=== PATIENT | female | born 1935 | race Caucasian/White ===

== ENCOUNTER 2023-11-24 13:20 | Outpatient (OUT) | payer MEDICARE, OTHER, SELFPAY ==
[2023-11-24 14:18] LABS: Anion Gap 14.3; BUN Creatinine Ratio 22.1; Carbon Dioxide 29.5 mmol/L (21.0-32.0); Chloride 106 mmol/L (98-107); Estimated GFR (African America >60 (>=60); Estimated GFR (Non-African Ame >60 (>=60); Glucose 129 mg/dL (74-106); Potassium 3.8 mmol/L (3.5-5.1); Sodium 146 mmol/L (136-145)
== END 2023-11-24 13:21 | disposition home or self-care (01) ==
LOC: LAB 13:21
PROVIDERS: PCP Family Medicine
DX: I10 Essential (primary) hypertension (principal)
CPT/HCPCS: 36415; 80048

== ENCOUNTER 2023-12-27 13:26 | Outpatient (OUT) | payer MEDICARE, OTHER, SELFPAY ==
--- NOTE | 2023-12-27 13:30 | MM_ITS ---
Patient Name: HEMAL NASCIMENTO MR#: [id number] : 1935 Exam Date: 12/27/2023 Ordering Doctor: Non-Staff Physician RADIOLOGY REPORT PROCEDURE: MM TOMOSYNTHESIS DIAGNOSTIC BI COMPARISON: MG MAMM DIAGNOSTIC 3D ZEKE CAD, 12/23/2021. MG MAMM SCREEN 3D ZEKE CAD, 12/20/2022. 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 Lifetime Breast Cancer Risk Not Applicable. Personal Breast Cancer Yes, in 2018 Personal Ovarian Cancer No Treatments bowel resection, chemotherapy Family Cancers Grandmother-maternal with lung cancer at age ~65. LOCATION: [facility] BREAST COMPOSITION: There are scattered areas of fibroglandular density. FINDINGS: DIAGNOSTIC CATEGORY 2--BENIGN FINDING. NO CHANGE FROM COMPARISON. Scattered benign-appearing calcifications are present. Scattered benign-appearing lymph nodes are present. RIGHT BREAST: No significant suspicious finding. LEFT BREAST: No significant suspicious finding. Stable area of focal asymmetry with contour deformity of the breast upper-outer quadrant deep to a linear scar marker, this is unchanged on the 2021 and 2022 exams. RECOMMENDATIONS: ROUTINE MAMMOGRAM AND CLINICAL EVALUATION IN 12 MONTHS. PLEASE NOTE: A NORMAL MAMMOGRAM DOES NOT EXCLUDE THE POSSIBILITY OF BREAST CANCER. A CLINICALLY SUSPICIOUS PALPABLE LUMP SHOULD BE BIOPSIED. Dictated by: Rao Chavez MD on 12/27/2023 at 13:57 Approved by: Rao Chavez MD on 12/27/2023 at 14:00
== END 2023-12-27 13:27 | disposition home or self-care (01) ==
LOC: MAMMO 13:26
PROVIDERS: PCP Family Medicine
DX: C50.412 Malignant neoplasm of upper-outer quadrant of left female breast (principal); Z17.0 Estrogen receptor positive status [ER+]; Z80.1 Family history of malignant neoplasm of trachea, bronchus and lung
CPT/HCPCS: 77066; G0279

== ENCOUNTER 2024-07-28 20:29 | Emergency (ER) | payer OTHER, MEDICARE, SELFPAY ==
[2024-07-28] VITALS (9 sets, daily range): BP systolic 123–129; BP diastolic 66–67; PULSE 53–96; TEMP 37; O2SAT 92–95; BMI 23.4
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
[2024-07-28 20:39] LABS: Glucometer 108 mg/dL (74-106)
--- NOTE | 2024-07-28 20:41 | ECG_ITS ---
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
--- OUTSIDE RECORDS SUMMARY | 2024-07-28 20:50 | XMS_ITS | CCD ---
Author Organization [facility] Care Team Providers Care Supervisor Steffen House Name Role Phone Yris Suarez MD Primary Care Provider [phone] YRIS SUAREZ Primary Care Physician Yris Suarez MD Primary Care Provider [phone] Yris Suarez Unavailable INGRID RIAVS Admitting Unavailable INGRID RIVAS Attending Unavailable MAGDIEL Ty, Consulting Unavailable ERICK, DR YRIS Khan Primary Care Unavailable TIMMIEileen, DR VINCENT Admitting Unavailable TIMMIS, DR VINCENT Attending Unavailable TIMMIS, DR VINCENT Consulting Unavailable ERICK, DR YRIS Khan Primary Care Unavailable CINDY, DR XU Mcleod Consulting Unavailable KURT DE SANTIAGO Admitting Unavailable KURT DE SANTIAGO Attending Unavailable ERICK, DR YRIS Khan Primary Care Unavailable CINDY, DR XU Mcleod Consulting Unavailable ERICK, DR YRIS Khan Consulting Unavailable INGRID RIVAS Admitting Unavailable ZIEBER, DR FEDERICO Sow Consulting Unavailable INGRID RIVAS Attending Unavailable ERICK, DR YRIS Khan Primary Care Unavailable CONSTANTINE HERNANDEZ Consulting Unavailable INGRID RIVAS Consulting Unavailable Yris Suarez MD Primary Care Provider KIAN MONET Referring Unavailable YRIS SUAREZ Primary Care Unavailable KIAN MONET Attending Unavailable YRIS SUAREZ Primary Care Unavailable KIAN MONET Referring Unavailable YRIS SUAREZ Primary Care Unavailable KIAN MOENT Attending Unavailable YRIS SUAREZ Primary Care Unavailable KIAN MONET Referring Unavailable YRIS SUAREZ Primary Care Unavailable KIAN MONET Attending Unavailable YRIS SUAREZ Primary Care Unavailable KURT DE SANTIAGO Attending Unavailable KURT DE SANTIAGO Referring Unavailable YRIS SUAREZ Primary Care Unavailable Medications Current Medications Medication Drug Class(es) Dates Sig (Normalized) Sig (Original) aspirin 81 mg delayed release oral tablet (15 sources) Platelet Aggregation Inhibitor, Nonsteroidal Anti-inflammatory Drug take 1 tablet by mouth once daily aspirin, enteric coated (ASPIRIN, ENTERIC COATED) 81 mg EC tablet Take 81 mg by mouth once daily. Active take 1 capsule by mouth once nnamdi ly Aspirin 81 MG 1 capsule Orally Once a day Active Comment on above: Take 81 mg by mouth once daily. atorvastatin 40 mg oral tablet (18 sources) HMG-CoA Reductase Inhibitor Start: End: take 1 tablet by mouth once daily atorvastatin (LIPITOR) 40 mg tablet Indications: Mixed hyperlipidemia Take 1 tablet by mouth once daily. 90 tablet 3 06/15/2024 Active Comment on above: Take 1 tablet by gerald th once daily. betamethasone 0.0005 mg/mg topical ointment (2 sources) Corticosteroid Start: Betamethasone Dipropionate 0.05 % 1 application Externally Twice a day for 14 days Aug, Active hydrocortisone 10 mg/ml / neomycin 3.5 mg/ml / polymyxin b [id number] unt/ml otic suspension (2 sources) Aminoglycoside Antibacterial, Polymyxin-class Antibacterial, Corticosteroid Start: Afdtghti-Wlcqcljwu-XR 3.5-73270-0 4 drops into affected ear Otic Three times a day for 7 days Aug, Active losartan potassium 50 mg oral tablet (7 sources) Angiotensin 2 Receptor Nathaly Start: End: take 1 tablet by mouth once daily losartan (COZAAR) 50 mg tablet Indications: Primary hypertension Take 1 tablet by mouth once daily. 90 tablet 3 06/15/2024 Active Start: 11-18-2023 End: 02-21-2024 take 1 tablet by mouth once daily losartan (COZAAR) 25 mg tablet Indications: Primary hypertension Take 1 tablet by mouth once daily. 90 tablet 3 11/18/2023 02/21/2024 Discontinued Comment on above: Take 1 tablet by gerald once daily. magnesium oxide 400 mg oral tablet (18 sources) Start: End: take 1 tablet by mouth once daily magnesium oxide (MAG-OX) 400 mg (241.3 mg magnesium) tablet Indications: Hypomagnesemia , Low magnesium level Take 1 tablet by mouth once daily. 90 tablet 3 06/15/2024 Active Comment on above: Take 1 tablet by gerald once daily. 24 hr metoprolol succinate 25 mg extended release oral tablet (1 source) beta-Adrenergic Nathaly Start: 4 take 0.5 tablet by mouth once daily metoprolol succinate ER (TOPROL XL) 25 mg 24 hr tablet Indications: Primary hypertension Take 0.5 tablets by mouth once daily. 45 tablet 3 06/15/2024 Active ubidecarenone 100 mg oral capsule (18 sources) Start: 1 End: 4 take 1 capsule by mouth once daily coenzyme Q10 (COQ-10) 100 mg cap capsule Indications: Mixed hyperlipidemia Take 1 capsule by mouth once daily. 90 capsule 3 06/15/2024 Active Coenzyme Q-10 10 0 MG as directed Orally Not-Taking Comment on above: Take 1 capsule by mo [facility] once daily. Problems Active Problems Problem Classification Problem Date Documented Da te Episodic/Chronic Allergic reactions (3 sources) Atopic dermatitis; Translations: [Intrinsic (allergic) eczema] Chronic Cancer of breast (17 sources) Malignant neoplasm of upper-outer quadrant of female breast; Translations: [Malignant neoplasm of upper-outer quadrant of left female breast] Onset: 07-31-2018 Chronic Cancer of colon (13 sources) Malignant tumor of colon; Translations: [Malignant neoplasm of colon, unspecified] Onset: 09-06-2012 09-06-2012 Chronic Disorders of lipid metabolism (20 sources) Mixed hyperlipidemia; Translations: [Mixed hyperlipidemia] Onset: 05-29-2021 05-29-2021 Chronic Esophageal disorders (1 source) Gastro-esophageal reflux disease without esophagitis; Translations: [GERD WITHOUT ESOPHAGITIS] Onset: 04-20-2022 Chronic Essential hypertension (3 sources) Essential hypertension; Translations: [Essential (primary) hypertension] 11-18-2023 Chronic Occlusion or stenosis of precerebral arteries (7 sources) Bilateral stenosis of carotid arteries; Translations: [Occlusion and stenosis of bilateral carotid arteries] Onset: 12-09-2023 Chronic Other aftercare (3 sources) Drug therapy finding; Translations: [Encounter for therapeutic drug level monitoring] Episodic Other aftercare (1 source) Long-term current use of drug therapy; Translations: [Encounter for therapeutic drug level monitoring] 06-15-2024 Episodic Other circulatory disease (5 sources) Elevated blood-pressure reading without diagnosis of hypertension; Translations: [Elevated blood-pressure reading, without diagnosis of hypertension] Episodic Other ear and sense organ disorders (2 sources) Acute actinic otitis externa, left ear Episodic Other nutritional; endocrine; and metabolic disorders (7 sources) Hypomagnesemia; Translations: [Hypomagnesemia] Chronic Other nutritional; endocrine; and metabolic disorders (1 source) Hypomagnesemia; Translations: [Hypomagnesemia] Onset: 11-18-2023 Chronic Other screening for suspected conditions (not mental disorders or infectious disease) (5 sources) Encounter for screening mammogram for malignant neoplasm of breast; Translations: [Hypomagnesemia] Onset: 12-20-2022 Episodic Other upper respiratory infections (6 sources) Chronic pansinusitis; Translations: [Chronic sinusitis, unspecified] Onset: 04-19-2022 Chronic Residual codes; unclassified (1 source) Family history of malignant neoplasm of trachea, bronchus and lung; Translations: [FAM HX MALIG NEOPLSM TRACH BRON LNG] Onset: 12-25-2022 Episodic Past or Other Problems Problem Classification Problem Date Documented Da te Episodic/Chronic Conditions associated with dizziness or vertigo (4 sources) Dizziness and giddiness; Translations: [DIZZINESS AND GIDDINESS] Onset: 04-16-2022 Episodic Other aftercare (2 sources) Other exterminator termite (current) drug therapy; Translations: [OTH USP CURRENT DRUG THERAPY] Onset: 04-20-2022 Episodic Other aftercare (1 source) intermission coordinator (current) use of aspirin; Translations: [USP CURRENT USE OF ASPIRIN] Onset: 04-20-2022 Episodic Other aftercare (1 source) Encounter for therapeutic drug level monitoring; Translations: [Encounter for monitoring statin therapy] Onset: 11-18-2023 Episodic Other circulatory disease (1 source) Elevated blood-pressure reading, without diagnosis of hypertension; Translations: [Elevated blood pressure reading without diagnosis of hypertension] Onset: 11-18-2023 Episodic Other eye disorders (3 sources) Ocular pain, right eye; Translations: [OCULAR PAIN RIGHT EYE] Onset: 04-18-2022 Episodic Other upper respiratory disease (1 source) Cyst and mucocele of nose and nasal sinus; Translations: [CYST AND MUCOCELE NOSE AND NASAL SINUS] Onset: 04-20-2022 Episodic Screening and history of mental health and substance abuse codes (7 sources) Ex-smoker; Translations: [Personal history of nicotine dependence] Onset: 04-20-2022 Episodic Urinary tract infections (1 source) Urinary tract infection, site not specified; Translations: [UTI SITE NOT SPECIFIED] Onset: 04-20-2022 Episodic Results Test Name Value Interpretation Reference Range Facility [facility] 06-15-2024 CNOV Office Visit ([facility] ) NASCIMENTOMORELIA ([id number]) 1935 F Date Time Provider Department 06/15/24 1:30 PM KIAN MONET During your visit today, we recorded the following information about you: Pulse Blood pressure Weight 92/minute 153/74 65 kg Kian Monet DO 06/15/2024 2:02 PM [facility] [place] SECTION OF REGIONAL CARDIOLOGY OUTPATIENT VISIT DATE 06/15/24 OUTPATIENT VISIT TYPE Established PRIMARY CARE PHYSICIAN: Yris Suarez MD ([facility]) [address] [place] [phone] HISTORY OF PRESENT ILLNESS: Ms. Nascimento is a 88 year old female with a PMH of carotid stenosis, hx of colon CA, and breast CA sp surgery.she was last seen by me on 02/21/2024, per that note: ...she tells me that she feels great. She checks her BP once in a while and her measurements have indicated that her blood pressure is controlled however when checking her blood pressure monitor today it was significantly off, 23 mmHg. She denies having any symptoms such as: chest pain, palpitations, shortness of breath, orthopnea, LE edema, presyncope/syncope, N/V, bleeding, or other significant symptoms. Today, she tells me that she enjoys being outside. She went golfing and was taking care of the garden. She denies having any: chest pain, palpitations, shortness of breath, orthopnea, LE edema, presyncope/syncope, N/V, bleeding, or other significant symptoms. She is still eating vegetables daily. She drinks 1 cup of coffee in the AM. She will have 3-4 alcoholic beverages a month. She quit smoking in 1998. She is not using any marijuana nor other drugs. She is walking for 30+ minutes her dog 3-4 times a day. Family, mother had 3 TIAs and at 89 years of age. Father had dementia. Upon further questioning, she lost her in 2006. She continues to have fecal incontinence and is working with her PCP regarding this. She tells me that her home sBP is in the 120s. IMPRESSION: Encounter Diagnosis ICD-10-CM 1. Primary hypertension I10 losartan (COZAAR) 50 mg tablet metoprolol succinate ER (TOPROL XL) 25 mg 24 hr tablet COMPLETE BLOOD COUNT BASIC METABOLIC PANEL 2. Mixed hyperlipidemia E78.2 coenzyme Q10 (COQ-10) 100 mg cap capsule atorvastatin (LIPITOR) 40 mg tablet LIPID PANEL BASIC 3. Hypomagnesemia E83.42 magnesium oxide (MAG-OX) 400 mg (241.3 mg magnesium) tablet MAGNESIUM 4. Low magnesium level R79.0 magnesium oxide (MAG-OX) 400 mg (241.3 mg magnesium) tablet 5. Bilateral carotid artery stenosis I65.23 6. Encounter for monitoring statin therapy Z51.81 Z79.899 7. Ex-smoker Z87.891 PLAN AND RECOMMENDATION: Goal blood pressure less than 130/80 mmHg. Home BP appears to be slightly above goal range. Recommend continuing losartan 50 mg daily and adding metoprolol XL 12.5 mg daily. Bring blood pressure log to next visit. Continue lifestyle modifications. Consider titration again at next visit if needed. Check labs prior to next visit. Goal LDL is less than 70mg/dL. Continue atorvastatin 40 mg nightly, LDL is now at goal. Monitor for myalgias at next visit. Check lipid panel prior to next visit Continue to replace magnesium. Carotid stenosis is mild 20-39 percent at this time. Recheck carotid ultrasound in 3 years, 2026. Continue complete smoking cessation. REVIEW OF SYSTEMS: Chest pain No Shortness of breath No Bleeding No Dizziness No Syncope No Palpations No 10 systems reviewed and are negative with the exception of pertinent positives described in HPI PHYSICAL EXAMINATION: BP 153/74 Pulse 92 Wt 65 kg (143 lb 4.8 oz) SpO2 97% BMI 27.09 kg/m? Gen; NAD HEENT: normocephalic, EOMI , no JVD, no significant carotid bruit Heart: regular rhythm , no significant murmur Lungs: clear to auscultation Abdomen: bowel sounds present Extremities: no edema Musculoskeletal: chest wall nontender Neurological: alert and oriented Psychiatric: appropriate and cooperative Skin: no rash, cellulitis or lesions appreciated CARDIOVASCULAR MEDICINE TESTING: I have personally reviewed ECG, echocardiogram report, stress test report, MCOT report, laboratory results and vascular imaging report ECG -11/18/2023 NSR 84 bpm, LAD, anterior infarct age undetermined, abnormal ECG Carotid ultrasound-12/09/2023 Right internal carotid artery 20-39 percent stenosis. Left internal carotid artery 20-39 percent stenosis. ETT - 01/09/19 101% MPHR, 6.2 METS good functional capacity, Normal except for low HRR SPECT - 01/09/19 CONCLUSIONS: 1. SPECT Perfusion Study: Normal. 2. There is no scintigraphic evidence for inducible ischemia. 3. No evidence of scarred myocardium. 4. Good functional capacity for age and gender. 5. Left ventricle is small. The left ventricle systolic function is normal. 6. Right (more content not included)... Normal [facility] Basic metabolic 2000 panelon 03-05-2024 Anion gap [Moles/Vol] 9 mmol/L Normal 8-15 [facility] Comment on above: Order Comment: Speci men Type: BLOOD SPECIMEN Ordering Facility: [facility] Address: [address] [place] [address] Performed By: #### 1 9123-9, 41437-8 #### [facility] CLIA [id number] [address] [place] [address] Calcium [Mass/Vol] 9.7 mg/dL Normal 8.5-10.2 [facility] Comment on above: Order Comment: Speci men Type: BLOOD SPECIMEN Ordering Facility: [facility] Address: [address] [place] [address] Performed By: #### 1 9123-9, 84810-5 #### [facility] CLIA [id number] [address] [place] [address] Chloride [Moles/Vol] 105 mmol/L Normal 98-107 [facility] Comment on above: Order Comment: Speci men Type: BLOOD SPECIMEN Ordering Facility: [facility] Address: [address] [place] [address] Performed By: #### 1 9123-9, 42568-1 #### [facility] CLIA [id number] [address] [place] [address] CO2 [Moles/Vol] 25 mmol/L Normal 22-30 [facility] Comment on above: Order Comment: Speci men Type: BLOOD SPECIMEN Ordering Facility: [facility] Address: [address] [place] [address] Performed By: #### 1 9123-9, 64999-8 #### [facility] CLIA [id number] [address] [place] [address] Creatinine [Mass/Vol] 0.81 mg/dL Normal 0.58-0.96 [facility] Comment on above: Order Comment: Speci men Type: BLOOD SPECIMEN Ordering Facility: [facility] Address: [address] [place] [address] Performed By: #### 1 9123-9, 55191-6 #### [facility] CLIA [id number] [address] [place] [address] Creatinine and Glomerular filtration rate.predicted panel (S/P/Bld) 70 mL/min/1.73m??? Normal >=60 [facility] Comment on above: Order Comment: Speci men Type: BLOOD SPECIMEN Ordering Facility: [facility] Address: [address] [place] [address] Result Comment: Gisell mated Glomerular Filtration Rate (eGFR) is calculated using the 2020 CKD-EPI creatinine equation. This equation utilizes serum creatinine, sex, and age as parameters. The creatinine assay has traceable calibration to isotope dilution-mass spectrometry. Refer to KDIGO guidelines for clinical interpretation. In patients with unstable renal function, e.g. those with acute kidney injury, the eGFR may not accurately reflect actual GFR. Performed By: #### 1 9123-9, 54517-1 #### [facility] CLIA [id number] [address] [place] [address] Glucose [Mass/Vol] 108 mg/dL High 74-99 [facility] Comment on above: Order Comment: Speci men Type: BLOOD SPECIMEN Ordering Facility: [facility] Address: [address] [place] [address] Result Comment: The [place] Diabetes Association (ADA) provides guidance for cutoff values for fasting glucose and random glucose. The ADA defines fasting as no caloric intake for at least 8 hours. Fasting plasma glucose results between 100 to 125 mg/dL indicate increased risk for diabetes (prediabetes). Fasting plasma glucose results greater than or equal to 126 mg/dL meet the criteria for diagnosis of diabetes. In the absence of unequivocal hyperglycemia, results should be confirmed by repeat testing. In a patient with classic symptoms of hyperglycemia or hyperglycemic crisis, random plasma glucose results greater than or equal to 200 mg/dL meet the criteria for diagnosis of diabetes. Reference: Standards of Medical Care in Diabetes 2016, [place] Diabetes Association. Diabetes Care. 2016.39(Suppl 1). Performed By: #### 1 9123-9, 95811-6 #### [facility] CLIA [id number] [address] [place] [address] Potassium [Moles/Vol] 4.0 mmol/L Normal 3.7-5.1 [facility] Comment on above: Order Comment: Speci men Type: BLOOD SPECIMEN Ordering Facility: [facility] Address: [address] [place] [address] Performed By: #### 1 91239, 71536-5 #### [facility] CLIA [id number] [address] [place] [address] Sodium [Moles/Vol] 139 mmol/L Normal 136-144 [facility] Comment on above: Order Comment: Speci men Type: BLOOD SPECIMEN Ordering Facility: [facility] Address: [address] [place] [address] Performed By: #### 1 91239, 58786-6 #### [facility] CLIA [id number] [address] [place] [address] Urea nitrogen [Mass/Vol] 16 mg/dL Normal 7-21 [facility] Comment on above: Order Comment: Speci men Type: BLOOD SPECIMEN Ordering Facility: [facility] Address: [address] [place], [place] [address] Performed By: #### 1 9123-9, 69280-0 #### [facility] CLIA [id number] [address] [place] [address] Magnesium SerPl-mCncon 03-05 Magnesium [Mass/Vol] 2.2 mg/dL Normal 1.7-2.3 [facility] Comment on above: Order Comment: Speci men Type: BLOOD SPECIMEN Ordering Facility: [facility] Address: [address] [place] [address] Performed By: #### 1 9123-9, 51378-6 #### [facility] CLIA [id number] [address] [place] [address] CNOVon 02-21-2024 CNOV Office Visit ([facility]) MORELIA NASCIMENTO ([id number]) 1935 F Date Time Provider Department 02/21/24 1:30 PM KIAN MONET [facility] During your visit today, we recorded the following information about you: Pulse Blood pressure Weight 86/minute 152/62 64 kg Kian Monet DO 02/21/2024 2:21 PM Signed [facility] [place] SECTION OF REGIONAL CARDIOLOGY OUTPATIENT VISIT DATE 02/21/24 OUTPATIENT VISIT TYPE Established PRIMARY CARE PHYSICIAN: Yris Suarez MD ([facility]) [address] [place] [address] HISTORY OF PRESENT ILLNESS: Ms. Nascimento is a 88 year old female with a PMH of carotid stenosis, hx of colon CA, and breast CA sp surgery.she was last seen by me on 11/18/2023, per that note: ... she states that she is feeling well. She denies having any: chest pain, palpitations, shortness of breath, orthopnea, LE edema, presyncope/syncope, N/V, bleeding, or other significant symptoms. Today, she tells me that she feels great. She checks her BP once in a while and her measurements have indicated that her blood pressure is controlled however when checking her blood pressure monitor today it was significantly off, 23 mmHg. She denies having any symptoms such as: chest pain, palpitations, shortness of breath, orthopnea, LE edema, presyncope/syncope, N/V, bleeding, or other significant symptoms. She is still eating vegetables daily. She drinks 1 cup of coffee in the AM. She will have 3-4 alcoholic beverages a month. She quit smoking in 1998. She is not using any marijuana nor other drugs. She is walking for 30+ minutes her dog 3-4 times a day. Family, mother had 3 TIAs and at 89 years of age. Father had dementia. Upon further questioning, she lost her in 2006. She continues to have fecal incontinence and is working with her PCP regarding this. She tells me that her home sBP is in the 120s. IMPRESSION: Encounter Diagnosis ICD-10-CM 1. Primary hypertension I10 losartan (COZAAR) 50 mg tablet BASIC METABOLIC PANEL 2. Mixed hyperlipidemia E78.2 3. Hypomagnesemia E83.42 MAGNESIUM 4. Bilateral carotid artery stenosis I65.23 5. Ex-smoker Z87.891 PLAN AND RECOMMENDATION: Goal blood pressure less than 130/80 mmHg. Blood pressure log shows that BP is above goal at home. Recommend increasing losartan to 50 mg daily. She should have BMP checked 2 weeks after increasing medicine. She will bring blood pressure log to next visit. At next visit consider if antihypertensive medication needs to be titrated further. Goal LDL is less than 70mg/dL. Continue atorvastatin 40 mg nightly, LDL is now at goal. Monitor for myalgias at next visit. Check lipid panel prior to next visit Continue to replace magnesium. Carotid stenosis is mild 20-39 percent at this time. Recheck carotid ultrasound in 3 years, 2026. Continue complete smoking cessation. REVIEW OF SYSTEMS: Chest pain No Shortness of breath No Bleeding No Dizziness No Syncope No Palpations No 10 systems reviewed and are negative with the exception of pertinent positives described in HPI PHYSICAL EXAMINATION: BP 152/62 Pulse 86 Wt 64 kg (141 lb 1.5 oz) SpO2 97% BMI 26.67 kg/m? Gen; NAD HEENT: normocephalic, EOMI , no JVD, no significant carotid bruit Heart: regular rhythm , no significant murmur Lungs: clear to auscultation Abdomen: bowel sounds present Extremities: no edema Musculoskeletal: chest wall nontender Neurological: alert and oriented Psychiatric: appropriate and cooperative Skin: no rash, cellulitis or lesions appreciated CARDIOVASCULAR MEDICINE TESTING: I have personally reviewed ECG, echocardiogram report, stress test report, MCOT report, laboratory results and vascular imaging report ECG -11/18/2023 NSR 84 bpm, LAD, anterior infarct age undetermined, abnormal ECG Carotid ultrasound-12/09/2023 Right internal carotid artery 20-39 percent stenosis. Left internal carotid artery 20-39 percent stenosis. ETT - 01/09/19 101% MPHR, 6.2 METS good functional capacity, Normal except for low HRR SPECT - 01/09/19 CONCLUSIONS: 1. SPECT Perfusion Study: Normal. 2. There is no scintigraphic evidence for inducible ischemia. 3. No evidence of scarred myocardium. 4. Good functional capacity for age and gender. 5. Left ventricle is small. The left ventricle systolic function is normal. 6. Right ventricle is small. The right ventricle systolic function is normal. 7. This is a low risk scan. Gated Stress FBP Gated Rest FBP LVEF % 83 Echo -12/28/18 CONCLUSIONS: - Exam indication: Abnormal ECG - The left ventricle is normal in size. There is no left ventricular hypertrophy. Left ventricular systolic function is normal. EF = 61 ? 5% (2D 4-ch.) - The right ventricle is normal in size. Right ventricular systolic function is (more content not included)... Normal [facility] CNOVon 12-29-2023 CNOV Office Visit ([facility] ) MORELIA NASCIMENTO ([id number]) 1935 F Date Time Provider Department 12/29/23 10:00 AM KURT DE SANTIAGO During your visit today, we recorded the following information about you: Kurt De Santiago MD 01/10/2024 7:04 AM Addendum Radiation Oncology - Follow Up Note PATIENT NAME: Morelia Nascimento PATIENT DIAGNOSIS/PATIENT IDENTIFICATION: Ms. Nascimento is an 88-year-old woman who was diagnosed with Stage I, [id number] invasive lobular carcinoma of the left breast; ER/AK positive HER-2 negative after undergoing left breast wide local excision and attempted sentinel lymph node biopsy on 07/05/[address] Pan. Pathology revealed 2 cm of intermediate grade invasive lobular carcinoma with close (0.2 mm) but negative margins and no sentinel lymph nodes were identified/taken. Presented with her adjuvant treatment choices she opted to move forward with a course of post-operative hypo-fractionated radiation therapy to the left breast for reduction of local recurrence which she completed on 09/27/2018 (5005 cGy in 20 fractions). She is not pursuing endocrine therapy. INTERVAL HISTORY/ROS: Ms. Nascimento returns to clinic today for routine follow-up approximately five years after the completion of her radiation treatments and one year since her last visit on 12/27/2022. In the interim, she had her annual surveillance mammogram earlier this week on 12/27/2023 showing stable posttreatment changes in the left breast with no concern for disease (BI-RADS 2). Today she reports no pain/discomfort in the breast or any skin irritation/breakdown or swelling or itching. She is not currently using a moisturizer in the area and reports no new lumps or bumps in the breast. She reports intact range of motion of the left upper extremity. She endorses good energy appetite and hydration with stable weight and continues to remain very active including golfing. She notes recent worsening of her hearing as well as constipation and increased urinary frequency but otherwise denies any recent fevers, chills, headaches, difficulty with speech/swallowing, shortness of breath, chest pain/palpitations, abdominal pain, nausea, vomiting, difficulty with gait/balance, recent falls, etc. The remainder of the review of systems was performed and was otherwise noncontributory. ALLERGIES ALLERGIES No Known Allergies MEDICATIONS: Current Outpatient Medications: losartan (COZAAR) 25 mg tablet atorvastatin (LIPITOR) 40 mg tablet coenzyme Q10 (COQ-10) 100 mg cap capsule magnesium oxide (MAG-OX) 400 mg (241.3 mg magnesium) tablet aspirin, enteric coated (ASPIRIN, ENTERIC COATED) 81 mg EC tablet PHYSICAL EXAM: GENERAL: elderly woman sitting in chair in no acute distress. KPS: 90 HEENT: NC/AT, anicteric sclera HEART: S1S2 LUNGS: non-labored breathing ABDOMEN: soft MUSCULOSKELETAL: no peripheral edema, moves all extremities. NEURO: no focal deficit; AANDO X3. BREASTS:.The patient was examined in the upright, seated position. Her incisions in the left breast are well healed with no signs of separation or underlying infection. Trace post-radiation pigment changes are noted with no areas of desquamation. No other abnormalities were identified in either breast or axilla. RADIOLOGIC DATA: Bilateral Mammogram (12/27/2023) ASSESSMENT AND PLAN: Ms. 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 Pan. Pathology revealed 2 cm of intermediate grade invasive lobular carcinoma with close (0.2 mm) but negative margins and no sentinel lymph nodes were identified/taken. Presented with her adjuvant treatment choices she opted to move forward with a course of post-operative hypo-fractionated radiation therapy to the left breast for reduction of local recurrence which she completed on 09/27/2018 (5005 cGy in 20 fractions). She is not pursuing endocrine therapy. Ms. Nascimento is doing well clinically approximately five years out from the completion of her postoperative radiation treatments to the left breast with no significant residual sequela at this time. She is without clinical or radiographic evidence of disease based on breast examination today as well as her bilateral mammogram from earlier this week on 12/27/2023 showing stable posttreatment changes in the left breast with no other concerns (BI-RADS 2). Given her age as well as the fact that she is over 5 years out now from her breast cancer diagnosis and treatments, we agreed that it be reasonable to move to imaging and follow-up every 2 years and she will contact us in the interim should there be any concerns including any changes in the breast. Signed by: (more content not included)... Normal [facility] US CAROTID ARTERIES ZEKE VAS LABon 12-09-2023 US CAROTID ARTERIES ZEKE VAS LAB Non-Invasive Vascular Laboratory [facility] Carotid Duplex Bilateral/Complete Date of service/time: 12/09/2023 3:04:00 PM Name: MRS. MORELIA NASCIMENTO Date of : 1935 Age: 88 years Gender: F Clinical Indication Follow-up study on a patient with known carotid disease. TECHNIQUE -------- A carotid duplex ultrasound examination was performed, including grayscale imaging and color Doppler and spectral Doppler examination of the below mentioned arteries. FINDINGS -------- RIGHT SIDE Common carotid artery: Origin: PSV: 69 cm/s. EDV: 9 cm/s. Proximal: PSV: 109 cm/s. EDV: 15 cm/s. Mid: PSV: 79 cm/s. EDV: 8 cm/s. Distal: PSV: 77 cm/s. EDV: 10 cm/s. Internal carotid artery: Origin: PSV: 49 cm/s. EDV: 6 cm/s. Proximal: PSV: 52 cm/s. EDV: 12 cm/s. Mid: PSV: 79 cm/s. EDV: 21 cm/s. Distal: PSV: 67 cm/s. EDV: 16 cm/s. Mild heterogeneous plaque from origin to proximal. ICA/CCA Ratio: 1.0 External carotid artery: Proximal: PSV: 119 cm/s. EDV: 0 cm/s. Mild heterogeneous plaque at origin. Subclavian artery: Proximal: PSV: 99 cm/s. EDV: 0 cm/s. Vertebral artery: PSV: 26 cm/s. EDV: 8 cm/s. LEFT SIDE Common carotid artery: Proximal: PSV: 80 cm/s. EDV: 12 cm/s. Mid: PSV: 80 cm/s. EDV: 9 cm/s. Distal: PSV: 83 cm/s. EDV: 13 cm/s. Mild heterogeneous plaque at distal. Internal carotid artery: Origin: PSV: 48 cm/s. EDV: 13 cm/s. Proximal: PSV: 72 cm/s. EDV: 14 cm/s. Mid: PSV: 71 cm/s. EDV: 17 cm/s. Distal: PSV: 87 cm/s. EDV: 23 cm/s. Mild heterogeneous plaque at proximal. ICA/CCA Ratio: 1.1 External carotid artery: Proximal: PSV: 104 cm/s. EDV: 0 cm/s. Subclavian artery: Proximal: PSV: 125 cm/s. EDV: 0 cm/s. Vertebral artery: PSV: 31 cm/s. EDV: 6 cm/s. IMPRESSION Compared to prior study of 03/26/2020, no significant change. RIGHT SIDE Internal carotid artery: 20-39% stenosis. Vertebral artery: Patent and antegrade flow noted. Innominate artery: Unable to adequately visualize. LEFT SIDE Common carotid artery: Plaque visualized without evidence of hemodynamically significant stenosis. Internal carotid artery: 20-39% stenosis. Vertebral artery: Patent and antegrade flow noted. High resistive signal suggests non-dominant vessel or more distal disease; clinical correlation is suggested. Technologist: Belkys Stone RVT Ordering physician: KIAN MONET Interpreting physician: Fran Munoz MD Final CC [facility] Image : [id number] See Link below for Image Normal [facility] Jessie 11-25-2023 CNPN Telephone (CARDLO) MORELIA NASCIMENTO ([id number]) 1935 F Date Time Provider Department 11/25/23 KIAN MONET During your visit today, we recorded the following information about you: Sakina Akbar MA 11/25/2023 8:52 AM Signed Outside labs received from [facility], date of collection: 11/24/2023. Labs entered into patients chart. Kian Monet DO 11/25/2023 9:13 AM Signed Labs reviewed. Sodium level slightly above normal range likely indicating an element of dehydration. Recommend that patient hydrate a little more today. Signed: Kian Monet DO, [facility] November 25, 2023 This note was partially generated using [employer] voice recognition system, and there may be some incorrect words, spellings, and punctuation that were not noted in checking the note before saving. Zak Wilkins MA 11/25/2023 9:29 AM Signed Attempted to call patient.No answer.Left voicemail for patient to call office back for below message. Susanna Fofana, FRANCISCA 11/25/2023 9:47 AM Signed Pt identified by name and Pt given message below Stated understanding Allergies As of Date: 11/25/2023 (No Known Allergies) Date Reviewed: 11/18/2023 Reviewed by: Zak Wilkins MA - Fully Assessed Order(s):[facility] [[id number]] Order #: [id number] Prescriptions as of 11/25/2023 - losartan (COZAAR) 25 mg tablet Take 1 tablet by mouth once daily. - atorvastatin (LIPITOR) 40 mg tablet Take 1 tablet by mouth once daily. - coenzyme Q10 (COQ-10) 100 mg cap capsule Take 1 capsule by mouth once daily. - magnesium oxide (MAG-OX) 400 mg (241.3 mg magnesium) tablet Take 1 tablet by mouth once daily. - aspirin, enteric coated (ASPIRIN, ENTERIC COATED) 81 mg EC tablet Take 81 mg by mouth once daily. Meds Comments as of 09/06/2012: Forgot med list will call back Problem List As Of Date 11/25/2023 Noted Resolved Colon cancer [C18.9] 09/06/2012 Malignant neoplasm of upper-outer quadrant of l*07/31/2018 Mixed hyperlipidemia [E78.2] 05/29/2021 Encounter Status:[facility]INTMLN[facility] MORELIA NASCIMENTO ([id number]) 1935 F Date Time Provider Department 11/21/23 KIAN MONET INTMLN During your visit today, we recorded the following information about you: Jen Burns 11/21/2023 9:10 AM Signed Morelia's daughter is calling in, she took her to her appointment on Tuesday. She states that her mother still wants to be independent, she went into the visit by herself and came out very confused. She was looking to go over appointment. Also, asking for the lab order to be faxed to [facility]. F:[phone] Patient has been identified by name and birthdate. Duration of symptoms: N/A Person calling: daughter: Call patient at: [phone] Was an appointment scheduled: No Closing statement: Results or non-symptom based questions: Thank you for calling [facility], your call will be returned within the next business day. Darling Cunningham, RN 11/21/2023 10:52 AM Signed Faxed lab orders as requested. I spoke with patient's daughter Susanna and she just questioned the Carotid US ordered at the last visit and why it is needed. I explained that Dr. Monet just wants a 3 year follow up US to revaluate the mild stenosis seen the last time. She verbalized understanding and will let the patient know. No further questions. Allergies As of Date: 11/21/2023 (No Known Allergies) Date Reviewed: 11/18/2023 Reviewed by: Zak Wilkins MA - Fully Assessed Prescriptions as of 11/21/2023 - losartan (COZAAR) 25 mg tablet Take 1 tablet by mouth once daily. - atorvastatin (LIPITOR) 40 mg tablet Take 1 tablet by mouth once daily. - coenzyme Q10 (COQ-10) 100 mg cap capsule Take 1 capsule by mouth once daily. - magnesium oxide (MAG-OX) 400 mg (241.3 mg magnesium) tablet Take 1 tablet by mouth once daily. - aspirin, enteric coated (ASPIRIN, ENTERIC COATED) 81 mg EC tablet Take 81 mg by mouth once daily. Meds Comments as of 09/06/2012: Forgot med list will call back Problem List As Of Date 11/21/2023 Noted Resolved Colon cancer [C18.9] 09/06/2012 Malignant neoplasm of upper-outer quadrant of l*07/31/2018 Mixed hyperlipidemia [E78.2] 05/29/2021 Encounter Status:Closed by DARLNIG RODRIGUEZ on 11/21/[address] [facility] CNOVon 11-18-2023 CNOV Office Visit (VENESSA ) MORELIA NASCIMENTO ([id number]) 1935 F Date Time Provider Department 11/18/23 1:30 PM KIAN MONET During your visit today, we recorded the following information about you: Pulse Blood pressure Weight 83/minute 155/69 62 kg Kian Monet DO 11/18/2023 1:43 PM Signed [facility] SE[facility] OF REGIONAL CARDIOLOGY OUTPATIENT VISIT DATE 11/18/23 OUTPATIENT VISIT TYPE Established PRIMARY CARE PHYSICIAN: Yris Suarez MD ([facility]) [address] [place] [phone] HISTORY OF PRESENT ILLNESS: Ms. Nascimento is a 88 year old female with a PMH of carotid stenosis, hx of colon CA, and breast CA sp surgery.she was last seen by me on 05/20/23, per that note: ... she states that she is again very good. She denies having any: chest pain, palpitations, shortness of breath, orthopnea, LE edema, presyncope/syncope, N/V, bleeding, or other significant symptoms. Today, she states that she is feeling well. She denies having any: chest pain, palpitations, shortness of breath, orthopnea, LE edema, presyncope/syncope, N/V, bleeding, or other significant symptoms. She is still eating vegetables daily. She drinks 1 cup of coffee in the AM. She will have 3-4 alcoholic beverages a month. She quit smoking in 1998. She is not using any marijuana nor other drugs. She is walking for 30+ minutes her dog 3-4 times a week. Family, mother had 3 TIAs and at 89 years of age. Father had dementia. Upon further questioning, she lost her in 2006. She continues to have fecal incontinence and is working with her PCP regarding this. She tells me that her home sBP is in the 120s. IMPRESSION: Encounter Diagnosis ICD-10-CM 1. Bilateral carotid artery stenosis I65.23 ECG COMPLETE 2. Primary hypertension I10 ECG COMPLETE losartan (COZAAR) 25 mg tablet BASIC METABOLIC PNL 3. Mixed hyperlipidemia E78.2 4. Hypomagnesemia E83.42 ECG COMPLETE 5. Encounter for monitoring statin therapy Z51.81 Z79.899 6. Ex-smoker Z87.891 PLAN AND RECOMMENDATION: Carotid stenosis is mild 20-39 percent at this time. Ordered carotid US to be done prior to next visit which will be 3 years since her last ultrasound, prior to next visit. Goal blood pressure less than 130/80 mmHg. Blood pressure log shows that BP is above goal at home. Recommend starting losartan 25 mg daily. She should have BMP checked 2 weeks after starting medicine. She will bring blood pressure log to next visit. Consider treating antihypertensive regimen if blood pressure continues to be elevated at home. Goal LDL is less than 70mg/dL. Continue atorvastatin 40 mg nightly, LDL is now at goal. Monitor for myalgias at next visit. Check lipid panel prior to next visit Continue to replace magnesium. Continue complete smoking cessation. REVIEW OF SYSTEMS: Chest pain No Shortness of breath No Bleeding No Dizziness No Syncope No Palpations No 10 systems reviewed and are negative with the exception of pertinent positives described in HPI PHYSICAL EXAMINATION: BP 155/69 Pulse 83 Wt 62 kg (136 lb 11 oz) SpO2 99% BMI 25.84 kg/m? Gen; NAD HEENT: normocephalic, EOMI , no JVD, no significant carotid bruit Heart: regular rhythm , no significant murmur Lungs: clear to auscultation Abdomen: bowel sounds present Extremities: no edema Musculoskeletal: chest wall nontender Neurological: alert and oriented Psychiatric: appropriate and cooperative Skin: no rash, cellulitis or lesions appreciated CARDIOVASCULAR MEDICINE TESTING: I have personally reviewed ECG, laboratory results and vascular imaging report ECG -11/18/2023 NSR 84 bpm, LAD, anterior infarct age undetermined, abnormal ECG Carotid US - 11/16/18 Outside record MIRIAN 0-49% stenosis LICA 66% stenosis Non-occlusive thrombus in the internal jugular vein Carotid ultrasound-03/26/20 Right internal carotid artery 20-39 percent stenosis. Left internal carotid artery 20-39 percent stenosis. ETT - 01/09/19 101% MPHR, 6.2 METS good functional capacity, Normal except for low HRR SPECT - 01/09/19 CONCLUSIONS: 1. SPECT Perfusion Study: Normal. 2. There is no scintigraphic evidence for inducible ischemia. 3. No evidence of scarred myocardium. 4. Good functional capacity for age and gender. 5. Left ventricle is small. The left ventricle systolic function is normal. 6. Right ventricle is small. The right ventricle systolic function is normal. 7. This is a low risk scan. Gated Stress FBP Gated Rest FBP LVEF % 83 Echo -12/28/18 CONCLUSIONS: - Exam indication: Abnormal ECG - The left ventricle is normal in size. There is no left ventricular hypertrophy. Left ventricular systolic function is normal. EF = 61 ? 5% (2D 4-ch.) - The right ventricle is normal in size. Right ventricul (more content not included)... Normal [facility] ECG COMPLETEon 11-18-2023 Atrial Rate 84 BPM [facility] Calculated P [place] 78 degrees [facility] Calculated R [place] -55 degrees [facility] Calculated T [place] 70 degrees [facility] P-R Interval 150 ms [facility] QRS Duration 90 ms [facility] QT Interval 378 ms [facility] QTC Calculation (Bazett) 446 ms [facility] Ventricular Rate 84 BPM [facility] ECG COMPLETE Ventricular Rate : 8 4 BPM Atrial Rate : 84 BPM P-R Interval : 150 ms QRS Duration : 90 ms Q-T Interval : 378 ms QTC Calculation(Bazett) : 446 ms Calculated P [place] : 78 degrees Calculated R [place] : -55 degrees Calculated T [place] : 70 degrees NORMAL SINUS RHYTHM LEFT AXIS DEVIATION ANTERIOR MYOCARDIAL INFARCTION , AGE UNDETERMINED ABNORMAL ECG Confirmed by ARABELLA WINSLOW MD ([id number]) on 11/18/2023 4:56:02 PM NAME : MORELIA NASCIMENTO PID : [id number] : 1935 Gender : Female Race : ORD : [id number] Procedure Date : Nov 18 2023 13:21:59 Edit Date : Nov 18 2023 16:56:03 Diagnosis: NORMAL SINUS RHYTHM LEFT AXIS DEVIATION ANTERIOR MYOCARDIAL INFARCTION , AGE UNDETERMINED ABNORMAL ECG Confirmed by ARABELLA WINSLOW MD ([id number]) on 11/18/2023 4:56:02 PM Test Reason : I65.23 Bilateral carotid artery stenosis Location : 145 : [facility] Overread By : ARABELLA WINSLOW MD Edited By : ARABELLA WINSLOW MD Referred By : , Acquired by : , Normal [facility] Basic metabolic 2000 panelon 11-14-2023 Anion gap [Moles/Vol] 10 mmol/L Normal 05-16 [facility] Comment on above: Order Comment: Speci men Type: BLOOD SPECIMEN Ordering Facility: [facility] Address: [address] [place] [address] Performed By: #### 2 4321-2 #### [facility] CLIA [id number] [address] [place] [address] Calcium [Mass/Vol] 10.1 mg/dL Normal 8.5-10.2 [facility] Comment on above: Order Comment: Speci men Type: BLOOD SPECIMEN Ordering Facility: [facility] Address: [address] [place] [address] Performed By: #### 2 4321-2 #### [facility] CLIA [id number] [address] [place] [address] Chloride [Moles/Vol] 104 mmol/L Normal 97-105 [facility] Comment on above: Order Comment: Speci men Type: BLOOD SPECIMEN Ordering Facility: [facility] Address: [address] [place] [address] Performed By: #### 2 4321-2 #### [facility] CLIA [id number] [address] [place] [address] CO2 [Moles/Vol] 27 mmol/L Normal 22-30 [facility] Comment on above: Order Comment: Speci men Type: BLOOD SPECIMEN Ordering Facility: [facility] Address: [address] [place] [address] Performed By: #### 2 4321-2 #### [facility] CLIA [id number] [address] [place] [address] Creatinine [Mass/Vol] 0.87 mg/dL Normal 0.58-0.96 [facility] Comment on above: Order Comment: Speci men Type: BLOOD SPECIMEN Ordering Facility: [facility] Address: [address] [place] [address] Performed By: #### 2 4321-2 #### [facility] CLIA [id number] [address] [place] [address] Creatinine and Glomerular filtration rate.predicted panel (S/P/Bld) 65 mL/min/1.73m??? Normal >=60 [facility] Comment on above: Order Comment: Speci men Type: BLOOD SPECIMEN Ordering Facility: [facility] Address: [address] [place] [address] Result Comment: Gisell mated Glomerular Filtration Rate (eGFR) is calculated using the 2020 CKD-EPI creatinine equation. This equation utilizes serum creatinine, sex, and age as parameters. The creatinine assay has traceable calibration to isotope dilution-mass spectrometry. Refer to KDIGO guidelines for clinical interpretation. In patients with unstable renal function, e.g. those with acute kidney injury, the eGFR may not accurately reflect actual GFR. Performed By: #### 2 4321-2 #### [facility] CLIA [id number] [address] [place] [address] Glucose [Mass/Vol] 137 mg/dL High 74-99 [facility] Comment on above: Order Comment: Speci men Type: BLOOD SPECIMEN Ordering Facility: [facility] Address: [address] [place], [place] [id number] Result Comment: The [place] Diabetes Association (ADA) provides guidance for cutoff values for fasting glucose and random glucose. The ADA defines fasting as no caloric intake for at least 8 hours. Fasting plasma glucose results between 100 to 125 mg/dL indicate increased risk for diabetes (prediabetes). Fasting plasma glucose results greater than or equal to 126 mg/dL meet the criteria for diagnosis of diabetes. In the absence of unequivocal hyperglycemia, results should be confirmed by repeat testing. In a patient with classic symptoms of hyperglycemia or hyperglycemic crisis, random plasma glucose results greater than or equal to 200 mg/dL meet the criteria for diagnosis of diabetes. Reference: Standards of Medical Care in Diabetes 2016, [place] Diabetes Association. Diabetes Care. 2016.39(Suppl 1). Performed By: #### 2 4321-2 #### [facility] CLIA [id number] [address] [place] [address] Potassium [Moles/Vol] 3.9 mmol/L Normal 3.7-5.1 [facility] Comment on above: Order Comment: Helenei men Type: BLOOD SPECIMEN Ordering Facility: [facility] Address: [address] [place] [address] Performed By: #### 2 4321-2 #### [facility] CLIA [id number] [address] [place] [address] Sodium [Moles/Vol] 141 mmol/L Normal 136-144 [facility] Comment on above: Order Comment: Speci men Type: BLOOD SPECIMEN Ordering Facility: [facility] Address: [address] [place], [place] [id number] Performed By: #### 2 4321-2 #### [facility] CLIA [id number] [address] [place] [address] Urea nitrogen [Mass/Vol] 17 mg/dL Normal 7-21 [facility] Comment on above: Order Comment: Speci men Type: BLOOD SPECIMEN Ordering Facility: [facility] Address: [facility] [place] [address] Performed By: #### 2 4321-2 #### [facility] CLIA [id number] [address] [place] [address] ECG COMPLETEon 05-20-2023 Atrial Rate 93 BPM [facility] Calculated P [place] 77 degrees [facility] Calculated R [place] -49 degrees [facility] Calculated T [place] 66 degrees [facility] P-R Interval 160 ms [facility] QRS Duration 86 ms [facility] QT Interval 366 ms [facility] QTC Calculation (Bazett) 455 ms [facility] Ventricular Rate 93 BPM [facility] MG MAMM SCREEN 3D ZEKE CADon 12-20-2022 MG MAMM SCREEN 3D ZEKE CAD Patient: MORELIA NASCIMENTO Exam Date: 12/20/2022 : 1935 Gender:F Ordering : DR YRIS SUAREZ M.D. Admission #: [id number] Family : DR. KURT DE SANTIAGO M.D. Order #: [id number] CLICK HERE TO VIEW EXAM RADIOLOGY REPORT PROCEDURE: MAMMOGRAM SCREENING 3D BILATERAL CAD COMPARISON: MG MAMM DIAGNOSTIC 3D ZEKE CAD, 04/07/2021. MG MAMM DIAGNOSTIC 3D ZEKE CAD, 12/23/2021. INDICATIONS: Screening mammography Calculator Name NCI Breast Cancer Risk Assessment Tool 5 Year Breast Cancer Risk Not Applicable. Lifetime Breast Cancer Risk Not Applicable. Personal Breast Cancer No Personal Ovarian Cancer No Treatments bowel resection, chemotherapy Family Cancers Grandmother-maternal with lung cancer at age 65. LOCATION: [facility] BREAST COMPOSITION: Scattered areas fibroglandular density. FINDINGS: DIAGNOSTIC CATEGORY 2--BENIGN FINDING. NO CHANGE FROM COMPARISON. Scattered benign-appearing calcifications are present. Scattered benign-appearing lymph nodes are present. RIGHT BREAST: No significant suspicious finding. LEFT BREAST: No significant suspicious finding. Asymmetrically small, stable. Area architectural distortion and density upper-outer quadrant deep to a linear scar marker, stable. RECOMMENDATIONS: ROUTINE MAMMOGRAM AND CLINICAL EVALUATION IN 12 MONTHS. PLEASE NOTE: A NORMAL MAMMOGRAM DOES NOT EXCLUDE THE POSSIBILITY OF BREAST CANCER. A CLINICALLY SUSPICIOUS PALPABLE LUMP SHOULD BE BIOPSIED. Dictated by: Xu White MD on 12/20/2022 at 15:27 Approved by: Xu White MD on 12/20/2022 at 15:29 Normal [facility] XR SINUSES 3 VIEWS OR GREATE [place] 04-26-2022 XR SINUSES 3 VIEWS OR GREATER EXAMINATION: XR SINUSES 3 VIEWS OR GREATER HISTORY: Chronic pansinusitis COMPARISON: No relevant comparison available. FINDINGS: MAXILLARY: Soft tissue opacification identified along the periphery and dependent portions of the right maxillary sinus ETHMOID: No mucosal thickening or fluid level. FRONTAL: No mucosal thickening or fluid level. SPHENOID: No mucosal thickening or fluid level. OTHER: Negative. IMPRESSION: Right maxillary sinus disease Electronically authenticated by: XU WHITE Date: 2022-04-26 11:58 Normal [facility] CULTURE URINEon 04-18-2022 CULTURE URINE Isolate 1 Klebsiella pneumoniae >100,000 cfu/mL of ORGANISM 1 Klebsiella pneumoniae ANTIBIOTIC M.I.C RX STATUS Ampicillin 16 R F Ampicillin/Sulbactam <=2 S F Piperacillin/Tazobacta m <=4 S F Cefazolin <=4 S F Ceftazidime <=1 S F Ceftriaxone <=1 S F Ertapenem <=0.5 S F Imipenem <=0.25 S F Amikacin <=2 S F Gentamicin <=1 S F Tobramycin <=1 S F Ciprofloxacin <=0.25 S F Levofloxacin <=0.12 S F Nitrofurantoin 64 I F Trimethoprim/Sulfameth oxazole <=20 S F Normal [facility] Comment on above: Performed By: #### U RCX #### [facility] [address] [place] [address] Dr. Schuyler Fields BNPon 04-16-2022 Natriuretic peptide B (Bld) [Mass/Vol] 259.0 pg/mL Normal <=1,800.0 [facility] Comment on above: Performed By: #### B SIDE BOSS, HSTROPN, CMP #### [facility] [address] [place] [address] Dr. Schuyler Fields CBC W MANUAL DIFFon 04-16-20 22 ATYPICAL LYMPH # Normal [facility] Comment on above: Performed By: #### B SIDE BOSS, HSTROPN, CMP #### [facility] [address] [address] [address] Schuyler Fields ATYPICAL LYMPH % Normal [facility] Comment on above: Performed By: #### B SIDE BOSS, HSTROPN, CMP #### [facility] [address] [address] [address] Schuyler Fields BAND # Normal 0.0-0.3 [facility] Comment on above: Performed By: #### B SIDE BOSS, HSTROPN, CMP #### [facility] [address] [address] [address] Schuyler Fields BAND % Normal 0-5 [facility] Comment on above: Performed By: #### B SIDE BOSS, HSTROPN, CMP #### [facility] [address] [place] [address] Dr. Schuyler Fields BASOM # 0.00 103/ul Normal 0.00-0.10 [facility] Comment on above: Performed By: #### B SIDE BOSS, HSTROPN, CMP #### [facility] [address] [place] [address] Dr. Schuyler Fields BASOM % 0.0 % Critically low 0.2-2.0 [facility] Comment on above: Performed By: #### B SIDE BOSS, HSTROPN, CMP #### [facility] [address] [place] [address] Dr. Schuyler Fields BLAST # Normal [facility] Comment on above: Performed By: #### B SIDE BOSS, HSTROPN, CMP #### [facility] [address] [place] [address] Dr. Schuyler Fields BLAST % Normal [facility] Comment on above: Performed By: #### B SIDE BOSS, HSTROPN, CMP #### [facility] [address] [place] [address] Dr. Schuyler Fields CORRECTED WBC Normal 4.0-11.0 [facility] Comment on above: Performed By: #### B SIDE BOSS, HSTROPN, CMP #### [facility] [address] [place] [address] Dr. Schuyler Fields EOS # 0.07 103/ul Normal 0.00-0.70 [facility] Comment on above: Performed By: #### B SIDE BOSS, HSTROPN, CMP #### [facility] [address] [address] [address] Schuyler Fields EOS% 1.0 % Normal 0.9-7.0 [facility] Comment on above: Performed By: #### B SIDE BOSS, HSTROPN, CMP #### [facility] [address] [place] [address] Dr. Schuyler Fields HCT 39.9 % Normal 36.0-48.0 [facility] Comment on above: Performed By: #### B SIDE BOSS, HSTROPN, CMP #### [facility] [address] [place] [address] Dr. Schuyler Fields HGB 13.3 g/dl Normal 12.0-16.0 [facility] Comment on above: Performed By: #### B SIDE BOSS, HSTROPN, CMP #### [facility] [address] [place] [address] Dr. Schuyler Fields LYMPHM # 0.58 103/ul Critically low 1.20-3.80 [facility] Comment on above: Performed By: #### B SIDE BOSS, HSTROPN, CMP #### [facility] [address] [place] [address] Dr. Schuyler Fields LYMPHM% 9.0 % Critically low 20.5-60.0 [facility] Comment on above: Performed By: #### B SIDE BOSS, HSTROPN, CMP #### [facility] [address] [place] [address] Dr. Schuyler Fields MCH 32.8 pg Normal 26.7-34.0 [facility] Comment on above: Performed By: #### B SIDE BOSS, HSTROPN, CMP #### [facility] [address] [address] [address] Schuyler Fields MCHC 33.3 g/dl Normal 29.9-35.2 [facility] Comment on above: Performed By: #### B SIDE BOSS, HSTROPN, CMP #### [facility] [address] [address] [address] Schuyler Fields MCV 98.3 fL Normal 81.0-99.0 [facility] Comment on above: Performed By: #### B SIDE BOSS, HSTROPN, CMP #### [facility] [address] [address] [address] Schuyler Fields METAMYELOCYTE # Normal [facility] Comment on above: Performed By: #### B SIDE BOSS, HSTROPN, CMP #### [facility] [address] [address] [address] Schuyler Fields METAMYELOCYTE % Normal [facility] Comment on above: Performed By: #### B SIDE BOSS, HSTROPN, CMP #### [facility] [address] [address] [address] Schuyler Fields MONOM# 0.33 103/ul Normal 0.30-0.80 [facility] Comment on above: Performed By: #### B SIDE BOSS, HSTROPN, CMP #### [facility] [address] [address] [address] Schuyler Fields MONOM% 5.0 % Normal 1.7-12.0 [facility] Comment on above: Performed By: #### B SIDE BOSS, HSTROPN, CMP #### [facility] [address] [address] [address] Schuyler Fields MPV 9.4 fL Critically low 9.5-13.5 [facility] Comment on above: Performed By: #### B SIDE BOSS, HSTROPN, CMP #### [facility] [address] [address] [address] Schuyler Fields MYELOCYTE # Normal [facility] Comment on above: Performed By: #### B SIDE BOSS, HSTROPN, CMP #### [facility] [address] [address] [address] Schuyler Fields MYELOCYTE % Normal [facility] Comment on above: Performed By: #### B SIDE BOSS, HSTROPN, CMP #### [facility] [address] [place] [address] Dr. Schuyler Fields NRBC Normal [facility] Comment on above: Performed By: #### B SIDE BOSS, HSTROPN, CMP #### [facility] [address] [place] [address] Dr. Schuyler Fields PLT 150 103/ul Normal 150-450 [facility] Comment on above: Performed By: #### B SIDE BOSS, HSTROPN, CMP #### [facility] [address] [place] [address] Dr. Schuyler Fields RBC 4.06 106/ul Critically low 4.20-5.40 [facility] Comment on above: Performed By: #### B SIDE BOSS, HSTROPN, CMP #### [facility] [address] [place] [address] Dr. Schuyler Fields RDW 12.9 % Normal 11.0-15.0 [facility] Comment on above: Performed By: #### B SIDE BOSS, HSTROPN, CMP #### [facility] [address] [place] [address] Dr. Schuyler Fields SEG # 5.53 103/ul Normal 1.40-6.50 [facility] Comment on above: Performed By: #### B SIDE BOSS, HSTROPN, CMP #### [facility] [address] [place] [address] Dr. Schuyler Fields SEG % 85.0 % Critically high 43.0-75.0 [facility] Comment on above: Performed By: #### B SIDE BOSS, HSTROPN, CMP #### [facility] [address] [place] [address] Dr. Schuyler Fields WBC 6.5 103/ul Normal 4.0-11.0 [facility] Comment on above: Performed By: #### B SIDE BOSS, HSTROPN, CMP #### [facility] [address] [place] [address] HEAD WO CONon 04-16-2022 CT HEAD WO CON EXAMINATION: CT HEAD WO CON HISTORY: HEADACHE COMPARISON: None. TECHNIQUE: CT examination of the head without IV contrast. Dose reduction techniques were achieved by using automated exposure control and/or adjustment of mA and/or kV according to patient size and/or use of iterative reconstruction technique. FINDINGS: The ventricles, sulci, and remaining CSF containing spaces maintain age-appropriate volume and symmetry. No herniation or hydrocephalus. The medley matter/white matter differentiation is maintained throughout. No CT evidence of contemporary infarction. No acute intracranial hemorrhage or parenchymal mass. The calvarium and skull base are intact. There is complete opacification of the right maxillary sinus. Opacification of multiple anterior ethmoid air cells. Mucous retention cyst with partial opacification of the right frontal sinus. Postsurgical changes of the lenses. IMPRESSION: 1. No acute intracranial abnormality. 2. 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 Consider direct inspection. Electronically authenticated by: KAILA DANIELS Date: 2022-04-16 13:50 Normal [facility] ER URINE PROFILEon 2 Bilirubin Ql (U) Negative Normal NEGATIVE [facility] Comment on above: Performed By: #### B SIDE BOSS, HSTROPN, CMP #### [facility] [address] [place] [address] Dr. Schuyler Fields Clarity (U) SL CLOUDY Abnormal CLEAR [facility] Comment on above: Performed By: #### B SIDE BOSS HSTROPN, CMP #### [facility] [address] [place] [address] Dr. Schuyler Fields Color (U) LT. YELLOW Normal YELLOW [facility] Comment on above: Performed By: #### B SIDE BOSS, HSTROPN, CMP #### [facility] [address] [place] [address] Dr. Schuyler Fields ERUAHD A micrscopic examination will be performed if indicated. Normal [facility] Comment on above: Performed By: #### B SIDE BOSS, HSTROPN, CMP #### [facility] [address] [place] [address] Dr. Schuyler Fields Glucose Ql (U) Negative Normal NEGATIVE [facility] Comment on above: Performed By: #### B SIDE BOSS, HSTROPN, CMP #### [facility] [address] [place] [address] Dr. Schuyler Fields Hemoglobin Ql (U) Negative Normal NEGATIVE [facility] Comment on above: Performed By: #### B SIDE BOSS, HSTROPN, CMP #### [facility] [address] [address] [address] Schuyler Fields Ketones Ql (U) 40 mg/dl Abnormal NEGATIVE [facility] Comment on above: Performed By: #### B SIDE BOSS, HSTROPN, CMP #### [facility] [address] [address] [address] Schuyler Fields LEUKOCYTES SMALL Abnormal NEGATIVE [facility] Comment on above: Performed By: #### B SIDE BOSS, HSTROPN, CMP #### [facility] [address] [address] [address] Schuyler Fields Nitrite Ql (U) Positive Abnormal NEGATIVE [facility] Comment on above: Performed By: #### B SIDE BOSS, HSTROPN, CMP #### [facility] [address] [place] [address] Dr. Schuyler Fields pH (U) 6.5 [pH] Normal 5-9 [facility] Comment on above: Performed By: #### B SIDE BOSS, HSTROPN, CMP #### [facility] [address] [address] [address] Schuyler Fields SPEC GRAVITY 1.020 Normal 1.005-<=1.025 [facility] Comment on above: Performed By: #### B SIDE BOSS, HSTROPN, CMP #### [facility] [address] [address] [address] Schuyler Fields UA PROTEIN Negative Normal NEGATIVE/ TRACE [facility] Comment on above: Performed By: #### B SIDE BOSS, HSTROPN, CMP #### [facility] [address] [address] [address] Schuyler Fields UR MICRO IND INDICATED Normal [facility] Comment on above: Performed By: #### B SIDE BOSS, HSTROPN, CMP #### [facility] [address] [place] [address] Dr. Schuyler Fields Urobilinogen Qn (U) 0.2 {Katlin'U}/dL Normal 0.2 - 1. 0 [facility] Comment on above: Performed By: #### B SIDE BOSS, HSTROPN, CMP #### [facility] [address] [address] [address] Schuyler Fields PROF 14(COMP METB)on 022 Albumin [Mass/Vol] 3.5 g/dL Normal 3.4-5.0 [facility] Comment on above: Performed By: #### B SIDE BOSS, HSTROPN, CMP #### [facility] [address] [place] [address] Dr. Schuyler Fields Albumin/Globulin [Mass ratio] 0.9 {ratio} Normal [facility] Comment on above: Performed By: #### B SIDE BOSS, HSTROPN, CMP #### [facility] [address] [place] [address] Dr. Schuyler Fields ALP [Catalytic activity/Vol] 97 U/L Normal 46-116 [facility] Comment on above: Performed By: #### B SIDE BOSS, HSTROPN, CMP #### [facility] [address] [place] [address] Dr. Schuyler Fields ALT [Catalytic activity/Vol] 17 U/L Normal 14-59 [facility] Comment on above: Performed By: #### B SIDE BOSS, HSTROPN, CMP #### [facility] [address] [place] [address] Dr. Schuyler Fields Anion gap [Moles/Vol] 13.0 mmol/L Normal [facility] Comment on above: Performed By: #### B SIDE BOSS, HSTROPN, CMP #### [facility] [address] [place] [address] Dr. Schuyler Fields AST [Catalytic activity/Vol] 17 U/L Normal 15-37 [facility] Comment on above: Performed By: #### B SIDE BOSS, HSTROPN, CMP #### [facility] [address] [place] [address] Dr. Schuyler Fields Bilirubin [Mass/Vol] 0.7 mg/dL Normal 0.2-1.0 [facility] Comment on above: Performed By: #### B SIDE BOSS, HSTROPN, CMP #### [facility] [address] [address] [address] Schuyler Fields Calcium [Mass/Vol] 8.6 mg/dL Normal 8.5-10.1 [facility] Comment on above: Performed By: #### B SIDE BOSS, HSTROPN, CMP #### [facility] [address] [place] [address] Dr. Schuyler Fields Chloride [Moles/Vol] 107 mmol/L Normal 98-107 [facility] Comment on above: Performed By: #### B SIDE BOSS, HSTROPN, CMP #### [facility] [address] [place] [address] Dr. Schuyler Fields CO2 [Moles/Vol] 25.4 mmol/L Normal 21.0-32.0 [facility] Comment on above: Performed By: #### B SIDE BOSS, HSTROPN, CMP #### [facility] [address] [place] [address] Dr. Schuyler Fields Creatinine [Mass/Vol] 0.76 mg/dL Normal 0.55-1.02 [facility] Comment on above: Performed By: #### B SIDE BOSS, HSTROPN, CMP #### [facility] [address] [place] [address] Dr. Schuyler Fields EGFR-AF MONTENEGRIN >60 Normal >=60 [facility] Comment on above: Performed By: #### B SIDE BOSS, HSTROPN, CMP #### [facility] [address] [place] [address] Dr. Schuyler Fields EGFR-NON AF MONTENEGRIN >60 Normal >=60 [facility] Comment on above: Performed By: #### B SIDE BOSS, HSTROPN, CMP #### [facility] [address] [place] [address] Dr. Schuyler Fields Globulin (S) [Mass/Vol] 3.7 g/dL Normal [facility] Comment on above: Performed By: #### B SIDE BOSS, HSTROPN, CMP #### [facility] [address] [place] [address] Dr. Schuyler Fields Glucose [Mass/Vol] 116 mg/dL Critically high 74-106 [facility] Comment on above: Performed By: #### B SIDE BOSS, HSTROPN, CMP #### [facility] [address] [place] [address] Dr. Schuyler Fields Potassium [Moles/Vol] 3.4 mmol/L Critically low 3.5-5.1 [facility] Comment on above: Performed By: #### B SIDE BOSS, HSTROPN, CMP #### [facility] [address] [place] [address] Dr. Schuyler Fields Protein [Mass/Vol] 7.2 g/dL Normal 6.4-8.2 [facility] Comment on above: Performed By: #### B SIDE BOSS, HSTROPN, CMP #### [facility] [address] [place] [address] Dr. Schuyler Fields Sodium [Moles/Vol] 142 mmol/L Normal 136-145 [facility] Comment on above: Performed By: #### B SIDE BOSS, HSTROPN, CMP #### [facility] [address] [place] [address] Dr. Schuyler Fields Urea nitrogen [Mass/Vol] 16.0 mg/dL Normal 7.0-18.0 [facility] Comment on above: Performed By: #### B SIDE BOSS, HSTROPN, CMP #### [facility] [address] [place] [address] Dr. Schuyler Fields Urea nitrogen/Creatinine [Mass ratio] 21.1 mg/mg Normal [facility] Comment on above: Performed By: #### B SIDE BOSS, HSTROPN, CMP #### [facility] [address] [place] [address] Dr. Schuyler Fields PROTIMEon 04-16-2022 INR Coag (PPP) [Relative time] 1.01 {INR} Normal [facility] Comment on above: Performed By: #### B SIDE BOSS, HSTROPN, CMP #### [facility] [address] [place] [address] Dr. Schuyler Fields INR GUIDELINES SEE BELOW Normal [facility] Comment on above: Result Comment: MESFIN RED INR: 2.0 - 3.0 CONDITIONS NOT LISTED BELOW 2.5 - 3.5 FOR PROSTHETIC HEART VALVE REPLACEMENT 2.5 - 3.5 RECURRENT THROMBOSIS Performed By: #### B SIDE BOSS, HSTROPN, CMP #### [facility] [address] [place] [address] Dr. Schuyler Fields PT Coag (PPP) [Time] 10.9 s Normal 9.0-11.6 [facility] Comment on above: Performed By: #### B SIDE BOSS, HSTROPN, CMP #### [facility] [address] [place] [address] Dr. Schuyler Fields PTTon 04-16-2022 aPTT Coag (Bld) [Time] 22.5 s Normal 22.3-36.2 [facility] Comment on above: Performed By: #### P T, PTT #### [facility] [address] [place] [address] Dr. Schuyler Fields TROPONIN, HIGH SENSITIVITYon 04-16-2022 HSTROP 9.1 pg/mL Normal 4.0-51.3 [facility] Comment on above: Result Comment: CUT- OFF POINTS HAVE BEEN ESTABLISHED BASED ON THE FOURTH UNIVERSAL DEFINITIONS OF MYOCARDIAL INFARCTION. THE UPPER REFERENCE LIMIT (URL) OF TROPONIN, DEFINED THE 99TH PERCENTILE OF cTnI DISTRIBUTION IN A REFERENCE POPULATION, HAS BEEN CONFIRMED THE DECISION THRESHOLD FOR DE DIAGNOSIS. Performed By: #### H STROPN #### [facility] [address] [place] [address] Dr. Schuyler Fields HSTROP 7.1 pg/mL Normal 4.0-51.3 [facility] Comment on above: Result Comment: CUT- OFF POINTS HAVE BEEN ESTABLISHED BASED ON THE FOURTH UNIVERSAL DEFINITIONS OF MYOCARDIAL INFARCTION. THE UPPER REFERENCE LIMIT (URL) OF TROPONIN, DEFINED THE 99TH PERCENTILE OF cTnI DISTRIBUTION IN A REFERENCE POPULATION, HAS BEEN CONFIRMED THE DECISION THRESHOLD FOR DE DIAGNOSIS. Performed By: #### B SIDE BOSS, HSTROPN, CMP #### [facility] [address] [place] [address] Dr. Schuyler Fields URINE MICROSCOPIC ONLYon BACTERIA LARGE Abnormal NONE SEEN [facility] Comment on above: Performed By: #### B SIDE BOSS, HSTROPN, CMP #### [facility] [address] [place] [address] Dr. Schuyler Fields Bacteria identified Cx Nom (U) INDICATED Normal [facility] Comment on above: Performed By: #### B SIDE BOSS, HSTROPN, CMP #### [facility] [address] [place] [address] Dr. Schuyler Fields CAST NONE SEEN Normal NONE SEEN [facility] Comment on above: Performed By: #### B SIDE BOSS, HSTROPN, CMP #### [facility] [address] [address] [address] Schuyler Fields Crystals LM Nom (Urine sed) NONE SEEN Normal NONE SEEN [facility] Comment on above: Performed By: #### B SIDE BOSS, HSTROPN, CMP #### [facility] [address] [place] [address] Dr. Schuyler Fields Epithelial cells LM Ql (Urine sed) NONE SEEN Normal NONE SEEN /RARE [facility] Comment on above: Performed By: #### B SIDE BOSS, HSTROPN, CMP #### [facility] [address] [place] [address] Dr. Schuyler Fields MUCOUS NONE SEEN Normal NONE SEEN [facility] Comment on above: Performed By: #### B SIDE BOSS, HSTROPN, CMP #### [facility] [address] [place] [address] Dr. Schuyler Fields RBC 0-2 Normal 0-2 [facility] Comment on above: Performed By: #### B SIDE BOSS, HSTROPN, CMP #### [facility] [address] [place] [address] Dr. Schuyler Fields WBC 10-20 Abnormal NONE SEEN [facility] Comment on above: Performed By: #### B SIDE BOSS, HSTROPN, CMP #### [facility] [address] [place] [address] Dr. Schuyler Fields XR CHEST 1 Von 04-16-2022 XR CHEST 1 V EXAMINATION: XR CHES T 1 V HISTORY: CHEST PAIN, UNSPECIFIED , headache, nausea COMPARISON: No relevant comparison available. FINDINGS: LUNGS: No significant pulmonary parenchymal abnormalities. VASCULATURE: No increased pulmonary vasculature. PLEURA: No pneumothorax, effusion, or pleural thickening. CARDIAC: No cardiomegaly or cardiac silhouette abnormality. MEDIASTINUM: No visible mass or adenopathy. BONES: No fracture or visible bone lesion. OTHER: Negative. IMPRESSION: 1. No acute cardiopulmonary process. Electronically authenticated by: FEDERICO BECKWITH Date: 2022-04-16 14:07 Normal [facility] Vital Signs Date Time Vital Sign Value Performing Clinician Facility 06-15-2024 13:17-0400 Body mass index (BMI) [Ratio] 27.09 kg/m2 Kian Monet DO Work Phone: [facility] 06-15-2024 13:17-0400 Body weight 65 kg Kian Monet DO Work Phone: [facility] 06-15-2024 13:17-0400 Diastolic blood pressure 74 mm[Hg] Kian Monet DO Work Phone: [facility] 06-15-2024 13:17-0400 Heart rate 92 /min Kian Monet DO Work Phone: [facility] 06-15-2024 13:17-0400 SaO2% (BldA) [Mass fraction] 97 % Kian Monet DO Work Phone: [facility] 06-15-2024 13:17-0400 Systolic blood pressure 153 mm[Hg] Kian Monet DO Work Phone: [facility] 02-21-2024 13:39-0400 Body mass index (BMI) [Ratio] 26.67 kg/m2 Kian Monet DO Work Phone: [facility] 02-21-2024 13:39-0400 Body weight 64 kg Kian Monet DO Work Phone: [facility] 02-21-2024 13:39-0400 Diastolic blood pressure 62 mm[Hg] Kian Monet DO Work Phone: [facility] 02-21-2024 13:39-0400 Heart rate 86 /min Kian Monet DO Work Phone: [facility] 02-21-2024 13:39-0400 SaO2% (BldA) [Mass fraction] 97 % Kian Monet DO Work Phone: [facility] 02-21-2024 13:39-0400 Systolic blood pressure 152 mm[Hg] Kian Monet DO Work Phone: [facility] 11-18-2023 13:20-0400 Body weight 62 kg Kian Monet DO Work Phone: [facility] 11-18-2023 13:20-0400 Diastolic blood pressure 69 mm[Hg] Kian Monet DO Work Phone: [facility] 11-18-2023 13:20-0400 Heart rate 83 /min Kian Monet DO Work Phone: [facility] 11-18-2023 13:20-0400 SaO2% (BldA) [Mass fraction] 99 % Kian Monet DO Work Phone: [facility] 11-18-2023 13:20-0400 Systolic blood pressure 155 mm[Hg] Kian Monet DO Work Phone: [facility] 05-20-2023 13:07-0400 Body weight 62.14 kg Kian Monet DO Work Phone: [facility] 05-20-2023 13:07-0400 Diastolic blood pressure 72 mm[Hg] Kian Monet DO Work Phone: [facility] 05-20-2023 13:07-0400 Heart rate 92 /min Kian Monet DO Work Phone: [facility] 05-20-2023 13:07-0400 SaO2% (BldA) [Mass fraction] 97 % Kian Monet DO Work Phone: [facility] 05-20-2023 13:07-0400 Systolic blood pressure 146 mm[Hg] Kian Monet DO Work Phone: [facility] 12-27-2022 10:15-0400 Body temperature 97.9 [degF] Kurt De Santiago MD Work Phone: [facility] 12-27-2022 10:15-0400 Body weight 63.87 kg Kurt De Santiago MD Work Phone: [facility] 12-27-2022 10:15-0400 Diastolic blood pressure 81 mm[Hg] Kurt De Santiago MD Work Phone: [facility] 12-27-2022 10:15-0400 Heart rate 57 /min Kurt De Santiago MD Work Phone: [facility] 12-27-2022 10:15-0400 Respiratory rate 16 /min Kurt De Santiago MD Work Phone: [facility] 12-27-2022 10:15-0400 SaO2% (BldA) [Mass fraction] 96 % Kurt De Santiago MD Work Phone: [facility] 12-27-2022 10:15-0400 Systolic blood pressure 121 mm[Hg] Kurt De Santiago MD Work Phone: [facility] 11-18-2022 13:48-0400 Body weight 62.6 kg Kian Monet DO Work Phone: [facility] 11-18-2022 13:48-0400 Diastolic blood pressure 69 mm[Hg] Kian Monet DO Work Phone: [facility] 11-18-2022 13:48-0400 Heart rate 83 /min Kian Monet DO Work Phone: [facility] 11-18-2022 13:48-0400 SaO2% (BldA) [Mass fraction] 96 % Kian Monet DO Work Phone: [facility] 11-18-2022 13:48-0400 Systolic blood pressure 139 mm[Hg] Kian Monet DO Work Phone: [facility] 09-01-2022 12:00-0500 Body height 152.4 cm Yris Suarez Other [employer] Other 09-01-2022 12:00-0500 Body mass index (BMI) [Ratio] 27.14 kg/m2 Yris Suarez Other [employer] Other 09-01-2022 12:00-0500 Body weight 63.05 kg Yris Suarez Other [employer] Other 09-01-2022 12:00-0500 Diastolic blood pressure 60 mm[Hg] Yris Suarez Other [employer] Other 09-01-2022 12:00-0500 SaO2% (BldA) [Mass fraction] 97 % Yris Suarez Other [employer] Other 09-01-2022 12:00-0500 Systolic blood pressure 142 mm[Hg] Yris Suarez Other [employer] Other 12-28-2021 14:11-0400 Body temperature 97.7 [degF] Kurt De Santiago MD Work Phone: [facility] 12-28-2021 14:11-0400 Body weight 64.41 kg Kurt De Santiago MD Work Phone: [facility] 12-28-2021 14:11-0400 Diastolic blood pressure 84 mm[Hg] Kurt De Santiago MD Work Phone: [facility] 12-28-2021 14:11-0400 Heart rate 101 /min Kurt De Santiago MD Work Phone: [facility] 12-28-2021 14:11-0400 Respiratory rate 18 /min Kurt De Santiago MD Work Phone: [facility] 12-28-2021 14:11-0400 SaO2% (BldA) [Mass fraction] 97 % Kurt De Santiago MD Work Phone: [facility] 12-28-2021 14:11-0400 Systolic blood pressure 163 mm[Hg] Kurt De Santiago MD Work Phone: [facility] 12-01-2021 13:24-0400 Body weight 65.77 kg Patricia Guzmantle INTERNATIONAL RELATIONS PROFESSOR.GEOPOLITICS TEACHER Work Phone: [facility] 12-01-2021 13:24-0400 Diastolic blood pressure 73 mm[Hg] Patricia Young INTERNATIONAL RELATIONS PROFESSOR.GEOPOLITICS TEACHER Work Phone: [facility] 12-01-2021 13:24-0400 Heart rate 89 /min Patricia Young INTERNATIONAL RELATIONS PROFESSOR.GEOPOLITICS TEACHER Work Phone: [facility] 12-01-2021 13:24-0400 SaO2% (BldA) [Mass fraction] 94 % Patricia Young INTERNATIONAL RELATIONS PROFESSOR.GEOPOLITICS TEACHER Work Phone: [facility] 12-01-2021 13:24-0400 Systolic blood pressure 145 mm[Hg] Romeoalva Young INTERNATIONAL RELATIONS PROFESSOR.GEOPOLITICS TEACHER Work Phone: [facility] Encounters Encounter Date Encounter Type Care Provider Facility Start: 06-15-2024 End: 06-15-2024 ambulatory KIAN MONET Facility:[facility] Start: 06-15-2024 End: 06-15-2024 Patient encounter procedure Kian Monet DO Work Phone: Cardiology Comment on above: Primary hypertension (Primary Dx); Mixed hyperlipidemia; Hypomagnesemia; Low magnesium level; Bilateral carotid artery stenosis; Encounter for monitoring statin therapy; Ex-smoker Start: 03-05-2024 End: 03-05-2024 ambulatory KIAN MONET Facility:[facility] Start: 02-21-2024 End: 02-21-2024 ambulatory KIAN MONET Facility:[facility] Start: 02-21-2024 End: 02-21-2024 Patient encounter procedure Kian Monet DO Work Phone: Cardiology Comment on above: Primary hypertension (Primary Dx); Mixed hyperlipidemia; Hypomagnesemia; Bilateral carotid artery stenosis; Ex-smoker Start: 12-29-2023 End: 12-29-2023 ambulatory KURT DE SANTIAGO Facility:[facility] Start: 12-29-2023 End: 12-29-2023 Patient encounter procedure Kurt De Santiago MD Work Phone: Radiation Oncology Comment on above: Malignant neoplasm o f upper-outer quadrant of left breast in female, estrogen receptor positive (HCC) (Primary Dx) Start: 12-09-2023 End: 12-09-2023 ambulatory KIAN MONET Facility:[facility] Start: 11-21-2023 Telephone encounter Kian chou DO Work Phone: [facility] [place] Start: 11-18-2023 End: 11-18-2023 ambulatory KIAN MONET Facility:[facility] Start: 11-18-2023 End: 11-18-2023 Patient encounter procedure Kian Monet DO Work Phone: Cardiology Comment on above: Bilateral carotid ar yogi stenosis (Primary Dx); Primary hypertension; Mixed hyperlipidemia; Hypomagnesemia; Encounter for monitoring statin therapy; Ex-smoker Start: 11-14-2023 End: 11-14-2023 ambulatory KIAN MONET Facility:[facility] Start: 10-07-2023 Refill Kian Monet DO Work Phone: Cardiology Comment on above: Refill Request Start: 05-20-2023 End: 05-20-2023 Patient encounter procedure Kian Monet DO Work Phone: Cardiology Comment on above: Bilateral carotid ar yogi stenosis (Primary Dx); Elevated blood pressure reading without diagnosis of hypertension; Mixed hyperlipidemia; Hypomagnesemia; Encounter for monitoring statin therapy; Ex-smoker Start: 12-27-2022 End: 12-27-2022 Patient encounter procedure Kurt De Santiago MD Work Phone: Radiation Oncology Comment on above: Malignant neoplasm o f upper-outer quadrant of left breast in female, estrogen receptor positive (HCC) (Primary Dx) Start: 12-20-2022 End: 12-21-2022 ambulatory KURT DE SANTIAGO Facility: Start: 11-18-2022 End: 11-18-2022 Patient encounter procedure Kian Monet DO Work Phone: Cardiology Comment on above: Bilateral carotid ar yogi stenosis (Primary Dx); Elevated blood pressure reading without diagnosis of hypertension; Mixed hyperlipidemia; Hypomagnesemia; Encounter for monitoring statin therapy; Ex-smoker Start: 09-01-2022 End: 09-01-2022 ambulatory Yris Suarez Other [employer] Other Start: 09-01-2022 Office outpatient vi sit 15 minutes Yris Suarez [facility] Start: 09-01-2022 Telephone encounter Yris Suarez [facility] Start: 08-02-2022 Refill Kian Monet DO Work Phone: [address] [place] [address] Comment on above: Refill Request Start: 05-06-2022 End: 05-27-2022 Pre-admission assessment Shruti Momin [facility] Start: 04-26-2022 End: 04-27-[address] SHRUTI MOMIN Facility:[facility] Start: 04-18-2022 End: 04-18-2022 ambulatory INGRID VELOZ . Facility:[facility] Start: 04-16-2022 End: 04-16-2022 ambulatory INGRID VELOZ . Facility:[facility] Start: 12-28-2021 End: 12-28-2021 Patient encounter procedure Kurt De Santiago MD Work Phone: Radiation Oncology Comment on above: Malignant neoplasm o f upper-outer quadrant of left breast in female, estrogen receptor positive (HCC) (Primary Dx) Start: 12-16-2021 Telephone encounter Kurt De Santiago MD Work Phone: Radiation Oncology Comment on above: Future Appointment Start: 12-01-2021 End: 12-01-2021 Patient encounter procedure Patricia Young APRN.GEOPOLITICS TEACHER Work Phone: Cardiology Comment on above: Bilateral carotid ar yogi stenosis (Primary Dx); Mixed hyperlipidemia; Elevated blood pressure reading without diagnosis of hypertension Procedures Date Procedure Procedure Detail Performing Clinician Start: 11-18-2023 Ecg routine ecg w/le ast 12 lds i&r only Kian Monet DO Work Phone: Start: 05-20-2023 Ecg routine ecg w/le ast 12 lds i&r only Kian Monet DO Work Phone: Plan of Treatment Date Care Activity Detail Author Start: 03-05-2027 Diabetes Screening Diabetes Screenwv sally [facility] Start: 11-13-2026 Diabetes Screening Diabetes Screenpatricia zavala [facility] Start: 12-28-2025 MG Breast - bilatera l Diagnostic [facility] Radiology Routine Malignant neoplasm of upper-outer quadrant of left breast in female, estrogen receptor positive (HCC) Expected: 12/28/2025 (Approximate) [facility] Work Phone: Comment on above: Expected: 12/28/2025 (Approximate) Start: 10-20-2025 DIABETES SCREEN DIABETES SCREEN [facility] Start: 10-20-2025 Diabetes Screening Diabetes Screenin sally [facility] Start: 12-27-2024 End: 12-27-2024 Patient encounter procedure 12/27/2024 10:30 AM EDT Office Visit Radiation Oncology [address] [place] [address] [place] [address] Kurt De Santiago MD [address] [place] [address] 1 Yr Follow Up Radiation Oncology Comment on above: 1 Yr Follow Up Start: 12-21-2024 End: 12-21-2024 Patient encounter procedure 12/21/2024 2:30 PM EDT Office Visit Cardiology [address] [place] [address] Kian Monet DO [address] [place], [place] [id number] Return in about 27 weeks (around 12/21/2024). Cardiology Comment on above: Return in about 27 w eeks (around 12/21/2024). Start: 12-14-2024 End: 03-15-2025 Basic metabolic 2000 panel - Serum or Plasma BASIC METABOLIC PANEL Lab Routine Primary hypertension Expected: 12/14/2024 (Approximate), Expires: 03/15/2025 [facility] Comment on above: Expected: 12/14/2024 (Approximate), Expires: 03/15/2025 Start: 12-14-2024 End: 03-15-2025 CBC panel - Blood by Automated count COMPLETE BLOOD COUNT Lab Routine Primary hypertension Expected: 12/14/2024 (Approximate), Expires: 03/15/2025 [facility] Comment on above: Expected: 12/14/2024 (Approximate), Expires: 03/15/2025 Start: 12-14-2024 End: 03-15-2025 Lipid 1996 panel - Serum or Plasma LIPID PANEL BASIC Lab Routine Mixed hyperlipidemia Expected: 12/14/2024 (Approximate), Expires: 03/15/2025 [facility] Work Phone: Comment on above: Expected: 12/14/2024 (Approximate), Expires: 03/15/2025 Start: 12-14-2024 End: 03-15-2025 Magnesium [Mass/volume] in Serum or Plasma MAGNESIUM Lab Routine Hypomagnesemia Expected: 12/14/2024 (Approximate), Expires: 03/15/2025 [facility] Comment on above: Expected: 12/14/2024 (Approximate), Expires: 03/15/2025 Start: 06-15-2024 End: 06-15-2024 Patient encounter procedure 06/15/2024 1:30 PM EDT Office Visit Cardiology [address] [place] [address] Kian Monet DO [address] [place] [address] : Return in about 3 months (around 05/23/2024). Cardiology Comment on above: : Return in about 3 months (around 05/23/2024). Start: 04-29-2024 Covid-19 Vaccine ( season) Covid-19 Vaccine ( season) [facility] Start: 04-29-2024 Influenza vaccination Influenza Vacc ine (#1) [facility] Start: 03-06-2024 End: 06-05-2024 Basic metabolic 2000 panel - Serum or Plasma BASIC METABOLIC PANEL Lab Routine Primary hypertension Expected: 03/06/2024 (Approximate), Expires: 06/05/2024 [facility] Work Phone: Comment on above: Expected: 03/06/2024 (Approximate), Expires: 06/05/2024 Start: 03-06-2024 End: 06-05-2024 Magnesium [Mass/volume] in Serum or Plasma MAGNESIUM Lab Routine Hypomagnesemia Expected: 03/06/2024 (Approximate), Expires: 06/05/2024 [facility] Comment on above: Expected: 03/06/2024 (Approximate), Expires: 06/05/2024 Start: 03-06-2024 End: 03-06-2024 Nursing evaluation of patient and report 03/06/2024 1:00 PM EDT Nurse Visit [facility] [address] [facility] [place] [id number] [place], Nurse Card [facility] [address] [facility] [place] [id number] Nurse visit Cardiology Comment on above: Nurse visit Start: 02-21-2024 End: 02-21-2024 Patient encounter procedure 02/21/2024 1:30 PM EDT Office Visit Cardiology [address] [place], [place] [id number] Kian Monet, [address] [place] [address] Return in about 3 months (around 02/18/2024). Cardiology Comment on above: Return in about 3 mo nths (around 02/18/2024). Start: 12-28-2023 End: 01-26-2024 [facility] Radiology Routine Malignant neoplasm of upper-outer quadrant of left breast in female, estrogen receptor positive (HCC) Expected: 12/28/2023 (Approximate), Expires: 01/26/2024 [facility] Work Phone: Comment on above: Expected: 12/28/2023 (Approximate), Expires: 01/26/2024 Start: 12-02-2023 End: 03-02-2024 Basic metabolic 2000 panel - Serum or Plasma BASIC METABOLIC PNL Lab Routine Primary hypertension Expected: 12/02/2023 (Approximate), Expires: 03/02/2024 [facility] Work Phone: Comment on above: Expected: 12/02/2023 (Approximate), Expires: 03/02/2024 Start: 11-28-2023 DIABETES SCREEN DIABETES SCREEN [facility] Start: 11-18-2023 End: 01-18-2024 Basic metabolic 2000 panel - Serum or Plasma BASIC METABOLIC PNL Lab Routine Mixed hyperlipidemia Expected: 11/18/2023 (Approximate), Expires: 01/18/2024 [facility] Work Phone: Comment on above: Expected: 11/18/2023 (Approximate), Expires: 01/18/2024 Start: 10-15-2023 Covid-19 Vaccine () Covid-19 Vaccine () [facility] Start: 08-29-2023 Advance Directive Discussion Advance Directive Discussion [facility] Start: 08-29-2023 Behavioral Health Screening Behavioral Health Screening [facility] Start: 08-29-2023 Depression Assessment Depression Ass essment [facility] Start: 05-21-2023 End: 07-21-2023 Lipid 1996 panel - Serum or Plasma LIPID PANEL BASIC Lab Routine Mixed hyperlipidemia Expected: 05/21/2023 (Approximate), Expires: 07/21/2023 [facility] Work Phone: Comment on above: Expected: 05/21/2023 (Approximate), Expires: 07/21/2023 Start: 05-21-2023 End: 11-18-2023 US CAROTID ARTERIES [facility] US CAROTID ARTERIES [facility] Vascular Lab Routine Bilateral carotid artery stenosis Expected: 05/21/2023 (Approximate), Expires: 11/18/2023 [facility] Work Phone: Comment on above: Expected: 05/21/2023 (Approximate), Expires: 11/18/2023 Start: 04-29-2023 Covid-19 Vaccine () Covid-19 Vaccine () [facility] Start: 04-29-2023 Influenza vaccination Influenza Vacc ine (#1) [facility] Start: 12-28-2022 End: 01-27-2023 Diagnostic mammography computer-aided detcj bi [facility] Radiology Routine Malignant neoplasm of upper-outer quadrant of left breast in female, estrogen receptor positive (HCC) Expected: 12/28/2022 (Approximate), Expires: 01/27/2023 [facility] Work Phone: Comment on above: Expected: 12/28/2022 (Approximate), Expires: 01/27/2023 Start: 10-26-2022 Covid-19 Vaccine (6 - Pfizer series) Covid-19 Vaccine (6 - Pfizer series) [facility] Start: 08-29-2022 ADVANCE DIRECTIVE DISCUSSION ADVANCE DIRECTIVE DISCUSSION [facility] Start: 08-29-2022 DEPRESSION ASSESSMENT DEPRESSION ASS ESSMENT [facility] Start: 04-29-2022 Influenza vaccination INFLUENZA (#1) [facility] Start: 02-25-2022 COVID-19 VACCINE (5 - Booster for Pfizer series) COVID-19 VACCINE (5 - Booster for Pfizer series) [facility] Start: 10-03-2021 COVID-19 VACCINE (4 - Booster for Pfizer series) COVID-19 VACCINE (4 - Booster for Pfizer series) [facility] Start: 08-29-2021 ADVANCE DIRECTIVE DISCUSSION ADVANCE DIRECTIVE DISCUSSION [facility] Start: 08-29-2021 DEPRESSION ASSESSMENT DEPRESSION ASS ESSMENT [facility] Start: 2011 RSV Vaccine (1 - 1-d ose 75+ series) RSV Vaccine (1 - 1-dose 75+ series) [facility] Start: 2001 BONE DENSITY BONE DENSITY [facility] Start: 2001 Bone Density Screening Bone Density Screening [facility] Start: 2001 Pneumococcal Vaccine : 65+ (1 - PCV) Pneumococcal Vaccine: 65+ (1 - PCV) [facility] Start: 2001 Pneumococcal Vaccine : 65+ (1 of 1 - PCV) Pneumococcal Vaccine: 65+ (1 of 1 - PCV) [facility] Start: 2001 PNEUMOCOCCAL: 65+ (1 - PCV) PNEUMOCOCCAL: 65+ (1 - PCV) [facility] Start: 2001 PNEUMOVAX AGE 65 AND OVER WITH 5YR LOOKBACK (#1) PNEUMOVAX AGE 65 AND OVER WITH 5YR LOOKBACK (#1) [facility] Start: 2001 Screening for osteoporosis Bone Density Screening [facility] Start: 1996 RSV Vaccine (1 - 1-d ose 60+ series) RSV Vaccine (1 - 1-dose 60+ series) [facility] Start: 1986 SHINGRIX VACCINE (1 of 2) SHINGRIX VACCINE (1 of 2) [facility] Start: 1955 Urine microalbumin profile [facility] Start: 1954 Anxiety Screening Anxiety Screening [facility] Start: 1954 Depression Screening Depression Scre ening [facility] End: 01-15-2023 Diagnostic mammography computer-aided detcj bi [facility] Radiology Routine Malignant neoplasm of upper-outer quadrant of left breast in female, estrogen receptor positive (HCC) 1 Occurrences starting 12/16/2021 until 01/15/2023 [facility] Work Phone: Comment on above: 1 Occurrences starti ng 12/16/2021 until 01/15/2023 End: 11-19-2023 ECG COMPLETE ECG COMPLETE ECG Routine Bilateral carotid artery stenosis Elevated blood pressure reading without diagnosis of hypertension 1 Occurrences starting 11/18/2022 until 11/19/2023 [facility] Work Phone: Comment on above: 1 Occurrences starti ng 11/18/2022 until 11/19/2023 ECG COMPLETE ECG COMPLETE ECG 11/18/2023 1:21 PM EDT [facility] End: 11-17-2024 US Carotid arteries - bilateral US CAROTID ARTERIES [facility] Vascular Lab Routine Bilateral carotid artery stenosis 1 Occurrences starting 11/18/2023 until 11/17/2024 [facility] Work Phone: Comment on above: 1 Occurrences starti ng 11/18/2023 until 11/17/2024 [facility] Immunizations Immunization Date Immunization Notes Care Provider Jodi champagne 05-17-2023 influenza virus vacc ine, unspecified formulation Kian Monet DO Work Phone: [facility] 06-26-2022 influenza virus vacc ine, unspecified formulation Kian Monet DO Work Phone: [facility] 06-22-2018 influenza, high dose seasonal, preservative-free Kurt De Santiago MD Work Phone: [facility] Payers Date Payer Category Payer Unknown [employer] [id number] 2018-Present [phone] [address] [address] [place] [address] Indemnity [id number] 2011 Unknown [id number] 2001 Medicare MEDICARE MEDICAR E A AND B [id number] 2001-Present [phone] [address] [address] [place] [address] Medicare [id number] 2001 Medicare MEDICARE MEDICAR E A AND B [id number] 2001-Present [phone] [place] [address] Medicare [id number] 1959 Medicare [id number] 1959 Unknown [id number] 1936 Unknown [id number] 1936 Unknown [id number] 1936 Unknown [id number] 1936 Unknown [id number] Social History Date Type Detail Facility Start: 07-31-2018 End: 06-15-2024 Tobacco smoking status NHIS Ex-smoker [facility] Start: 08-29-1963 End: 08-29-1988 History of tobacco use Current smoker [facility] Start: 07-31-2018 End: 06-15-2024 Tobacco use and exposure Smokeless tobacco non-user [facility] Start: 12-01-2021 End: 06-15-2024 Alcohol intake Current drinker of alcohol (finding) [facility] Start: 07-31-2018 History SDOH Alcohol Comment occ [facility] Start: 07-31-2018 End: 11-18-2022 Tobacco Comment 2 packs per week [facility] Start: 1936 Sex Assigned At Not on file [facility] Start: 11-21-2021 End: 12-28-2021 Exposure to SARS-CoV-2 (event) Not sure [facility] Tobacco smoking status No Smokin g Status Entered [facility] Start: 05-20-2023 End: 12-29-2023 Sex Assigned At Female [facility] Start: 08-29-1963 End: 08-29-1988 History of tobacco use Cigarette Smoker [facility] Start: 05-20-2023 End: 12-29-2023 History of Social function [facility] Adult Depression Screening Assessment 0 [facility] Clinical Notes 12-01-2021 to 06-15-2024 Kian Monet DO - 06/15/2024 1:44 PM Zak Strickland MA - 02/21/2024 1:43 PM Zak Strickland MA - 02/21/2024 1:43 PM Kian Keys DO - 02/21/2024 1:30 PM EDT Note Date & Type Note Facility 06-15-2024 Note HNO ID: [id number] Author: KIAN MONET DO Service: ? Author Type: Physician Type: Progress Notes Filed: 06/15/2024 14:02 Note Text: [facility] OUTPATIENT VISIT DATE 06/15/24 OUTPATIENT VISIT TYPE Established PRIMARY CARE PHYSICIAN: Yris Suarez MD ([facility]) [address] [place] [id number] HISTORY OF PRESENT ILLNESS: Ms. Nascimento is a 88 year old female with a PMH of carotid stenosis, hx of colon CA, and breast CA sp surgery.she was last seen by me on 02/21/2024, per that note: ...she tells me that she feels great. She checks her BP once in a while and her measurements have indicated that her blood pressure is controlled however when checking her blood pressure monitor today it was significantly off, 23 mmHg. She denies having any symptoms such as: chest pain, palpitations, shortness of breath, orthopnea, LE edema, presyncope/syncope, N/V, bleeding, or other significant symptoms. Today, she tells me that she enjoys being outside. She went golfing and was taking care of the garden. She denies having any: chest pain, palpitations, shortness of breath, orthopnea, LE edema, presyncope/syncope, N/V, bleeding, or other significant symptoms. She is still eating vegetables daily. She drinks 1 cup of coffee in the AM. She will have 3-4 alcoholic beverages a month. She quit smoking in 1998. She is not using any marijuana nor other drugs. She is walking for 30+ minutes her dog 3-4 times a day. Family, mother had 3 TIAs and at 89 years of age. Father had dementia. Upon further questioning, she lost her in 2006. She continues to have fecal incontinence and is working with her PCP regarding this. She tells me that her home sBP is in the 120s. IMPRESSION: Encounter Diagnosis ICD-10-CM 1. Primary hypertension I10 losartan (COZAAR) 50 mg tablet metoprolol succinate ER (TOPROL XL) 25 mg 24 hr tablet COMPLETE BLOOD COUNT BASIC METABOLIC PANEL 2. Mixed hyperlipidemia E78.2 coenzyme Q10 (COQ-10) 100 mg cap capsule atorvastatin (LIPITOR) 40 mg tablet LIPID PANEL BASIC 3. Hypomagnesemia E83.42 magnesium oxide (MAG-OX) 400 mg (241.3 mg magnesium) tablet MAGNESIUM 4. Low magnesium level R79.0 magnesium oxide (MAG-OX) 400 mg (241.3 mg magnesium) tablet 5. Bilateral carotid artery stenosis I65.23 6. Encounter for monitoring statin therapy Z51.81 Z79.899 7. Ex-smoker Z87.891 PLAN AND RECOMMENDATION: Goal blood pressure less than 130/80 mmHg. Home BP appears to be slightly above goal range. Recommend continuing losartan 50 mg daily and adding metoprolol XL 12.5 mg daily. Bring blood pressure log to next visit. Continue lifestyle modifications. Consider titration again at next visit if needed. Check labs prior to next visit. Goal LDL is less than 70mg/dL. Continue atorvastatin 40 mg nightly, LDL is now at goal. Monitor for myalgias at next visit. Check lipid panel prior to next visit Continue to replace magnesium. Carotid stenosis is mild 20-39 percent at this time. Recheck carotid ultrasound in 3 years, 2026. Continue complete smoking cessation. REVIEW OF SYSTEMS: Chest pain No Shortness of breath No Bleeding No Dizziness No Syncope No Palpations No 10 systems reviewed and are negative with the exception of pertinent positives described in HPI PHYSICAL EXAMINATION: BP 153/74 Pulse 92 Wt 65 kg (143 lb 4.8 oz) SpO2 97% BMI 27.09 kg/m? Gen; NAD HEENT: normocephalic, EOMI , no JVD, no significant carotid bruit Heart: regular rhythm , no significant murmur Lungs: clear to auscultation Abdomen: bowel sounds present Extremities: no edema Musculoskeletal: chest wall nontender Neurological: alert and oriented Psychiatric: appropriate and cooperative Skin: no rash, cellulitis or lesions appreciated CARDIOVASCULAR MEDICINE TESTING: I have personally reviewed ECG, echocardiogram report, stress test report, MCOT report, laboratory results and vascular imaging report ECG -11/18/2023 NSR 84 bpm, LAD, anterior infarct age undetermined, abnormal ECG Carotid ultrasound-12/09/2023 Right internal carotid artery 20-39 percent stenosis. Left internal carotid artery 20-39 percent stenosis. ETT - 01/09/19 101% MPHR, 6.2 METS good functional capacity, Normal except for low HRR SPECT - 01/09/19 CONCLUSIONS: 1. SPECT Perfusion Study: Normal. 2. There is no scintigraphic evidence for inducible ischemia. 3. No evidence of scarred myocardium. 4. Good functional capacity for age and gender. 5. Left ventricle is small. The left ventricle systolic function is normal. 6. Right ventricle is small. The right ventricle systolic function is normal. 7. This is a low risk scan. Gated Stress FBP Gated Rest FBP LVEF % 83 Echo -12/28/18 CONCLUSIONS: - Exam indication: Abnormal ECG - The left ventricle is normal in size. (more content not included)... [facility] 06-15-2024 History of Presen t illness Narrative Images from the original note were not included. [facility] OUTPATIENT VISIT DATE 06/15/24 OUTPATIENT VISIT TYPE Established PRIMARY CARE PHYSICIAN: Yris Suarez MD ([facility]) [address] [place] [address] HISTORY OF PRESENT ILLNESS: Ms. Nascimento is a 88 year old female with a PMH of carotid stenosis, hx of colon CA, and breast CA sp surgery.she was last seen by me on 02/21/2024, per that note: ...she tells me that she feels great. She checks her BP once in a while and her measurements have indicated that her blood pressure is controlled however when checking her blood pressure monitor today it was significantly off, 23 mmHg. She denies having any symptoms such as: chest pain, palpitations, shortness of breath, orthopnea, LE edema, presyncope/syncope, N/V, bleeding, or other significant symptoms. Today, she tells me that she enjoys being outside. She went golfing and was taking care of the garden. She denies having any: chest pain, palpitations, shortness of breath, orthopnea, LE edema, presyncope/syncope, N/V, bleeding, or other significant symptoms. She is still eating vegetables daily. She drinks 1 cup of coffee in the AM. She will have 3-4 alcoholic beverages a month. She quit smoking in 1998. She is not using any marijuana nor other drugs. She is walking for 30+ minutes her dog 3-4 times a day. Family, mother had 3 TIAs and at 89 years of age. Father had dementia. Upon further questioning, she lost her in 2006. She continues to have fecal incontinence and is working with her PCP regarding this. She tells me that her home sBP is in the 120s. IMPRESSION: Encounter Diagnosis ICD-10-CM 1. Primary hypertension I10 losartan (COZAAR) 50 mg tablet metoprolol succinate ER (TOPROL XL) 25 mg 24 hr tablet COMPLETE BLOOD COUNT BASIC METABOLIC PANEL 2. Mixed hyperlipidemia E78.2 coenzyme Q10 (COQ-10) 100 mg cap capsule atorvastatin (LIPITOR) 40 mg tablet LIPID PANEL BASIC 3. Hypomagnesemia E83.42 magnesium oxide (MAG-OX) 400 mg (241.3 mg magnesium) tablet MAGNESIUM 4. Low magnesium level R79.0 magnesium oxide (MAG-OX) 400 mg (241.3 mg magnesium) tablet 5. Bilateral carotid artery stenosis I65.23 6. Encounter for monitoring statin therapy Z51.81 Z79.899 7. Ex-smoker Z87.891 PLAN AND RECOMMENDATION: Goal blood pressure less than 130/80 mmHg. Home BP appears to be slightly above goal range. Recommend continuing losartan 50 mg daily and adding metoprolol XL 12.5 mg daily. Bring blood pressure log to next visit. Continue lifestyle modifications. Consider titration again at next visit if needed. Check labs prior to next visit. Goal LDL is less than 70mg/dL. Continue atorvastatin 40 mg nightly, LDL is now at goal. Monitor for myalgias at next visit. Check lipid panel prior to next visit Continue to replace magnesium. Carotid stenosis is mild 20-39 percent at this time. Recheck carotid ultrasound in 3 years, 2026. Continue complete smoking cessation. REVIEW OF SYSTEMS: Chest pain No Shortness of breath No Bleeding No Dizziness No Syncope No Palpations No 10 systems reviewed and are negative with the exception of pertinent positives described in HPI PHYSICAL EXAMINATION: BP 153/74 Pulse 92 Wt 65 kg (143 lb 4.8 oz) SpO2 97% BMI 27.09 kg/m Gen; NAD HEENT: normocephalic, EOMI , no JVD, no significant carotid bruit Heart: regular rhythm , no significant murmur Lungs: clear to auscultation Abdomen: bowel sounds present Extremities: no edema Musculoskeletal: chest wall nontender Neurological: alert and oriented Psychiatric: appropriate and cooperative Skin: no rash, cellulitis or lesions appreciated CARDIOVASCULAR MEDICINE TESTING: I have personally reviewed ECG, echocardiogram report, stress test report, MCOT report, laboratory results and vascular imaging report ECG -11/18/2023 NSR 84 bpm, LAD, anterior infarct age undetermined, abnormal ECG Carotid ultrasound-12/09/2023 Right internal carotid artery 20-39 percent stenosis. Left internal carotid artery 20-39 percent stenosis. ETT - 01/09/19 101% MPHR, 6.2 METS good functional capacity, Normal except for low HRR SPECT - 01/09/19 CONCLUSIONS: 1. SPECT Perfusion Study: Normal. 2. There is no scintigraphic evidence for inducible ischemia. 3. No evidence of scarred myocardium. 4. Good functional capacity for age and gender. 5. Left ventricle is small. The left ventricle systolic function is normal. 6. Right ventricle is small. The right ventricle systolic function is normal. 7. This is a low risk scan. Gated Stress FBP Gated Rest FBP LVEF % 83 Echo -12/28/18 CONCLUSIONS: - Exam indication: Abnormal ECG - The left ventricle is normal in size. There is no left ventricular hypertrophy. Left ventricular systolic function is normal. EF = 61 5% (2D 4-ch.) - The right ventricle is normal in size. Right ventricular systolic function is normal. - No significant valvular abnormalities. - The patient has not had a prior [facility] echocardiographic exam for comparison. Latest Reference Range & Units 03/05/24 12:47 Sodium 136 - 144 mmol/L 139 Potassium 3.7 - 5.1 mmol/L 4.0 Chloride 98 - 107 mmol/L 105 CO2 22 - 30 mmol/L 25 BUN 7 - 21 mg/dL 16 Creatinine 0.58 - 0.96 mg/dL 0.81 Glucose 74 - 99 mg/dL 108 (H) Calcium 8.5 - 10.2 mg/dL 9.7 Magnesium 1.7 - 2.3 mg/dL 2.2 Anion Gap 8 - 15 mmol/L 9 (H): Data is abnormally high Hemoglobin (g/dL) Date Value 11/27/2020 14.6 Hematocrit (%) Date Value 11/27/2020 44.2 WBC (k/uL) Date Value 11/27/2020 4.52 PAST MEDICAL HISTORY Diagnosis Date Breast cancer (HCC) Left; ER/AK+ GERD (gastroesophageal reflux disease) PAST SURGICAL HISTORY Procedure Laterality Date APPENDECTOMY HX CHOLECYSTECTOMY HX COLONOSCOPY PARTIAL MASTECTOMY Left PAST SURGICAL HISTORY OF 1998 colon resection-colon cancer Social History Tobacco Use Smoking status: Former Current packs/day: 0.00 Types: Cigarettes Start date: 1963 Quit date: 1988 Years since quittin.8 Smokeless tobacco: Never Tobacco comments: 2 packs per week Substance Use Topics Alcohol use: Yes Comment: occ Drug use: No FAMILY HISTORY Problem Relation Age of Onset Heart disease Mother Dementia Father ALLERGIES No Known Allergies CURRENT MEDICATIONS: aspirin, enteric coated (ASPIRIN, ENTERIC COATED) 81 mg EC tablet Take 81 mg by mouth once daily. magnesium oxide (MAG-OX) 400 mg (241.3 mg magnesium) tablet Take 1 tablet by mouth once daily. losartan (COZAAR) 50 mg tablet Take 1 tablet by mouth once daily. coenzyme Q10 (COQ-10) 100 mg cap capsule Take 1 capsule by mouth once daily. atorvastatin (LIPITOR) 40 mg tablet Take 1 tablet by mouth once daily. metoprolol succinate ER (TOPROL XL) 25 mg 24 hr tablet Take 0.5 tablets by mouth once daily. documented in this encounter [facility] 02-21-2024 Nurse Note Patient brought home blood pressure monitor to compare with office monitor. Office monitor: BP 152/62 HR 86 Home monitor: BP 129/82 HR 84 [facility] 02-21-2024 Nurse Note Patient brought home blood pressure monitor to compare with office monitor. Office monitor: BP 152/62 HR 86 Home monitor: BP 129/82 HR 84 documented in this encounter [facility] 02-21-2024 History of Presen t illness Narrative Images from the original note were not included. [facility] OUTPATIENT VISIT DATE 02/21/24 OUTPATIENT VISIT TYPE Established PRIMARY CARE PHYSICIAN: Yris Suarez MD ([facility]) [address] [place] [phone] HISTORY OF PRESENT ILLNESS: Ms. Nascimento is a 88 year old female with a PMH of carotid stenosis, hx of colon CA, and breast CA sp surgery.she was last seen by me on 11/18/2023, per that note: ... she states that she is feeling well. She denies having any: chest pain, palpitations, shortness of breath, orthopnea, LE edema, presyncope/syncope, N/V, bleeding, or other significant symptoms. Today, she tells me that she feels great. She checks her BP once in a while and her measurements have indicated that her blood pressure is controlled however when checking her blood pressure monitor today it was significantly off, 23 mmHg. She denies having any symptoms such as: chest pain, palpitations, shortness of breath, orthopnea, LE edema, presyncope/syncope, N/V, bleeding, or other significant symptoms. She is still eating vegetables daily. She drinks 1 cup of coffee in the AM. She will have 3-4 alcoholic beverages a month. She quit smoking in 1998. She is not using any marijuana nor other drugs. She is walking for 30+ minutes her dog 3-4 times a day. Family, mother had 3 TIAs and at 89 years of age. Father had dementia. Upon further questioning, she lost her in 2006. She continues to have fecal incontinence and is working with her PCP regarding this. She tells me that her home sBP is in the 120s. IMPRESSION: Encounter Diagnosis ICD-10-CM 1. Primary hypertension I10 losartan (COZAAR) 50 mg tablet BASIC METABOLIC PANEL 2. Mixed hyperlipidemia E78.2 3. Hypomagnesemia E83.42 MAGNESIUM 4. Bilateral carotid artery stenosis I65.23 5. Ex-smoker Z87.891 PLAN AND RECOMMENDATION: Goal blood pressure less than 130/80 mmHg. Blood pressure log shows that BP is above goal at home. Recommend increasing losartan to 50 mg daily. She should have BMP checked 2 weeks after increasing medicine. She will bring blood pressure log to next visit. At next visit consider if antihypertensive medication needs to be titrated further. Goal LDL is less than 70mg/dL. Continue atorvastatin 40 mg nightly, LDL is now at goal. Monitor for myalgias at next visit. Check lipid panel prior to next visit Continue to replace magnesium. Carotid stenosis is mild 20-39 percent at this time. Recheck carotid ultrasound in 3 years, 2026. Continue complete smoking cessation. REVIEW OF SYSTEMS: Chest pain No Shortness of breath No Bleeding No Dizziness No Syncope No Palpations No 10 systems reviewed and are negative with the exception of pertinent positives described in HPI PHYSICAL EXAMINATION: BP 152/62 Pulse 86 Wt 64 kg (141 lb 1.5 oz) SpO2 97% BMI 26.67 kg/m Gen; NAD HEENT: normocephalic, EOMI , no JVD, no significant carotid bruit Heart: regular rhythm , no significant murmur Lungs: clear to auscultation Abdomen: bowel sounds present Extremities: no edema Musculoskeletal: chest wall nontender Neurological: alert and oriented Psychiatric: appropriate and cooperative Skin: no rash, cellulitis or lesions appreciated CARDIOVASCULAR MEDICINE TESTING: I have personally reviewed ECG, echocardiogram report, stress test report, MCOT report, laboratory results and vascular imaging report ECG -11/18/2023 NSR 84 bpm, LAD, anterior infarct age undetermined, abnormal ECG Carotid ultrasound-12/09/2023 Right internal carotid artery 20-39 percent stenosis. Left internal carotid artery 20-39 percent stenosis. ETT - 01/09/19 101% MPHR, 6.2 METS good functional capacity, Normal except for low HRR SPECT - 01/09/19 CONCLUSIONS: 1. SPECT Perfusion Study: Normal. 2. There is no scintigraphic evidence for inducible ischemia. 3. No evidence of scarred myocardium. 4. Good functional capacity for age and gender. 5. Left ventricle is small. The left ventricle systolic function is normal. 6. Right ventricle is small. The right ventricle systolic function is normal. 7. This is a low risk scan. Gated Stress FBP Gated Rest FBP LVEF % 83 Echo -12/28/18 CONCLUSIONS: - Exam indication: Abnormal ECG - The left ventricle is normal in size. There is no left ventricular hypertrophy. Left ventricular systolic function is normal. EF = 61 5% (2D 4-ch.) - The right ventricle is normal in size. Right ventricular systolic function is normal. - No significant valvular abnormalities. - The patient has not had a prior [facility] echocardiographic exam for comparison. Latest Reference Range & Units 11/24/23 00:00 Sodium 136 - 145 MEQ/L 146 ! (E) Potassium 3.5 - 5.1 MEQ/L 3.8 (E) Chloride 98 - 107 MEQ/L 106 (E) CO2 29.5 (E) BUN 7 - 18 MG/DL 19.0 ! (E) BUN/CREATININE RATIO 9 - 20 22.1 ! (E) Creatinine 0.6 - 1.3 MG/DL 0.86 (E) Glucose 74 - 106 MG/DL 129 ! (E) Calcium 8.8 - 10.5 MG/DL 9.0 (E) Anion Gap 14.3 (E) !: Data is abnormal (E): External lab result Hemoglobin (g/dL) Date Value 11/27/2020 14.6 Hematocrit (%) Date Value 11/27/2020 44.2 WBC (k/uL) Date Value 11/27/2020 4.52 PAST MEDICAL HISTORY Diagnosis Date Breast cancer (HCC) Left; ER/AK+ GERD (gastroesophageal reflux disease) PAST SURGICAL HISTORY Procedure Laterality Date APPENDECTOMY HX CHOLECYSTECTOMY HX COLONOSCOPY PARTIAL MASTECTOMY Left PAST SURGICAL HISTORY OF 1998 colon resection-colon cancer Social History Tobacco Use Smoking status: Former Years: 25 Types: Cigarettes Quit date: 1988 Years since quittin.5 Smokeless tobacco: Never Tobacco comments: 2 packs per week Substance Use Topics Alcohol use: Yes Comment: occ Drug use: No FAMILY HISTORY Problem Relation Age of Onset Heart disease Mother Dementia Father ALLERGIES No Known Allergies CURRENT MEDICATIONS: atorvastatin (LIPITOR) 40 mg tablet Take 1 tablet by mouth once daily. coenzyme Q10 (COQ-10) 100 mg cap capsule Take 1 capsule by mouth once daily. magnesium oxide (MAG-OX) 400 mg (241.3 mg magnesium) tablet Take 1 tablet by mouth once daily. aspirin, enteric coated (ASPIRIN, ENTERIC COATED) 81 mg EC tablet Take 81 mg by mouth once daily. losartan (COZAAR) 50 mg tablet Take 1 tablet by mouth once daily. Signed: Kian Monet DO 02/21/24 documented in this encounter [facility] 02-21-2024 Note HNO ID: [id number] Author: KIAN MONET DO Service: ? Author Type: Physician Type: Progress Notes Filed: 02/21/2024 14:21 Note Text: [facility] CARDIOLOGY OUTPATIENT VISIT DATE 02/21/24 OUTPATIENT VISIT TYPE Established PRIMARY CARE PHYSICIAN: Yris Suarez MD ([facility]) [facility] [place] [address] HISTORY OF PRESENT ILLNESS: Ms. Nascimento is a 88 year old female with a PMH of carotid stenosis, hx of colon CA, and breast CA sp surgery.she was last seen by me on 11/18/2023, per that note: ... she states that she is feeling well. She denies having any: chest pain, palpitations, shortness of breath, orthopnea, LE edema, presyncope/syncope, N/V, bleeding, or other significant symptoms. Today, she tells me that she feels great. She checks her BP once in a while and her measurements have indicated that her blood pressure is controlled however when checking her blood pressure monitor today it was significantly off, 23 mmHg. She denies having any symptoms such as: chest pain, palpitations, shortness of breath, orthopnea, LE edema, presyncope/syncope, N/V, bleeding, or other significant symptoms. She is still eating vegetables daily. She drinks 1 cup of coffee in the AM. She will have 3-4 alcoholic beverages a month. She quit smoking in 1998. She is not using any marijuana nor other drugs. She is walking for 30+ minutes her dog 3-4 times a day. Family, mother had 3 TIAs and at 89 years of age. Father had dementia. Upon further questioning, she lost her in 2006. She continues to have fecal incontinence and is working with her PCP regarding this. She tells me that her home sBP is in the 120s. IMPRESSION: Encounter Diagnosis ICD-10-CM 1. Primary hypertension I10 losartan (COZAAR) 50 mg tablet BASIC METABOLIC PANEL 2. Mixed hyperlipidemia E78.2 3. Hypomagnesemia E83.42 MAGNESIUM 4. Bilateral carotid artery stenosis I65.23 5. Ex-smoker Z87.891 PLAN AND RECOMMENDATION: Goal blood pressure less than 130/80 mmHg. Blood pressure log shows that BP is above goal at home. Recommend increasing losartan to 50 mg daily. She should have BMP checked 2 weeks after increasing medicine. She will bring blood pressure log to next visit. At next visit consider if antihypertensive medication needs to be titrated further. Goal LDL is less than 70mg/dL. Continue atorvastatin 40 mg nightly, LDL is now at goal. Monitor for myalgias at next visit. Check lipid panel prior to next visit Continue to replace magnesium. Carotid stenosis is mild 20-39 percent at this time. Recheck carotid ultrasound in 3 years, 2026. Continue complete smoking cessation. REVIEW OF SYSTEMS: Chest pain No Shortness of breath No Bleeding No Dizziness No Syncope No Palpations No 10 systems reviewed and are negative with the exception of pertinent positives described in HPI PHYSICAL EXAMINATION: BP 152/62 Pulse 86 Wt 64 kg (141 lb 1.5 oz) SpO2 97% BMI 26.67 kg/m? Gen; NAD HEENT: normocephalic, EOMI , no JVD, no significant carotid bruit Heart: regular rhythm , no significant murmur Lungs: clear to auscultation Abdomen: bowel sounds present Extremities: no edema Musculoskeletal: chest wall nontender Neurological: alert and oriented Psychiatric: appropriate and cooperative Skin: no rash, cellulitis or lesions appreciated CARDIOVASCULAR MEDICINE TESTING: I have personally reviewed ECG, echocardiogram report, stress test report, MCOT report, laboratory results and vascular imaging report ECG -11/18/2023 NSR 84 bpm, LAD, anterior infarct age undetermined, abnormal ECG Carotid ultrasound-12/09/2023 Right internal carotid artery 20-39 percent stenosis. Left internal carotid artery 20-39 percent stenosis. ETT - 01/09/19 101% MPHR, 6.2 METS good functional capacity, Normal except for low HRR SPECT - 01/09/19 CONCLUSIONS: 1. SPECT Perfusion Study: Normal. 2. There is no scintigraphic evidence for inducible ischemia. 3. No evidence of scarred myocardium. 4. Good functional capacity for age and gender. 5. Left ventricle is small. The left ventricle systolic function is normal. 6. Right ventricle is small. The right ventricle systolic function is normal. 7. This is a low risk scan. Gated Stress FBP Gated Rest FBP LVEF % 83 Echo -12/28/18 CONCLUSIONS: - Exam indication: Abnormal ECG - The left ventricle is normal in size. There is no left ventricular hypertrophy. Left ventricular systolic function is normal. EF = 61 ? 5% (2D 4-ch.) - The right ventricle is normal in size. Right ventricular systolic function is normal. - No significant valvular abnormalities. - The patient has not had a prior [facility] echocardiographic exam for comparison. Latest Reference Range AND Units 11/24/23 00:00 Sodium 136 - 145 MEQ/L 146 ! (E) Potassium 3.5 - 5.1 MEQ/L 3.8 ( (more content not included)... [facility] 12-29-2023 Note HNO ID: [id number] Author: KURT DE SANTIAGO MD Service: ? Author Type: Physician Type: Progress Notes Filed: 01/10/2024 07:04 Note Text: Radiation Oncology - Follow Up Note PATIENT NAME: Morelia Nascimento PATIENT DIAGNOSIS/PATIENT IDENTIFICATION: Ms. Nascimento is an 88-year-old woman who was diagnosed with Stage I, [id number] invasive lobular carcinoma of the left breast; ER/AK positive HER-2 negative after undergoing left breast wide local excision and attempted sentinel lymph node biopsy on 07/05/[address] Pan. Pathology revealed 2 cm of intermediate grade invasive lobular carcinoma with close (0.2 mm) but negative margins and no sentinel lymph nodes were identified/taken. Presented with her adjuvant treatment choices she opted to move forward with a course of post-operative hypo-fractionated radiation therapy to the left breast for reduction of local recurrence which she completed on 09/27/2018 (5005 cGy in 20 fractions). She is not pursuing endocrine therapy. INTERVAL HISTORY/ROS: Ms. Nascimento returns to clinic today for routine follow-up approximately five years after the completion of her radiation treatments and one year since her last visit on 12/27/2022. In the interim, she had her annual surveillance mammogram earlier this week on 12/27/2023 showing stable posttreatment changes in the left breast with no concern for disease (BI-RADS 2). Today she reports no pain/discomfort in the breast or any skin irritation/breakdown or swelling or itching. She is not currently using a moisturizer in the area and reports no new lumps or bumps in the breast. She reports intact range of motion of the left upper extremity. She endorses good energy appetite and hydration with stable weight and continues to remain very active including golfing. She notes recent worsening of her hearing as well as constipation and increased urinary frequency but otherwise denies any recent fevers, chills, headaches, difficulty with speech/swallowing, shortness of breath, chest pain/palpitations, abdominal pain, nausea, vomiting, difficulty with gait/balance, recent falls, etc. The remainder of the review of systems was performed and was otherwise noncontributory. ALLERGIES ALLERGIES No Known Allergies MEDICATIONS: Current Outpatient Medications: losartan (COZAAR) 25 mg tablet atorvastatin (LIPITOR) 40 mg tablet coenzyme Q10 (COQ-10) 100 mg cap capsule magnesium oxide (MAG-OX) 400 mg (241.3 mg magnesium) tablet aspirin, enteric coated (ASPIRIN, ENTERIC COATED) 81 mg EC tablet PHYSICAL EXAM: GENERAL: elderly woman sitting in chair in no acute distress. KPS: 90 HEENT: NC/AT, anicteric sclera HEART: S1S2 LUNGS: non-labored breathing ABDOMEN: soft MUSCULOSKELETAL: no peripheral edema, moves all extremities. NEURO: no focal deficit; AANDO X3. BREASTS:.The patient was examined in the upright, seated position. Her incisions in the left breast are well healed with no signs of separation or underlying infection. Trace post-radiation pigment changes are noted with no areas of desquamation. No other abnormalities were identified in either breast or axilla. RADIOLOGIC DATA: Bilateral Mammogram (12/27/2023) ASSESSMENT AND PLAN: Ms. Nascimento is an 88-year-old woman who was diagnosed with Stage I, [id number] invasive lobular carcinoma of the left breast; ER/AK positive HER-2 negative after undergoing left breast wide local excision and attempted sentinel lymph node biopsy on 07/05/[address] Pan. Pathology revealed 2 cm of intermediate grade invasive lobular carcinoma with close (0.2 mm) but negative margins and no sentinel lymph nodes were identified/taken. Presented with her adjuvant treatment choices she opted to move forward with a course of post-operative hypo-fractionated radiation therapy to the left breast for reduction of local recurrence which she completed on 09/27/2018 (5005 cGy in 20 fractions). She is not pursuing endocrine therapy. Ms. Nascimento is doing well clinically approximately five years out from the completion of her postoperative radiation treatments to the left breast with no significant residual sequela at this time. She is without clinical or radiographic evidence of disease based on breast examination today as well as her bilateral mammogram from earlier this week on 12/27/2023 showing stable posttreatment changes in the left breast with no other concerns (BI-RADS 2). Given her age as well as the fact that she is over 5 years out now from her breast cancer diagnosis and treatments, we agreed that it be reasonable to move to imaging and follow-up every 2 years and she will contact us in the interim should there be any concerns including any changes in the breast. Signed by: Kurt De Santiago MD I spent a total of 20 minutes on the date of the service which included preparing to see the patient, [id number] patient care, and counseling and educating the patien (more content not included)... [facility] 12-29-2023 History of Presen t illness Narrative Radiation Oncology - Follow Up Note PATIENT NAME: Morelia Nascimento PATIENT Signed by: Kurt De Santiago MD I spent a total of 20 minutes on the date of the service which included preparing to see the patient, [id number] patient care, and counseling and educating the patient/family/caregiver. This document has been created with the use of voice recognition technology. It may contain inaccuracies, misspellings, inaccurate syntax or inappropriate word context that are a result of the inadequacies/shortcomings of said technology/software. documented in this encounter [facility] 11-21-2023 Miscellaneous Notes Faxed lab orders as requested. I spoke with patient's daughter Susanna and she just questioned the Carotid US ordered at the last visit and why it is needed. I explained that Dr. Monet just wants a 3 year follow up US to revaluate the mild stenosis seen the last time. She verbalized understanding and will let the patient know. No further questions. Morelia's daughter is calling in, she took her to her appointment on Tuesday. She states that her mother still wants to be independent, she went into the visit by herself and came out very confused. She was looking to go over appointment. Also, asking for the lab order to be faxed to [facility]. F:[phone] Patient has been identified by name and birthdate. Duration of symptoms: N/A Person calling: daughter: Call patient at: [phone] Was an appointment scheduled: No Closing statement: Results or non-symptom based questions: Thank you for calling [facility], your call will be returned within the next business day. Jen Burns documented in this encounter [facility] 11-18-2023 Miscellaneous Notes Addended by: KIAN MONET on: 11/18/2023 01:46 PM Modules accepted: Orders Addended by: ZAK WILKINS on: 11/18/2023 01:46 PM Modules accepted: Orders documented in this encounter [facility] 11-18-2023 Note HNO ID: [id number] Author: KIAN MONET DO Service: ? Author Type: Physician Type: Progress Notes Filed: 11/18/2023 13:43 Note Text: [facility] OUTPATIENT VISIT DATE 11/18/23 OUTPATIENT VISIT TYPE Established PRIMARY CARE PHYSICIAN: Yris Suarez MD ([facility]) [address] [place] [id number] HISTORY OF PRESENT ILLNESS: Ms. Nascimento is a 88 year old female with a PMH of carotid stenosis, hx of colon CA, and breast CA sp surgery.she was last seen by me on 05/20/23, per that note: ... she states that she is again very good. She denies having any: chest pain, palpitations, shortness of breath, orthopnea, LE edema, presyncope/syncope, N/V, bleeding, or other significant symptoms. Today, she states that she is feeling well. She denies having any: chest pain, palpitations, shortness of breath, orthopnea, LE edema, presyncope/syncope, N/V, bleeding, or other significant symptoms. She is still eating vegetables daily. She drinks 1 cup of coffee in the AM. She will have 3-4 alcoholic beverages a month. She quit smoking in 1998. She is not using any marijuana nor other drugs. She is walking for 30+ minutes her dog 3-4 times a week. Family, mother had 3 TIAs and at 89 years of age. Father had dementia. Upon further questioning, she lost her in 2006. She continues to have fecal incontinence and is working with her PCP regarding this. She tells me that her home sBP is in the 120s. IMPRESSION: Encounter Diagnosis ICD-10-CM 1. Bilateral carotid artery stenosis I65.23 ECG COMPLETE 2. Primary hypertension I10 ECG COMPLETE losartan (COZAAR) 25 mg tablet BASIC METABOLIC PNL 3. Mixed hyperlipidemia E78.2 4. Hypomagnesemia E83.42 ECG COMPLETE 5. Encounter for monitoring statin therapy Z51.81 Z79.899 6. Ex-smoker Z87.891 PLAN AND RECOMMENDATION: Carotid stenosis is mild 20-39 percent at this time. Ordered carotid US to be done prior to next visit which will be 3 years since her last ultrasound, prior to next visit. Goal blood pressure less than 130/80 mmHg. Blood pressure log shows that BP is above goal at home. Recommend starting losartan 25 mg daily. She should have BMP checked 2 weeks after starting medicine. She will bring blood pressure log to next visit. Consider treating antihypertensive regimen if blood pressure continues to be elevated at home. Goal LDL is less than 70mg/dL. Continue atorvastatin 40 mg nightly, LDL is now at goal. Monitor for myalgias at next visit. Check lipid panel prior to next visit Continue to replace magnesium. Continue complete smoking cessation. REVIEW OF SYSTEMS: Chest pain No Shortness of breath No Bleeding No Dizziness No Syncope No Palpations No 10 systems reviewed and are negative with the exception of pertinent positives described in HPI PHYSICAL EXAMINATION: BP 155/69 Pulse 83 Wt 62 kg (136 lb 11 oz) SpO2 99% BMI 25.84 kg/m? Gen; NAD HEENT: normocephalic, EOMI , no JVD, no significant carotid bruit Heart: regular rhythm , no significant murmur Lungs: clear to auscultation Abdomen: bowel sounds present Extremities: no edema Musculoskeletal: chest wall nontender Neurological: alert and oriented Psychiatric: appropriate and cooperative Skin: no rash, cellulitis or lesions appreciated CARDIOVASCULAR MEDICINE TESTING: I have personally reviewed ECG, laboratory results and vascular imaging report ECG -11/18/2023 NSR 84 bpm, LAD, anterior infarct age undetermined, abnormal ECG Carotid US - 11/16/18 Outside record MIRIAN 0-49% stenosis LICA 66% stenosis Non-occlusive thrombus in the internal jugular vein Carotid ultrasound-03/26/20 Right internal carotid artery 20-39 percent stenosis. Left internal carotid artery 20-39 percent stenosis. ETT - 01/09/19 101% MPHR, 6.2 METS good functional capacity, Normal except for low HRR SPECT - 01/09/19 CONCLUSIONS: 1. SPECT Perfusion Study: Normal. 2. There is no scintigraphic evidence for inducible ischemia. 3. No evidence of scarred myocardium. 4. Good functional capacity for age and gender. 5. Left ventricle is small. The left ventricle systolic function is normal. 6. Right ventricle is small. The right ventricle systolic function is normal. 7. This is a low risk scan. Gated Stress FBP Gated Rest FBP LVEF % 83 Echo -12/28/18 CONCLUSIONS: - Exam indication: Abnormal ECG - The left ventricle is normal in size. There is no left ventricular hypertrophy. Left ventricular systolic function is normal. EF = 61 ? 5% (2D 4-ch.) - The right ventricle is normal in size. Right ventricular systolic function is normal. - No significant valvular abnormalities. - The patient has not had a prior [facility] echocardiographic exam for comparison. Latest Reference Range AND Units 11/14/23 13:48 Sodium 136 - 144 mmol/L 141 Potassium (more content not included)... [facility] 11-18-2023 History of Presen t illness Narrative Images from the original note were not included. [facility] OUTPATIENT VISIT DATE 11/18/23 OUTPATIENT VISIT TYPE Established PRIMARY CARE PHYSICIAN: Yris Suarez MD ([facility]) [address] [place] [phone] HISTORY OF PRESENT ILLNESS: Ms. Nascimento is a 88 year old female with a PMH of carotid stenosis, hx of colon CA, and breast CA sp surgery.she was last seen by me on 05/20/23, per that note: ... she states that she is again very good. She denies having any: chest pain, palpitations, shortness of breath, orthopnea, LE edema, presyncope/syncope, N/V, bleeding, or other significant symptoms. Today, she states that she is feeling well. She denies having any: chest pain, palpitations, shortness of breath, orthopnea, LE edema, presyncope/syncope, N/V, bleeding, or other significant symptoms. She is still eating vegetables daily. She drinks 1 cup of coffee in the AM. She will have 3-4 alcoholic beverages a month. She quit smoking in 1998. She is not using any marijuana nor other drugs. She is walking for 30+ minutes her dog 3-4 times a week. Family, mother had 3 TIAs and at 89 years of age. Father had dementia. Upon further questioning, she lost her in 2006. She continues to have fecal incontinence and is working with her PCP regarding this. She tells me that her home sBP is in the 120s. IMPRESSION: Encounter Diagnosis ICD-10-CM 1. Bilateral carotid artery stenosis I65.23 ECG COMPLETE 2. Primary hypertension I10 ECG COMPLETE losartan (COZAAR) 25 mg tablet BASIC METABOLIC PNL 3. Mixed hyperlipidemia E78.2 4. Hypomagnesemia E83.42 ECG COMPLETE 5. Encounter for monitoring statin therapy Z51.81 Z79.899 6. Ex-smoker Z87.891 PLAN AND RECOMMENDATION: Carotid stenosis is mild 20-39 percent at this time. Ordered carotid US to be done prior to next visit which will be 3 years since her last ultrasound, prior to next visit. Goal blood pressure less than 130/80 mmHg. Blood pressure log shows that BP is above goal at home. Recommend starting losartan 25 mg daily. She should have BMP checked 2 weeks after starting medicine. She will bring blood pressure log to next visit. Consider treating antihypertensive regimen if blood pressure continues to be elevated at home. Goal LDL is less than 70mg/dL. Continue atorvastatin 40 mg nightly, LDL is now at goal. Monitor for myalgias at next visit. Check lipid panel prior to next visit Continue to replace magnesium. Continue complete smoking cessation. REVIEW OF SYSTEMS: Chest pain No Shortness of breath No Bleeding No Dizziness No Syncope No Palpations No 10 systems reviewed and are negative with the exception of pertinent positives described in HPI PHYSICAL EXAMINATION: BP 155/69 Pulse 83 Wt 62 kg (136 lb 11 oz) SpO2 99% BMI 25.84 kg/m Gen; NAD HEENT: normocephalic, EOMI , no JVD, no significant carotid bruit Heart: regular rhythm , no significant murmur Lungs: clear to auscultation Abdomen: bowel sounds present Extremities: no edema Musculoskeletal: chest wall nontender Neurological: alert and oriented Psychiatric: appropriate and cooperative Skin: no rash, cellulitis or lesions appreciated CARDIOVASCULAR MEDICINE TESTING: I have personally reviewed ECG, laboratory results and vascular imaging report ECG -11/18/2023 NSR 84 bpm, LAD, anterior infarct age undetermined, abnormal ECG Carotid US - 11/16/18 Outside record MIRIAN 0-49% stenosis LICA 66% stenosis Non-occlusive thrombus in the internal jugular vein Carotid ultrasound-03/26/20 Right internal carotid artery 20-39 percent stenosis. Left internal carotid artery 20-39 percent stenosis. ETT - 01/09/19 101% MPHR, 6.2 METS good functional capacity, Normal except for low HRR SPECT - 01/09/19 CONCLUSIONS: 1. SPECT Perfusion Study: Normal. 2. There is no scintigraphic evidence for inducible ischemia. 3. No evidence of scarred myocardium. 4. Good functional capacity for age and gender. 5. Left ventricle is small. The left ventricle systolic function is normal. 6. Right ventricle is small. The right ventricle systolic function is normal. 7. This is a low risk scan. Gated Stress FBP Gated Rest FBP LVEF % 83 Echo -12/28/18 CONCLUSIONS: - Exam indication: Abnormal ECG - The left ventricle is normal in size. There is no left ventricular hypertrophy. Left ventricular systolic function is normal. EF = 61 5% (2D 4-ch.) - The right ventricle is normal in size. Right ventricular systolic function is normal. - No significant valvular abnormalities. - The patient has not had a prior [facility] echocardiographic exam for comparison. Latest Reference Range & Units 11/14/23 13:48 Sodium 136 - 144 mmol/L 141 Potassium 3.7 - 5.1 mmol/L 3.9 Chloride 97 - 105 mmol/L 104 CO2 22 - 30 mmol/L 27 BUN 7 - 21 mg/dL 17 Creatinine 0.58 - 0.96 mg/dL 0.87 Glucose 74 - 99 mg/dL 137 (H) Calcium 8.5 - 10.2 mg/dL 10.1 Anion Gap 9 - 18 mmol/L 10 eGFR >=60 mL/min/1.73m 65 (H): Data is abnormally high Hemoglobin (g/dL) Date Value 11/27/2020 14.6 Hematocrit (%) Date Value 11/27/2020 44.2 WBC (k/uL) Date Value 11/27/2020 4.52 PAST MEDICAL HISTORY Diagnosis Date Breast cancer (HCC) Left; ER/AK+ GERD (gastroesophageal reflux disease) PAST SURGICAL HISTORY Procedure Laterality Date APPENDECTOMY HX CHOLECYSTECTOMY HX COLONOSCOPY PARTIAL MASTECTOMY Left PAST SURGICAL HISTORY OF 1998 colon resection-colon cancer Social History Tobacco Use Smoking status: Former Years: 25 Types: Cigarettes Quit date: 1988 Years since quittin.2 Smokeless tobacco: Never Tobacco comments: 2 packs per week Substance Use Topics Alcohol use: Yes Comment: occ Drug use: No FAMILY HISTORY Problem Relation Age of Onset Heart disease Mother Dementia Father ALLERGIES No Known Allergies CURRENT MEDICATIONS: atorvastatin (LIPITOR) 40 mg tablet Take 1 tablet by mouth once daily. coenzyme Q10 (COQ-10) 100 mg cap capsule Take 1 capsule by mouth once daily. magnesium oxide (MAG-OX) 400 mg (241.3 mg magnesium) tablet Take 1 tablet by mouth once daily. aspirin, enteric coated (ASPIRIN, ENTERIC COATED) 81 mg EC tablet Take 81 mg by mouth once daily. losartan (COZAAR) 25 mg tablet Take 1 tablet by mouth once daily. Signed: Kian Monet DO 11/18/23 documented in this encounter [facility] 10-07-2023 Miscellaneous Notes Patient has been identified by name and date of : Yes Requested Prescriptions Pending Prescriptions Disp Refills atorvastatin (LIPITOR) 40 mg tablet 90 tablet 3 Sig: Take 1 tablet by mouth once daily. coenzyme Q10 (COQ-10) 100 mg cap capsule 90 capsule 3 Sig: Take 1 capsule by mouth once daily. magnesium oxide (MAG-OX) 400 mg (241.3 mg magnesium) tablet 90 tablet 3 Sig: Take 1 tablet by mouth once daily. RX INSTRUCTIONS: Patient aware RX will be sent to pharmacy. No need to notify patient. Selene Regalado documented in this encounter [facility] 05-20-2023 History of Presen t illness Narrative Images from the original note were not included. [facility] OUTPATIENT VISIT DATE 05/20/23 OUTPATIENT VISIT TYPE Established PRIMARY CARE PHYSICIAN: Yris Suarez MD ([facility]) [address] [place] [address] HISTORY OF PRESENT ILLNESS: Ms. Nascimento is a 87 year old female with a PMH of carotid stenosis, hx of colon CA, and breast CA sp surgery.she was last seen by me on 11/18/21, per that note: ... she tells me that she is very good. She tells me that she has no pains and continues to be active working in her yard. She denies having any: chest pain, palpitations, shortness of breath, orthopnea, LE edema, presyncope/syncope, N/V, bleeding, or other significant symptoms. Today, she states that she is again very good. She denies having any: chest pain, palpitations, shortness of breath, orthopnea, LE edema, presyncope/syncope, N/V, bleeding, or other significant symptoms. She is still eating vegetables daily or almost every day. She drinks 1 cup of coffee in the AM. She will have 3-4 alcoholic beverages a month. She quit smoking in 1998. She is not using any marijuana nor other drugs. She is walking for 30+ minutes daily. She has been doing a lot of yardwork. Family, mother had 3 TIAs and at 89 years of age. Father had dementia. Upon further questioning, she lost her in 2006. She continues to have fecal incontinence and is working with her PCP regarding this. She tells me that her home sBP is in the 120s. IMPRESSION: Encounter Diagnosis ICD-10-CM 1. Bilateral carotid artery stenosis I65.23 ECG COMPLETE 2. Elevated blood pressure reading without diagnosis of hypertension R03.0 magnesium oxide (MAG-OX) 400 mg (241.3 mg magnesium) tablet 3. Mixed hyperlipidemia E78.2 ECG COMPLETE atorvastatin (LIPITOR) 40 mg tablet coenzyme Q10 (COQ-10) 100 mg cap capsule BASIC METABOLIC PNL 4. Hypomagnesemia E83.42 magnesium oxide (MAG-OX) 400 mg (241.3 mg magnesium) tablet 5. Encounter for monitoring statin therapy Z51.81 Z79.899 6. Ex-smoker Z87.891 PLAN AND RECOMMENDATION: Carotid stenosis is mild 20-39 percent at this time. Ordered carotid US to be done prior to next visit which will be 3 years since her last ultrasound, prior to next visit. Elevated blood pressure in the office. Goal blood pressure less than 130/80 mmHg. She states that home blood pressure measurements are stable. She will bring blood pressure log to next visit. Consider starting antihypertensive regimen if blood pressure continues to be elevated at home. Blood pressure measurement from home was normal today. Goal LDL is less than 70mg/dL. Continue atorvastatin 40 mg nightly, LDL is now at goal. Monitor for myalgias at next visit. Check lipid panel prior to next visit Continue to replace magnesium. Continue complete smoking cessation. REVIEW OF SYSTEMS: Chest pain No Shortness of breath No Bleeding No Dizziness No Syncope No Palpations No 10 systems reviewed and are negative with the exception of pertinent positives described in HPI PHYSICAL EXAMINATION: BP 146/72 Pulse 92 Wt 62.1 kg (137 lb) SpO2 97% BMI 25.90 kg/m Gen; NAD HEENT: normocephalic, EOMI , no JVD, no significant carotid bruit Heart: regular rhythm , no significant murmur Lungs: clear to auscultation Abdomen: bowel sounds present Extremities: no edema Musculoskeletal: chest wall nontender Neurological: alert and oriented Psychiatric: appropriate and cooperative Skin: no rash, cellulitis or lesions appreciated CARDIOVASCULAR MEDICINE TESTING: I have personally reviewed ECG, laboratory results and vascular imaging report ECG -05/20/2023 NSR 93 bpm, LAD, low voltage QRS, cannot rule out anterior infarct age undetermined, abnormal ECG Carotid US - 11/16/18 Outside record MIRIAN 0-49% stenosis LICA 66% stenosis Non-occlusive thrombus in the internal jugular vein Carotid ultrasound-03/26/20 Right internal carotid artery 20-39 percent stenosis. Left internal carotid artery 20-39 percent stenosis. ETT - 01/09/19 101% MPHR, 6.2 METS good functional capacity, Normal except for low HRR SPECT - 01/09/19 CONCLUSIONS: 1. SPECT Perfusion Study: Normal. 2. There is no scintigraphic evidence for inducible ischemia. 3. No evidence of scarred myocardium. 4. Good functional capacity for age and gender. 5. Left ventricle is small. The left ventricle systolic function is normal. 6. Right ventricle is small. The right ventricle systolic function is normal. 7. This is a low risk scan. Gated Stress FBP Gated Rest FBP LVEF % 83 Echo -12/28/18 CONCLUSIONS: - Exam indication: Abnormal ECG - The left ventricle is normal in size. There is no left ventricular hypertrophy. Left ventricular systolic function is normal. EF = 61 5% (2D 4-ch.) - The right ventricle is normal in size. Right ventricular systolic function is normal. - No significant valvular abnormalities. - The patient has not had a prior [facility] echocardiographic exam for comparison. Latest Reference Range & Units Most Recent Sodium 136 - 144 mmol/L 142 10/20/22 13:18 Potassium 3.7 - 5.1 mmol/L 3.8 10/20/22 13:18 Chloride 97 - 105 mmol/L 104 10/20/22 13:18 CO2 22 - 30 mmol/L 27 10/20/22 13:18 BUN 7 - 21 mg/dL 19 10/20/22 13:18 Creatinine 0.58 - 0.96 mg/dL 0.77 10/20/22 13:18 Glucose 74 - 99 mg/dL 105 (H) 10/20/22 13:18 Calcium 8.5 - 10.2 mg/dL 9.6 10/20/22 13:18 Magnesium 1.7 - 2.3 mg/dL 2.1 10/20/22 13:18 Anion Gap 9 - 18 mmol/L 11 10/20/22 13:18 eGFR >=60 mL/min/1.73m 75 10/20/22 13:18 Cholesterol, Total <200 mg/dL 133 05/17/23 09:00 Triglyceride <150 mg/dL 68 05/17/23 09:00 Fasting Time hrs 12 05/17/23 09:00 HDL Cholesterol >39 mg/dL 62 05/17/23 09:00 LDL Cholesterol <100 mg/dL 57 05/17/23 09:00 VLDL Cholesterol <30 mg/dL 14 05/17/23 09:00 TC:HDL Ratio <5.10 2.15 05/17/23 09:00 (H): Data is abnormally high Hemoglobin (g/dL) Date Value 11/27/2020 14.6 Hematocrit (%) Date Value 11/27/2020 44.2 WBC (k/uL) Date Value 11/27/2020 4.52 PAST MEDICAL HISTORY Diagnosis Date Breast cancer (HCC) Left; ER/AK+ GERD (gastroesophageal reflux disease) PAST SURGICAL HISTORY Procedure Laterality Date APPENDECTOMY HX CHOLECYSTECTOMY HX COLONOSCOPY PARTIAL MASTECTOMY Left PAST SURGICAL HISTORY OF 1998 colon resection-colon cancer Social History Tobacco Use Smoking status: Former Years: 25 Types: Cigarettes Quit date: 1988 Years since quittin.7 Smokeless tobacco: Never Tobacco comments: 2 packs per week Substance Use Topics Alcohol use: Yes Comment: occ Drug use: No FAMILY HISTORY Problem Relation Age of Onset Heart disease Mother Dementia Father ALLERGIES No Known Allergies CURRENT MEDICATIONS: aspirin, enteric coated (ASPIRIN, ENTERIC COATED) 81 mg EC tablet Take 81 mg by mouth once daily. atorvastatin (LIPITOR) 40 mg tablet Take 1 tablet by mouth once daily. coenzyme Q10 (COQ-10) 100 mg cap capsule Take 1 capsule by mouth once daily. magnesium oxide (MAG-OX) 400 mg (241.3 mg magnesium) tablet Take 1 tablet by mouth once daily. Signed: Kian Monet DO 05/20/23 documented in this encounter [facility] 12-27-2022 History of Presen t illness Narrative Images from the original note were not included. Radiation Oncology - Follow Up Note PATIENT NAME: Morelia Nascimento PATIENT DIAGNOSIS/PATIENT IDENTIFICATION: Ms. 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 Pan. Pathology revealed 2 cm of intermediate grade invasive lobular carcinoma with close (0.2 mm) but negative margins and no sentinel lymph nodes were identified/taken. Presented with her adjuvant treatment choices she opted to move forward with a course of post-operative hypo-fractionated radiation therapy to the left breast for reduction of local recurrence which she completed on 09/27/2018 (5005 cGy in 20 fractions). She is not pursuing endocrine therapy. INTERVAL HISTORY/ROS: Ms. Nascimento returns to clinic today for routine follow-up approximately four years after the completion of her radiation treatments and one year since her last visit on 12/28/2021. In the interim, she had her annual mammogram on 12/20/2022 which showed expected posttreatment change in the left breast with no radiographic concern for disease (BI-RADS 2). Today she denies any pain/discomfort, skin irritation/breakdown, any new lumps or bumps in the left breast and continues to use a moisturizer with intact range of motion of the left upper extremity. She continues to have a small amount of intermittent seepage/crusting in the area of the nipple which she feels is the same to slightly less. She endorses good energy she continues to be very active including golfing and has recently been eating healthier and losing some weight. She sees her primary care physician at least once a year and follows with cardiology. She notes slight constipation and urinary incontinence but otherwise denies any recent fevers, chills, headaches, difficulty with speech/swallowing, shortness of breath, chest pain/palpitations, abdominal pain, nausea, vomiting, difficulty with gait/balance, recent falls, etc. The remainder of the review of systems was performed and was otherwise noncontributory. ALLERGIES ALLERGIES No Known Allergies MEDICATIONS: Current Outpatient Medications: coenzyme Q10 (COQ-10) 100 mg cap capsule atorvastatin (LIPITOR) 40 mg tablet magnesium oxide (MAG-OX) 400 mg (241.3 mg magnesium) tablet aspirin, enteric coated (ASPIRIN LOW DOSE) 81 mg EC tablet PHYSICAL EXAM: GENERAL: elderly woman sitting in chair in no acute distress. VITALS: BP 121/81 Pulse 57 Temp 97.9 Resp 16 Wt 140 lb 12.8 oz (63.9kg) SpO2 96% KPS: 90 HEENT: NC/AT, anicteric sclera HEART: S1S2 LUNGS: non-labored breathing ABDOMEN: soft MUSCULOSKELETAL: no peripheral edema, moves all extremities. NEURO: no focal deficit; A&O X3. BREASTS: The patient was examined in the upright, seated position. Her incisions in the left breast are well healed with no signs of separation or underlying infection. Trace post-radiation pigment changes are noted with no areas of desquamation. Small area of crusting noted in the area of the left nipple with no other abnormalities identified in either breast or axilla. RADIOLOGIC DATA: Bilateral Mammogram (12/20/2022) ASSESSMENT AND PLAN: Ms. Nascimento is an 87-year-old female who was diagnosed with Stage I, [id number] invasive lobular carcinoma of the left breast; ER/AK positive HER-2 negative after undergoing left breast wide local excision and attempted sentinel lymph node biopsy on 07/05/[address] Pan. Pathology revealed 2 cm of intermediate grade invasive lobular carcinoma with close (0.2 mm) but negative margins and no sentinel lymph nodes were identified/taken. Presented with her adjuvant treatment choices she opted to move forward with a course of post-operative hypo-fractionated radiation therapy to the left breast for reduction of local recurrence which she completed on 09/27/2018 (5005 cGy in 20 fractions). She is not pursuing endocrine therapy. Ms. Nascimento is doing well clinically approximately 4 years out from the completion of her radiation treatments to the left breast with no significant residual sequela at this time. She is without both clinical and radiographic evidence of disease based on today's breast exam as well as her annual mammogram from 12/20/2022 showing stable posttreatment changes in the left breast with no concerns for disease (BI-RADS 2). I will plan to see her back in 1 year with repeat mammogram. The patient is aware to contact the clinic in the interim should any questions or concerns arise. Thank you for allowing us to participate in the care of this patient. Signed by: Kurt De Santiago MD I spent a total of 20 minutes on the date of the service which included preparing to see the patient, [id number] patient care, completing clinical documentation, and counseling and educating the patient/family/caregiver. This document has been created with the use of voice recognition technology. It may contain inaccuracies, misspellings, inaccurate syntax or inappropriate word context that are a result of the inadequacies/shortcomings of said technology/software. documented in this encounter [facility] 11-18-2022 History of Presen t illness Narrative Images from the original note were not included. [facility] OF [facility]AL CARDIOLOGY OUTPATIENT VISIT DATE 11/18/22 OUTPATIENT VISIT TYPE Established PRIMARY CARE PHYSICIAN: Yris Suarez MD ([facility]) [address] [place] [id number] HISTORY OF PRESENT ILLNESS: Ms. Nascimento is a 87 year old female with a PMH of carotid stenosis, hx of colon CA, and breast CA sp surgery.she was last seen by me on 03/24/22, per that note: ... she tells me that she feels good today. She explains that she has a system to remember her medications. She denies having any: chest pain, palpitations, shortness of breath, orthopnea, LE edema, presyncope/syncope, N/V, bleeding, or other significant symptoms. Today, she tells me that she is very good. She tells me that she has no pains and continues to be active working in her yard. She denies having any: chest pain, palpitations, shortness of breath, orthopnea, LE edema, presyncope/syncope, N/V, bleeding, or other significant symptoms. She is still eating vegetables daily or almost every day. She drinks 1 cup of coffee in the AM. She will have 3-4 alcoholic beverages a month. She quit smoking in 1998. She is not using any marijuana nor other drugs. She is walking for 30+ minutes daily. She has been doing a lot of yardwork. Family, mother had 3 TIAs and at 89 years of age. Father had dementia. Upon further questioning, she lost her in 2006. She continues to have fecal incontinence and is working with her PCP regarding this. She tells me that her home sBP is in the 120s. IMPRESSION: Encounter Diagnosis ICD-10-CM 1. Bilateral carotid artery stenosis I65.23 ECG COMPLETE 2. Elevated blood pressure reading without diagnosis of hypertension R03.0 ECG COMPLETE 3. Mixed hyperlipidemia E78.2 LIPID PANEL BASIC 4. Hypomagnesemia E83.42 5. Encounter for monitoring statin therapy Z51.81 Z79.899 6. Ex-smoker Z87.891 PLAN AND RECOMMENDATION: Carotid stenosis is mild 20-39 percent at this time. Ordered carotid US to be done prior to next visit which will be 3 years since her last ultrasound. Elevated blood pressure in the office. Goal blood pressure less than 130/80 mmHg. She states that home blood pressure measurements are stable. She will bring blood pressure log to next visit. Consider starting antihypertensive regimen if blood pressure continues to be elevated at home. Blood pressure measurement from home was normal today. Goal LDL is less than 70mg/dL. Continue atorvastatin 40 mg nightly, LDL is now at goal. Monitor for myalgias at next visit. Check lipid panel prior to next visit Continue to replace magnesium. Continue complete smoking cessation. REVIEW OF SYSTEMS: Chest pain No Shortness of breath No Bleeding No Dizziness No Syncope No Palpations No 10 systems reviewed and are negative with the exception of pertinent positives described in HPI PHYSICAL EXAMINATION: BP 139/69 Pulse 83 Wt 62.6 kg (138 lb) SpO2 96% BMI 26.09 kg/m Gen; NAD HEENT: normocephalic, EOMI , no JVD, no significant carotid bruit Heart: regular rhythm , no significant murmur Lungs: clear to auscultation Abdomen: bowel sounds present Extremities: no edema Musculoskeletal: chest wall nontender Neurological: alert and oriented Psychiatric: appropriate and cooperative Skin: no rash, cellulitis or lesions appreciated CARDIOVASCULAR MEDICINE TESTING: I have personally reviewed ECG, laboratory results and vascular imaging report ECG -11/18/2022 NSR 85 bpm, left axis deviation, anterior infarct age undetermined, abnormal ECG Carotid US - 11/16/18 Outside record MIRIAN 0-49% stenosis LICA 66% stenosis Non-occlusive thrombus in the internal jugular vein Carotid ultrasound-03/26/20 Right internal carotid artery 20-39 percent stenosis. Left internal carotid artery 20-39 percent stenosis. ETT - 01/09/19 101% MPHR, 6.2 METS good functional capacity, Normal except for low HRR SPECT - 01/09/19 CONCLUSIONS: 1. SPECT Perfusion Study: Normal. 2. There is no scintigraphic evidence for inducible ischemia. 3. No evidence of scarred myocardium. 4. Good functional capacity for age and gender. 5. Left ventricle is small. The left ventricle systolic function is normal. 6. Right ventricle is small. The right ventricle systolic function is normal. 7. This is a low risk scan. Gated Stress FBP Gated Rest FBP LVEF % 83 Echo -12/28/18 CONCLUSIONS: - Exam indication: Abnormal ECG - The left ventricle is normal in size. There is no left ventricular hypertrophy. Left ventricular systolic function is normal. EF = 61 5% (2D 4-ch.) - The right ventricle is normal in size. Right ventricular systolic function is normal. - No significant valvular abnormalities. - The patient has not had a prior CC echocardiographic exam for comparison. Latest Reference Range & Units Most Recent Sodium 136 - 144 mmol/L 142 10/20/22 13:18 Potassium 3.7 - 5.1 mmol/L 3.8 10/20/22 13:18 Chloride 97 - 105 mmol/L 104 10/20/22 13:18 CO2 22 - 30 mmol/L 27 10/20/22 13:18 BUN 7 - 21 mg/dL 19 10/20/22 13:18 Creatinine 0.58 - 0.96 mg/dL 0.77 10/20/22 13:18 Glucose 74 - 99 mg/dL 105 (H) 10/20/22 13:18 Calcium 8.5 - 10.2 mg/dL 9.6 10/20/22 13:18 Magnesium 1.7 - 2.3 mg/dL 2.1 10/20/22 13:18 Anion Gap 9 - 18 mmol/L 11 10/20/22 13:18 eGFR >=60 mL/min/1.73m 75 10/20/22 13:18 Cholesterol, Total <200 mg/dL 136 11/27/21 09:54 Triglyceride <150 mg/dL 67 11/27/21 09:54 Fasting Time hrs 12 11/27/21 09:54 HDL Cholesterol >39 mg/dL 62 11/27/21 09:54 LDL Cholesterol <100 mg/dL 61 11/27/21 09:54 VLDL Cholesterol <30 mg/dL 13 11/27/21 09:54 TC:HDL Ratio <5.10 2.19 11/27/21 09:54 LDL:HDL Ratio <2.54 0.98 11/27/21 09:54 (H): Data is abnormally high Hemoglobin (g/dL) Date Value 11/27/2020 14.6 Hematocrit (%) Date Value 11/27/2020 44.2 WBC (k/uL) Date Value 11/27/2020 4.52 PAST MEDICAL HISTORY Diagnosis Date Breast cancer (HCC) Left; ER/AK+ GERD (gastroesophageal reflux disease) PAST SURGICAL HISTORY Procedure Laterality Date APPENDECTOMY HX CHOLECYSTECTOMY HX COLONOSCOPY PARTIAL MASTECTOMY Left PAST SURGICAL HISTORY OF 1998 colon resection-colon cancer Social History Tobacco Use Smoking status: Former Years: 25.00 Types: Cigarettes Quit date: 1988 Years since quittin.2 Smokeless tobacco: Never Tobacco comments: 2 packs per week Substance Use Topics Alcohol use: Yes Comment: occ Drug use: No FAMILY HISTORY Problem Relation Age of Onset Heart disease Mother Dementia Father ALLERGIES No Known Allergies CURRENT MEDICATIONS: coenzyme Q10 (COQ-10) 100 mg cap capsule Take 1 capsule by mouth once daily. atorvastatin (LIPITOR) 40 mg tablet Take 1 tablet by mouth once daily. magnesium oxide (MAG-OX) 400 mg (241.3 mg magnesium) tablet Take 1 tablet by mouth once daily. aspirin, enteric coated (ASPIRIN LOW DOSE) 81 mg EC tablet Take 81 mg by mouth once daily. 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 Requested Prescriptions Signed Prescriptions Disp Refills coenzyme Q10 (COQ-10) 100 mg cap capsule 90 capsule 3 Sig: Take 1 capsule by mouth once daily. Authorizing Provider: SELENE OTERO atorvastatin (LIPITOR) 40 mg tablet 90 tablet 3 Sig: Take 1 tablet by mouth once daily. Authorizing Provider: SELENE OTERO magnesium oxide (MAG-OX) 400 mg (241.3 mg magnesium) tablet 90 tablet 3 Sig: Take 1 tablet by mouth once daily. Authorizing Provider: SELENE OTERO APRN.CNP * Telephone Encounter - Radha Llanos MA - 08/02/2022 10:40 AM EST Last office visit 03/24/22 Future appt scheduled 09/24/22 Last Lipid 11/27/21 Last Magnesium, CBC, CMP 11/27/20 There is a BMP and Magnesium level ordered for patient to get done prior to appt on 09/24/22 * Telephone Encounter - Mari Jones Ma - 08/02/2022 10:21 AM EST Patient has been identified by name and date of : Yes Requested Prescriptions Pending Prescriptions Disp Refills coenzyme Q10 (COQ-10) 100 mg cap capsule 90 capsule 3 Sig: Take 1 capsule by mouth once daily. atorvastatin (LIPITOR) 40 mg tablet 90 tablet 3 Sig: Take 1 tablet by mouth once daily. magnesium oxide (MAG-OX) 400 mg (241.3 mg magnesium) tablet 90 tablet 3 Sig: Take 1 tablet by mouth once daily. RX INSTRUCTIONS: Patient aware RX will be sent to pharmacy. No need to notify patient. Mari Jones Ma [facility] History of Present illness Narrative* Kurt De Santiago MD - 12/28/2021 11:54 PM EDT Radiation Oncology - Follow Up Note PATIENT NAME: Morelia Nascimento PATIENT Signed by: Kurt De Santiago MD I spent a total of 20 minutes on the date of the service which included preparing to see the patient, [id number] patient care and counseling and educating the patient/family/caregiver. This document has been created with the use of voice recognition technology. It may contain inaccuracies, misspellings, inaccurate syntax or inappropriate word context that are a result of the inadequacies/shortcomings of said technology/software. [facility] Miscellaneous Notes* Telephone Encounter - Jeaneth Hawk RN - 12/16/2021 10:30 AM EDT GURDEEP Stewart does not have an order. Please sign pended order. Jeaneth Hawk RN * Telephone Encounter - Jeaneth Hawk RN - 12/16/2021 8:57 AM EDT Spoke to pt and she has not had 6 month katja yet. SHe will call [facility] today and then call us back to let us know when she is set up. PSS- please cancel RV for 12/17 and reschedulef or after mammogram. Jeaneth Hawk RN [facility] History of Present illness Narrative* Patricia Young APRN.GEOPOLITICS TEACHER - 12/01/2021 1:46 PM EDT Images from the original note were not included. [facility] Department of Cardiovascular Medicine SECTION OF REGIONAL CARDIOLOGY December 01, 2021 OUTPATIENT VISIT TYPE ESTABLISHED PRIMARY CARE PHYSICIAN: Yris Suarez MD SUBJECTIVE: CHIEF COMPLAINT: Patient presents with: Cardiology Follow Up HISTORY OF PRESENT ILLNESS: Morelia Nascimento is a 86 year old female with a history of carotid stenosis, hx of colon CA, and breast CA sp surgery, who presents for CVM follow up. There has not been any recent ED visits/hospitalizations for cardiac related issues. Last seen in department of cardiology 05/29/[address] Kian Monet. Per that note... Today, she tells me that she's doing well. She golfs regularly and will walk the course for over 30 minutes daily unless she did other exercise that day. She denies having any: chest pain, palpitations, shortness of breath, orthopnea, LE edema, presyncope/syncope, N/V, bleeding, or other significant symptoms Primary complaint today: She denies chest pain, shortness of breath, orthopnea, cough, significant edema/weight gain, palpitations, PND, lightheadedness, syncope or other significant cardiac symptoms. No falls. Memory pretty good. Some short term memory loss. BP elevated in the office. She reports averaging 130/80; she did not bring in the home log of readings. She continues eating vegetables daily or almost every day. She drinks 1 cup of coffee in the AM. She has a little gobble of wine or a mixed drink with girl friends . REVIEW OF SYSTEMS: Detailed 14 systems reviewed. Pertinent information, positive and/or negative or non-contributory with the exception of pertinent positives described in HPI. Past Medical, Family and Social history reviewed; unchanged from prior. Family, mother had 3 TIAs and at 89 years of age. Father had dementia. Her in 2006. ASSESSMENT/PLAN: Morelia Nascimento was seen today for cardiology follow up. Diagnoses and all orders for this visit: Encounter Diagnosis ICD-10-CM 1. Bilateral carotid artery stenosis I65.23 2. Mixed hyperlipidemia E78.2 3. Elevated blood pressure reading without diagnosis of hypertension R03.0 -Carotid artery stenosis. MIRIAN and LICA 20-39% stenosis. Repeat Carotid US 02/2023. HLD noted. LDL goal < 70 mg/dL. Continue aspirin 81 mg daily and atorvastatin 40 mg daily at bedtime. - BP > 130/80 mmHg. and declines to start taking medications at this time. -Continue lifestyle modifications: Reduce sodium intake, regular aerobic exercise, eating heart healthy/Plant-based/whole foods diet and maintaining ideal body weight with BMI < 25. Follow up: -She will follow-up in 2-3 months or sooner if problems. -She should continue to follow with her primary physician for routine health care maintenance and age appropriate risk factor assessment, modification and screenings. PHYSICAL EXAMINATION: BP 145/73 (BP Site: Left Arm, BP Position: Sitting, BP Cuff Size: Regular Adult) Pulse 89 Wt 65.8 kg (145 lb) SpO2 94% BMI 27.41 kg/m Repeat BP 159/77-62 General appearance: well appearing, in no acute distress, alert. Eyes: Anicteric sclera. EOMI Neck: No carotid bruits or JVD Lungs: Normal respiratory effort. No wheezing, crackles, or rhonchi. Heart: . Rate/rhythm regular. Abdomen: Abdomen soft, non-tender. No hepatomegaly or bruits. Extremities: Warm. No edema, cyanosis, pallor, rubor, mottling, clubbing, or ulcerations. Vascular: Brachial, DP, and PT pulses +2. No renal, ABD aortic, or femoral bruit. Neuro: No gross focal deficits. Last 4 Encounter Wt Readings: Date: Wt: 12/01/2021 65.8 kg (145 lb) 05/29/2021 64 kg (141 lb) 05/18/2021 63.9 kg (140 lb 12.8 oz) 11/27/2020 65.7 kg (144 lb 12.8 oz) Last 4 Encounter BP Readings: Date: BP: 12/01/2021 145/73 05/29/2021 145/80 05/18/2021 150/68 11/27/2020 130/62 Last 4 Encounter Pulse Readings: Date: Pulse: 12/01/2021 89 05/29/2021 90 05/18/2021 89 11/27/2020 77 CARDIOVASCULAR MEDICINE TESTING: No new cardiovascular testing reviewed today. ECG 05/29/2021 NSR 88 bpm, anterior infarct age undetermined, abnormal ECG Carotid US - 11/16/18 Outside record MIRIAN 0-49% stenosis LICA 66% stenosis Non-occlusive thrombus in the internal jugular vein Carotid ultrasound 03/26/20 Right internal carotid artery 20 39 percent stenosis. Left internal carotid artery 20 39 percent stenosis. ETT - 01/09/19 101% MPHR, 6.2 METS good functional capacity, Normal except for low HRR SPECT - 01/09/19 CONCLUSIONS: 1. SPECT Perfusion Study: Normal. 2. There is no scintigraphic evidence for inducible ischemia. 3. No evidence of scarred myocardium. 4. Good functional capacity for age and gender. 5. Left ventricle is small. The left ventricle systolic function is normal. 6. Right ventricle is small. The right ventricle systolic function is normal. 7. This is a low risk scan. Gated Stress FBP Gated Rest FBP LVEF % 83 Echo -12/28/18 CONCLUSIONS: - Exam indication: Abnormal ECG - The left ventricle is normal in size. There is no left ventricular hypertrophy. Left ventricular systolic function is normal. EF = 61 5% (2D 4-ch.) - The right ventricle is normal in size. Right ventricular systolic function is normal. - No significant valvular abnormalities. - The patient has not had a prior [facility] echocardiographic exam for comparison. PERTINENT LABORATORY STUDIES Component Latest Ref Rng & Units 11/27/2021 Cholesterol, Total <200 mg/dL 136 Triglyceride <150 mg/dL 67 HDL Cholesterol >39 mg/dL 62 Non HDL Cholesterol <130 mg/dL 74 Fasting Time hrs 12 VLDL Cholesterol <30 mg/dL 13 TC:HDL Ratio <5.10 2.19 LDL Cholesterol <100 mg/dL 61 LDL:HDL Ratio <2.54 0.98 MEDICATIONS Current Outpatient Medications on File Prior to Visit Medication Sig coenzyme Q10 (COQ-10) 100 mg cap capsule Take 1 capsule by mouth once daily. atorvastatin (LIPITOR) 40 mg tablet Take 1 tablet by mouth once daily. magnesium oxide (MAG-OX) 400 mg (241.3 mg magnesium) tablet Take 1 tablet by mouth once daily. aspirin, enteric coated (ASPIRIN LOW DOSE) 81 mg EC tablet Take 81 mg by mouth once daily. No current facility-administered medications on file prior to visit. ALLERGIES No Known Allergies ACTIVE PROBLEM LIST Mixed Hyperlipidemia - 05/29/2021 Malignant Neoplasm of Upper-Outer Quadrant of Left Breast in Female, Estrogen Receptor Positive (Hcc) - 07/31/2018 Colon Cancer (Hcc) - 09/06/2012 PAST MEDICAL HISTORY Diagnosis Date Breast cancer (HCC) Left; ER/AK+ GERD (gastroesophageal reflux disease) PAST SURGICAL HISTORY Procedure Laterality Date APPENDECTOMY HX CHOLECYSTECTOMY HX COLONOSCOPY PARTIAL MASTECTOMY Left PAST SURGICAL HISTORY OF 1998 colon resection-colon cancer FAMILY HISTORY Problem Relation Age of Onset Heart disease Mother Dementia Father Social History Tobacco Use Smoking status: Former Smoker Years: 25.00 Quit date: 1988 Years since quittin.2 Smokeless tobacco: Never Used Tobacco comment: 2 packs per week Substance Use Topics Alcohol use: Yes Comment: occ Drug use: No Elements of this note, including HPI, ROS, Physical Exam, Assessment and Plan were copied and pasted from previous office visit notes completed within our department. Updates have been made where appropriate/noted and reflect current exam and medical decision making from date of this visit. This note was partially generated with [employer] voice recognition software and may contain errors, including spelling, grammar, syntax and misrecognition of what was dictated, that may not be fully corrected. I appreciate the opportunity to participate in this patient's care. Please do not hesitate to call my office if you have any questions. CONTACT INFORMATION: Patricia Young APRN.CNP Adult Nurse Practitioner [facility] Department of Cardiovascular Medicine [facility] Surgery [facility] No data available for this section [facility] note* Diagnosis Malignant neoplasm of upper-outer quadrant of left breast in female, estrogen receptor positive (HCC)- Primary documented in this encounter [facility]* Diagnosis Bilateral carotid artery stenosis- Primary Occlusion and stenosis of carotid artery without mention of cerebral infarction Mixed hyperlipidemia Elevated blood pressure reading without diagnosis of hypertension documented in this encounter [facility] note* Diagnosis Mixed hyperlipidemia Hypomagnesemia Disorders of magnesium metabolism Elevated blood pressure reading without diagnosis of hypertension documented in this encounter [facility]* Diagnosis Bilateral carotid artery stenosis- Primary Occlusion and stenosis of carotid artery without mention of cerebral infarction Elevated blood pressure reading without diagnosis of hypertension Mixed hyperlipidemia Hypomagnesemia Disorders of magnesium metabolism Encounter for monitoring statin therapy Encounter for therapeutic drug monitoring Ex-smoker Personal history of tobacco use, presenting hazards to health documented in this encounter [facility]* Diagnosis Bilateral carotid artery stenosis- Primary Occlusion and stenosis of carotid artery without mention of cerebral infarction Elevated blood pressure reading without diagnosis of hypertension Mixed hyperlipidemia Hypomagnesemia Disorders of magnesium metabolism Encounter for monitoring statin therapy Encounter for therapeutic drug monitoring Ex-smoker Personal history of tobacco use, presenting hazards to health [facility] Diagnosis Mixed hyperlipidemia Elevated blood pressure reading without diagnosis of hypertension Hypomagnesemia Disorders of magnesium metabolism documented in this encounter [facility] note* Diagnosis Bilateral carotid artery stenosis- Primary Occlusion and stenosis of carotid artery without mention of cerebral infarction Primary hypertension Unspecified essential hypertension Mixed hyperlipidemia Hypomagnesemia Disorders of magnesium metabolism Encounter for monitoring statin therapy Encounter for therapeutic drug monitoring Ex-smoker Personal history of tobacco use, presenting hazards to health documented in this encounter [facility]* Diagnosis Malignant neoplasm of upper-outer quadrant of left breast in female, estrogen receptor positive (HCC)- Primary [facility] Diagnosis Primary hypertension- Primary Unspecified essential hypertension Mixed hyperlipidemia Hypomagnesemia Disorders of magnesium metabolism Bilateral carotid artery stenosis Occlusion and stenosis of carotid artery without mention of cerebral infarction Ex-smoker Personal history of tobacco use, presenting hazards to health [facility] Diagnosis Primary hypertension- Primary Unspecified essential hypertension Mixed hyperlipidemia Hypomagnesemia Disorders of magnesium metabolism Low magnesium level Bilateral carotid artery stenosis Occlusion and stenosis of carotid artery without mention of cerebral infarction Encounter for monitoring statin therapy Encounter for therapeutic drug monitoring Ex-smoker Personal history of tobacco use, presenting hazards to health documented in this encounter [facility] general Narrative - Reported* Type Description Date Medical History UTI due to ESBL klebsiella Medical History TIA Medical History malignant neoplasm left breast Medical History depression Medical History osteopenia Medical History GERD Medical History colon adenocarcinoma Medical History lipidemia Surgical History ascending cholangiitis colon re section 1998 Surgical History cholecystectomy [employer] Other Hospital Discharge instructions No data available for this section [facility] No data available for this section [facility] Diagnostic Procedure Only (Routine) - Pending Review Specialty Diagnoses / Procedures Referred By Contac t Referred To Contact [facility] Diagnoses Malignant neoplasm of upper-outer quadrant of left breast in female, estrogen receptor positive (HCC) Procedures [facility] BILAT DIAGNOSTIC MAMMOGRAPHY COMPUTER-AIDED DETCJ Kurt Stallings MD [address] [place] [address] [place] [address] [facility] [address] [place] [phone] Referral ID Status Reason Start Date Expiration Date Visits Requested Visits Authorized [id number] Pending Review Auto-Generat ed Referral 12/16/2021 01/15/2023 1 1 [facility] for referral (narrative)* Diagnostic Procedure Only (Routine) - Pending Review Specialty Diagnoses / Procedures Referred By Contgloria t Referred To Contact [facility] Diagnoses Malignant neoplasm of upper-outer quadrant of left breast in female, estrogen receptor positive (HCC) Procedures [facility] DIAGNOST[facility] BILAT DIAGNOSTIC MAMMOGRAPHY COMPUTER-AIDED DETCJ Kurt Stallings MD [address] [place] [address] [place] [address] [facility] [address] [place] [phone] Referral ID Status Reason Start Date Expiration Date Visits Requested Visits Authorized [id number] Pending Review Auto-Generat ed Referral 12/28/2022 01/27/2023 1 1 [facility] for referral (narrative)* Outpatient Procedure (Routine) - Pending Review Specialty Diagnoses / Procedures Referred By Contac t Referred To Contact [facility] Diagnoses Bilateral carotid artery stenosis Procedures US CAROTID ARTERIES ZEKE VAS LAB DUPLEX SCAN EXTRACRANIAL ART COMPL BI STUDY Kian Monet DO [address] [place] [address] [address] Referral ID Status Reason Start Date Expiration Date Visits Requested Visits Authorized [id number] Pending Review Auto-Generat ed Referral 05/21/2023 11/18/2023 1 1 * Outpatient Procedure (Routine) - Authorized Specialty Diagnoses / Procedures Referred By Contac t Referred To Contact [facility] Diagnoses Bilateral carotid artery stenosis Elevated blood pressure reading without diagnosis of hypertension Procedures ECG COMPLETE ECG ROUTINE ECG W/LEAST 12 LDS W/I&R Kian Monet DO [address] [place] [address] [address] Referral ID Status Reason Start Date Expiration Date Visits Requested Visits Authorized [id number] Authorized Auto-Generat ed Referral 11/18/2022 11/18/2023 1 1 [facility] for referral (narrative)* Diagnostic Procedure Only (Routine) - Pending Review Specialty Diagnoses / Procedures Referred By Contac t Referred To Contact [facility] Diagnoses Malignant neoplasm of upper-outer quadrant of left breast in female, estrogen receptor positive (HCC) Procedures [facility] DIAGNOSTIC BILATERAL DIAGNOSTIC MAMMOGRAPHY COMPUTER-AIDED DETCJ BI Kurt De Santiago MD [address] [place] [address] [place] [address] [facility] [address] [place] [address] Referral ID Status Reason Start Date Expiration Date Visits Requested Visits Authorized [id number] Pending Review Auto-Generat ed Referral 12/28/2023 01/26/2024 1 1 [facility] for referral (narrative)* Outpatient Procedure (Routine) - Authorized Specialty Diagnoses / Procedures Referred By Contac t Referred To Contact [facility] Diagnoses Bilateral carotid artery stenosis Mixed hyperlipidemia Procedures ECG COMPLETE ECG ROUTINE ECG W/LEAST 12 LDS W/I&R Kian Monet DO [address] [place] [address] [address] Referral ID Status Reason Start Date Expiration Date Visits Requested Visits Authorized [id number] Authorized Auto-Generat ed Referral 05/20/2023 05/19/2024 1 1 [facility] for referral (narrative)* Outpatient Procedure (Routine) - Authorized Specialty Diagnoses / Procedures [facility] Diagnoses Bilateral carotid artery stenosis Procedures US CAROTID ARTERIES ZEKE VAS LAB DUPLEX SCAN EXTRACRANIAL ART COMPL BI STUDY Kian Monet DO [address] [place] [address] [address] Referral ID Status Reason Start Date Expiration Date Visits Requested Visits Authorized [id number] Authorized Auto-Generat ed Referral 11/18/2023 11/17/2024 1 1 * Outpatient Procedure (Routine) - Pending Review Specialty Diagnoses / Procedures Referred By Contac t Referred To Contact [facility] Diagnoses Bilateral carotid artery stenosis Primary hypertension Hypomagnesemia Procedures ECG COMPLETE ECG ROUTINE ECG W/LEAST 12 LDS W/I&R Kian Monet DO [address] [place] [address] [facility] [address] [place] [address] Referral ID Status Reason Start Date Expiration Date Visits Requested Visits Authorized [id number] Pending Review Auto-Generat ed Referral 11/18/2023 11/17/2024 1 1 [facility] Diagnostic Procedure Only (Routine) - Pending Review Specialty Diagnoses / Procedures Referred By Contac t Referred To Contact [facility] Diagnoses Malignant neoplasm of upper-outer quadrant of left breast in female, estrogen receptor positive (HCC) Procedures [facility]AT[facility] DIAGNOSTIC BILATERAL DIAGNOSTIC MAMMOGRAPHY COMPUTER-AIDED DETCJ Kurt Stallings MD [address] [place] [address] [place] [address] [facility] [address] [place] [address] Referral ID Status Reason Start Date Expiration Date Visits Requested Visits Authorized [id number] Pending Review Auto-Generat ed Referral 12/29/2023 01/27/2025 1 1 [facility] Summary Purpose Family History No Family History Records FoundNo Family History Records Found Advance Directives No Advanced Directives Records FoundNo Advanced Directives Records Found Additional Source Comments Source Comments (unrecognize d section and content) In the event this informatio n is protected by the Federal Confidentiality of Alcohol and Drug Abuse Patient Records regulations: The Federal rules restrict any use of the information to criminally investigate or prosecute any alcohol or drug abuse patient.[facility] the event this information is protected by the Federal Confidentiality of Alcohol and Drug Abuse Patient Records regulations: The Federal rules restrict any use of the information to criminally investigate or prosecute any alcohol or drug abuse patient.[facility] the event this information is protected by the Federal Confidentiality of Alcohol and Drug Abuse Patient Records regulations: The Federal rules restrict any use of the information to criminally investigate or prosecute any alcohol or drug abuse patient.[facility] the event this information is protected by the Federal Confidentiality of Alcohol and Drug Abuse Patient Records regulations: The Federal rules restrict any use of the information to criminally investigate or prosecute any alcohol or drug abuse patient.[facility] the event this information is protected by the Federal Confidentiality of Alcohol and Drug Abuse Patient Records regulations: The Federal rules restrict any use of the information to criminally investigate or prosecute any alcohol or drug abuse patient.[facility] the event this information is protected by the Federal Confidentiality of Alcohol and Drug Abuse Patient Records regulations: The Federal rules restrict any use of the information to criminally investigate or prosecute any alcohol or drug abuse patient.[facility] the event this information is protected by the Federal Confidentiality of Alcohol and Drug Abuse Patient Records regulations: The Federal rules restrict any use of the information to criminally investigate or prosecute any alcohol or drug abuse patient.[facility] the event this information is protected by the Federal Confidentiality of Alcohol and Drug Abuse Patient Records regulations: The Federal rules restrict any use of the information to criminally investigate or prosecute any alcohol or drug abuse patient.[facility] the event this information is protected by the Federal Confidentiality of Alcohol and Drug Abuse Patient Records regulations: The Federal rules restrict any use of the information to criminally investigate or prosecute any alcohol or drug abuse patient.[facility] the event this information is protected by the Federal Confidentiality of Alcohol and Drug Abuse Patient Records regulations: The Federal rules restrict any use of the information to criminally investigate or prosecute any alcohol or drug abuse patient.[facility] the event this information is protected by the Federal Confidentiality of Alcohol and Drug Abuse Patient Records regulations: The Federal rules restrict any use of the information to criminally investigate or prosecute any alcohol or drug abuse patient.[facility] the event this information is protected by the Federal Confidentiality of Alcohol and Drug Abuse Patient Records regulations: The Federal rules restrict any use of the information to criminally investigate or prosecute any alcohol or drug abuse patient.[facility] the event this information is protected by the Federal Confidentiality of Alcohol and Drug Abuse Patient Records regulations: The Federal rules restrict any use of the information to criminally investigate or prosecute any alcohol or drug abuse patient.[facility] Reason for Visit (unrecogniz ed section and content) Reason Comments Future Appointment Reason Comments Cardiology Follow Up Reason Comments Breast Cancer Reason Onset Date Comments Refill Request 08/02/2022 Reason Comments CARD Follow Up 6 Month Reason Comments CARD Follow Up 6 Month Reason Onset Date Comments Refill Request 10/07/2023 Reason Comments CARD Follow Up 3 Month Care Teams (unrecognized sec tion and content) Supervisor [facility] Relationship Specialty Start Date End Date Yris Suarez MD [address] [place] [address] PCP - General Family Practice 07/28/11 Supervisor [facility] Relationship Specialty Start Date End Date Yris Suarez MD [address] [place] [address] PCP - General Family Practice 07/28/11 Supervisor [facility] Relationship Specialty Start Date End Date Yris Suarez MD [address] [place] [address] PCP - General Family Practice 07/28/11 Supervisor [facility] Relationship Specialty Start Date End Date Yris Suarez MD [address] [place] [address] PCP - General Family Medicine 07/28/11 Supervisor [facility] Relationship Specialty Start Date End Date Yris Suarez MD [address] [place] [address] PCP - General Family Medicine 07/28/11 Supervisor [facility] Relationship Specialty Start Date End Date Yris Suarez MD [address] [place] [address] PCP - General Family Medicine 07/28/11 Supervisor [facility] Relationship Specialty Start Date End Date Yris Suarez MD [address] [facility] [place] [address] PCP - General Family Medicine 07/28/11 Supervisor [facility] Relationship Specialty Start Date End Date Yris Suarez MD [address] [facility] [place] [address] PCP - General Family Medicine 07/28/11 Supervisor [facility] Relationship Specialty Start Date End Date Yris Suarez MD [address] [place] [facility] [place] [address] PCP - General Family Medicine 07/28/11 Supervisor [facility] Relationship Specialty Start Date End Date Yris Suarez MD [address] [place] [facility] [place] [address] PCP - General Family Medicine 07/28/11 Supervisor [facility] Relationship Specialty Start Date End Date Yris Suarez MD [address] [place] [facility] [place] [address] PCP - General Family Medicine 07/28/11 Supervisor [facility] Relationship Specialty Start Date End Date Yris Suarez MD [address] [place] [facility] [place] [address] PCP - General Family Medicine 07/28/11 Supervisor [facility] Relationship Specialty Start Date End Date Yris Suarez MD [address] [place] [facility] [place] [address] PCP - General Family Medicine 07/28/11 INFORMATION SOURCE (unrecogn ized section and content) DATE CREATED AUTHOR 12/25/2022 [facility] DATE CREATED AUTHOR AUTHOR'S SHANTEL LAM 06/18/2024 [facility] FOR RECORDS PERTAINING TO PATIENTS WHO ARE OR HAVE BEEN ENROLLED IN A CHEMICAL DEPENDENCY/SUBSTANCEABUSE PROGRAM, SOME INFORMATION MAY BE OMITTED. This clinical summary was aggregated from multiple sources. Caution should be exercised in using it in the provision of clinical care. This summary normalizes information from multiple sources, and as a consequence, information in this document may materially change the coding, format and clinical context of patient data. In addition, data may be omitted in some cases. CLINICAL DECISIONS SHOULD BE BASED ON THE PRIMARY CLINICAL RECORDS. [facility] [email or web address] [facility]. provides no warranty or guarantee of the accuracy or completeness of information in this document.
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
[2024-07-28 20:56] LABS: Basophils Percent Auto 0.6 % (0.2-2.0); Eosinophils Absolute Auto 0.1 10^3/uL (0.0-0.7); Eosinophils Percent Auto 2.4 % (0.9-7.0); Hematocrit 42.4 % (36.0-48.0); Hemoglobin 14.1 g/dL (12.0-16.0); Immature Granulocytes Abs Auto 0.02 10^3/uL (0.00-0.03); Immature Granulocytes Pct Auto 0.4 % (0.0-0.5); Lymphocytes Absolute Auto 1.5 10^3/uL (1.2-3.8); Lymphocytes Percent Auto 27.7 % (20.5-60.0); Mean Corpuscular HGB Conc 33.3 g/dL (29.9-35.2); Mean Corpuscular Volume 99.3 fL (81.0-99.0); Mean Platelet Volume 8.9 fL (9.5-13.5); Monocytes Absolute Auto 0.4 10^3/uL (0.3-0.8); Neutrophils Absolute Auto 3.3 10^3/uL (1.4-6.5); Neutrophils Percent Auto 60.9 % (43.0-75.0); Platelet Count 170 10^3/uL (150-450); Red Blood Count 4.27 10^6/uL (4.20-5.40); Red Cell Distribution Width 12.4 % (11.0-15.0); White Blood Count 5.4 10^3/uL (4.0-11.0)
[2024-07-28 21:09] LABS: Alanine Aminotransferase 8 U/L (14-59); Albumin Globulin Ratio 0.8; Albumin Level 3.3 g/dL (3.4-5.0); Alkaline Phosphatase 94 U/L (46-116); Ammonia 11 umol/L (11-32); Aspartate Amino Transferase 15 U/L (15-37); BUN Creatinine Ratio 15.7; Bilirubin Total 0.4 mg/dL (0.2-1.0); Calcium 8.8 mg/dL (8.5-10.1); Carbon Dioxide 23.2 mmol/L (21.0-32.0); Chloride 109 mmol/L (98-107); Estimated GFR (African America 58 (>=60 mL/min/1.73m^2); Estimated GFR (Non-African Ame 48 (>=60 mL/min/1.73m^2); Globulin 4.2 g/dL; Glucose 110 mg/dL (74-106); Potassium 3.2 mmol/L (3.5-5.1); Sodium 146 mmol/L (136-145); Total Protein 7.5 g/dL (6.4-8.2)
== END 2024-07-28 21:37 | disposition home or self-care (01) ==
PROVIDERS: Emergency Provider Emergency Medicine; PCP Family Medicine
DX: Z04.1 Encounter for examination and observation following transport accident (principal)
CPT/HCPCS: 36415; 80053; 82140; 82948; 85025; 93005; 99285

== ENCOUNTER 2025-01-09 17:16 | Emergency (ER) | payer OTHER, MEDICARE, SELFPAY ==
[2025-01-09 17:40] VITALS: PULSE 87; TEMP 36.9; O2SAT 95; BMI 20.8
[2025-01-09 17:45] VITALS: BP 134/61
--- NOTE | 2025-01-09 17:50 | ED.GENADUL1 ---
HPI HPI - General Adult General Chief complaint: Abdominal Pain Stated complaint: STOMACH CRAMPING FOR THE LAST MONTH Time Seen by Provider: 01/09/25 17:44 Source: patient and family Mode of arrival: walk-in Limitations: no limitations History of Present Illness HPI narrative: 89-year-old female presents for a month to month and a half of abdominal cramping. No vomiting or diarrhea and it has been getting worse and she decided to come in today to get checked. No diarrhea or vomiting. She has been able to eat. No dysuria or hematuria. It is intermittent. Related Data Home Medications ?Medication ?Instructions ?Recorded ?Confirmed aspirin 81 mg chewable tablet 81 mg PO DAILY 01/09/25 01/09/25 (Children's Aspirin) atorvastatin 40 mg tablet 40 mg PO DAILY 01/09/25 01/09/25 coenzyme Q10 100 mg capsule 100 mg PO DAILY 01/09/25 01/09/25 Held on 01/09/25. Instructions: na losartan 50 mg tablet 50 mg PO DAILY 01/09/25 01/09/25 magnesium oxide 400 mg (241.3 mg 241.3 mg PO DAILY 01/09/25 01/09/25 magnesium) tablet metoprolol succinate 25 mg 12.5 mg PO DAILY 01/09/25 01/09/25 tablet,extended release 24 hr Allergies Allergy/AdvReac Type Severity Reaction Status Date / Time No Known Drug Allergies Allergy Verified 01/09/25 17:45 Review of Systems ROS Narrative A ten point review of systems is negative except as noted above. PFSH PFSH Social History Little interest or pleasure in doing things: not at all Feeling down, depressed, or hopeless: not at all Exam Narrative Exam Narrative: Nurses note and vital signs reviewed and patient is not hypoxic. General: The patient appears well and in no apparent distress. Patient is resting comfortably on cart. Skin: Warm, dry, no pallor noted. There is no rash noted. Head: Normocephalic, atraumatic Eye: Normal conjunctiva, no drainage Ears, Nose, Mouth, and Throat: oral mucosa is moist. Nares patent. Cardiovascular: Regular Rate and Rhythm Respiratory: Patient is in no distress, no accessory muscle use, lungs are clear to auscultation, no wheezing, rales or rhonchi Back: non-tender GI: Soft nontender. She does not seem to have any tenderness on palpation. No masses or distention. Musculoskeletal: The patient has no evidence of calf tenderness, no pitting edema, symmetrical pulses noted bilaterally Neurological: A&O, normal speech Psychiatric: Cooperative Constitutional Vital Signs, click to edit/add: Last Vital Signs Temp 98.5 F 01/09/25 17:40 Pulse 87 01/09/25 17:40 Resp 18 01/09/25 17:40 BP 134/61 01/09/25 17:45 Pulse Ox 95 01/09/25 17:40 O2 Del Method Room Air 01/09/25 17:40 Course Vital Signs Vital signs: Vital Signs Temperature 98.5 F 01/09/25 17:40 Pulse Rate 87 01/09/25 17:40 Respiratory Rate 18 01/09/25 17:40 Pulse Oximetry 95 01/09/25 17:40 Oxygen Delivery Method Room Air 01/09/25 17:40 Temperature 98.5 F 01/09/25 17:40 Pulse Rate 87 01/09/25 17:40 Respiratory Rate 18 01/09/25 17:40 Blood Pressure 134/61 01/09/25 17:45 Pulse Oximetry 95 01/09/25 17:40 Oxygen Delivery Method Room Air 01/09/25 17:40 Medical Decision Making MDM Narrative Medical decision making narrative: Blood work and urinalysis and CAT scan are ordered and are pending and the patient is signed out to Dr. eD La Cruz at change of shift. Differential Diagnosis Differential Diagnosis: UTI, diverticulitis, constipation, nonspecific abdominal pain Lab Data Lab results reviewed: Yes I reviewed the patient's lab results Labs: Lab Results 01/09/25 01/09/25 Range/Units 18:01 18:07 WBC 9.4 (4.0-11.0) 10^3/uL RBC 4.28 (4.20-5.40) 10^6/uL Hgb 12.5 (12.0-16.0) g/dL Hct 39.4 (36.0-48.0) % MCV 92.1 (81.0-99.0) fL MCH 29.2 (26.7-34.0) pg MCHC 31.7 (29.9-35.2) g/dL RDW 13.3 (11.0-15.0) % Plt Count 301 (150-450) 10^3/uL MPV 9.0 L (9.5-13.5) fL Neut % (Auto) 86.1 H (43.0-75.0) % Lymph % (Auto) 8.4 L (20.5-60.0) % [place] % (Auto) 4.0 (1.7-12.0) % Eos % (Auto) 1.0 (0.9-7.0) % Baso % (Auto) 0.2 (0.2-2.0) % Neut # (Auto) 8.1 H (1.4-6.5) 10^3/uL Lymph # (Auto) 0.8 L (1.2-3.8) 10^3/uL [place] # (Auto) 0.4 (0.3-0.8) 10^3/uL Eos # (Auto) 0.1 (0.0-0.7) 10^3/uL Baso # (Auto) 0.0 (0.0-0.1) 10^3/uL Abs Immat Gran (auto) 0.03 (0.00-0.03) 10^3/uL Imm/Tot Granulo (auto) 0.3 (0.0-0.5) % Urine Color Dk. orange (YELLOW) Urine Clarity Clear (CLEAR) Urine pH 5.5 (5.0-9.0) Ur Specific [place] >=1.030 A (1.005-1.025) Urine Protein 30 A (NEG/TRACE) mg/dL Urine Glucose (UA) Negative (NEGATIVE) mg/dL Urine Ketones 15 A (NEGATIVE) mg/dL Urine Occult Blood Negative (NEGATIVE) Urine Nitrite Negative (NEGATIVE) Urine Bilirubin Small A (NEGATIVE) Urine Urobilinogen 2.0 A (0.2-1.0) EU/dL Ur Leukocyte Esterase Trace A (NEGATIVE) Discharge Plan Discharge Patient Disposition: Still a Patient
[2025-01-09 18:28] LABS: Basophils Percent Auto 0.2 % (0.2-2.0); Eosinophils Absolute Auto 0.1 10^3/uL (0.0-0.7); Hematocrit 39.4 % (36.0-48.0); Hemoglobin 12.5 g/dL (12.0-16.0); Immature Granulocytes Abs Auto 0.03 10^3/uL (0.00-0.03); Immature Granulocytes Pct Auto 0.3 % (0.0-0.5); Lymphocytes Absolute Auto 0.8 10^3/uL (1.2-3.8); Lymphocytes Percent Auto 8.4 % (20.5-60.0); Mean Corpuscular HGB Conc 31.7 g/dL (29.9-35.2); Mean Corpuscular Hemoglobin 29.2 pg (26.7-34.0); Mean Corpuscular Volume 92.1 fL (81.0-99.0); Monocytes Absolute Auto 0.4 10^3/uL (0.3-0.8); Neutrophils Absolute Auto 8.1 10^3/uL (1.4-6.5); Neutrophils Percent Auto 86.1 % (43.0-75.0); Platelet Count 301 10^3/uL (150-450); Red Blood Count 4.28 10^6/uL (4.20-5.40); Red Cell Distribution Width 13.3 % (11.0-15.0); White Blood Count 9.4 10^3/uL (4.0-11.0)
[2025-01-09 18:32] LABS: Bilirubin Urine SMALL (NEGATIVE); Blood Urine NEGATIVE (NEGATIVE); Clarity Urine CLEAR (CLEAR); Color Urine DK. ORANGE (YELLOW); Glucose Urine UA NEGATIVE (NEGATIVE); Ketones Urine 15 mg/dL (NEGATIVE); Leukocyte Esterase Urine TRACE (NEGATIVE); Nitrite Urine NEGATIVE (NEGATIVE); Protein Urine 30 mg/dL (NEG/TRACE); Specific Gravity Urine >=1.030 (1.005-1.025); pH Urine 5.5 (5.0-9.0)
[2025-01-09 18:45] LABS: RBC Urine NONE SEEN #/HPF (0-2); WBC Urine 0-2 #/HPF (NONE SEEN)
[2025-01-09 18:45] LABS: Alanine Aminotransferase 11 U/L (14-59); Albumin Globulin Ratio 0.6; Albumin Level 2.9 g/dL (3.4-5.0); Alkaline Phosphatase 114 U/L (46-116); Amylase 36 U/L (25-115); Anion Gap 11.8; Aspartate Amino Transferase 12 U/L (15-37); BUN Creatinine Ratio 14.3; Bilirubin Direct 0.1 mg/dL (0.0-0.2); Bilirubin Total 0.5 mg/dL (0.2-1.0); Calcium 9.3 mg/dL (8.5-10.1); Carbon Dioxide 29.1 mmol/L (21.0-32.0); Chloride 103 mmol/L (98-107); Estimated GFR (African America 60 (>=60 mL/min/1.73m^2); Estimated GFR (Non-African Ame 49 (>=60 mL/min/1.73m^2); Globulin 4.9 g/dL; Glucose 137 mg/dL (74-106); Sodium 141 mmol/L (136-145); Total Protein 7.8 g/dL (6.4-8.2)
[2025-01-09 18:47] LABS: Bacteria Urine SMALL #/HPF (NONE SEEN); Calcium Oxalate Crystals Urine MODERATE; Cast Seen? NONE SEEN #/LPF (NONE SEEN); Crystals Seen? Seen #/HPF (None Seen); Mucus Urine NONE SEEN (NONE SEEN); Squamous Epithelial Cell Urine MODERATE #/LPF (NONE/RARE)
[2025-01-09 18:48] LABS: Urine Culture Indicated YES-FRMC
[2025-01-09 18:54] LABS: Potassium 2.9 mmol/L (3.5-5.1)
--- NOTE | 2025-01-09 19:18 | PC.NURSE ---
pt back from CT via stretcher at this time. pt denies current needs and is awaiting pending CT results.
[2025-01-09] MEDS: 0.9 % SODIUM CHLORIDE 1,000 ML 125 ML IV (19:25)
[2025-01-09] MEDS: POTASSIUM CHLORIDE 10 MEQ ER TABLET 40 MEQ PO (19:27)
[2025-01-09 21:06] VITALS: PULSE 71; O2SAT 95
== END 2025-01-09 20:57 | disposition home or self-care (01) ==
PROVIDERS: Emergency Medicine; Emergency Provider Internal Medicine; PCP Family Medicine
DX: K57.32 Diverticulitis of large intestine without perforation or abscess without bleeding (principal); Z90.49 Acquired absence of other specified parts of digestive tract
CPT/HCPCS: 36415; 74177; 80048; 80076; 81001; 82150; 83690; 85025; 87086; 99285; Q9967

== ENCOUNTER 2025-01-15 14:04 | Outpatient (OUT) | payer MEDICARE, OTHER, SELFPAY ==
--- OUTSIDE RECORDS SUMMARY | 2025-01-15 14:37 | XMS_ITS | CCD ---
Author Organization [facility] Care Team Providers Care 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 Name Role Phone Yris Suarez MD Primary Care Provider [phone] YRIS SUAREZ Primary Care Physician Yris Suarez MD Primary Care Provider Yris Suarez Unavailable INGRID RIVAS Admitting Unavailable INGRID RIVAS Attending Unavailable INGRID RIVAS Consulting Unavailable ERICK, DR YRIS Khan Primary Care Unavailable TIMMIS, DR VINCENT Admitting Unavailable TIMMIS, DR VINCENT Attending Unavailable TIMMIS, DR VINCENT Consulting Unavailable ERICK, DR YRIS Khan Primary Care Unavailable WEST, DR XU Mcleod Consulting Unavailable KURT DE [...] Unavailable Yris Suarez MD Primary Care Provider [phone] KIAN MONET Referring Unavailable YRIS SUAREZ Primary [...] Referring Unavailable YRIS SUAREZ Primary Care Unavailable Ashwin Alexander Admitting Unavailable Ashwin Alexander Attending Unavailable Yris Suarez Primary Care Unavailable Medications Current Medications Medication [...] / neomycin 3.5 mg/ml / polymyxin b 82341 unt/ml otic suspension (2 sources) Aminoglycoside Antibacterial, Polymyxin-class Antibacterial, Corticosteroid Start: 023 Hdoeicjb-Oduzavjkc-ZY 3.5-22752-4 4 drops into affected ear Otic Three [...] 1 tablet by gerald th once daily. magnesium oxide 400 mg oral tablet (18 sources) Start: End: take 1 tablet by mouth once daily magnesium oxide (MAG-OX) 400 mg (241.3 mg magnesium) tablet Indications: Hypomagnesemia , Low magnesium level Take 1 tablet by mouth once daily. 90 tablet 3 06/15/2024 Active Comment on above: Take 1 tablet by gerald th once daily. 24 hr metoprolol succinate 25 [...] on above: Take 1 capsule by mo uth once daily. Problems Active Problems Problem Classification [...] Episodic Other aftercare (2 sources) Other exterminator (current) drug therapy; Translations: [OTH CARE HOME CURRENT DRUG THERAPY] Onset: 04-20-2022 Episodic Other aftercare (1 source) exterminator (current) use of aspirin; Translations: [CARE HOME CURRENT USE OF ASPIRIN] Onset: 04-20-2022 Episodic [...] Test Name Value Interpretation Reference Range Facility Urine Cultureon 01-09-2025 Bacteria identified Cx Nom (U) 75,000 colonies/ml mixed bacterial skin contaminants including mixed gram negative bacilli - 2 Days PERFORMED BY: [place] [address] PATHOLOGIST MEDICAL TRANSCRIPTION SUPERVISOR JIN Rueda [facility] Comment on above: Performed By: #### C UU #### [address] CNOVon 06-15-2024 CNOV Office Visit (VENESSA ) MORELIA NASCIMENTO ([id number]) 1935 F Date Time Provider Department 06/15/24 1:30 PM KIAN MONET During your visit today, we recorded the following information about you: Pulse Blood pressure Weight 92/minute 153/74 65 kg Kian Monet DO 06/15/2024 2:02 PM Signed [facility] [place] SECTION OF REGIONAL CARDIOLOGY OUTPATIENT VISIT DATE 06/15/24 OUTPATIENT VISIT TYPE Established PRIMARY CARE PHYSICIAN: Yris Suarez MD ([facility]) [facility] [place] [address] HISTORY OF PRESENT ILLNESS: Ms. Nascimento is [...] 6. Right (more content not included)... Normal [facility] Basic metabolic 2000 panelon 03-05-2024 Anion gap [Moles/Vol] 9 mmol/L Normal 8-[address] [facility] Comment on above: Order Comment: Speci men Type: BLOOD SPECIMEN Ordering Facility: [facility] Address: [address] [place] [address] Performed By: #### 1 9123-9, 54185-3 #### [facility] CLIA [id number] [address] [place] [address] Calcium [Mass/Vol] 9.7 mg/dL Normal 8.5-10.2 [facility] Comment on above: Order Comment: Speci men Type: BLOOD SPECIMEN Ordering Facility: [facility] Address: [address] [place] [address] Performed By: #### 1 239, 28063-0 #### [facility] CLIA [id number] [address] [place] [address] Chloride [Moles/Vol] 105 mmol/L Normal 98-[address] [facility] Comment on above: Order Comment: Speci men Type: BLOOD SPECIMEN Ordering Facility: [facility] Address: [address] [place] [address] Performed By: #### 1 919, 91669-6 #### [facility] CLIA [id number] [address] [place] [address] 52592 CO2 [Moles/Vol] 25 mmol/L Normal 22-[address] [facility] Comment on above: Order Comment: Speci men Type: BLOOD SPECIMEN Ordering Facility: [facility] Address: [address] [place] [address] Performed By: #### 1 91239, 27021-0 #### [facility] CLIA [id number] [address] [place] [address] Creatinine [Mass/Vol] 0.81 mg/dL Normal 0.58-0.[address] [facility] Comment on above: Order Comment: Speci men Type: BLOOD SPECIMEN Ordering Facility: [facility] Address: [address] [place] [id number] Performed By: #### 1 91239, 11363-1 #### [facility] CLIA [id number] [address] [place] [address]99 Creatinine and Glomerular filtration rate.predicted panel (S/P/Bld) 70 mL/min/1.73m??? Normal >=[address] [facility] Comment on above: Order Comment: Rea arevalo Type: BLOOD SPECIMEN Ordering Facility: [facility] Address: [address] [id number] Result Comment: Gisell mated Glomerular Filtration Rate [...] actual GFR. Performed By: #### 1 9123-9, 05017-3 #### [facility] CLIA [id number] [address] [place] [address] Glucose [Mass/Vol] 108 mg/dL High 74-99 [facility] Comment on above: Order Comment: Rea arevalo Type: BLOOD SPECIMEN Ordering Facility: [facility] Address: [address] [id number] Result Comment: The [place] Diabetes Association (ADA) provides guidance for cutoff [...] Standards of Medical Care in Diabetes 2016, [place] [employer]. Diabetes Care. 2016.39(Suppl 1). Performed By: #### 1 9123-9, 63041-0 #### [facility] CLIA [id number] [address] [place] [address] Potassium [Moles/Vol] 4.0 mmol/L Normal 3.7-5.[address] [facility] Comment on above: Order Comment: Rea arevalo Type: BLOOD SPECIMEN Ordering Facility: [facility] Address: [address] [place] [id number] Performed By: #### 1 9123-9, 95337-2 #### [facility] CLIA [id number] [address] [place] [address]32 Sodium [Moles/Vol] 139 mmol/L Normal 136-144 [facility] Comment on above: Order Comment: Speci men Type: BLOOD SPECIMEN Ordering Facility: [facility] Address: [address] [place] [address] Performed By: #### 1 9123-9, 89242-5 #### [facility] CLIA [id number] [address] [place] [address] Urea nitrogen [Mass/Vol] 16 mg/dL Normal 7-[address] [facility] Comment on above: Order Comment: Speci men Type: BLOOD SPECIMEN Ordering Facility: [facility] Address: [address] [place] [address] Performed By: #### 1 9123-9, 79699-4 #### [facility] CLIA [id number] [address] [place] [address]85 Magnesium SerPl-ncon 03-05 Magnesium [Mass/Vol] 2.2 mg/dL Normal 1.7-2.[address] [facility] Comment on above: Order Comment: Speci men Type: BLOOD SPECIMEN Ordering Facility: [facility] Address: [address] [place] [address] Performed By: #### 1 9123-9, 60810-2 #### [facility] CLIA [id number] [address] [place] [address] CNOVon 02-21-2024 CNOV Office Visit ([facility]) MORELIA NASCIMENTO ([id number]) 1935 F Date Time Provider Department 02/21/24 1:30 PM KIAN MNOET [facility] During your visit today, we recorded the following information about you: Pulse Blood pressure Weight 86/minute 152/62 64 kg Kian Monet, 02/21/2024 2:21 PM Signed [facility] [place] SECTION OF REGIONAL CARDIOLOGY OUTPATIENT VISIT DATE 02/21/24 OUTPATIENT VISIT TYPE Established PRIMARY CARE PHYSICIAN: Yris Suarez MD ([facility]) [facility] [place] [address] HISTORY OF PRESENT ILLNESS: Ms. Nascimento is [...] function is (more content not included)... Normal [facility] CNOVon 12-29-2023 CNOV Office Visit (RADTSA ) MORELIA NASCIMENTO ([id number]) 1935 F Date Time Provider Department 12/29/23 10:00 AM KURT DE SANTIAGO During your visit today, we recorded the following information about you: Kurt De Santiago MD 01/10/2024 7:04 AM Addendum Radiation Oncology - Follow Up Note PATIENT NAME: Morelia Nascimento PATIENT DIAGNOSIS/PATIENT IDENTIFICATION: Ms. 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 Normal [facility] US CAROTID ARTERIES ZEKE VAS LABon 12-09-2023 US CAROTID ARTERIES [facility] Non-Invasive Vascular Laboratory [facility] Carotid Duplex Bilateral/Complete Date of service/time: 12/09/2023 [...] Interpreting physician: Fran Munoz MD Final CC [employer] [facility] Image : [id number] sSISUID See Link below for Image Normal [facility] 11-25-2023 CNPN Telephone (CARDLO) MORELIA NASCIMENTO ([id number]) 1935 F Date Time Provider Department 11/25/23 KIAN MONET During your visit today, we recorded the following information about you: Sakina Akbar MA 11/25/2023 8:52 AM Signed Outside labs received from [facility], date of collection: 11/24/2023. Labs entered into patients chart. Kian Monet DO 11/25/2023 9:13 AM Signed Labs reviewed. Sodium level slightly above normal range likely indicating an element of dehydration. Recommend that patient hydrate a little more today. Signed: Kian Monet DO, [facility] November 25, 2023 This note was partially generated using [employer] voice recognition system, and there may be some incorrect words, spellings, and punctuation that were not noted in checking the note before saving. Zak Wilkins MA 11/25/2023 9:29 AM Signed Attempted to call patient.No answer.Left voicemail for patient to call office back for below message. Susanna Fofana, RN 11/25/2023 9:47 AM Signed Pt identified by name and Pt given message below Stated understanding Allergies As of Date: 11/25/2023 (No Known Allergies) Date Reviewed: 11/18/2023 Reviewed by: Zak Wilkins MA - Fully Assessed Order(s):BMP - EXTERNAL [[id number]] Order #: [id number] Prescriptions as of 11/25/2023 - losartan (COZAAR) [...] Encounter Status:Closed by SAKINA AKBAR on 11/25/23 [facility] NASCIMENTOMARGARITA TURKMORELIA Jared ([id number]) 1935 F Date Time Provider Department 11/21/23 [...] the lab order to be faxed to [facility]. F:[phone] Patient has been identified by name and birthdate. Duration of symptoms: N/A Person calling: daughter: Call patient at: [phone] Was an appointment scheduled: No Closing statement: Results or non-symptom based questions: Thank you for calling [facility], your call will be returned within [...] Mixed hyperlipidemia [E78.2] 05/29/2021 Encounter Status:Closed by DARLING RODRIGUEZ on 11/21/[address] [facility] CNOVon 11-18-2023 CNOV Office Visit (VENESSA ) MORELIA NASCIMENTO ([id number]) 1935 F Date Time Provider Department 11/18/23 1:30 PM KIAN MONET VENESSA During your visit today, we recorded the following information about you: Pulse Blood pressure Weight 83/minute 155/69 62 kg Kian Monet DO 11/18/2023 1:43 PM Signed [facility] [place] SECTION OF REGIONAL CARDIOLOGY OUTPATIENT VISIT DATE 11/18/23 OUTPATIENT VISIT TYPE Established PRIMARY CARE PHYSICIAN: Yris Suarez MD ([facility]) [address] [place] [address] HISTORY OF PRESENT ILLNESS: Ms. Nascimento is [...] Right ventricul (more content not included)... Normal [facility] ECG COMPLETEon 11-18-2023 Atrial Rate [address] [facility] Calculated P [place] 78 degrees [facility] Calculated R [place] -55 degrees [facility] Calculated T [place] 70 degrees [facility] P-R Interval [address] [facility] QRS Duration [address] [facility] QT Interval [address] [facility] QTC Calculation (Bazett) [address] [facility] Ventricular Rate 84 BPM [facility] ECG COMPLETE Ventricular Rate : 8 4 BPM Atrial Rate : 84 BPM P-R Interval : 150 ms QRS Duration : 90 ms Q-T Interval : 378 ms QTC Calculation(Bazett) : 446 ms Calculated P [place] : 78 degrees Calculated R [place] : -55 degrees Calculated T [place] : 70 degrees NORMAL SINUS RHYTHM LEFT AXIS DEVIATION ANTERIOR MYOCARDIAL INFARCTION , AGE UNDETERMINED ABNORMAL ECG Confirmed by ARABELLA WINSLOW MD ([id number]) on 11/18/2023 4:56:02 PM NAME : MORELIA NASCIMENTO PID : [id number] : 1935 Gender : Female Race : ORD : [id number] Procedure Date : Nov 18 2023 13:21:59 [...] : , Acquired by : , Normal [facility] Basic metabolic 2000 panelon 11-14-2023 Anion gap [Moles/Vol] 10 mmol/L Normal 05-[address] [facility] Comment on above: Order Comment: Speci men Type: BLOOD SPECIMEN Ordering Facility: [facility] Address: [address] [place] [address] Performed By: #### 2 4321-2 #### [facility] CLIA [id number] [address] [place] [address] Calcium [Mass/Vol] 10.1 mg/dL Normal 8.5-10.2 [facility] Comment on above: Order Comment: Speci men Type: BLOOD SPECIMEN Ordering Facility: [facility] Address: [address] [place] [address] Performed By: #### 2 4321-2 #### [facility] CLIA [id number] [address] [place] [address] Chloride [Moles/Vol] 104 mmol/L Normal 97-[address] [facility] Comment on above: Order Comment: Speci men Type: BLOOD SPECIMEN Ordering Facility: [facility] Address: [address] [place] [address] Performed By: #### 2 4321-2 #### [facility] CLIA [id number] [address] [place] [address] CO2 [Moles/Vol] 27 mmol/L Normal 22-[address] [facility] Comment on above: Order Comment: Speci men Type: BLOOD SPECIMEN Ordering Facility: [facility] Address: [address] [place], [place] [address] Performed By: #### 2 4321-2 #### [facility] CLIA [id number] [address] [place] [address]90 Creatinine [Mass/Vol] 0.87 mg/dL Normal 0.58-0.[address] [facility] Comment on above: Order Comment: Speci men Type: BLOOD SPECIMEN Ordering Facility: [facility] Address: [address] [place] [id number] Performed By: #### 2 4321-2 #### [facility] CLIA [id number] [address] [place] [address] Creatinine and Glomerular filtration rate.predicted panel (S/P/Bld) 65 mL/min/1.73m??? Normal >=[address] [facility] Comment on above: Order Comment: Rea arevalo Type: BLOOD SPECIMEN Ordering Facility: [facility] Address: [address] [place], [place] [address] Result Comment: Gisell mated Glomerular Filtration Rate [...] GFR. Performed By: #### 2 4321-2 #### [facility] CLIA [id number] [address] [place] [address]34 Glucose [Mass/Vol] 137 mg/dL High 74-99 [facility] Comment on above: Order Comment: Rea arevalo Type: BLOOD SPECIMEN Ordering Facility: [facility] Address: [address] [place], [place] [address] [id number] Result Comment: The [place] Diabetes Association (ADA) provides guidance for cutoff [...] Standards of Medical Care in Diabetes 2016, [place] [employer]. Diabetes Care. 2016.39(Suppl 1). Performed By: #### 2 4321-2 #### [facility] CLIA [id number] [address] [place] [address] Potassium [Moles/Vol] 3.9 mmol/L Normal 3.7-5.[address] [facility] Comment on above: Order Comment: Rea arevalo Type: BLOOD SPECIMEN Ordering Facility: [facility] Address: [address] [phone] Performed By: #### 2 4321-2 #### [facility] CLIA [id number] [address] [place] [address] Sodium [Moles/Vol] 141 mmol/L Normal 136-144 [facility] Comment on above: Order Comment: Speci men Type: BLOOD SPECIMEN Ordering Facility: [facility] Address: [address] [place] [address] Performed By: #### 2 4321-2 #### [facility] CLIA [id number] [address] [place] [address] Urea nitrogen [Mass/Vol] 17 mg/dL Normal 7-[address] [facility] Comment on above: Order Comment: Speci men Type: BLOOD SPECIMEN Ordering Facility: [facility] Address: [address] [place] [address] Performed By: #### 2 4321-2 #### [facility] CLIA [id number] [address] [place] [address] ECG COMPLETEon 05-20-2023 Atrial Rate [address] [facility] Calculated P [place] 77 degrees [facility] Calculated R [place] -49 degrees [facility] Calculated T [place] 66 degrees [facility] P-R Interval [address] [facility] QRS Duration [address] [facility] QT Interval [address] [facility] QTC Calculation (Bazett) [address] [facility] Ventricular Rate 93 BPM [facility] MG MAMM SCREEN 3D ZEKE CADon 12-20-2022 MG MAMM SCREEN 3D ZEKE CAD Patient: MORELIA NASCIMENTO Exam Date: 12/20/2022 : 1935 Gender:F Ordering : DR YRIS SUAREZ M.D. Admission #: [id number] Family : DR. KURT DE SANTIAGO M.D. Order #: [id number] CLICK HERE TO VIEW EXAM RADIOLOGY REPORT [...] lung cancer at age 66. LOCATION: [facility] BREAST COMPOSITION: Scattered areas fibroglandular density. FINDINGS: [...] White MD on 12/20/2022 at 15:29 Normal [facility] XR SINUSES 3 VIEWS OR [...] by: XU WHITE Date: 2022-04-26 11:58 Normal [facility] CULTURE URINEon 04-18-2022 CULTURE URINE [...] F Trimethoprim/Sulfameth oxazole <=20 S F Normal [facility] Comment on above: Performed By: #### U RCX #### [facility] [address] [place] [address] Dr. Schuyler Fields BNPon 04-16-2022 Natriuretic peptide B (Bld) [Mass/Vol] 259.0 pg/mL Normal <=1,800.0 [facility] Comment on above: Performed By: #### B SERVICE DESK ASSOCIATE, HSTROPN, CMP #### [facility] [address] [place] [address] Dr. Schuyler Fields CBC W MANUAL DIFFon 04-16-20 ATYPICAL LYMPH # Normal [facility] Comment on above: Performed By: #### B SERVICE DESK ASSOCIATE, HSTROPN, CMP #### [facility] [address] [place] [address] Dr. Schuyler Fields ATYPICAL LYMPH % Normal [facility] Comment on above: Performed By: #### B SERVICE DESK ASSOCIATE, HSTROPN, CMP #### [facility] [address] [place] [address] Dr. Schuyler Fields BAND # Normal 0.0-0.3 [facility] Comment on above: Performed By: #### B SERVICE DESK ASSOCIATE, HSTROPN, CMP #### [facility] [address] [place] [address] Dr. Schuyler Fields BAND % Normal 0-5 [facility] Comment on above: Performed By: #### B SERVICE DESK ASSOCIATE, HSTROPN, CMP #### [facility] [address] [place] [address] Dr. Schuyler Fields BASOM # 0.00 103/ul Normal 0.00-0.10 [facility] Comment on above: Performed By: #### B SERVICE DESK ASSOCIATE, HSTROPN, CMP #### [facility] [address] [place] [address] Dr. Schuyler Fields BASOM % 0.0 % Critically low 0.2-2.0 [facility] Comment on above: Performed By: #### B SERVICE DESK ASSOCIATE, HSTROPN, CMP #### [facility] [address] [place] [address] Dr. Schuyler Fields BLAST # Normal [facility] Comment on above: Performed By: #### B SERVICE DESK ASSOCIATE, HSTROPN, CMP #### [facility] [address] [place] [address] [address] Schuyler Fields BLAST % Normal [facility] Comment on above: Performed By: #### B SERVICE DESK ASSOCIATE, HSTROPN, CMP #### [facility] [address] [address] [address] Schuyler Fields CORRECTED WBC Normal 4.0-11.0 [facility] Comment on above: Performed By: #### B SERVICE DESK ASSOCIATE, HSTROPN, CMP #### [facility] [address] [address] [address] Schuyler Fields EOS # 0.07 103/ul Normal 0.00-0.70 [facility] Comment on above: Performed By: #### B SERVICE DESK ASSOCIATE, HSTROPN, CMP #### [facility] [address] [address] [address] Schuyler Fields EOS% 1.0 % Normal 0.9-7.0 [facility] Comment on above: Performed By: #### B SERVICE DESK ASSOCIATE, HSTROPN, CMP #### [facility] [address] [address] [address] Schuyler Fields HCT 39.9 % Normal 36.0-48.0 [facility] Comment on above: Performed By: #### B SERVICE DESK ASSOCIATE, HSTROPN, CMP #### [facility] [address] [address] [address] Schuyler Fields HGB 13.3 g/dl Normal 12.0-16.0 [facility] Comment on above: Performed By: #### B SERVICE DESK ASSOCIATE, HSTROPN, CMP #### [facility] [address] [address] [address] Schuyler Fields LYMPHM # 0.58 103/ul Critically low 1.20-3.80 [facility] Comment on above: Performed By: #### B SERVICE DESK ASSOCIATE, HSTROPN, CMP #### [facility] [address] [address] [address] Schuyler Fields LYMPHM% 9.0 % Critically low 20.5-60.0 [facility] Comment on above: Performed By: #### B SERVICE DESK ASSOCIATE, HSTROPN, CMP #### [facility] [address] [address] [address] Schuyler Fields MCH 32.8 pg Normal 26.7-34.0 [facility] Comment on above: Performed By: #### B SERVICE DESK ASSOCIATE, HSTROPN, CMP #### [facility] [address] [address] [address] Schuyler Fields MCHC 33.3 g/dl Normal 29.9-35.2 [facility] Comment on above: Performed By: #### B SERVICE DESK ASSOCIATE, HSTROPN, CMP #### [facility] [address] [address] [address] Schuyler Fields MCV 98.3 fL Normal 81.0-99.0 [facility] Comment on above: Performed By: #### B SERVICE DESK ASSOCIATE, HSTROPN, CMP #### [facility] [address] [place] [address] Dr. Schuyler Fields METAMYELOCYTE # Normal [facility] Comment on above: Performed By: #### B SERVICE DESK ASSOCIATE, HSTROPN, CMP #### [facility] [address] [address] [address] Schuyler Fields METAMYELOCYTE % Normal [facility] Comment on above: Performed By: #### B SERVICE DESK ASSOCIATE, HSTROPN, CMP #### [facility] [address] [address] [address] Schuyler Fields MONOM# 0.33 103/ul Normal 0.30-0.80 [facility] Comment on above: Performed By: #### B SERVICE DESK ASSOCIATE, HSTROPN, CMP #### [facility] [address] [address] [address] Schuyler Fields MONOM% 5.0 % Normal 1.7-12.0 [facility] Comment on above: Performed By: #### B SERVICE DESK ASSOCIATE, HSTROPN, CMP #### [facility] [address] [address] [address] Schuyler Fields MPV 9.4 fL Critically low 9.5-13.5 [facility] Comment on above: Performed By: #### B SERVICE DESK ASSOCIATE, HSTROPN, CMP #### [facility] [address] [address] [address] Schuyler Fields MYELOCYTE # Normal [facility] Comment on above: Performed By: #### B SERVICE DESK ASSOCIATE, HSTROPN, CMP #### [facility] [address] [address] [address] Schuyler Fields MYELOCYTE % Normal [facility] Comment on above: Performed By: #### B SERVICE DESK ASSOCIATE, HSTROPN, CMP #### [facility] [address] [address] [address] Schuyler Fields NRBC Normal [facility] Comment on above: Performed By: #### B SERVICE DESK ASSOCIATE, HSTROPN, CMP #### [facility] [address] [address] [address] Schuyler Fields PLT 150 103/ul Normal 150-450 [facility] Comment on above: Performed By: #### B SERVICE DESK ASSOCIATE, HSTROPN, CMP #### [facility] [address] [address] [address] Schuyler Fields RBC 4.06 106/ul Critically low 4.20-5.40 [facility] Comment on above: Performed By: #### B SERVICE DESK ASSOCIATE, HSTROPN, CMP #### [facility] [address] [place] [address] Dr. Schuyler Fields RDW 12.9 % Normal 11.0-15.0 [facility] Comment on above: Performed By: #### B SERVICE DESK ASSOCIATE, HSTROPN, CMP #### [facility] [address] [address] [address] Schuyler Fields SEG # 5.53 103/ul Normal 1.40-6.50 [facility] Comment on above: Performed By: #### B SERVICE DESK ASSOCIATE, HSTROPN, CMP #### [facility] [address] [address] [address] Schuyler Fields SEG % 85.0 % Critically high 43.0-75.0 [facility] Comment on above: Performed By: #### B SERVICE DESK ASSOCIATE, HSTROPN, CMP #### [facility] [address] [address] [address] Schuyler Fields WBC 6.5 103/ul Normal 4.0-11.0 [facility] Comment on above: Performed By: #### B EDGAR SOOD, CMP #### [facility] [address] [address] HEAD WO CONon [...] KAILA DANIELS Date: 2022-04-16 13:50 Normal [facility] URINE PROFILEon 2 Bilirubin Ql (U) Negative Normal NEGATIVE [facility] Comment on above: Performed By: #### B EDGAR SOOD, CMP #### [facility] [address] [place] [address] Dr. Schuyler Fields Clarity (U) SL CLOUDY Abnormal CLEAR [facility] Comment on above: Performed By: #### B EDGAR SOOD, CMP #### [facility] [address] [place] [address] Dr. Schuyler Fields Color (U) LT. YELLOW Normal YELLOW [facility] Comment on above: Performed By: #### B EDGAR SOOD, CMP #### [facility] [address] [address] [address] Schuyler SUTHERLAND A micrscopic examination will be performed if indicated. Normal [facility] Comment on above: Performed By: #### B SERVICE DESK ASSOCIATE, HSTROPN, CMP #### [facility] [address] [address] [address] Schuyler Fields Glucose Ql (U) Negative Normal NEGATIVE [facility] Comment on above: Performed By: #### B SERVICE DESK ASSOCIATE, HSTROPN, CMP #### [facility] [address] [address] [address] Schuyler Fields Hemoglobin Ql (U) Negative Normal NEGATIVE [facility] Comment on above: Performed By: #### B SERVICE DESK ASSOCIATE, HSTROPN, CMP #### [facility] [address] [place] [address] Dr. Schuyler Fields Ketones Ql (U) 40 mg/dl Abnormal NEGATIVE [facility] Comment on above: Performed By: #### B SERVICE DESK ASSOCIATE, HSTROPN, CMP #### [facility] [address] [place] [address] Dr. Schuyler Fields LEUKOCYTES SMALL Abnormal NEGATIVE [facility] Comment on above: Performed By: #### B SERVICE DESK ASSOCIATE, HSTROPN, CMP #### [facility] [address] [address] [address] Schuyler Fields Nitrite Ql (U) Positive Abnormal NEGATIVE [facility] Comment on above: Performed By: #### B SERVICE DESK ASSOCIATE, HSTROPN, CMP #### [facility] [address] [address] [address] Schuyler Fields pH (U) 6.5 [pH] Normal 5-9 [facility] Comment on above: Performed By: #### B SERVICE DESK ASSOCIATE, HSTROPN, CMP #### [facility] [address] [address] [address] Schuyler Fields SPEC GRAVITY 1.020 Normal 1.005-<=1.025 [facility] Comment on above: Performed By: #### B SERVICE DESK ASSOCIATE, HSTROPN, CMP #### [facility] [address] [place] [address] Dr. Schuyler Fields UA PROTEIN Negative Normal NEGATIVE/ TRACE [facility] Comment on above: Performed By: #### B SERVICE DESK ASSOCIATE, HSTROPN, CMP #### [facility] [address] [place] [address] Dr. Schuyler Fields UR MICRO IND INDICATED Normal [facility] Comment on above: Performed By: #### B SERVICE DESK ASSOCIATE, HSTROPN, CMP #### [facility] [address] [place] [address] Dr. Schuyler Fields Urobilinogen Qn (U) 0.2 {Katlin'U}/dL Normal 0.2 - 1. 0 [facility] Comment on above: Performed By: #### B SERVICE DESK ASSOCIATE, HSTROPN, CMP #### [facility] [address] [place] [address] Dr. Schuyler Fields PROF 14(COMP METB)on 022 Albumin [Mass/Vol] 3.5 g/dL Normal 3.4-5.0 [facility] Comment on above: Performed By: #### B SERVICE DESK ASSOCIATE, HSTROPN, CMP #### [facility] [address] [place] [address] Dr. Schuyler Fields Albumin/Globulin [Mass ratio] 0.9 {ratio} Normal [facility] Comment on above: Performed By: #### B SERVICE DESK ASSOCIATE, HSTROPN, CMP #### [facility] [address] [place] [address] Dr. Schuyler Fields ALP [Catalytic activity/Vol] 97 U/L Normal 46-116 [facility] Comment on above: Performed By: #### B SERVICE DESK ASSOCIATE, HSTROPN, CMP #### [facility] [address] [place] [address] Dr. Schuyler Fields ALT [Catalytic activity/Vol] 17 U/L Normal 14-59 [facility] Comment on above: Performed By: #### B SERVICE DESK ASSOCIATE, HSTROPN, CMP #### [facility] [address] [place] [address] Dr. Schuyler Fields Anion gap [Moles/Vol] 13.0 mmol/L Normal [facility] Comment on above: Performed By: #### B SERVICE DESK ASSOCIATE, HSTROPN, CMP #### [facility] [address] [place] [address] Dr. Schuyler Fields AST [Catalytic activity/Vol] 17 U/L Normal 15-37 [facility] Comment on above: Performed By: #### B SERVICE DESK ASSOCIATE, HSTROPN, CMP #### [facility] [address] [place] [address] Dr. Schuyler Fields Bilirubin [Mass/Vol] 0.7 mg/dL Normal 0.2-1.0 [facility] Comment on above: Performed By: #### B SERVICE DESK ASSOCIATE, HSTROPN, CMP #### [facility] [address] [place] [address] Dr. Schuyler Fields Calcium [Mass/Vol] 8.6 mg/dL Normal 8.5-10.1 [facility] Comment on above: Performed By: #### B SERVICE DESK ASSOCIATE, HSTROPN, CMP #### [facility] [address] [place] [address] Dr. Schuyler Fields Chloride [Moles/Vol] 107 mmol/L Normal 98-107 [facility] Comment on above: Performed By: #### B SERVICE DESK ASSOCIATE, HSTROPN, CMP #### [facility] [address] [place] [address] Dr. Schuyler Fields CO2 [Moles/Vol] 25.4 mmol/L Normal 21.0-32.0 [facility] Comment on above: Performed By: #### B SERVICE DESK ASSOCIATE, HSTROPN, CMP #### [facility] [address] [place] [address] Dr. Schuyler Fields Creatinine [Mass/Vol] 0.76 mg/dL Normal 0.55-1.02 [facility] Comment on above: Performed By: #### B SERVICE DESK ASSOCIATE, HSTROPN, CMP #### [facility] [address] [place] [address] Dr. Schuyler Fields EGFR-AF SLOVAK >60 Normal >=60 [facility] Comment on above: Performed By: #### B SERVICE DESK ASSOCIATE, HSTROPN, CMP #### [facility] [address] [address] [address] Schuyler Fields EGFR-NON AF SLOVAK >60 Normal >=60 [facility] Comment on above: Performed By: #### B SERVICE DESK ASSOCIATE, HSTROPN, CMP #### [facility] [address] [address] [address] Schuyler Fields Globulin (S) [Mass/Vol] 3.7 g/dL Normal [facility] Comment on above: Performed By: #### B SERVICE DESK ASSOCIATE, HSTROPN, CMP #### [facility] [address] [address] [address] Schuyler Fields Glucose [Mass/Vol] 116 mg/dL Critically high 74-106 [facility] Comment on above: Performed By: #### B SERVICE DESK ASSOCIATE, HSTROPN, CMP #### [facility] [address] [address] [address] Schuyler Fields Potassium [Moles/Vol] 3.4 mmol/L Critically low 3.5-5.1 [facility] Comment on above: Performed By: #### B SERVICE DESK ASSOCIATE, HSTROPN, CMP #### [facility] [address] [address] [address] Schuyler Fields Protein [Mass/Vol] 7.2 g/dL Normal 6.4-8.2 [facility] Comment on above: Performed By: #### B SERVICE DESK ASSOCIATE, HSTROPN, CMP #### [facility] [address] [place] [address] Dr. Schuyler Fields Sodium [Moles/Vol] 142 mmol/L Normal 136-145 [facility] Comment on above: Performed By: #### B SERVICE DESK ASSOCIATE, HSTROPN, CMP #### [facility] [address] [address] [address] Schuyler Fields Urea nitrogen [Mass/Vol] 16.0 mg/dL Normal 7.0-18.0 [facility] Comment on above: Performed By: #### B SERVICE DESK ASSOCIATE, HSTROPN, CMP #### [facility] [address] [address] [address] Schuyler Fields Urea nitrogen/Creatinine [Mass ratio] 21.1 mg/mg Normal [facility] Comment on above: Performed By: #### B SERVICE DESK ASSOCIATE, HSTROPN, CMP #### [facility] [address] [place] [address] Dr. Schuyler Fields PROTIMEon 04-16-2022 INR Coag (PPP) [Relative time] 1.01 {INR} Normal [facility] Comment on above: Performed By: #### B SERVICE DESK ASSOCIATE, HSTROPN, CMP #### [facility] [address] [place] [address] Dr. Schuyler Fields INR GUIDELINES SEE BELOW Normal [facility] Comment on above: Result Comment: MESFIN RED INR: 2.0 - 3.0 CONDITIONS NOT LISTED BELOW 2.5 - 3.5 FOR PROSTHETIC HEART VALVE REPLACEMENT 2.5 - 3.5 RECURRENT THROMBOSIS Performed By: #### B SERVICE DESK ASSOCIATE, HSTROPN, CMP #### [facility] [address] [place] [address] Dr. Schuyler Fields PT Coag (PPP) [Time] 10.9 s Normal 9.0-11.6 [facility] Comment on above: Performed By: #### B SERVICE DESK ASSOCIATE, HSTROPN, CMP #### [facility] [address] [place] [address] Dr. Schuyler Fields PTTon 04-16-2022 aPTT Coag (Bld) [Time] 22.5 s Normal 22.3-36.2 [facility] Comment on above: Performed By: #### P T, PTT #### [facility] [address] [place] [address] Dr. Schuyler Fields TROPONIN, HIGH SENSITIVITYon 04-16-2022 HSTROP 9.1 pg/mL Normal 4.0-51.3 [facility] Comment on above: Result Comment: CUT- OFF POINTS HAVE BEEN ESTABLISHED BASED ON THE FOURTH UNIVERSAL DEFINITIONS OF MYOCARDIAL INFARCTION. THE UPPER REFERENCE LIMIT (URL) OF TROPONIN, DEFINED THE 99TH PERCENTILE OF cTnI DISTRIBUTION IN A REFERENCE POPULATION, HAS BEEN CONFIRMED THE DECISION THRESHOLD FOR NM DIAGNOSIS. Performed By: #### H STROPN #### [facility] [address] [place] [address] Dr. Schuyler Fields HSTROP 7.1 pg/mL Normal 4.0-51.3 [facility] Comment on above: Result Comment: CUT- OFF POINTS HAVE BEEN ESTABLISHED BASED ON THE FOURTH UNIVERSAL DEFINITIONS OF MYOCARDIAL INFARCTION. THE UPPER REFERENCE LIMIT (URL) OF TROPONIN, DEFINED THE 99TH PERCENTILE OF cTnI DISTRIBUTION IN A REFERENCE POPULATION, HAS BEEN CONFIRMED THE DECISION THRESHOLD FOR NM DIAGNOSIS. Performed By: #### B SERVICE DESK ASSOCIATE, HSTROPN, CMP #### [facility] [address] [place] [address] Dr. Schuyler Fields URINE MICROSCOPIC ONLYon BACTERIA LARGE Abnormal NONE SEEN [facility] Comment on above: Performed By: #### B SERVICE DESK ASSOCIATE, HSTROPN, CMP #### [facility] [address] [place] [address] Dr. Schuyler Fields Bacteria identified Cx Nom (U) INDICATED Normal [facility] Comment on above: Performed By: #### B SERVICE DESK ASSOCIATE, HSTROPN, CMP #### [facility] [address] [place] [address] Dr. Schuyler Fields CAST NONE SEEN Normal NONE SEEN [facility] Comment on above: Performed By: #### B SERVICE DESK ASSOCIATE, HSTROPN, CMP #### [facility] [address] [place] [address] Dr. Schuyler Fields Crystals LM Nom (Urine sed) NONE SEEN Normal NONE SEEN [facility] Comment on above: Performed By: #### B SERVICE DESK ASSOCIATE, HSTROPN, CMP #### [facility] [address] [place] [address] Dr. Schuyler Fields Epithelial cells LM Ql (Urine sed) NONE SEEN Normal NONE SEEN /RARE [facility] Comment on above: Performed By: #### B SERVICE DESK ASSOCIATE, HSTROPN, CMP #### [facility] [address] [place] [address] Dr. Schuyler Fields MUCOUS NONE SEEN Normal NONE SEEN [facility] Comment on above: Performed By: #### B SERVICE DESK ASSOCIATE, HSTROPN, CMP #### [facility] [address] [place] [address] Dr. Schuyler Fields RBC 0-2 Normal 0-2 [facility] Comment on above: Performed By: #### B SERVICE DESK ASSOCIATE, HSTROPN, CMP #### [facility] [address] [place], [place] [address] Dr. Schuyler Fields WBC - Abnormal NONE SEEN [facility] Comment on above: Performed By: #### B SERVICE DESK ASSOCIATE, HSTROPN, CMP #### [facility] [address] [place], [place] [address] Dr. Schuyler Fields XR CHEST 1 Von [...] by: FEDERICO BECKWITH Date: 2022-04-16 14:07 Normal [facility] Vital Signs Date Time Vital Sign Value Performing Clinician Facility 06-15-2024 13:17-0400 Body mass index (BMI) [Ratio] 27.09 kg/m2 Kian Monet DO Work Phone: [facility] 06-15-2024 13:17-0400 Body weight 65 kg Kian Monet DO Work Phone: [facility] 06-15-2024 13:17-0400 Diastolic blood pressure 74 mm[Hg] Kian Monet DO Work Phone: [facility] 06-15-2024 13:17-0400 Heart rate 92 /min Kian Monet DO Work Phone: [facility] 06-15-2024 13:17-0400 SaO2% (BldA) [Mass fraction] 97 % Kian Monet DO Work Phone: [facility] 06-15-2024 13:17-0400 Systolic blood pressure 153 mm[Hg] Kian Chiki DO Work Phone: [facility] 02-21-2024 13:39-0400 Body mass index (BMI) [Ratio] 26.67 kg/m2 Kian Monet DO Work Phone: [facility] 02-21-2024 13:39-0400 Body weight 64 kg Kian Monet DO Work Phone: [facility] 02-21-2024 13:39-0400 Diastolic blood pressure 62 mm[Hg] Kian Monet DO Work Phone: [facility] 02-21-2024 13:39-0400 Heart rate 86 /min Kian Monet DO Work Phone: [facility] 02-21-2024 13:39-0400 SaO2% (BldA) [Mass fraction] 97 % Kian Monet DO Work Phone: [facility] 02-21-2024 13:39-0400 Systolic blood pressure 152 mm[Hg] Kian Mnoet DO Work Phone: [facility] 11-18-2023 13:20-0400 Body weight 62 kg Kian Monet DO Work Phone: [facility] 11-18-2023 13:20-0400 Diastolic blood pressure 69 mm[Hg] Kian Monet DO Work Phone: [facility] 11-18-2023 13:20-0400 Heart rate 83 /min Kian Monet DO Work Phone: [facility] 11-18-2023 13:20-0400 SaO2% (BldA) [Mass fraction] 99 % Kian Monet DO Work Phone: [facility] 11-18-2023 13:20-0400 Systolic blood pressure 155 mm[Hg] Kian Monet DO Work Phone: [facility] 05-20-2023 13:07-0400 Body weight 62.14 kg Kian Monet DO Work Phone: [facility] 05-20-2023 13:07-0400 Diastolic blood pressure 72 mm[Hg] Kian Monet DO Work Phone: [facility] 05-20-2023 13:07-0400 Heart rate 92 /min Kian Monet DO Work Phone: [facility] 05-20-2023 13:07-0400 SaO2% (BldA) [Mass fraction] 97 % Kian Monet DO Work Phone: [facility] 05-20-2023 13:07-0400 Systolic blood pressure 146 mm[Hg] Kian Monet DO Work Phone: [facility] 12-27-2022 10:15-0400 Body temperature 97.9 [degF] Kurt De Santiago MD Work Phone: [facility] 12-27-2022 10:15-0400 Body weight 63.87 kg Kurt De Santiago MD Work Phone: [facility] 12-27-2022 10:15-0400 Diastolic blood pressure 81 mm[Hg] Kurt De Santiago MD Work Phone: [facility] 12-27-2022 10:15-0400 Heart rate 57 /min Kurt De Santiago MD Work Phone: [facility] 12-27-2022 10:15-0400 Respiratory rate 16 /min Kurt De Santiago MD Work Phone: [facility] 12-27-2022 10:15-0400 SaO2% (BldA) [Mass fraction] 96 % Kurt De Santiago MD Work Phone: [facility] 12-27-2022 10:15-0400 Systolic blood pressure 121 mm[Hg] Kurt De Santiago MD Work Phone: [facility] 11-18-2022 13:48-0400 Body weight 62.6 kg Kian Monet DO Work Phone: [facility] 11-18-2022 13:48-0400 Diastolic blood pressure 69 mm[Hg] Kian Monet DO Work Phone: [facility] 11-18-2022 13:48-0400 Heart rate 83 /min Kian Monet DO Work Phone: [facility] 11-18-2022 13:48-0400 SaO2% (BldA) [Mass fraction] 96 % Kian Monet DO Work Phone: [facility] 11-18-2022 13:48-0400 Systolic blood pressure 139 mm[Hg] Kian Monet DO Work Phone: [facility] 09-01-2022 12:00-0500 Body height 152.4 cm Yris Suarez Other [employer] Other 09-01-2022 12:00-0500 Body mass index (BMI) [Ratio] 27.14 kg/m2 Yris Suarez Other [employer] Other 09-01-2022 12:00-0500 Body weight 63.05 kg Yris Suarez Other [employer] Other 09-01-2022 12:00-0500 Diastolic blood pressure 60 mm[Hg] Yris Suarez Other [employer] Other 09-01-2022 12:00-0500 SaO2% (BldA) [Mass fraction] 97 % Yris Suarez Other [employer] Other 09-01-2022 12:00-0500 Systolic blood pressure 142 mm[Hg] Yris Suarez Other [employer] Other 12-28-2021 14:11-0400 Body temperature 97.7 [degF] Kurt De Santiago MD Work Phone: [facility] 12-28-2021 14:11-0400 Body weight 64.41 kg Kurt De Santiago MD Work Phone: [facility] 12-28-2021 14:11-0400 Diastolic blood pressure 84 mm[Hg] Kurt De Santiago MD Work Phone: [facility] 12-28-2021 14:11-0400 Heart rate 101 /min Kurt De Santiago MD Work Phone: [facility] 12-28-2021 14:11-0400 Respiratory rate 18 /min Kurt De Santiago MD Work Phone: [facility] 12-28-2021 14:11-0400 SaO2% (BldA) [Mass fraction] 97 % Kurt De Santiago MD Work Phone: [facility] 12-28-2021 14:11-0400 Systolic blood pressure 163 mm[Hg] Kurt De Santiago MD Work Phone: [facility] 12-01-2021 13:24-0400 Body weight 65.77 kg Lavisa Young CRAWLER TRACTOR OPERATOR.INJECTION MOLD TOOLING TECHNICIAN Work Phone: [facility] 12-01-2021 13:24-0400 Diastolic blood pressure 73 mm[Hg] Lavisa Young CRAWLER TRACTOR OPERATOR.INJECTION MOLD TOOLING TECHNICIAN Work Phone: [facility] 12-01-2021 13:24-0400 Heart rate 89 /min Lavisa Young CRAWLER TRACTOR OPERATOR.INJECTION MOLD TOOLING TECHNICIAN Work Phone: [facility] 12-01-2021 13:24-0400 SaO2% (BldA) [Mass fraction] 94 % Lavisa Young CRAWLER TRACTOR OPERATOR.INJECTION MOLD TOOLING TECHNICIAN Work Phone: [facility] 12-01-2021 13:24-0400 Systolic blood pressure 145 mm[Hg] Lavisa Young CRAWLER TRACTOR OPERATOR.INJECTION MOLD TOOLING TECHNICIAN Work Phone: [facility] Encounters Encounter Date Encounter Type Care Provider Facility Start: 01-09-2025 End: 01-09-2025 ambulatory Ashwin Alexander Facility:[facility] Start: 06-15-2024 End: 06-15-2024 ambulatory KIAN MONET Facility:[facility] Start: 06-15-2024 End: 06-15-2024 Patient encounter procedure Kian Monet DO Work Phone: Cardiology Comment on above: Primary hypertension (Primary Dx); Mixed hyperlipidemia; Hypomagnesemia; Low magnesium level; Bilateral carotid artery stenosis; Encounter for monitoring statin therapy; Ex-smoker Start: 03-05-2024 End: 03-05-2024 ambulatory KIAN MONET Facility:[facility] Start: 02-21-2024 End: 02-21-2024 ambulatory KIAN CHIKI Facility:[facility] Start: 02-21-2024 End: 02-21-2024 Patient encounter procedure Kian Monet DO Work Phone: Cardiology Comment on above: Primary hypertension (Primary Dx); Mixed hyperlipidemia; Hypomagnesemia; Bilateral carotid artery stenosis; Ex-smoker Start: 12-29-2023 End: 12-29-2023 ambulatory KURT DE SANTIAGO Facility:[facility] Start: 12-29-2023 End: 12-29-2023 Patient encounter procedure Kurt De Santiago MD Work Phone: Radiation Oncology Comment on above: Malignant neoplasm o f upper-outer quadrant of left breast in female, estrogen receptor positive (HCC) (Primary Dx) Start: 12-09-2023 End: 12-09-2023 ambulatory KIAN MONET Facility:[facility] Start: 11-21-2023 Telephone encounter Kian chou DO Work Phone: Internal Medicine [facility] Start: 11-18-2023 End: 11-18-2023 ambulatory KIAN MONET Facility:[facility] Start: 11-18-2023 End: 11-18-2023 Patient encounter procedure Kian Monet DO Work Phone: Cardiology Comment on above: Bilateral carotid ar yogi stenosis (Primary Dx); Primary hypertension; Mixed hyperlipidemia; Hypomagnesemia; Encounter for monitoring statin therapy; Ex-smoker Start: 11-14-2023 End: 11-14-2023 ambulatory KIAN MONET Facility:[facility] Start: 10-07-2023 Refill Kian Monet DO [...] 12-20-2022 End: 12-21-2022 ambulatory KURT DE SANTIAGO Facility:[facility] Start: 11-18-2022 End: 11-18-2022 Patient encounter procedure Kian Chiki DO Work Phone: Cardiology Comment on above: Bilateral carotid ar yogi stenosis (Primary Dx); Elevated blood pressure reading without diagnosis of hypertension; Mixed hyperlipidemia; Hypomagnesemia; Encounter for monitoring statin therapy; Ex-smoker Start: 09-01-2022 End: 09-01-2022 ambulatory Yris Suarez Other [employer] Other Start: 09-01-2022 Office outpatient vi sit 15 minutes Yris Suarez [facility] Start: 09-01-2022 Telephone encounter Yris Suarez [facility] Start: 08-02-2022 Refill Kian Monet DO Work Phone: [address] [place] [address] Comment on above: Refill Request Start: 05-06-2022 End: 05-27-2022 Pre-admission assessment Shruti Momin [facility] Start: 04-26-2022 End: 04-27-[address] SHRUTI [...] End: 12-01-2021 Patient encounter procedure Patricia Young APRN.CNP Work Phone: Cardiology Comment on above: Bilateral [...] Detail Author Start: 03-05-2027 [facility] Start: 11-13-2026 [facility] Start: 12-28-2025 MG Breast - bilatera l Diagnostic [facility] Radiology Routine Malignant neoplasm of upper-outer quadrant of left breast in female, estrogen receptor positive (HCC) Expected: 12/28/2025 (Approximate) [facility] Work Phone: Comment on above: Expected: 12/28/2025 (Approximate) Start: 10-20-2025 DIABETES SCREEN DIABETES SCREEN [facility] Start: 10-20-2025 [facility] Start: 12-27-2024 End: 12-27-2024 Patient encounter procedure 12/27/2024 10:30 AM EDT Office Visit Radiation Oncology [address] [place] [address] Kurt De Santiago MD [address] [place] [address] [place] [address] 1 Yr Follow Up Radiation Oncology Comment on above: 1 Yr Follow Up Start: 12-21-2024 End: 12-21-2024 Patient encounter procedure 12/21/2024 2:30 PM EDT Office Visit Cardiology [address] [facility] [place] [address] Kian Monet DO [address] [facility] [place] [address] Return in about 27 weeks (around 12/21/2024). Cardiology Comment on above: Return in about 27 w eeks (around 12/21/2024). Start: 12-14-2024 End: 03-15-2025 Basic metabolic 2000 panel - Serum or Plasma BASIC METABOLIC PANEL Lab Routine Primary hypertension Expected: 12/14/2024 (Approximate), Expires: 03/15/[address] [facility] Comment on above: Expected: 12/14/2024 (Approximate), Expires: 03/15/2025 Start: 12-14-2024 End: 03-15-2025 CBC panel - Blood by Automated count COMPLETE BLOOD COUNT Lab Routine Primary hypertension Expected: 12/14/2024 (Approximate), Expires: 03/15/[address] [facility] Comment on above: Expected: 12/14/2024 (Approximate), Expires: 03/15/2025 Start: 12-14-2024 End: 03-15-2025 Lipid 1996 panel - Serum or Plasma LIPID PANEL BASIC Lab Routine Mixed hyperlipidemia Expected: 12/14/2024 (Approximate), Expires: 03/15/[address] [facility] Work Phone: Comment on above: Expected: 12/14/2024 (Approximate), Expires: 03/15/2025 Start: 12-14-2024 End: 03-15-2025 Magnesium [Mass/volume] in Serum or Plasma MAGNESIUM Lab Routine Hypomagnesemia Expected: 12/14/2024 (Approximate), Expires: 03/15/[address] [facility] Comment on above: Expected: 12/14/2024 (Approximate), Expires: 03/15/2025 Start: 06-15-2024 End: 06-15-2024 Patient encounter procedure 06/15/2024 1:30 PM EDT Office Visit Cardiology [address] [facility] [place] [address] Kian Monet DO [address] [place] [address] : Return in about 3 months (around 05/23/2024). Cardiology Comment on above: : Return in about 3 months (around 05/23/2024). Start: 04-29-2024 Covid-19 Vaccine ( season) Covid-19 Vaccine ( season) [facility] Start: 04-29-2024 Influenza vaccination Influenza Vacc ine (#1) [facility] Start: 03-06-2024 End: 06-05-2024 Basic metabolic 2000 panel - Serum or Plasma BASIC METABOLIC PANEL Lab Routine Primary hypertension Expected: 03/06/2024 (Approximate), Expires: 06/05/2024 [facility] Work Phone: Comment on above: Expected: 03/06/2024 (Approximate), Expires: 06/05/2024 Start: 03-06-2024 End: 06-05-2024 Magnesium [Mass/volume] in Serum or Plasma MAGNESIUM Lab Routine Hypomagnesemia Expected: 03/06/2024 (Approximate), Expires: 06/05/[address] [facility] Comment on above: Expected: 03/06/2024 (Approximate), Expires: 06/05/2024 Start: 03-06-2024 End: 03-06-2024 Nursing evaluation of patient and report 03/06/2024 1:00 PM EDT Nurse Visit Cardiology [address] [facility] [place] [address] Colette, Nurse Card [facility] [address] [facility] [place] [address] Nurse visit Cardiology Comment on above: Nurse visit Start: 02-21-2024 End: 02-21-2024 Patient encounter procedure 02/21/2024 1:30 PM EDT Office Visit Cardiology [address] [place], [place] [id number] Kian Monet DO [address] [facility] [place], [place] [id number] Return in about 3 months (around 02/18/2024). Cardiology Comment on above: Return in about 3 mo nths (around 02/18/2024). Start: 12-28-2023 End: 01-26-2024 [facility] Radiology Routine Malignant neoplasm of upper-outer quadrant of left breast in female, estrogen receptor positive (HCC) Expected: 12/28/2023 (Approximate), Expires: 01/26/2024 [facility] Work Phone: Comment on above: Expected: 12/28/2023 (Approximate), Expires: 01/26/2024 Start: 12-02-2023 End: 03-02-2024 Basic metabolic 2000 panel - Serum or Plasma BASIC METABOLIC PNL Lab Routine Primary hypertension Expected: 12/02/2023 (Approximate), Expires: 03/02/2024 [facility] Work Phone: Comment on above: Expected: 12/02/2023 (Approximate), Expires: 03/02/2024 Start: 11-28-2023 DIABETES SCREEN DIABETES SCREEN [facility] Start: 11-18-2023 End: 01-18-2024 Basic metabolic 2000 panel - Serum or Plasma BASIC METABOLIC PNL Lab Routine Mixed hyperlipidemia Expected: 11/18/2023 (Approximate), Expires: 01/18/2024 [facility] Work Phone: Comment on above: Expected: 11/18/2023 (Approximate), Expires: 01/18/2024 Start: 10-15-2023 Covid-19 Vaccine () Covid-19 Vaccine () [facility] Start: 08-29-2023 Advance Directive Discussion Advance Directive Discussion [facility] Start: 08-29-2023 Behavioral Health Screening Behavioral Health Screening [facility] Start: 08-29-2023 Depression Assessment Depression Ass essment [facility] Start: 05-21-2023 End: 07-21-2023 Lipid 1996 panel - Serum or Plasma LIPID PANEL BASIC Lab Routine Mixed hyperlipidemia Expected: 05/21/2023 (Approximate), Expires: 07/21/2023 [facility] Work Phone: Comment on above: Expected: 05/21/2023 (Approximate), Expires: 07/21/2023 Start: 05-21-2023 End: 11-18-2023 US CAROTID ARTERIES [facility] US CAROTID ARTERIES [facility] Vascular Lab Routine Bilateral carotid artery stenosis Expected: 05/21/2023 (Approximate), Expires: 11/18/2023 [facility] Work Phone: Comment on above: Expected: 05/21/2023 (Approximate), Expires: 11/18/2023 Start: 04-29-2023 Covid-19 Vaccine () Covid-19 Vaccine () [facility] Start: 04-29-2023 Influenza vaccination Influenza Vacc ine (#1) [facility] Start: 12-28-2022 End: 01-27-2023 Diagnostic mammography computer-aided detcj bi [facility] Radiology Routine Malignant neoplasm of upper-outer quadrant of left breast in female, estrogen receptor positive (HCC) Expected: 12/28/2022 (Approximate), Expires: 01/27/2023 [facility] Work Phone: Comment on above: Expected: 12/28/2022 (Approximate), Expires: 01/27/2023 Start: 10-26-2022 Covid-19 Vaccine (6 - Pfizer series) Covid-19 Vaccine (6 - Pfizer series) [facility] Start: 08-29-2022 ADVANCE DIRECTIVE DISCUSSION ADVANCE DIRECTIVE DISCUSSION [facility] Start: 08-29-2022 DEPRESSION ASSESSMENT DEPRESSION ASS ESSMENT [facility] Start: 04-29-2022 Influenza vaccination INFLUENZA (#1) [facility] Start: 02-25-2022 COVID-19 VACCINE (5 - Booster for Pfizer series) COVID-19 VACCINE (5 - Booster for Pfizer series) [facility] Start: 10-03-2021 COVID-19 VACCINE (4 - Booster for Pfizer series) COVID-19 VACCINE (4 - Booster for Pfizer series) [facility] Start: 08-29-2021 ADVANCE DIRECTIVE DISCUSSION ADVANCE DIRECTIVE DISCUSSION [facility] Start: 08-29-2021 DEPRESSION ASSESSMENT DEPRESSION ASS ESSMENT [facility] Start: 2011 RSV Vaccine (1 - 1-d ose 75+ series) RSV Vaccine (1 - 1-dose 75+ series) [facility] Start: 2001 BONE DENSITY BONE DENSITY [facility] Start: 2001 Bone Density Screening Bone Density Screening [facility] Start: 2001 Pneumococcal Vaccine : 65+ (1 - PCV) Pneumococcal Vaccine: 65+ (1 - PCV) [facility] Start: 2001 Pneumococcal Vaccine : 65+ (1 of 1 - PCV) Pneumococcal Vaccine: 65+ (1 of 1 - PCV) [facility] Start: 2001 PNEUMOCOCCAL: 65+ (1 - PCV) PNEUMOCOCCAL: 65+ (1 - PCV) [facility] Start: 2001 PNEUMOVAX AGE 65 AND OVER WITH 5YR LOOKBACK (#1) PNEUMOVAX AGE 65 AND OVER WITH 5YR LOOKBACK (#1) [facility] Start: 2001 Screening for osteoporosis Bone Density Screening [facility] Start: 1996 RSV Vaccine (1 - 1-d ose 60+ series) RSV Vaccine (1 - 1-dose 60+ series) [facility] Start: 1986 SHINGRIX VACCINE (1 of 2) SHINGRIX VACCINE (1 of 2) [facility] Start: 1955 Urine microalbumin profile [facility] Start: 1954 Anxiety Screening Anxiety Screening [facility] Start: 1954 Depression Screening Depression Scre ening [facility] End: 01-15-2023 Diagnostic mammography computer-aided detcj bi [facility] Radiology Routine Malignant neoplasm of upper-outer quadrant of left breast in female, estrogen receptor positive (HCC) 1 Occurrences starting 12/16/2021 until 01/15/2023 [facility] Work Phone: Comment on above: 1 Occurrences starti ng 12/16/2021 until 01/15/2023 End: 11-19-2023 ECG COMPLETE ECG COMPLETE ECG Routine Bilateral carotid artery stenosis Elevated blood pressure reading without diagnosis of hypertension 1 Occurrences starting 11/18/2022 until 11/19/2023 [facility] Work Phone: Comment on above: 1 Occurrences starti ng 11/18/2022 until 11/19/2023 ECG COMPLETE ECG COMPLETE ECG 11/18/2023 1:21 PM EDT [facility] End: 11-17-2024 US Carotid arteries - bilateral US CAROTID ARTERIES [facility] Vascular Lab Routine Bilateral carotid artery stenosis 1 Occurrences starting 11/18/2023 until 11/17/2024 [facility] Work Phone: Comment on above: 1 Occurrences starti ng 11/18/2023 until 11/17/2024 [facility] Immunizations Immunization Date Immunization Notes Care Provider Fa cility 05-17-2023 influenza virus vacc ine, unspecified formulation Kian Monet DO Work Phone: [facility] 06-26-2022 influenza virus vacc ine, unspecified formulation Kian Monet DO Work Phone: [facility] 06-22-2018 influenza, high dose seasonal, preservative-free Kurt De Santiago MD Work Phone: [facility] Payers Date Payer Category Payer Self-pay 2018 Unknown [employer] [id number] 2018-Present [phone] [address] [address] [place] [address] Indemnity [id number] 2011 Unknown [id number] 2001 Medicare MEDICARE MEDICAR E A AND B [id number] 2001-Present [phone] [place] [address] Medicare [id number] 2001 Medicare MEDICARE MEDICAR E A AND B [id number] 2001-Present [phone] [place] [address] Medicare [id number] 1959 Medicare [id number] 1959 Unknown [id number] 1936 Unknown [id number] 1936 Unknown [id number] 1936 Unknown [id number] 1936 Unknown [id number] Unknown [id number] Social History Date Type Detail Facility Start: 07-31-2018 End: 06-15-2024 Tobacco smoking status NHIS Ex-smoker [facility] Start: 08-29-1963 End: 08-29-1988 History of tobacco use Current smoker [facility] Start: 07-31-2018 End: 06-15-2024 Tobacco use and exposure Smokeless tobacco non-user [facility] Start: 12-01-2021 End: 06-15-2024 Alcohol intake Current drinker of alcohol (finding) [facility] Start: 07-31-2018 History SDOH Alcohol Comment occ [facility] Start: 07-31-2018 End: 11-18-2022 Tobacco Comment 2 packs per week [facility] Start: 1935 Sex Assigned At Not on file [facility] Start: 11-21-2021 End: 12-28-2021 Exposure to SARS-CoV-2 (event) Not sure [facility] Tobacco smoking status No Smokin g Status Entered [facility] Start: 05-20-2023 End: 12-29-2023 Sex Assigned At Female [facility] Start: 08-29-1963 End: 08-29-1988 History of tobacco use Cigarette Smoker [facility] Start: 05-20-2023 End: 12-29-2023 History of Social function [facility] Adult Depression Screening Assessment [address] [facility] Clinical Notes 12-01-2021 to 06-15-2024 Kian Monet, - 06/15/2024 1:44 PM CYNTHIAZak arteagaJESSICA - 02/21/2024 1:43 PM Em JESSICA Sahu - 02/21/2024 1:43 PM SADIQTRolandoKian sheth DO - 02/21/2024 1:30 PM EDT Note Date & Type Note Facility 06-15-2024 Note HNO ID: [id number] Author: KIAN MONET DO Service: ? Author Type: Physician Type: Progress Notes Filed: 06/15/2024 14:02 Note Text: [facility] OUTPATIENT VISIT DATE 06/15/24 OUTPATIENT VISIT TYPE Established PRIMARY CARE PHYSICIAN: Yris Suarez MD ([facility]) [address] [place] [phone] HISTORY OF PRESENT ILLNESS: Ms. Nascimento is [...] normal in size. (more content not included)... [facility] 06-15-2024 History of Presen t illness Narrative Images from the original note were not included. [facility] CARDI[facility]Y OUTPATIENT VISIT DATE 06/15/24 OUTPATIENT VISIT TYPE Established PRIMARY CARE PHYSICIAN: Yris Suarez MD ([facility]) [address] [place] [phone] HISTORY OF PRESENT ILLNESS: Ms. Nascimento is [...] HISTORY Diagnosis Date Breast cancer (HCC) Left; ER/DE+ GERD (gastroesophageal reflux disease) PAST SURGICAL HISTORY [...] mouth once daily. documented in this encounter [facility] 02-21-2024 Nurse Note Patient brought home blood pressure monitor to compare with office monitor. Office monitor: BP 152/62 HR 86 Home monitor: BP 129/82 HR [address] [facility] 02-21-2024 Nurse Note Patient brought home blood pressure monitor to compare with office monitor. Office monitor: BP 152/62 HR 86 Home monitor: BP 129/82 HR 84 documented in this encounter [facility] 02-21-2024 History of Presen t illness Narrative Images from the original note were not included. [facility] OUTPATIENT VISIT DATE 02/21/24 OUTPATIENT VISIT TYPE Established PRIMARY CARE PHYSICIAN: Yris Suarez MD ([facility]) [address] [place] [phone] HISTORY OF PRESENT ILLNESS: Ms. Nascimento is [...] HISTORY Diagnosis Date Breast cancer (HCC) Left; ER/DE+ GERD (gastroesophageal reflux disease) PAST SURGICAL HISTORY [...] Monet DO 02/21/24 documented in this encounter [facility] 02-21-2024 Note HNO ID: [id number] Author: KIAN MONET DO Service: ? Author Type: Physician Type: Progress Notes Filed: 02/21/2024 14:21 Note Text: [facility] OUTPATIENT VISIT DATE 02/21/24 OUTPATIENT VISIT TYPE Established PRIMARY CARE PHYSICIAN: Yris Suarez MD ([facility]) [address] [place] [address] HISTORY OF PRESENT ILLNESS: Ms. Nascimento is [...] MEQ/L 3.8 ( (more content not included)... [facility] 12-29-2023 Note HNO ID: [id number] Author: KURT DE SANTIAGO MD Service: ? Author Type: Physician Type: Progress Notes Filed: 01/10/2024 07:04 Note Text: Radiation Oncology - Follow Up Note PATIENT NAME: Morelia Nascimento PATIENT DIAGNOSIS/PATIENT IDENTIFICATION: Ms. 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 [facility] 12-29-2023 History of Presen t illness Narrative Radiation Oncology - Follow Up Note PATIENT NAME: Morelia Nascimento PATIENT Signed by: Kurt De Santiago MD I spent a total of 20 minutes on the date of the service which included preparing to see the patient, [id number] patient care, and counseling and educating the patient/family/caregiver. This document has been created with the use of voice recognition technology. It may contain inaccuracies, misspellings, inaccurate syntax or inappropriate word context that are a result of the inadequacies/shortcomings of said technology/software. documented in this encounter [facility] 11-21-2023 Miscellaneous Notes Faxed lab orders [...] the lab order to be faxed to [facility]. [phone] Patient has been identified by name and birthdate. Duration of symptoms: N/A Person calling: daughter: Call patient at: [phone] Was an appointment scheduled: No Closing statement: Results or non-symptom based questions: Thank you for calling [facility], your call will be returned within the next business day. Jen Burns documented in this encounter [facility] 11-18-2023 Miscellaneous Notes Addended by: KIAN MONET on: 11/18/2023 01:46 PM Modules accepted: Orders Addended by: ZAK WILKINS on: 11/18/2023 01:46 PM Modules accepted: Orders documented in this encounter [facility] 11-18-2023 Note HNO ID: [id number] Author: KIAN MONET DO Service: ? Author Type: Physician Type: Progress Notes Filed: 11/18/2023 13:43 Note Text: [facility]Y OUTPATIENT VISIT DATE 11/18/23 OUTPATIENT VISIT TYPE Established PRIMARY CARE PHYSICIAN: Yris Suarez MD ([facility]) [address] [place] [phone] HISTORY OF PRESENT ILLNESS: Ms. Nascimento is [...] mmol/L 141 Potassium (more content not included)... [facility] 11-18-2023 History of Presen t illness Narrative Images from the original note were not included. [facility] OUTPATIENT VISIT DATE 11/18/23 OUTPATIENT VISIT TYPE Established PRIMARY CARE PHYSICIAN: Yris Suarez MD ([facility]) [address] [place] [address] HISTORY OF PRESENT ILLNESS: Ms. Nascimento is [...] HISTORY Diagnosis Date Breast cancer (HCC) Left; ER/DE+ GERD (gastroesophageal reflux disease) PAST SURGICAL HISTORY [...] Monet DO 11/18/23 documented in this encounter [facility] 02-09-2024 Miscellaneous Notes Patient has been identified by [...] patient. Selene Regalado documented in this encounter [facility] 05-20-2023 History of Presen t illness Narrative Images from the original note were not included. [facility] C[facility] OUTPATIENT VISIT DATE 05/20/23 OUTPATIENT VISIT TYPE Established PRIMARY CARE PHYSICIAN: Yris Suarez MD ([facility]) [address] [place] [phone] HISTORY OF PRESENT ILLNESS: Ms. Nascimento is [...] HISTORY Diagnosis Date Breast cancer (HCC) Left; ER/DE+ GERD (gastroesophageal reflux disease) PAST SURGICAL HISTORY [...] Monet DO 05/20/23 documented in this encounter [facility] 12-27-2022 History of Presen t illness Narrative Images from the original note were not included. Radiation Oncology - Follow Up Note PATIENT NAME: Morelia Nascimento PATIENT DIAGNOSIS/PATIENT IDENTIFICATION: Ms. 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 This document has been created with the use of voice recognition technology. It may contain inaccuracies, misspellings, inaccurate syntax or inappropriate word context that are a result of the inadequacies/shortcomings of said technology/software. documented in this encounter [facility] 11-18-2022 History of Presen t illness Narrative Images from the original note were not included. [facility] C[facility]Y OUTPATIENT VISIT DATE 11/18/22 OUTPATIENT VISIT TYPE Established PRIMARY CARE PHYSICIAN: Yris Suarez MD ([facility]) [address] [place] [phone] HISTORY OF PRESENT ILLNESS: Ms. Nascimento is [...] HISTORY Diagnosis Date Breast cancer (HCC) Left; ER/DE+ GERD (gastroesophageal reflux disease) PAST SURGICAL HISTORY [...] Monet DO 11/18/22 documented in this encounter 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 Authorizing Provider: SELENE OTERO APRN.INJECTION MOLD TOOLING TECHNICIAN * Telephone Encounter - Radha Llanos MA [...] patient. Mari Jones Ma [facility] History of Present illness Narrative* Kurt De Santiago MD - 12/28/2021 11:54 PM EDT Radiation Oncology - Follow Up Note PATIENT NAME: Morelia Nascimento PATIENT Signed by: Kurt De Santiago MD I spent a total of 20 minutes on the date of the service which included preparing to see the patient, [id number] patient care and counseling and educating the patient/family/caregiver. This document has been created with the use of voice recognition technology. It may contain inaccuracies, misspellings, inaccurate syntax or inappropriate word context that are a result of the inadequacies/shortcomings of said technology/software. [facility] Miscellaneous Notes* Telephone Encounter - Jeaneth Hawk RN - 12/16/2021 10:30 AM EDT GURDEEP Stewart does not have an order. Please sign pended order. Jeaneth Hawk RN * Telephone Encounter - Jeaneth Hawk RN - 12/16/2021 8:57 AM EDT Spoke to pt and she has not had 6 month katja yet. SHe will call [facility] today and then call us back to let us know when she is set up. PSS- please cancel RV for 12/17 and reschedulef or after mammogram. Jeaneth Hawk RN [facility] [facility] History of Present illness Narrative* Patricia Young APRN.ANA - 12/01/2021 1:46 PM EDT Images from the original note were not included. [facility] [place] Lisa Olmedo Department of Cardiovascular Medicine SECTION [...] HISTORY Diagnosis Date Breast cancer (HCC) Left; ER/DE+ GERD (gastroesophageal reflux disease) PAST SURGICAL HISTORY [...] visit. This note was partially generated with [employer] voice recognition software and may contain errors, including spelling, grammar, syntax and misrecognition of what was dictated, that may not be fully corrected. I appreciate the opportunity to participate in this patient's care. Please do not hesitate to call my office if you have any questions. CONTACT INFORMATION: Patricia Young APRN.CNP Adult Nurse Practitioner Lisa Olmedo Department of Cardiovascular Medicine [facility] Heart, Vascular, Thoracic [place] [facility] Card[facility] Consult [facility] No data available for this section [facility] Diagnosis Malignant neoplasm of upper-outer quadrant of left breast in female, estrogen receptor positive (HCC)- Primary [facility] [place] [facility]* Diagnosis Bilateral carotid artery stenosis- Primary Occlusion and stenosis of carotid artery without mention of cerebral infarction Mixed hyperlipidemia Elevated blood pressure reading without diagnosis of hypertension documented [facility] this [facility] [place] [facility]* Diagnosis Mixed hyperlipidemia Hypomagnesemia Disorders of magnesium metabolism Elevated blood pressure reading without diagnosis of hypertension documented in this [facility] [place] [facility]* Diagnosis Bilateral carotid artery stenosis- Primary Occlusion and stenosis of carotid artery without mention of cerebral infarction Elevated blood pressure reading without diagnosis of hypertension Mixed hyperlipidemia Hypomagnesemia Disorders of magnesium metabolism Encounter for monitoring statin therapy Encounter for therapeutic drug monitoring Ex-smoker Personal history of tobacco use, presenting hazards to health [facility] Diagnosis Bilateral carotid artery stenosis- Primary Occlusion and stenosis of carotid artery without mention of cerebral infarction Elevated blood pressure reading without diagnosis of hypertension Mixed hyperlipidemia Hypomagnesemia Disorders of magnesium metabolism Encounter for monitoring statin therapy Encounter for therapeutic drug monitoring Ex-smoker Personal history of tobacco use, presenting hazards to health [facility] Diagnosis Mixed hyperlipidemia Elevated blood pressure reading without diagnosis of hypertension Hypomagnesemia Disorders of magnesium metabolism documented [facility] [place] [facility]* Diagnosis Bilateral carotid artery stenosis- Primary Occlusion and stenosis of carotid artery without mention of cerebral infarction Primary hypertension Unspecified essential hypertension Mixed hyperlipidemia Hypomagnesemia Disorders of magnesium metabolism Encounter for monitoring statin therapy Encounter for therapeutic drug monitoring Ex-smoker Personal history of tobacco use, presenting hazards to health [facility] [place] [facility]* Diagnosis Malignant neoplasm of upper-outer quadrant of left breast in female, estrogen receptor positive (HCC)- Primary [facility] [place] [facility]* Diagnosis Primary hypertension- Primary Unspecified essential hypertension Mixed hyperlipidemia Hypomagnesemia Disorders of magnesium metabolism Bilateral carotid artery stenosis Occlusion and stenosis of carotid artery without mention of cerebral infarction Ex-smoker Personal history of tobacco use, presenting hazards to health documented [facility] [place] [facility]* Diagnosis Primary hypertension- Primary Unspecified essential hypertension Mixed hyperlipidemia Hypomagnesemia Disorders of magnesium metabolism Low magnesium level Bilateral carotid artery stenosis Occlusion and stenosis of carotid artery without mention of cerebral infarction Encounter for monitoring statin therapy Encounter for therapeutic drug monitoring Ex-smoker Personal history of tobacco use, presenting hazards to health documented in this encounter [facility] general Narrative - Reported* Type Description Date Medical History UTI due to ESBL klebsiella Medical History TIA Medical History malignant neoplasm left breast Medical History depression Medical History osteopenia Medical History GERD Medical History colon adenocarcinoma Medical History lipidemia Surgical History ascending cholangiitis colon re section 1998 Surgical History cholecystectomy [facility] Discharge instructions No data available for this section [facility] No data available for this section [facility] (narrative)* Diagnostic Procedure Only (Routine) - Pending Review Specialty Diagnoses / Procedures Referred By John Paul townsend Referred To Contact [facility] Diagnoses Malignant neoplasm of upper-outer quadrant of left breast in female, estrogen receptor positive (HCC) Procedures KATJA DIAGNOSTIC BILAT DIAGNOSTIC MAMMOGRAPHY COMPUTER-AIDED DETCJ Kurt Stallings MD [address] [place] [address] [facility] [address] [place] [phone] Referral ID Status Reason Start Date Expiration Date Visits Requested Visits Authorized [id number] Pending Review Auto-Generat ed Referral 12/16/2021 01/15/2023 1 1 [facility] for referral (narrative)* Diagnostic Procedure Only (Routine) - Pending Review Specialty Diagnoses / Procedures Referred By Contac t Referred To Contact [facility] Diagnoses Malignant neoplasm of upper-outer quadrant of left breast in female, estrogen receptor positive (HCC) Procedures KATJA DIAGNOSTIC BILAT DIAGNOSTIC MAMMOGRAPHY COMPUTER-AIDED DETCJ Kurt Stallings MD [address] [place] [address] [facility] [address] [place] [phone] Referral ID Status Reason Start Date Expiration Date Visits Requested Visits Authorized [id number] Pending Review Auto-Generat ed Referral 12/28/2022 01/27/2023 1 1 [facility] for referral (narrative)* Outpatient Procedure (Routine) - Pending Review Specialty Diagnoses / Procedures Referred By Contac t Referred To [facility] Diagnoses Bilateral carotid artery stenosis Procedures US CAROTID ARTERIES ZEKE VAS LAB DUPLEX SCAN EXTRACRANIAL ART COMPL BI STUDY Kian Monet DO [address] [place] [address] [facility] [place] [address] [place] [id number] Referral ID Status Reason Start Date Expiration Date Visits Requested Visits Authorized [id number] Pending Review Auto-Generat ed Referral 05/21/2023 11/18/2023 1 1 * Outpatient Procedure (Routine) - Authorized Specialty Diagnoses / Procedures Referred By Contac t Referred To Contact [facility] Diagnoses Bilateral carotid artery stenosis Elevated blood pressure reading without diagnosis of hypertension Procedures ECG COMPLETE ECG ROUTINE ECG W/LEAST 12 LDS W/I&R Kian Monet DO [address] [place] [address] [facility] [address] [place] [id number] Referral ID Status Reason Start Date Expiration Date Visits Requested Visits Authorized [id number] Authorized Auto-Generat ed Referral 11/18/2022 11/18/2023 1 1 [facility] for referral (narrative)* Diagnostic Procedure Only (Routine) - Pending Review Specialty Diagnoses / Procedures [facility] Diagnoses Malignant neoplasm of upper-outer quadrant of left breast in female, estrogen receptor positive (HCC) Procedures KATJA DIAGNOSTIC BILATERAL DIAGNOSTIC MAMMOGRAPHY COMPUTER-AIDED DETCJ BI Kurt De Santiago MD [address] [place] [address] [place] [address] [facility] [address] [place] [address] Referral ID Status Reason Start Date Expiration Date Visits Requested Visits Authorized [id number] Pending Review Auto-Generat ed Referral 12/28/2023 01/26/2024 1 1 [facility] for referral (narrative)* Outpatient Procedure (Routine) - Authorized Specialty Diagnoses / Procedures [facility] Diagnoses Bilateral carotid artery stenosis Mixed hyperlipidemia Procedures ECG COMPLETE ECG ROUTINE ECG W/LEAST 12 LDS W/I&R Kian Monet DO [address] [place] [address] [facility] [address] [place] [id number] Referral ID Status Reason Start Date Expiration Date Visits Requested Visits Authorized [id number] Authorized Auto-Generat ed Referral 05/20/2023 05/19/2024 1 1 [facility] for referral (narrative)* Outpatient Procedure (Routine) - Authorized Specialty Diagnoses / Procedures Referred By Contac t Referred To Contact [facility] Diagnoses Bilateral carotid artery stenosis Procedures US CAROTID ARTERIES ZEKE VAS LAB DUPLEX SCAN EXTRACRANIAL ART COMPL BI STUDY Kian Monet DO [address] [place] [address] [address] Referral ID Status Reason Start Date Expiration Date Visits Requested Visits Authorized [id number] Authorized Auto-Generat ed Referral 11/18/2023 11/17/2024 1 1 * Outpatient Procedure (Routine) - Pending Review Specialty Diagnoses / Procedures [facility] To Contact [facility] Diagnoses Bilateral carotid artery stenosis Primary hypertension Hypomagnesemia Procedures ECG COMPLETE ECG ROUTINE ECG W/LEAST 12 LDS W/I&R Kain Monet, [address] [place] [address] [address] Referral ID Status Reason Start Date Expiration Date Visits Requested Visits Authorized [id number] Pending Review Auto-Generat ed Referral 11/18/2023 11/17/2024 1 1 [facility] for referral (narrative)* Diagnostic Procedure Only (Routine) - Pending Review Specialty Diagnoses / Procedures [facility] Ref[facility] To [facility] Diagnoses Malignant neoplasm of upper-outer quadrant of left breast in female, estrogen receptor positive (HCC) Procedures KATJA DIAGNOSTIC BILATERAL DIAGNOSTIC MAMMOGRAPHY COMPUTER-AIDED DETCJ BI Kurt De Santiago MD [address] [place] [address] [place] [address] [facility] [address] [place] [address] Referral ID Status Reason Start Date Expiration Date Visits Requested Visits Authorized [id number] Pending Review Auto-Generat ed Referral 12/29/2023 01/27/2025 [address] [facility] Summary Purpose Family History No Family History Records FoundNo Family History Records FoundNo Family History Records Found Advance Directives No Advanced Directives Records FoundNo Advanced Directives Records FoundNo Advanced Directives Records Found Additional Source Comments Source Comments (unrecognize d section and content) In the event this informatio n is protected by the Federal Confidentiality of Alcohol and Drug Abuse Patient Records regulations: The Federal rules restrict any use of the information to criminally investigate or prosecute any alcohol or drug abuse patient.[facility] Hospital[facility] the event this information is protected by the Federal Confidentiality of Alcohol and Drug Abuse Patient Records regulations: The Federal rules restrict any use of the information to criminally investigate or prosecute any alcohol or drug abuse patient.[facility] HospitalIn the event this information is protected by the Federal Confidentiality of Alcohol and Drug Abuse Patient Records regulations: The Federal rules restrict any use of the information to criminally investigate or prosecute any alcohol or drug abuse patient.[facility] HospitalIn the event this information is protected by the Federal Confidentiality of Alcohol and Drug Abuse Patient Records regulations: The Federal rules restrict any use of the information to criminally investigate or prosecute any alcohol or drug abuse patient.[facility] HospitalIn the event this information is protected by the Federal Confidentiality of Alcohol and Drug Abuse Patient Records regulations: The Federal rules restrict any use of the information to criminally investigate or prosecute any alcohol or drug abuse patient.[facility] HospitalIn the event this information is protected by the Federal Confidentiality of Alcohol and Drug Abuse Patient Records regulations: The Federal rules restrict any use of the information to criminally investigate or prosecute any alcohol or drug abuse patient.[facility] HospitalIn the event this information is protected by the Federal Confidentiality of Alcohol and Drug Abuse Patient Records regulations: The Federal rules restrict any use of the information to criminally investigate or prosecute any alcohol or drug abuse patient.[facility] the event this information is protected by the Federal Confidentiality of Alcohol and Drug Abuse Patient Records regulations: The Federal rules restrict any use of the information to criminally investigate or prosecute any alcohol or drug abuse patient.[facility] HospitalIn the event this information is protected by the Federal Confidentiality of Alcohol and Drug Abuse Patient Records regulations: The Federal rules restrict any use of the information to criminally investigate or prosecute any alcohol or drug abuse patient.[facility] HospitalIn the event this information is protected by the Federal Confidentiality of Alcohol and Drug Abuse Patient Records regulations: The Federal rules restrict any use of the information to criminally investigate or prosecute any alcohol or drug abuse patient.[facility] HospitalIn the event this information is protected by the Federal Confidentiality of Alcohol and Drug Abuse Patient Records regulations: The Federal rules restrict any use of the information to criminally investigate or prosecute any alcohol or drug abuse patient.[facility] HospitalIn the event this information is protected by the Federal Confidentiality of Alcohol and Drug Abuse Patient Records regulations: The Federal rules restrict any use of the information to criminally investigate or prosecute any alcohol or drug abuse patient.[facility] HospitalIn the event this information is protected by the Federal Confidentiality of Alcohol and Drug Abuse Patient Records regulations: The Federal rules restrict any use of the information to criminally investigate or prosecute any alcohol or drug abuse patient.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 Relationship Specialty Start Date End Date Yris Suarez MD [address] [facility] [place] [phone] PCP - General Family Practice 07/28/11 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 Relationship Specialty Start Date End Date Yris Suarez MD [address] [facility] [place] [address] PCP - General Family Medicine 07/28/11 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 Relationship Specialty Start Date End Date Yris Suarez MD [address] [facility] [place] [address] PCP - General Family Medicine 07/28/11 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 Relationship Specialty Start Date End Date Yris Suarez MD [address] [facility] [place] [phone] PCP - General Family Medicine 07/28/11 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 Relationship Specialty Start Date End Date Yris Suarez MD [address] [facility] [place] [address] PCP - General Family Medicine 07/28/11 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 Relationship Specialty Start Date End Date Yris Suarez MD [address] [facility] [place] [address] PCP - General Family Medicine 07/28/11 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 Relationship Specialty Start Date End Date Yris Suarez MD [address] [facility] [place] [address] PCP - General Family Medicine 07/28/11 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 Relationship Specialty Start Date End Date Yris Suarez MD [address] [facility] [place] [address] PCP - General Family Medicine 07/28/11 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 Relationship Specialty Start Date End Date Yris Suarez MD [address] [facility] [place] [phone] PCP - General Family Medicine 07/28/11 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 Relationship Specialty Start Date End Date Yris Suarez MD [address] [facility] [place] [address] PCP - General [facility] 07/28/11 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 [employer] provides no warranty or guarantee of the accuracy or completeness of information in this document.
[2025-01-15 14:46] LABS: Anion Gap 12.6; BUN Creatinine Ratio 13.3; Calcium 9.1 mg/dL (8.5-10.1); Carbon Dioxide 30.1 mmol/L (21.0-32.0); Chloride 104 mmol/L (98-107); Estimated GFR (African America >60 (>=60 mL/min/1.73m^2); Estimated GFR (Non-African Ame 59 (>=60 mL/min/1.73m^2); Glucose 106 mg/dL (74-106); Potassium 3.7 mmol/L (3.5-5.1); Sodium 143 mmol/L (136-145)
== END 2025-01-15 14:05 | disposition home or self-care (01) ==
LOC: LAB 14:06
PROVIDERS: PCP Family Medicine; Visit Provider Family Medicine
DX: E87.6 Hypokalemia (principal)
CPT/HCPCS: 36415; 80048

== ENCOUNTER 2025-08-01 15:50 | Outpatient (OUT) | payer MEDICARE, OTHER, SELFPAY ==
--- OUTSIDE RECORDS SUMMARY | 2025-08-01 10:37 | XMS_ITS | Continuity of Care Document ---
Author Organization [facility] Address [address] [place] [address] Phone Care Team Providers Care Fund Raiser Name Role Phone Yris Woods MD Primary Care Provider Yris Woods MD Attending Provider Care Teams Patient Care Team Team Status: Active Member Role/Relationship Status Dates Yris Woods MD Primary Care Provider Active Patient Care Team Team Status: Inactive Member Role/Relationship Status Dates Yris Woods MD Primary Care Provider Active Start: August 01, 2025 End: August 01, 2025Yris Woods MDAttending ProviderActiveStart: August 01, 2025 End: August 01, 2025 Chief Complaint and Reason for Visit Chief Complaint Admit Date dementia assessment August 01, 2025 2 :46pm Reason for Visit Admit Date Benign essential HTN August 01, 2025 2:46pm Fatigue August 01, 2025 2 :46pm Allergies, Adverse Reactions, Alerts Allergen Type Severity Reaction Last Updated Verified Status No Known Allergies Allergy Unknown August 01, 2025 3:03pmYesActive Social History Smoking Status Status Start Date End Date Date of Observa tion Never smoked tobacco (finding) March 25, 2025 1:02pm Observation Status Observation Response Date of Response Legal Sex Female (finding) Sex Assigned At BirthFemaleDecember 1934 Family History Relationship Condition Age at Onset Recorded Date/T kennedy brother Unknown fatherDeceasedUnknownmotherMalignant neoplasmUnknownDeceasedUnknownsonMalignant neoplasmUnknown Problems Active Problems Problem Diagnosis/Recorded Date Onset Date Stat Medicare annual wellness vis it, subsequent March 25, 2025 12:23pm Unknown Active History of breast cancer in female March 25, 2025 12: 23pm Unknown Active Fatigue August 01, 2025 3:26pm Unknown Ac tive Benign essential HTN January 15, 2025 12:52pm Unknown Active Hyperlipidemia, unspecified January 15, 2025 12:32pm Unk nown Active Inactive/Resolved Problems Problem Diagnosis/Recorded Date Onset Date Stat Acute diverticulitis January 15, 2025 12:52pm Unknown Resolved Hypokalemia January 15, 2025 12:45pm Unknown Resol kenan Medications Medication Status Dose Units Route Directions Qty Days Refills S tart Date Stop Date End Date Reason(s) Instructions Adherence Atorvastatin 40 mg tablet Discontinued 40 MG PO D aily January 14, 2025 11:00pmDecemb2024 3:03pmLosartan 50 mg obgmhdGvdoms29EEUS DailyMay 2024 11:00pmComplies with drug therapyAmoxicillin-Pot Clavulanate 875-125 mg fyqqyaTqdpjtcirdic3KYVUKAcaod dailyMay 2024 11:00pmJuly 2024 12:02pmAspirin 81 mg tablet,delayed release (DR/EC)Hhxpxh62DSPOCksajNvu 2024 11:00pmComplies with drug therapyCoenzyme Q10 (Co Q-10) 100 mg gezduiqAwywnm591DFBXQqzhyGdn 2024 11:00pmComplies with drug therapy Magnesium Oxide 400 mg magnesium tldzeoWkoxak274CVZEPqwrjDwi 2024 11:00pm Complies with drug therapyBetamethasone Dipropionate 0.05 % ointmentDiscontinued 1APPLICTOPICALTwice dailyDece2024 12:00amDecemb2024 3:03pm FreeTextSi application Externally Twice a day; Note: Source Status: Start; Refills: 0; Qty: 1 Each; Provider: Peggy Khan Immunizations Immunization Event Date Not Given Reason Dose Number Rail Operator Lot Number Reason(s) Given Vaccine Information Statement (VIS) Detail Administration Location influenza, unspecified formulation June 02, 2015 influenza, unspecified formulationSeptember 2019Pneumococcal Conjugate Vaccine, 13 valentOctober 2014Pneumococcal Polysacc. Vaccine, 23 valent April 30, 2002Tetanus, Diphtheria adult, 5 Lf pres free absSept2011 Vital Signs Vital Reading Result Reference Range Collection Date/Time Height 61 [in_i] August 01, 2025 3:75muAefrhb58.52 kgDecemb2024 3:01pmHeart Thcg132 /oon52-940Uirixfcz 4th, 2025 3:01pmBP Hcrbxvhd509 mm[Hg]100-140Decemb2024 3:01pmBP Ypjdpahjh90 mm[Hg]60-100Decemb2024 3:01pmBMI (Body Mass Index)22.3 kg/s1QxauhxgnAugust 01, 2025 3:01pm Advance Directives Advance Directive Response Recorded Date/ Time Advance Directives No July 7:32am Insurance Providers Guarantor Morelia Roque Address [address] [place], [place] [address]Contact Info.Home Phone: Coverage Status Update:2025 Payer Group Member ID Coverage Type Subscriber Relationship to Subscriber Effective Date Expiration Date Medicare [id number] Hahn Id: [id number] [address] [place] [address] Home Phone: [facility] [employer] [id number] Hahn Id: [id number] [address] [place] [address] Home Phone: Self Encounters Encounter Location(s) Arrival/Admit Date Discharge/Departure Date Discharge/Departure Disposition Provider(s) Departed Physician/ Provider Office Visit -[facility] August 01, 2025 2:46pm August 01, 2025 3:36pm Discharged to home care or self care (routine discharge) Yris Woods MD Recent Diagnosis Onset Date Admit Date Benign essential HTN Unknown July 2:46pm Fatigue Unknown August 01 2:46pm Assessments Diagnosis Onset Date Resolution Status Admit Date Benign essential HTN acuteDece2024 2:46pmFatigueacuteDece2024 2:46pm Plan of Treatment Future Tests Future scheduled test information is unavailable Pending Tests Test Name Ordered Date Scheduled Date Comprehensive Metabolic Panel August 01, 2025 3:25pm Future Visits Future appointment information is unavailable Future Procedures Procedure Name Ordered Date Scheduled Date Complete Blood Count Auto Diff August 01 3:25pm Urine CultureDece2024 3:25pmMagnesiumDecemb2024 3:25pmFree T4 (Free Thyroxine)August 01, 2025 3:25pmThyroid Stim Hormone w/RflxDece2024 3:25pmUrinalysisDece2024 3:25pm Future Medications Future medication information is unavailable Patient Instructions Patient instructions are unavailable
--- OUTSIDE RECORDS SUMMARY | 2025-08-01 16:15 | XMS_ITS | CCD ---
Author Organization [facility] Care Team Providers Care Machined Parts Quality Inspector Name Role Phone Yris Suarez MD Primary Care Provider YRIS SUAREZ Primary Care Physician Yris Suarez MD Primary Care Provider Yris Suarez Unavailable INGRID RIVAS Admitting Unavailable INGRID RIVAS Attending Unavailable INGRID RIVAS Consulting Unavailable ERICK, DR YRIS Khan Primary Care Unavailable TIMMIEileen, DR VINCENT Admitting Unavailable TIMMIS, DR VINCENT Attending Unavailable TIMMIS, DR VINCENT Consulting Unavailable ERICK, DR YRIS Khan Primary Care Unavailable CINDY, DR XU Mcleod Consulting Unavailable KURT CONDON Admitting Unavailable KURT CONDON Attending Unavailable ERICK, DR YRIS Khan Primary Care Unavailable CINDY, DR XU Mcleod Consulting Unavailable ERICK, DR YRIS Khan Consulting Unavailable INGRID RIVAS Admitting Unavailable ZIEBER, DR FEDERICO Sow Consulting Unavailable INGRID RIVAS Attending Unavailable ERICK, DR YRIS Khan Primary Care Unavailable CONSTANTINE HERNANDEZ Consulting Unavailable INGRID RIVAS Consulting Unavailable Yris Suarez MD Primary Care Provider Ashwin Alexander Admitting Unavailable Ashwin Alexander Attending Unavailable Yris Suarez Primary Care Unavailable YRIS SUAREZ Primary Care Unavailable KIAN MONET Attending Unavailable KIAN MONET Referring Unavailable YRIS SUAREZ Primary Care Unavailable KIAN MONET Attending Unavailable YRIS SUAREZ Primary Care Unavailable Yris Suarez MD Primary Care Provider Ashwin Alexander DO Attending Provider Rebeka Aguilar CMA Attending Provider UnavailYris Mcduffie MD Attending Provider Medications Current Medications MedicationDrug Class(es)DatesSig (Normalized)Sig (Original)aspirin 81 mg delayed release oral tablet (16 sources)Platelet Aggregation Inhibitor, Nonsteroidal Anti-inflammatory Drug Start: 52-60-4456vwsk 1 tablet by mouth once dailyAspirin 81 mg tablet,delayed release (DR/EC) Active 81 MG PO Daily January 15, 2025 12:00am Complies with drug therapytake 1 tablet by mouth once dailyaspirin, enteric coated (ASPIRIN, ENTERIC COATED) 81 mg EC tablet Take 81 mg by mouth once daily. Activetake 1 capsule by mouth once dailyAspirin 81 MG 1 capsule Orally Once a day Active Comment on above:Take 81 mg by mouth once daily.atorvastatin 40 mg oral tablet (19 sources)HMG-CoA Reductase InhibitorStart: 74-47-9015xepv 1 tablet by mouth once dailyAtorvastatin 40 mg tablet Active 40 MG PO Daily January 15, 2025 12:00am Complies with drug therapyStart: 05-29-2021 End: 40-61-8517jipi 1 tablet by mouth once dailyatorvastatin (LIPITOR) 40 mg tablet Indications: Mixed hyperlipidemia Take 1 tablet by mouth once daily. 90 tablet 3 06/15/2024 ActiveComment on above:Take 1 tablet by mouth once daily. betamethasone 0.0005 mg/mg topical ointment (2 sources)CorticosteroidStart: 91-86-9719Ncmnoqihpmzea Dipropionate 0.05 % 1 application Externally Twice a day for 14 days Aug, Activehydrocortisone 10 mg/ml / neomycin 3.5 mg/ml / polymyxin b 02101 unt/ml otic suspension (2 sources)Aminoglycoside Antibacterial, Polymyxin-class Antibacterial, CorticosteroidStart: 74-37-5684Dnwrhpip-Polymyxin-HC 3.5-28871-1 4 drops into affected ear Otic Three times a day for 7 days Aug, Activelosartan potassium 50 mg oral tablet (8 sources)Angiotensin 2 Receptor BlockerStart: 45-70-6615tryx 1 tablet by mouth once dailyLosartan 50 mg tablet Active 50 MG PO Daily January 15, 2025 12:00am Complies with drug therapyStart: 02-21-2024 End: 72-61-0153dbew 1 tablet by mouth once dailylosartan (COZAAR) 50 mg tablet Indications: Primary hypertension Take 1 tablet by mouth once daily.90 tablet 3 06/15/2024 ActiveStart: 11-18-2023 End: 18-12-3924ewmd 1 tablet by mouth once dailylosartan (COZAAR) 25 mg tablet Indications: Primary hypertension Take 1 tablet by mouth once daily.90 tablet 3 11/18/2023 02/21/2024 DiscontinuedComment on above:Take 1 tablet by mouth once daily.magnesium oxide 400 mg oral tablet (19 sources)Start: 21-32-9789cygg 1 tablet by mouth once dailyMagnesium Oxide 400 mg magnesium tablet Active 400 MG PO Daily January 15, 2025 12:00am Complies withdrug therapyStart: 05-29-2021 End: 79-03-4582kifp 1 tablet by mouth once dailymagnesium oxide (MAG-OX) 400 mg (241.3 mg magnesium) tablet Indications: Hypomagnesemia , Low magnesium level Take 1 tablet by mouth once daily. 90 tablet 3 06/15/2024 ActiveComment on above:Take 1 tablet by mouth once daily.24 hr metoprolol succinate 25 mg extended release oral tablet (1 source)beta-Adrenergic BlockerStart: 10-34-0421phqz 0.5 tablet by mouth once dailymetoprolol succinate ER (TOPROL XL) 25 mg 24 hr tablet Indications: Primary hypertension Take 0.5 tablets by mouth once daily. 45 tablet 3 06/15/2024 Active ubidecarenone 100 mg oral capsule (19 sources)Start: 03-64-4847Iymmeplc Q10 (Co Q-10) 100 mg capsule Active 100 MG PO Daily January 15, 2025 12:00am Complies with drug therapyStart: 05-29-2021 End: 15-73-2273lxhl 1 capsule by mouth once dailycoenzyme Q10 (COQ-10) 100 mg cap capsule Indications: Mixed hyperlipidemia Take 1 capsule by mouth once daily. 90 capsule 3 06/15/2024 ActiveCoenzyme Q-10 100 MG as directed Orally Not-TakingComment on above:Take 1 capsule by mouth once daily. Completed/Discontinued Medications MedicationDrug Class(es)DatesSig (Normalized)Sig (Original)amoxicillin 875 mg / clavulanate 125 mg oral tablet (1 source)Penicillin-class AntibacterialStart: 01-15-2025 End: 37-70-4904cxbf 1 tablet by mouth twice dailyAmoxicillin-Pot Clavulanate 875-125 mg tablet Discontinued 1 TAB PO Twice daily January 15, 2025 12:00am March 25, 2025 1:02pm Problems Active Problems Problem ClassificationProblemDateDocumented DateEpisodic/ChronicAllergic reactions (3 sources)Atopic dermatitis; Translations: [Intrinsic (allergic) eczema]Chronic Cancer of breast (17 sources)Malignant neoplasm of upper-outer quadrant of female breast; Translations: [Malignant neoplasm of upper-outer quadrant of left female breast] Onset: 59-47-2720AnbxsmiJdynue of breast (2 sources)History of malignant neoplasm of breast; Translations: [Personal history of malignant neoplasm of breast]42-68-8455ZyfcykpnIgrvxr of colon (13 sources)Malignant tumor of colon; Translations: [Malignant neoplasm of colon, unspecified]Onset: 493093-25-1140LewnubaTfpjxyxjm of lipid metabolism (20 sources)Mixed hyperlipidemia; Translations: [Mixed hyperlipidemia]Onset: 205504-98-1756HbcuqvdOpijlmbcnqtmdq and diverticulitis (2 sources)Diverticulitis of intestine; Translations: [Diverticulitis of intestine, part unspecified, without perforation or abscess without bleeding] 26-67-5840KpbcvtwPkcnghojcr disorders (1 source)Gastro-esophageal reflux disease without esophagitis; Translations: [GERD WITHOUT ESOPHAGITIS]Onset: 78-15-3593HawfuhaAnvgxzpwu hypertension (6 sources)Essential hypertension; Translations: [Essential (primary) hypertension]49-76-2561XpczwdeHfjzl and electrolyte disorders (2 sources)Hypokalemia; Translations: [Hypokalemia]92-55-5686DalkorcpJtvspofyg or stenosis of precerebral arteries (6 sources)Bilateral stenosis of carotid arteries; Translations: [Occlusion and stenosis of bilateral carotid arteries]ChronicOther aftercare (3 sources)Drug therapy finding; Translations: [Encounter for therapeutic drug level monitoring]EpisodicOther aftercare (1 source)Long-term current use of drug therapy; Translations: [Encounter for therapeutic drug level monitoring]31-63-4027ZbxfmallYpyvq circulatory disease (5 sources)Elevated blood-pressure reading without diagnosis of hypertension; Translations: [Elevated blood-pressure reading, without diagnosis of hypertension]EpisodicOther ear and sense organ disorders (2 sources)Acute actinic otitis externa, left earEpisodicOther nutritional; endocrine; and metabolic disorders (7 sources)Hypomagnesemia; Translations: [Hypomagnesemia]ChronicOther screening for suspected conditions (not mental disorders or infectious disease) (5 sources)Encounter for screening mammogram for malignant neoplasm of breast; Translations: [Hypomagnesemia]Onset: 49-48-5383WslevfqkBhjxq upper respiratory infections (6 sources)Chronic pansinusitis; Translations: [Chronic sinusitis, unspecified] Onset: 10-07-9505WxvrvzhIimezvoo codes; unclassified (1 source)Family history of malignant neoplasm of trachea, bronchus and lung; Translations: [FAM HX MALIG NEOPLSM TRACH BRON LNG]Onset: 61-37-3071Ujiogjvq Screening and history of mental health and substance abuse codes (6 sources)Ex-smoker; Translations: [Personal history of nicotine dependence] Onset: 42-41-5914Gqdcnuya Past or Other Problems Problem ClassificationProblemDateDocumented DateEpisodic/ChronicConditions associated with dizziness or vertigo (4 sources)Dizziness and giddiness; Translations: [DIZZINESS AND GIDDINESS] Onset: 61-72-0164ClrfzqunGbicv aftercare (1 source)Other veterinarian small animal (current) drug therapy; Translations: [OTH FILM TOUCH UP INSPECTOR CURRENT DRUG THERAPY]Onset: 86-10-5863RsoofxlmTnfcf aftercare (1 source)business analytics intern (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) use of aspirin; Translations: [CARE HOME CURRENT USE OF ASPIRIN]Onset: 20-89-4324CqzyjczjAmmst eye disorders (3 sources)Ocular pain, right eye; Translations: [OCULAR PAIN RIGHT EYE]Onset: 62-81-2277RnnrmrkbOzrkb upper respiratory disease (1 source)Cyst and mucocele of nose and nasal sinus; Translations: [CYST AND MUCOCELE NOSE AND NASAL SINUS]Onset: 28-70-3101GeyxnvboLelhycm tract infections (1 source)Urinary tract infection, site not specified; Translations: [UTI SITE NOT SPECIFIED]Onset: 18-07-9440Ojwcnskf Results Test NameValueInterpretationReference RangeFacilityCNPNon 46-96-2750QWBF Telephone (RADTSA) ROQUEMORELIA TURK ([id number]) 1935 F Date Time Provider Department 01/17/25 KURT CONDON During your visit today, we recorded the following information about you: Michael Jensen RN 01/17/2025 8:31 AM Signed December 2023 office note states return in 2 years with mammogram but patient is scheduled for one year per the visit disposition. PSS: Will you please call and reschedule Morelia's follow up to December 2025 and schedule mammogram at [facility] prior to follow up? Dr. Condon: Please sign pended mammogram order for 2025. Thanks FRANCISCA Barrios Jodi 01/17/2025 10:27 AM Signed Cancelled patient follow up for 2024. Order for mammogram and follow up reminder in our book for 2025 to be scheduled closer. Allergies As of Date: 01/17/2025 (No Known Allergies) Date Reviewed: 06/15/2024 Reviewed by: Zak Wilkins MA - Fully Assessed Reason for Visit: Appointment [186] Primary Visit Diagnosis:Malignant neoplasm of upper-outer quadrant of left breast in female, estrogen receptor positive (HCC) [C50.412, Z17.0] Order(s):[facility] [2160770] Order #: [id number] FUTURE Prescriptions as of 01/18/2025 - magnesium oxide (MAG-OX) 400 mg (241.3 mg magnesium) tablet Take 1 tablet by mouth once daily. - losartan (COZAAR) 50 mg tablet Take 1 tablet by mouth once daily. - coenzyme Q10 (COQ-10) 100 mg cap capsule Take 1 capsule by mouth once daily. - atorvastatin (LIPITOR) 40 mg tablet Take 1 tablet by mouth once daily. - metoprolol succinate ER (TOPROL XL) 25 mg 24 hr tablet Take 0.5 tablets by mouth once daily. - aspirin, enteric coated (ASPIRIN, ENTERIC COATED) 81 mg EC tablet Take 81 mg by mouth once daily. Meds Comments as of 09/06/2012: Forgot med list will call back Problem List As Of Date 01/17/2025 Noted Resolved Colon cancer [C18.9] 09/06/2012 Malignant neoplasm of upper-outer quadrant of l*07/31/2018 Mixed hyperlipidemia [E78.2] 05/29/2021 Encounter Status:Closed by MICHAEL JENSEN on 01/18/25[facility] HospitalEstimated glomerular filtration rate (GFR) non- Americanon 95-76-3516XQG/1.73 sq M.predicted among non-blacks MDRD (S/P/Bld) [Vol rate/Area]59 mL/min/{1.73_m2}Low>=60 mL/min/1.73m 2FRegional Medical CenterLaboratory - Chemistry and Chemistry - challengeon 61-48-0658Kcartpc [Mass/Vol]9.1 mg/dL8.5-10.1FRegional Medical CenterChloride [Moles/Vol] 104 mmol/P17-376FsakjauzuMercy Health St. Elizabeth Youngstown HospitalCO2 [Moles/Vol]30.1 mmol/L 21.0-32.0[facility] HospitalCreatinine [Mass/Vol]0.90 mg/dL 0.55-1.02[facility] HospitalGFR/1.73 sq M.predicted MDRD (S/P/Bld) [Vol rate/Area]mL/min/{1.73_m2}>=60 mL/min/1.[address]m [address] [place], [place] [address]Glucose [Mass/Vol]106 mg/aQ30-386CcohvbxqsMercy Health St. [facility] Potassium [Moles/Vol]3.7 mmol/L3.5-5.1FCorey Hospitalodium [Moles/Vol]143 mmol/S457-983BjuttihibMercy Health St. Elizabeth Young[facility] HospitalUrea nitrogen [Mass/Vol]12.0 mg/dL7.0-18.0[facility] HospitalUrea nitrogen/Creatinine [Mass ratio]13.3 mg/mgMedina Hospitalerum or plasma anion gap determinationon 52-30-2950Hhvxu gap [Moles/Vol]12.6 mmol/L [facility] HospitalBasophils Auto (Bld) [#/Vol]on 01-09-2025 Basophils (Bld) [#/Vol]0.0 10 3/uL0.0-0.1FRegional Medical Center Basophils/100 WBC Auto (Bld)on 81-43-8928Dqbfirmkh/100 WBC (Bld)0.2 %0.2-2.[address] [facility] HospitalEosinophils/100 WBC Auto (Bld)on 01-09-2025 Eosinophils/100 WBC (Bld)1.0 %0.9-7.0[facility] Erythrocyte distribution width Auto (RBC) [Ratio]on 90-18-9447Urepzewqbaw distribution width (RBC) [Ratio]13.3 %11.0-15.0[facility] Estimated glomerular filtration rate (GFR) non- Americanon 01-09-2025 GFR/1.73 sq M.predicted among non-blacks MDRD (S/P/Bld) [Vol rate/Area]49 mL/min/{1.73_m2}Low>=60 mL/min/1.73m 2FRegional Medical CenterGlobulin Calc (S) [Mass/Vol]on 11-54-3356Nfmwzwnd (S) [Mass/Vol]4.9 g/dLMercy Health [address] Elizabeth Youngstown HospitalHematocrit Auto (Bld) [Volume fraction]on 01-09-2025 Hematocrit (Bld) [Volume fraction]39.4 %36.0-48.0[facility] HospitalHemoglobin [Mass/volume] in Bloodon 01-16-8027Emivjjsedb (Bld) [Mass/Vol] 12.5 g/dL12.0-16.0[facility] HospitalLaboratory - Chemistry and Chemistry - challengeon 26-17-7299Cowhjgq [Mass/Vol]2.9 g/dLLow3.4-5.0[facility] HospitalALP [Catalytic activity/Vol]114 U/N77-972OubpxvagyMercy Health St. Elizabeth Youngstown HospitalALT [Catalytic activity/Vol]11 U/WDqa90-94Gputgfecn Regional Medical CenterAmylase [Catalytic activity/Vol]36 U/W10-016EegndzsmtMercy Health St. Elizabeth Youngstown HospitalAST [Catalytic activity/Vol]12 U/PZfi96-39GhgkpzloxMercy Health St. Elizabeth Youngstown HospitalBilirubin [Mass/Vol]0.5 mg/dL0.2-1.0[facility] HospitalBilirubin.direct [Mass/Vol]0.1 mg/dL0.0-0.2FRegional Medical CenterCalcium [Mass/Vol]9.3 mg/dL8.5-10.1FRegional Medical CenterChloride [Moles/Vol]103 mmol/B10-482JergjaaycMercy Health St. Elizabeth Youngstown HospitalCO2 [Moles/Vol]29.1 mmol/L21.0-32.0[facility] HospitalCreatinine [Mass/Vol]1.05 mg/dLHigh0.55-1.02[facility] HospitalGFR/1.73 sq M.predicted MDRD (S/P/Bld) [Vol rate/Area]60 mL/min/{1.73_m2}>=60 mL/min/1.73m [address] [facility] HospitalGlucose [Mass/Vol]137 mg/iGWpjr50-770IagvfaszuMercy Health St. Elizabeth Young[facility] HospitalLipase [Catalytic activity/Vol]14.0 U/LLow16.0-77.[address] [facility] HospitalPotassium [Moles/Vol]2.9 mmol/LCritically low 3.5-5.1FRegional Medical CenterComment on above:RESULTS CALLED TO DR. ALEXANDERProtein [Mass/Vol]7.8 g/dL6.4-8.2FCorey Hospitalodium [Moles/Vol]141 mmol/T852-748PpztfhqlbMercy Health St. Elizabeth Youngstown HospitalUrea nitrogen [Mass/Vol]15.0 mg/dL7.0-18.0[facility] HospitalUrea nitrogen/Creatinine [Mass ratio]14.3 mg/mgMercy Health St. [facility] Hospital Bilirubin Ql (U)SMALLAbnormalNEGATIVEMercy Health St. Elizabeth Young[facility] HospitalGlucose (U) [Mass/Vol]NegativeNEGATIVEMercy Health St. Elizabeth Young[facility] HospitalKetones Ql (U)15 mg/dLAbnormalNEGATIVEMercy Health St. Elizabeth Youngstown HospitalpH (U)5.5 [pH]5.0-9.0 Medina Hospitalpecific gravity (U) [Rel density]>=1.030 Abnormal1.005-1.025[facility] HospitalUrobilinogen Qn (U)2.0 {Katlin'U}/dLAbnormal0.2-1.0[facility] HospitalLaboratory - Hematology and Cell countson 19-52-5520Vzcrhxne granulocytes/100 WBC (Bld)0.3 % 0.0-0.5FRegional Medical CenterLaboratory - Specimen informationon 36-13-2575Lokdqdlwwf (U)CLEARCLEARFRegional Medical CenterColor (U)DK. ORANGEYELLOWMercy Health St. Elizabeth Youngstown HospitalLaboratory - Urinalysison 55-13-6940Oghyayatj esterase Test strip Ql (U)TRACEAbnormalNEGATIVEMercy Health St. Elizabeth Youngstown HospitalMucus Ql (Urine sed)NONE SEENNONE SEENMercy Health St. Elizabeth Youngstown HospitalNitrite Ql (U)NegativeNEGATIVEMercy Health St. [facility] Protein Ql (U)30 mg/dLAbnormalNEG/TRACEMercy Health St. [facility] Hospital Leukocytes [#/volume] corrected for nucleated erythrocytes in Blood by Automated counon 72-57-8189ESG corrected for nucl RBC Auto (Bld) [#/Vol]9.4 10 3/uL 4.0-11.0[facility] HospitalLymphocytes Auto (Bld) [#/Vol]on 90-40-1817Tjbusavawlh (Bld) [#/Vol]0.8 10 3/uLLow1.2-3.8[facility] HospitalLymphocytes/100 WBC Auto (Bld)on 53-87-6503Ejnbiwvpswf/100 WBC (Bld)8.4 %Low20.5-60.0[facility] HospitalMCH Auto (RBC) [Entitic mass]on 29-91-6501TGQ (RBC) [Entitic mass]29.2 pg26.7-34.0[facility] HospitalMCHC Auto (RBC) [Mass/Vol]on 66-67-2625PNDO (RBC) [Mass/Vol]31.7 g/dL29.9-35.2FRegional Medical CenterMCV Auto (RBC) [Entitic vol]on 06-65-7990ASH (RBC) [Entitic vol]92.1 fL81.0-99.0[facility] HospitalMonocytes Auto (Bld) [#/Vol]on 90-87-8849Viaiagxat (Bld) [#/Vol]0.4 10 3/uL0.3-0.8[facility] HospitalMonocytes/100 WBC Auto (Bld)on 27-16-1424Joucpxcrx/100 WBC (Bld)4.0 %1.7-12.0[facility] Neutrophils Auto (Bld) [#/Vol]on 92-42-2289Emgtzxkxaep (Bld) [#/Vol]8.1 10 3/uL High1.4-6.5FRegional Medical CenterNeutrophils/100 WBC Auto (Bld)on 17-31-6439Fexsfmbrsdl/100 WBC (Bld)86.1 %High43.0-75.0[facility] HospitalNo Panel Informationon 81-93-0190Ztiqgfntlav # (Auto)0.1 10 3/uL0.0-0.[address] [facility] HospitalImmature Granulocyte # (Auto)0.03 10 3/uL 0.00-0.03[facility] HospitalUrine BacteriaSMALL #/HPFAbnormalNONE [facility] HealthUrine Calcium Oxalate CrystalsMODERATE [facility] HospitalUrine Culture ReflexedYES-FRWilson Memorial HospitalUrine Occult BloodNegativeNEGATIVEMercy Health St. Elizabeth Youngstown HospitalUrine Other CastsNONE SEEN #/LPFNONE [facility] HealthUrine Other CrystalsSeen #/HPFAbnormalNone [facility] HospitalUrine RBCNONE SEEN #/HPF0-2FRegional Medical CenterUrine Squamous Epithelial CellsMODERATE #/LPFAbnormalNONE/RAREMercy Health St. Elizabeth Youngstown HospitalUrine WBC0-2 #/HPFAbnormalNONE [facility]view HealthPlatelet mean volume Auto (Bld) [Entitic vol]on 49-10-1700Balfjqqi mean volume (Bld) [Entitic vol]9.0 fLLow9.5-13.5FRegional Medical Center Platelets Auto (Bld) [#/Vol]on 29-01-3733Qwalydjqe (Bld) [#/Vol]301 10 3/uL 150-450[facility] HospitalRBC Auto (Bld) [#/Vol]on 92-53-5179UCH (Bld) [#/Vol]4.28 10 6/uL4.20-5.40Medina Hospitalerum or plasma albumin/globulin mass ratioon 95-66-6138Bzgcfmr/Globulin [Mass ratio]0.6 {ratio}Medina Hospitalerum or plasma anion gap determination on 08-51-6706Wnlpv gap [Moles/Vol]11.8 mmol/LFRegional Medical Center Urine Cultureon 02-89-0065Fqjruzyg identified Cx Nom (U)75,000 colonies/ml mixed bacterial skin contaminants including mixed gram negative bacilli - 2 Days PERFORMED BY: [place] [address] PATHOLOGIST COMPETITIVE INTELLIGENCE ANALYST JIN BROWN M.D.NormalThe [facility] Medical Center Physician GroupComment on above: Performed By: #### CUU #### [address] Ball StreetUrine cultureOrdered By: Ashwin Alexander on 01-09-2025 Bacteria identified Cx Nom (U)bacilli - [address] [facility] CNOVon 03-47-5886OZQGBvgwtf Visit (VENESSA) MORELIA ROQUE ([id number]) 1935 F Date Time Provider Department 06/15/24 1:30 PM KIAN MONET During your visit today, we recorded the following information about you: Pulse Blood pressure Weight 92/minute 153/74 65 kg Kian Monet DO 06/15/2024 2:02 PM Signed [facility] [place] SECTION OF REGIONAL CARDIOLOGY OUTPATIENT VISIT DATE 06/15/24 OUTPATIENT VISIT TYPE Established PRIMARY CARE PHYSICIAN: Yris Suarez MD ([facility]) [facility] [place] [address] HISTORY OF PRESENT ILLNESS: Ms. Roque is a 88 year old female with [...] is normal. 6. Right (more content not included)...NormalC[facility] 2000 panelon 57-35-7723Yeolq gap [Moles/Vol]9 mmol/LNormal8-15 [facility] on above:Order Comment: Specimen Type: BLOOD SPECIMEN Ordering Facility: [facility] Address: [address] [place], [place] [address]Performed By: #### 54524-5, 54585-4 #### [facility] CLIA [id number] [address] [place] [address] 89601Mtmxhxl [Mass/Vol]9.7 mg/dLNormal8.5-10.2CMiddletown HospitalCombronson lakeview hospital on above:Order Comment: Specimen Type: BLOOD SPECIMEN Ordering Facility: [facility] Address: [address] [place], [place] [address]Performed By: #### 06345-5, 31191-4 #### [facility] CLIA [id number] [address] [place] [address] 72373Oeagwdgn [Moles/Vol]105 mmol/ZSipywb83-184GnjpjkqfcCommunity Regional Medical Center on above:Order Comment: Specimen Type: BLOOD SPECIMEN Ordering Facility: [facility] Address: [address] [place], [place] [address]Performed By: #### 98259-2, 05080-0 #### [facility] CLIA [id number] [address] [place] [address] [id number] [Moles/Vol]25 mmol/GOlqbgc26-81WvvsvlwgwTrihealth [facility] Hospital Comment on above:Order Comment: Specimen Type: BLOOD SPECIMEN Ordering Facility: [facility] Address: [address] [place], [place] [address]Performed By: #### 14434-7, 36270-6 #### [facility] CLIA [id number] [address] [place] [address] 75594Xzfslrahqe [Mass/Vol]0.81 mg/dLNormal0.58-0.96[facility] Butler HospitalComment on above:Order Comment: Specimen Type: BLOOD SPECIMEN Ordering Facility: [facility] Address: [address] [place] [address] 69746Jtmaccicd By: #### 10986-0, 12345-6 #### [facility] CLIA [id number] [address] [place] [address] 46618Mbvwvjtjnc and Glomerular filtration rate.predicted panel (S/P/Bld)70 mL/min/1.73m???Normal>=60[facility] on above: Order Comment: Specimen Type: BLOOD SPECIMEN Ordering Facility: [facility] Address: [address] [place] [address] 589[address]Sohiat Comment: Estimated Glomerular Filtration Rate (eGFR) is calculated using the 2020 CKD-EPI cre atinine equation. This equation utilizes serum creatinine, sex, and age as parameters. The creatinine assay has traceable calibration to isotope dilution- mass spectrometry. Refer to KDIGO guidelines for clinical interpretation. In patients with unstable renal function, e.g. those with acute kidney injury, the eGFR may not accurately reflect actual GFR.Performed By: #### 40549-9, 92749-8 #### [facility] CLIA [id number] [address] [place] [address] 19847Vcgwgit [Mass/Vol]108 mg/fQUjxb17-52XsuieajhnTrihealth Bethesda Butler Hospital Comment on above:Order Comment: Specimen Type: BLOOD SPECIMEN Ordering Facility: [facility] Address: [address] [place] [address] 70847Knxtdr Comment: The [place] [employer] (ADA) provides guidance for cutoff [...] Standards of Medical Care in Diabetes 2016, [place]. Diabetes Care. 2016.39(Suppl 1).Performed By: #### 41817-5, 92066-3 #### [facility] CLIA [id number] [address] [place] [address] 33973Kgfrozupg [Moles/Vol]4.0 mmol/LNormal3.7-5.1CLake [facility] on above:Order Comment: Specimen Type: BLOOD SPECIMEN Ordering Facility: [facility] Address: [address] [place], [place] [address]Performed By: #### 78035-7, 43235-6 #### [facility] CLIA [id number] [address] [place] [address] 82811Ztryzv [Moles/Vol]139 mmol/SMolfxb422-531QnzphnyprCommunity Regional Medical Center on above:Order Comment: Specimen Type: BLOOD SPECIMEN Ordering Facility: [facility] Address: [address] [place], [place] [address]Performed By: #### 69895-2, 22296-0 #### [facility] CLIA [id number] [address] [place] [address] 02532Rtif nitrogen [Mass/Vol]16 mg/dLNormal7-21[facility] on above:Order Comment: Specimen Type: BLOOD SPECIMEN Ordering Facility: [facility] Address: [address] [place], [place] [address]Performed By: #### 65979-3, 74821-3 #### [facility] CLIA [id number] [address] [place] [address] 44335Pxwksdzix SerPl-mCncon 62-66-9382Qmmpwsrab [Mass/Vol]2.2 mg/dL Normal1.7-2.3CLake County Memorial [facility] on above:Order Comment: Specimen Type: BLOOD SPECIMEN Ordering Facility: [facility] Address: [address] [place], [place] [address]Performed By: #### 24367-1, 26443-3 #### [facility] CLIA [id number] [address] [place], [place] [address]MFAPdx 01-86-1577DQHBBqmjxe Visit ([facility] [place]) MORELIA ROQUE ([id number]) 1935 F Date Time Provider Department 02/21/24 1:30 PM KIAN MONET [facility] [place] During your visit today, we recorded the following information about you: Pulse Blood pressure Weight 86/minute 152/62 64 kg Kian Monet DO 02/21/2024 2:21 PM Signed [facility] [place] SECTION OF REGIONAL CARDIOLOGY OUTPATIENT VISIT DATE 02/21/24 OUTPATIENT VISIT TYPE Established PRIMARY CARE PHYSICIAN: Yris Suarez MD ([facility]) [address] [place] [id number] HISTORY OF PRESENT ILLNESS: Ms. Roque is a 88 year old female with [...] ventricular systolic function is (more content not included)...NormalCleMarymount Hospital COMPLETEon 38-00-8654Tbrbfp Rate84 BPMCleveland ClinicCalculated P Axis78 degreesCleveland ClinicCalculated R Hudson-55 degreesCleveland ClinicCalculated T Axis70 degrees Pike ClinicP-R Oclrpudo255 msCleveland ClinicQRS Emwjzgny03 msCleveland ClinicQT Nieqoabs582 msCleveland ClinicQTC Calculation (Bazett)446 msCleveland ClinicVentricular Rate84 BPMThe Surgical Hospital at [facility]woods COMPLETEon 32-50-8053Ikisej Rate 93 BPMCleveland ClinicCalculated P Axis77 degreesCleveland ClinicCalculated R Hudson-49 degreesCleveland ClinicCalculated T Axis66 degreesCleveland ClinicP-R Hqmgtbdj311 msCleveland ClinicQRS Hkvnpfys02 msCleveland ClinicQT Fhlrbocd999 ms Sheridan ClinicQTC Calculation (Bazett)455 msCleveland ClinicVentricular Rate93 BPMAshtabula County Medical CenterMG MAMM SCREEN 3D ZEKE CADon 76-69-9808RY MAMM SCREEN 3D ZEKE CADPatient: MARGARITA ROQUEANOR Kellee Exam Date: 12/20/2022 : 1935 Gender:F Ordering : DR YRIS SUAREZ M.D. Admission #: [id number] Family : DR. KURT CONDON M.D. Order #: [id number] CLICK HERE TO VIEW EXAM RADIOLOGY REPORT [...] lung cancer at age 66. LOCATION: [facility] BREAST COMPOSITION: Scattered areas fibroglandular density. FINDINGS: [...] LUMP SHOULD BE BIOPSIED. Dictated by: Xu Chavez MD on 12/20/2022 at 15:27 Approved by: Xu Chvaez MD on 12/20/2022 at 15:29[facility]rville HospitalXR SINUSES 3 VIEWS OR GREATERon 98-57-1380ZR SINUSES 3 VIEWS OR GREATEREXAMINATION: XR SINUSES 3 VIEWS OR GREATER HISTORY: Chronic pansinusitis COMPARISON: No relevant comparison available. FINDINGS: MAXILLARY: Soft tissue opacification identified along the periphery and dependent portions of the right maxillary sinus ETHMOID: No mucosal thickening or fluid level. FRONTAL: No mucosal thickening or fluid level. SPHENOID: No mucosal thickening or fluid level. OTHER: Negative. IMPRESSION: Right maxillary sinus disease Electronically authenticated by: XU CHAVEZ Date: 2022-04-26 11:58[facility]rville HospitalCULTURE URINEon [id number] URINEIsolate 1 Klebsiella pneumoniae >100,000 cfu/mL of ORGANISM 1 Klebsiella pneumoniae ANTIBIOTIC M.I.C RX STATUS Ampicillin 16 R F Ampicillin/Sulbactam <=2 S F Piperacillin/Tazobactam <=4 S F Cefazolin <=4 S F Ceftazidime <=1 S F Ceftriaxone <=1 S F Ertapenem <=0.5 S F Imipenem <=0.25 S F Amikacin <=2 S F Gentamicin <=1 S F Tobramycin <=1 S F Ciprofloxacin <=0.25 S F Levofloxacin <=0.12 S F Nitrofurantoin 64 I F Trimethoprim/Sulfamethoxazole <=20 S FNormalThe [facility] NorthComment on above:Performed By: #### URCX #### [facility] [address] [place] [address] Dr. Schuyler Patrick 05-28-2538Oaqolqnnnlc peptide B (Bld) [Mass/Vol]259.0 pg/mL Normal<=1,800.0The [facility] NorthComment on above:Performed By: #### BNP, HSTROPN, CMP #### [facility] [address] [place] [address] Dr. Schuyler Sahu W MANUAL DIFFon 76-80-7254EHJOIUJA LYMPH #NormalThe [facility] NorthComment on above:Performed By: #### BNP, HSTROPN, CMP #### [facility] [address] [place] [address] Dr. Schuyler BlancaICAL LYMPH %NormalMercy Health Lorain Hospitalment on above: Performed By: #### BNP, HSTROPN, CMP #### [facility] [address] [place] [address] Dr. Schuyler Basilio #Normal0.0-0.3The [facility] NorthComment on above: Performed By: #### BNP, HSTROPN, CMP #### [facility] [address] [place] [address] Dr. Schuyler Basilio %Normal0-5The [facility] NorthComment on above:Performed By: #### BNP, HSTROPN, CMP #### [facility] [address] [place] [address] Dr. Schuyler Mccann #0.00 103/ulNormal0.00-0.10The [facility] NorthCombronson lakeview hospital on above:Performed By: #### BNP, HSTROPN, CMP #### [facility] [address] [place] [address] Dr. Schuyler Mccann %0.0 %Critically low0.2-2.0The [facility] NorthComment on above:Performed By: #### BNP, HSTROPN, CMP #### [facility] [address] [place] [address] Dr. Schuyler Guadalupe #NormalThe [facility] NorthComment on above:Performed By: #### BNP, HSTROPN, CMP #### [facility] [address] [place] [address] Dr. Schuyler Guadalupe %NormalThe [facility] NorthComment on above:Performed By: #### BNP, HSTROPN, CMP #### [facility] [address] [place] [address] Dr. Schuyler FieldsCORRECTED WBCNormal4.0-11.0The [facility] NorthCombronson lakeview hospital on above: Performed By: #### BNP, HSTROPN, CMP #### [facility] [address] [place] [address] Dr. Schuyler Garcia #0.07 103/ulNormal0.00-0.70The [facility] NorthCombronson lakeview hospital on above:Performed By: #### BNP, HSTROPN, CMP #### [facility] [address] [place] [address] Dr. Schuyler Garcia%1.0 %Normal0.9-7.0The [facility] NorthCombronson lakeview hospital on above: Performed By: #### BNP, HSTROPN, CMP #### [facility] [address] [place] [address] Dr. Schuyler FieldsHCT39.9 %Vftmiw88.0-48.0The [facility] NorthComment on above: Performed By: #### BNP, HSTROPN, CMP #### [facility] [address] [place] [address] Dr. Schuyler FieldsHGB13.3 g/ojBisyyw62.0-16.0The [facility] NorthComment on above: Performed By: #### BNP, HSTROPN, CMP #### [facility] [address] [place] [address] Dr. Schuyler Snyder #0.58 103/ulCritically low1.20-3.80The [facility] Comment on above:Performed By: #### BNP, HSTROPN, CMP #### [facility] [address] [address] [address] Schuyler Snyder%9.0 %Critically low20.5-60.0The [facility] NorthComment on above:Performed By: #### BNP, HSTROPN, CMP #### [facility] [address] [place] [address] Dr. Schuyler ShanksH32.8 clOrgelv09.7-34.0The [facility] NorthComment on above: Performed By: #### BNP, HSTROPN, CMP #### [facility] [address] [place] [address] Dr. Schuyler ShanksHC33.3 g/uxOvzugq26.9-35.2The [facility] NorthComment on above:Performed By: #### BNP, HSTROPN, CMP #### [facility] [address] [place] [address] Dr. Schuyler ShanksV98.3 jCSxhdam06.0-99.0The [facility] NorthComment on above: Performed By: #### BNP, HSTROPN, CMP #### [facility] [address] [place] [address] Dr. Schuyler CroweOCYTE #NormalThe Waycross HospitalComment on above: Performed By: #### BNP, HSTROPN, CMP #### [facility] [address] [place] [address] Dr. Schuyler CroweOCYTE %NormalThe [facility] NorthComment on above: Performed By: #### BNP, HSTROPN, CMP #### [facility] [address] [place] [address] Dr. Schuyler Chaney#0.33 103/ulNormal0.30-0.80The [facility] NorthComment on above:Performed By: #### BNP, HSTROPN, CMP #### [facility] [address] [address] [address] Schuyler Chaney%5.0 %Normal1.7-12.0The [facility] NorthComment on above: Performed By: #### BNP, HSTROPN, CMP #### [facility] [address] [address] [address] Schuyler EisenbergV9.4 fLCritically low9.5-13.5The [facility] NorthComment on above:Performed By: #### BNP, HSTROPN, CMP #### [facility] [address] [address] [address] Schuyler MartínezOCYTE #NormalThe [facility] NorthComment on above:Performed By: #### BNP, HSTROPN, CMP #### [facility] [address] [place] [address] Dr. Schuyler MartínezOCYTE %NormalThe [facility] NorthComment on above:Performed By: #### BNP, HSTROPN, CMP #### [facility] [address] [place] [address] Dr. Schuyler MurciaBCNormalThe [facility] NorthComment on above:Performed By: #### BNP, HSTROPN, CMP #### [facility] [address] [place] [address] Dr. Schuyler PoolT150 103/ekSqbhns673-957Uvr [facility] NorthCombronson lake[facility] hospital on above: Performed By: #### BNP, HSTROPN, CMP #### [facility] [address] [address] [address] Schuyler JjC4.06 106/ulCritically low4.20-5.40The [facility] NorthComment on above:Performed By: #### BNP, HSTROPN, CMP #### [facility] [address] [place] [address] Dr. Schuyler FieldsRDW12.9 %Xooiyj93.0-15.0The [facility] NorthComment on above: Performed By: #### BNP, HSTROPN, CMP #### [facility] [address] [place], [place] [address] Dr. Schuyler Soni #5.53 103/ulNormal1.40-6.50The [facility] NorthComment on above:Performed By: #### BNP, HSTROPN, CMP #### [facility] [address] [place] [address] Dr. Schuyler Soni %85.0 %Critically high43.0-75.0The [facility] NorthComment on above:Performed By: #### BNP, HSTROPN, CMP #### [facility] [address] [place] [address] Dr. Schuyler FieldsWBC6.5 103/ulNormal4.0-11.0The [facility] NorthComment on above: Performed By: #### BNP HSTROPN, CMP #### [facility] [address] [place] [address] Dr. Schuyler FieldsCT HEAD WO CONon [id number] HEAD WO CONEXAMINATION: CT HEAD WO CON HISTORY: HEADACHE COMPARISON: [...] Electronically authenticated by: KAILA DANIELS Date: 2022-04-16 13:50NeemaK[facility] Health [facility] URINE PROFILEon 13-71-3255Jlrvtvmvx Ql (U)NegativeNormal NEGATIVEThe [facility] NorthComment on above:Performed By: #### BNP, HSTROPN, CMP #### [facility] [address] [address] [address] Schuyler FieldsClarity (U)SL CLOUDYAbnormalCLEARThe [facility] NorthComment on above:Performed By: #### BNP, HSTROPN, CMP #### [facility] [address] [address] [address] Schuyler Peoples (U)LT. YELLOWNormalYELLOWGuernsey Memorial HospitalComment on above:Performed By: #### BNP, HSTROPN, CMP #### [facility] [address] [address] [address] Schuyler Lama micrscopic examination will be performed if indicated. NormalGuernsey Memorial HospitalComment on above:Performed By: #### BNP, HSTROPN, CMP #### [facility] [address] [address] [address] Schuyler FieldsGlucose Ql (U)NegativeNormalNEGAshtabula County Medical CenterComment on above:Performed By: #### BNP, HSTROPN, CMP #### [facility] [address] [address] [address] Schuyler FieldsHemoglobin Ql (U)NegativermalNEGAshtabula County Medical Center Comment on above:Performed By: #### BNP, HSTROPN, CMP #### [facility] [address] [address] [address] Schuyler FieldsKetones Ql (U)40 mg/dlAbsaint louis university health science centeralWooster Community Hospital Comment on above:Performed By: #### BNP, HSTROPN, CMP #### [facility] [address] [address] [address] Schuyler FieldsLEUKOCYTESSMALLAbnormalNEGAshtabula County Medical CenterComment on above:Performed By: #### BNP, HSTROPN, CMP #### [facility] [address] [address] [address] Schuyler FieldsNitrite Ql (U)PositiveAbnormalWooster Community Hospital Comment on above:Performed By: #### BNP, HSTROPN, CMP #### [facility] [address] [address] [address] Schuyler FieldspH (U)6.5 [pH]Normal5-9The [facility] NorthComment on above: Performed By: #### BNP, HSTROPN, CMP #### [facility] [address] [address] [address] Schuyler FieldsSPEC GRAVITY1.627Rqwgph4.005-<=1.025The [facility] NorthComment on above:Performed By: #### BNP, HSTROPN, CMP #### [facility] [address] [place] [address] Dr. Schuyler FieldsUA PROTEINNegativeNormalNEGATIVE/ TRACEThe [facility] Comment on above:Performed By: #### BNP, HSTROPN, CMP #### [facility] [address] [place] [address] Dr. Schuyler Glover MICRO INDINDICATEDNormalThe [facility] NorthComment on above: Performed By: #### BNP, HSTROPN, CMP #### [facility] [address] [place] [address] Dr. Schuyler Jimenezbilinogen Qn (U)0.2 {Katlin'U}/dLNormal0.2 - 1.0The [facility] NorthComment on above:Performed By: #### BNP, HSTROPN, CMP #### [facility] [address] [place] [address] Dr. Schuyler FieldsPROF 14(COMP METB)on 90-95-7983Cgzevuz [Mass/Vol]3.5 g/dLNormal 3.4-5.0The [facility] NorthComment on above:Performed By: #### BNP, HSTROPN, CMP #### [facility] [address] [place] [address] Dr. Schuyler FieldsAlbumin/Globulin [Mass ratio]0.9 {ratio}NormalThe [facility] NorthComment on above:Performed By: #### BNP, HSTROPN, CMP #### [facility] [address] [place] [address] Dr. Schuyler GraciaP [Catalytic activity/Vol]97 U/SDctvzq28-171Gdr [facility] NorthComment on above:Performed By: #### BNP, HSTROPN, CMP #### [facility] [address] [address] [address] Schuyler GraciaT [Catalytic activity/Vol]17 U/OWenygh52-53Ldm [facility] NorthComment on above:Performed By: #### BNP, HSTROPN, CMP #### [facility] [address] [address] [address] Schuyler Kelleron gap [Moles/Vol]13.0 mmol/LNormalGuernsey Memorial Hospital Comment on above:Performed By: #### BNP, HSTROPN, CMP #### [facility] [address] [place] [address] Dr. Schuyler FieldsAST [Catalytic activity/Vol]17 U/WAgybri93-01Vxl [facility] NorthComment on above:Performed By: #### BNP, HSTROPN, CMP #### [facility] [address] [place] [address] Dr. Schuyler FieldsBilirubin [Mass/Vol]0.7 mg/dLNormal0.2-1.0The [facility] Comment on above:Performed By: #### BNP, HSTROPN, CMP #### [facility] [address] [place] [address] Dr. Schuyler FieldsCalcium [Mass/Vol]8.6 mg/dLNormal8.5-10.1[facility] Comment on above:Performed By: #### BNP, HSTROPN, CMP #### [facility] [address] [place] [address] Dr. Schuyler FieldsChloride [Moles/Vol]107 mmol/YOkwmqu03-234Tpz [facility] Comment on above:Performed By: #### BNP, HSTROPN, CMP #### [facility] [address] [place] [address] Dr. Schuyler FieldsCO2 [Moles/Vol]25.4 mmol/NXuespe59.0-32.0The [facility] Comment on above:Performed By: #### BNP, HSTROPN, CMP #### [facility] [address] [place] [address] Dr. Schuyler FieldsCreatinine [Mass/Vol]0.76 mg/dLNormal0.55-1.02The [facility] NorthComment on above:Performed By: #### BNP, HSTROPN, CMP #### [facility] [address] [place] [address] Dr. Schuyler LoraGFR-AF SPANISH>60Normal>=60The [facility] NorthComment on above:Performed By: #### BNP, HSTROPN, CMP #### [facility] [address] [place] [address] Dr. Schuyler Milan-NON AF SPANISH>60Normal>=60The [facility] NorthComment on above:Performed By: #### BNP, HSTROPN, CMP #### [facility] [address] [place] [address] Dr. Schuyler FieldsGlobulin (S) [Mass/Vol]3.7 g/dLNormalThe [facility] NorthComment on above:Performed By: #### BNP, HSTROPN, CMP #### [facility] [address] [place] [address] Dr. Schuyler FieldsGlucose [Mass/Vol]116 mg/dLCritically ponb42-840Qxf [facility] NorthComment on above:Performed By: #### BNP, HSTROPN, CMP #### [facility] [address] [place] [address] Dr. Schuyler FieldsPotassium [Moles/Vol]3.4 mmol/LCritically low3.5-5.1The [facility] NorthComment on above:Performed By: #### BNP, HSTROPN, CMP #### [facility] [address] [place] [address] Dr. Schuyler FieldsProtein [Mass/Vol]7.2 g/dLNormal6.4-8.2The [facility] Comment on above:Performed By: #### BNP, HSTROPN, CMP #### [facility] [address] [address] [address] Schuyler FieldsSodium [Moles/Vol]142 mmol/EQznydc707-138XpgGuernsey Memorial Hospital Comment on above:Performed By: #### BNP, HSTROPN, CMP #### [facility] [address] [address] [address] Schuyler Sullivan nitrogen [Mass/Vol]16.0 mg/dLNormal7.0-18.0The [facility] NorthComment on above:Performed By: #### BNP, HSTROPN, CMP #### [facility] [address] [place] [address] Dr. Schuyler Sullivan nitrogen/Creatinine [Mass ratio]21.1 mg/mgNoToledo HospitalComment on above:Performed By: #### BNP, HSTROPN, CMP #### [facility] [address] [place] [address] Dr. Schuyler Hanley 01-03-6980YHW Coag (PPP) [Relative time]1.01 {INR} NormalGuernsey Memorial HospitalComment on above:Performed By: #### BNP, HSTROPN, CMP #### [facility] [address] [place] [address] Dr. Schuyler Samson GUIDELINESSEE BELOWAultman Orrville HospitalComment on above:Result Comment: DESIRED INR: 2.0 - 3.0 CONDITIONS NOT LISTED BELOW 2.5 - 3.5 FOR PROSTHETIC HEART VALVE REPLACEMENT 2.5 - 3.5 RECURRENT THROMBOSIS Performed By: #### BNP, HSTROPN, CMP #### [facility] [address] [place] [address] Dr. Schuyler FieldsPT Coag (PPP) [Time]10.9 sNormal9.0-11.6The [facility] Comment on above:Performed By: #### BNP, HSTROPN, CMP #### [facility] [address] [place] [address] Dr. Schuyler Rangel 78-14-0814dJBG Coag (Bld) [Time]22.5 iSkllgn74.3-36.2The Pat HospitalComment on above:Performed By: #### PT, PTT #### [facility] [address] [place] [address] Dr. Schuyler Landry, [facility] SENSITIVITYon 18-97-5143IYSVHD7.1 pg/mLNormal 4.0-51.3TTrinity Health System on above:Result Comment: CUT-OFF POINTS HAVE BEEN ESTABLISHED BASED ON THE FOURTH UNIVERSAL DEFINITIONS OF MYOCARDIAL INFARCTION. THE UPPER REFERENCE LIMIT (URL) OF TROPONIN, DEFINED THE 99TH PERCENTILE OF cTnI DISTRIBUTION IN A REFERENCE POPULATION, HAS BEEN CONFIRMED THE DECISION THRESHOLD FOR SC DIAGNOSIS.Performed By: #### HSTROPN #### [facility] [address] [place] [address] Dr. Schuyler GuerreroTROP7.1 pg/mLNormal4.0-51.3TTrinity Health System on above:Result Comment: CUT-OFF POINTS HAVE BEEN ESTABLISHED BASED ON THE FOURTH UNIVERSAL DEFINITIONS OF MYOCARDIAL INFARCTION. THE UPPER REFERENCE LIMIT (URL) OF TROPONIN, DEFINED THE 99TH PERCENTILE OF cTnI DISTRIBUTION IN A REFERENCE POPULATION, HAS BEEN CONFIRMED THE DECISION THRESHOLD FOR SC DIAGNOSIS.Performed By: #### BNP, HSTROPN, CMP #### [facility] [address] [place] [address] Dr. Schuyler AUGUSTINon 45-74-1759RDEETMDVKCLKEJdkxqbwoTVTR SEEN Guernsey [facility] on above:Performed By: #### BNP, HSTROPN, CMP #### [facility] [address] [place] [address] Dr. Schuyler Muhammad identified Cx Nom (U)INDICATEDNoUniversity Hospitals [facility] on above:Performed By: #### BNP, HSTROPN, CMP #### [facility] [address] [place] [address] Dr. Schuyler Coreas SEENNoSaint [facility] HospitalE [facility] on above:Performed By: #### BNP, HSTROPN, CMP #### [facility] [address] [place] [address] Dr. Yilan ChangCrystals LM Nom (Urine sed)NONE SEENNormalNONE SEENThe [facility] on above:Performed By: #### BNP, HSTROPN, CMP #### [facility] [address] [address] [address] Payan ChangEpithelial cells LM Ql (Urine sed)NONE SEENNormalNONE SEEN /RARE The [facility] on above:Performed By: #### BNP, HSTROPN, CMP #### [facility] [address] [address] [address] Schuyler FieldsMUCOUSNONE SEENNormalNONE SEENGuernsey Memorial HospitalCom[facility] on above:Performed By: #### BNP, HSTROPN, CMP #### [facility] [address] [place] [address] Dr. Schuyler [id number] [facility] on above:Performed By: #### BNP, HSTROPN, CMP #### [facility] [address] [address] [address] Schuyler FieldsAcwwtNBS52-19BwqfclbyHRDK SEENGuernsey Memorial HospitalCom[facility] on above: Performed By: #### BNP, HSTROPN, CMP #### [facility] [address] [place] [address] Dr. Schuyler FieldsXR CHEST 1 Von [id number] CHEST 1 VEXAMINATION: XR CHEST 1 V HISTORY: CHEST PAIN, UNSPECIFIED , [...] Electronically authenticated by: FEDERICO BECKWITH Date: 2022-04-16 14:07[facility] Vital Signs Date TimeVital SignValuePerforming XwqneaqxsHqcjvtnk52-41-6633 13:02-0400Body .94 cmYris Suarez MD Work Phone: [phone]07-28-2025 13:02-0400 Body mass index (BMI) [Ratio]23.8 kg/d4IjnmrkYris Suarez MD Work Phone: [phone])[address] [place], [place] 7244007-28-2025 13:02-0400 Body .32 kgYris Suarez MD Work Phone: [phone])[address] [place], [place] 7244007-28-2025 13:02-0400 Diastolic blood onluhnho43 mm[Hg]Yris Suarez MD Work Phone: [phone])[address] [place], [place] 7244007-28-2025 13:02-0400 Heart rate97 /Kranthi Suarez MD Work Phone: [phone])[address] [place], [place] 7244007-28-2025 13:02-0400 Respiratory rate12 /Kranthi Suarez MD Work Phone: [phone])[address] [place], [place] 7244007-28-2025 13:02-0400 SaO2% (BldA) [Mass fraction]98 %Yris Suarez MD Work Phone: [phone])[address] [place], [place] 7244007-28-2025 13:02-0400 Systolic blood xgguvwbh105 mm[Hg]Yris Suarez MD Work Phone: [phone])[address] [place], [place] 7244005-20-2025 13:28-0400 Body vgyoka655.94 cmYris Suarez MD Work Phone: 1(635)[address] [place], [place] 7244005-20-2025 13:28-0400 Body mass index (BMI) [Ratio]24.8 kg/z1DygkqaYris Suarez MD Work Phone: 1(317)[address] [place], [place] 7244005-20-2025 13:28-0400 Body wkpshu06.59 kgYris Suarez MD Work Phone: 1(732)[address] [place], [place] 7244005-20-2025 13:28-0400 Diastolic blood tcflwtoo91 mm[Hg]Yris Suarez MD Work Phone: 1(654)[address] [place], [place] 7244005-20-2025 13:28-0400 Heart wnuv914 /Kranthi Suarez MD Work Phone: [facility]05-20-2025 13:28-0400 Respiratory rate12 /Kranthi Suarez MD Work Phone: [facility]05-20-2025 13:28-0400 Systolic blood ryywglze061 mm[Hg]Yris Suarez MD Work Phone: [facility]10-18-2024 13:17-0400 Body mass index (BMI) [Ratio]27.09 kg/h6KdtyqutKian Monet DO Work Phone: [phone])[facility]10-18-2024 13:17-0400Body vpugnc41 kg Kian Monet DO Work Phone: 1(701)[facility]10-18-2024 13:17-0400Diastolic blood uershqsh95 mm[Hg]Kian Monet DO Work Phone: 1(512)[facility]10-18-2024 13:17-0400Heart rate92 /min Kian Monet DO Work Phone: [phone])[facility]10-18-2024 13:17-9321UlR6% (BldA) [Mass fraction]97 %Kian Monet DO Work Phone: [phone]10-18-2024 13:17-0400Systolic blood ywepuzdp149 mm[Hg]Kian Monet DO Work Phone: [phone]06-25-2024 13:39-0400Body mass index (BMI) [Ratio]26.67 kg/o1InxrzddKian Monet DO Work Phone: 1(107)[facility]06-25-2024 13:39-0400Body twquon98 kg Kian Monet DO Work Phone: 1(832)[facility]06-25-2024 13:39-0400Diastolic blood mvcltiry09 mm[Hg]Kian Monet DO Work Phone: [phone]06-25-2024 13:39-0400Heart rate86 /min Kian Monet DO Work Phone: [phone]06-25-2024 13:39-0402MxV7% (BldA) [Mass fraction]97 %Kian Monet DO Work Phone: [phone]06-25-2024 13:39-0400Systolic blood mm[Hg]Kian Monet DO Work Phone: [phone]03-22-2024 13:20-0400Body ujgcvz92 kg Kian Monet DO Work Phone: 1([phone]03-22-2024 13:20-0400Diastolic blood ksaiqvyw70 mm[Hg]Kian Monet DO Work Phone: 1(987)[facility]03-22-2024 13:20-0400Heart rate83 /min Kian Monet DO Work Phone: [phone]03-22-2024 13:20-4210TyD4% (BldA) [Mass fraction]99 %Kian Monet DO Work Phone: [phone]03-22-2024 13:20-0400Systolic blood sojzytpy506 mm[Hg]Kian Monet DO Work Phone: [phone]09-22-2023 13:07-0400Body .14 kgKian Monet DO Work Phone: [phone]09-22-2023 13:07-0400Diastolic blood jlagfocr69 mm[Hg]Kian Monet DO Work Phone: [phone]09-22-2023 13:07-0400Heart rate92 /min Kian Monet DO Work Phone: [phone]09-22-2023 13:07-5216YaT7% (BldA) [Mass fraction]97 %Kian Monet DO Work Phone: [phone]09-22-2023 13:07-0400Systolic blood lbwgylst276 mm[Hg]Kian Monet DO Work Phone: [phone]05-01-2023 10:15-0400Body temperature 97.9 [degF]Kurt Condon MD Work Phone: [facility]05-01-2023 10:15-0400Body wujpuz74.87 kgKurt Condon MD Work Phone: [facility]05-01-2023 10:15-0400Diastolic blood etrqthzl80 mm[Hg]Kurt Condon MD Work Phone: [facility]05-01-2023 10:15-0400Heart rate57 /min Kurt Condon MD Work Phone: [facility]05-01-2023 10:15-0400Respiratory rate 16 /minSyahir Condon MD Work Phone: [facility]05-01-2023 10:15-5481PeI4% (BldA) [Mass fraction]96 %Kurt Condon MD Work Phone: [facility]05-01-2023 10:15-0400Systolic blood qcwuyffx535 mm[Hg]Kurt Condon MD Work Phone: [facility]03-23-2023 13:48-0400Body qwfomj19.6 kgKian Monet DO Work Phone: [facility]03-23-2023 13:48-0400Diastolic blood mm[Hg]Kian Monet DO Work Phone: [facility]03-23-2023 13:48-0400Heart rate83 /min Kian Monet DO Work Phone: [phone]03-23-2023 13:48-7752SeD8% (BldA) [Mass fraction]96 %Kian Monet DO Work Phone: [phone]03-23-2023 13:48-0400Systolic blood bhubgiut577 mm[Hg]Kian Monet DO Work Phone: [facility]01-04-2023 12:00-0500Body xbhope827.4 cmYris Suarez Other [employer] Other 01-04-2023 12:00-0500Body mass index (BMI) [Ratio] 27.14 kg/v6Gqrkfa Suarez Other [employer] Other 01-04-2023 12:00-0500Body tizwab23.05 kgYris Suarez Other [employer] Other 01-04-2023 12:00-0500Diastolic blood micjorgm05 mm[Hg] Yris Erick Other [employer] Other 01-04-2023 12:00-2840AsM3% (BldA) [Mass fraction]97 % Yrisrobin Suarez Other [employer] Other 01-04-2023 12:00-0500Systolic blood mwbtwqau452 mm[Hg] Yris Suarez Other [employer] Other 05-02-2022 14:11-0400Body tbzyynyfrfu54.7 [degF]Kurt Condon MD Work Phone: [facility]05-02-2022 14:11-0400Body bhftes85.41 kgKurt Condon MD Work Phone: [facility]05-02-2022 14:11-0400Diastolic blood bhfpenyx75 mm[Hg]Kurt Condon MD Work Phone: [facility]05-02-2022 14:11-0400Heart qqrr561 /Octavio Condon MD Work Phone: [facility]05-02-2022 14:11-0400Respiratory rate 18 /Octavio Condon MD Work Phone: [facility]05-02-2022 14:11-4111FrX7% (BldA) [Mass fraction]97 %Kurt Condon MD Work Phone: [facility]05-02-2022 14:11-0400Systolic blood mm[Hg]Kurt Condon MD Work Phone: [facility]04-05-2022 13:24-0400Body vubdmu63.77 kgLavisa Young CLINICAL RESEARCH COORDINATOR.QUILTING MACHINE HELPER Work Phone: [facility]04-05-2022 13:24-0400Diastolic blood mm[Hg]Patricia Young CLINICAL RESEARCH COORDINATOR.QUILTING MACHINE HELPER Work Phone: [phone]04-05-2022 13:24-0400Heart rate89 /min Patricai Young CLINICAL RESEARCH COORDINATOR.QUILTING MACHINE HELPER Work Phone: [facility]04-05-2022 13:24-3941HaI9% (BldA) [Mass fraction]94 %Patricia Young CLINICAL RESEARCH COORDINATOR.QUILTING MACHINE HELPER Work Phone: [facility]04-05-2022 13:24-0400Systolic blood udtorwhz396 mm[Hg]Patricia Young CLINICAL RESEARCH COORDINATOR.QUILTING MACHINE HELPER Work Phone: [facility] Encounters Encounter DateEncounter TypeCare ProviderFacilityStart: 03-25-2025 End: 81-05-3135hjfekeebhrIbviqb E Braun MD Work Phone: [facility] Work Phone: Start: 03-25-2025 End: 54-42-9605Zwpztxb encounter procedureYris Suarez MD-[facility] Work Phone: Start: 01-15-2025 End: 57-92-7648Twuoaax encounter Deisi Suarez MD-[facility] Work Phone: Start: 65-07-8650Bfr-patient / Non-visitCatbrian Aguilar CMA-[facility] Work Phone: Start: 69-57-3895Dbp-patient / Non-visitAshwin Ordaz DO-[facility] Work Phone: Start: 01-09-2025 End: 59-01-9693rcfeupkbwqUsfgulz D KatkoFacility:[facility] Hospitaltart: 01-09-2025 End: 98-42-8288Michyriy ReferredAshwin Ordaz DO-[facility] Start: 06-15-2024 End: 99-44-5748qjsaoefrtwRIZFNL Erin SUAREZFacility:[facility]art: 06-15-2024 End: 86-80-5096Sqypcle encounter procedureKian Monet DO Work Phone: CardiologyComment on above:Primary hypertension (Primary Dx); Mixed hyperlipidemia; Hypomagnesemia; Low magnesium level; Bilateral carotid artery stenosis; Encounter for monitoring statin therapy; Ex-smokerStart: 03-05-2024 End: 87-96-4080eumzwwedvhXMYIDKD NELSONFacility:[facility]ertart: 02-21-2024 End: 63-91-7564hoykrbybtpIVBNDIN NELSONFacility:[facility]ertart: 02-21-2024 End: 31-17-0508Qeillgs encounter procedureKian Monet DO Work Phone: CardiologyComment on above:Primary hypertension (Primary Dx); Mixed hyperlipidemia; Hypomagnesemia; Bilateral carotid artery stenosis; Ex-smokerStart: 12-29-2023 End: 71-94-4456Jfmssff encounter procedureSyahir Condon MD Work Phone: Radiation OncologyComment on above:Malignant neoplasm of upper-outer quadrant of left breast in female, estrogen receptor positive (HCC) (Primary Dx)Start: 10-64-2477Rxjqqwlvb encounterKian Monet DO Work Phone: Internal Medicine [place]ainStart: 11-18-2023 End: 38-79-1193Acrktus encounter procedureKian Monet DO Work Phone: CardiologyComment on above:Bilateral carotid artery stenosis (Primary Dx); Primary hypertension; Mixed hyperlipidemia; Hypomagnesemia; Encounter for monitoring statin therapy; Ex-smokerStart: 85-56-6344DmedrdAcqrvny Nelson DO Work Phone: CardiologyComment on above:Refill RequestStart: 05-20-2023 End: 80-86-2493Ycsahoq encounter procedureKian Monet DO Work Phone: CardiologyComment on above:Bilateral carotid artery stenosis (Primary Dx); Elevated blood pressure reading without diagnosis of hypertension; Mixed hyperlipidemia; Hypomagnesemia; Encounter for monitoring statin therapy; Ex-smokerStart: 12-27-2022 End: 54-12-6363Nxlaxdt encounter procedureSyahir Condon MD Work Phone: Radiation OncologyComment on above:Malignant neoplasm of upper-outer quadrant of left breast in female, estrogen receptor positive (HCC) (Primary Dx)Start: 12-20-2022 End: 17-89-3342avnpqeyspaCGHD RAJANFacility:O3Azaps: 11-18-2022 End: 32-67-2783Mhgixyr encounter procedureKian Monet DO Work Phone: CardiologyComment on above:Bilateral carotid artery stenosis (Primary Dx); Elevated blood pressure reading without diagnosis of hypertension; Mixed hyperlipidemia; Hypomagnesemia; Encounter for monitoring statin therapy; Ex-smokerStart: 09-01-2022 End: 37-53-6556kcutxotqhkXzsrhd Braun Other [facility] [employer] Other Start: 01-74-6940Cfeace outpatient visit 15 minutes [facility]ris [facility] ClinicStart: 92-37-2794Fudxykops encounterMarpb SuarezLakeHealth Beachwood [facility] Center ClinicStart: 73-47-6206YqfgiwStrvmgb Nelson DO Work Phone: [phone] InstituteComment on above:Refill RequestStart: 05-06-2022 End: 39-93-8443Kiw-admission assessmentShruti Wright [facility] Start: 04-26-2022 End: 89-30-5449zawxrawqakVJTamika Chamberlaincility:C2Nfuvi: 04-18-2022 End: 96-01-5932gxtznnwhrtMMRAHM RODRIGUEZ .Facility:D0Uhisn: 04-16-2022 End: 52-92-0211grfivshqlwDEIJKB RODRIGUEZ .Facility:W8Ifbsh: 12-28-2021 End: 84-79-7484Jdirjil encounter procedureSyahir Condon MD Work Phone: Radiation OncologyComment on above:Malignant neoplasm of upper-outer quadrant of left breast in female, estrogen receptor positive (HCC) (Primary Dx)Start: 72-94-4397Dseencdtx encounterSyahir Condon MD Work Phone: Radiation OncologyComment on above:Future Appointment Start: 12-01-2021 End: 35-19-9266Ljvhpht encounter procedurePatricia Young APRN.CNP Work Phone: CardiologyComment on above:Bilateral carotid artery stenosis (Primary Dx); Mixed hyperlipidemia; Elevated blood pressure reading without diagnosis of hypertension Procedures DateProcedureProcedure DetailPerforming ClinicianStart: 85-99-7300Ufxbj culture Yris Suarez MD Work Phone: Start: 40-93-6882Sre routine ecg w/least 12 lds i&r onlyKian Monet DO Work Phone: Start: 79-99-3375Bjz routine ecg w/least 12 lds i&r Amparo Monet DO Work Phone: Plan of Treatment DateCare ActivityDetailAuthorStart: 79-02-2600Ipkjhwgk ScreeningDiabetes ScreeningUniversity Hospitals Lake West Medical Centertart: 29-61-8328Kalbnwjs ScreeningDiabetes Screening [facility] Centertart: 66-25-6436PC Breast - bilateral DiagnosticMAM DIAGNOSTIC BILATERAL Radiology Routine Malignant neoplasm of upper-outer quadrant of left breast in female, estrogen receptor positive (HCC) Expected: 12/28/2025 (Approximate)[facility] Work Phone: Comment on above:Expected: 12/28/2025 (Approximate) Start: 49-99-8488NBISGAFW SCREENDIABETES SCREENUniversity Hospitals Lake West Medical Centertart: 10-20-2025 Diabetes ScreeningDiabetes ScreeningUniversity Hospitals Lake West Medical Centertart: 12-27-2024 End: 62-17-1975Blysmpa encounter payvwhgth40/01/2025 10:30 AM EDT Office Visit Radiation Oncology [address] [place] [address] Kurt Condon MD [address] [place] [address] 1 Yr Follow UpRadiation OncologyComment on above:1 Yr Follow UpStart: 12-21-2024 End: 66-88-9551Mmlovgk encounter tkblpvxol81/25/2025 2:30 PM EDT Office Visit Cardiology [address] [place] [address] Kian Monet DO [address] [place], [place] [id number] Return in about 27 weeks (around 12/21/2024).CardiologyComment on above:Return in about 27 weeks (around 12/21/2024).Start: 12-14-2024 End: 88-27-2128Glmpp metabolic 2000 panel - Serum or PlasmaBASIC METABOLIC PANEL Lab Routine Primary hypertension Expected: 12/14/2024 (Approximate), Expires: 03/15/2025leveland ClinicComment on above:Expected: 12/14/2024 (Approximate), Expires: 03/15/2025Start: 12-14-2024 End: 11-91-0363CFJ panel - Blood by Automated countCOMPLETE BLOOD COUNT Lab Routine Primary hypertension Expected: 12/14/2024 (Approximate), Expires: 0 03/15/2025leveland ClinicComment on above:Expected: 12/14/2024 (Approximate), Expires: 03/15/2025Start: 12-14-2024 End: 31-32-4699Lqgvo 1996 panel - Serum or PlasmaLIPID PANEL BASIC Lab Routine Mixed hyperlipidemia Expected: 12/14/2024 (Approximate), Expires: 03/15/2025 [facility] Work Phone: Comment on above:Expected: 12/14/2024 (Approximate), Expires: 03/15/2025Start: 12-14-2024 End: 43-12-6964Zvemfvtnr [Mass/volume] in Serum or PlasmaMAGNESIUM Lab Routine Hypomagnesemia Expected: 12/14/2024 (Approximate), Expires: 5Cmarymount hospital ClinicComment on above:Expected: 12/14/2024 (Approximate), Expires: 03/15/2025 Start: 06-15-2024 End: 00-66-5787Tczgjgn encounter vavaxeuys35/18/2024 1:30 PM EDT Office Visit Cardiology [address] [place] [address] Kian Monet DO [address] [place], [place] [id number] : Return in about 3 months (around 05/23/2024).Cardiology Comment on above:: Return in about 3 months (around 05/23/2024).Start: 04-29-2024 Covid-19 Vaccine ( season)Covid-19 Vaccine ( season) [facility]: 05-21-2087Ftyfwiwwi vaccinationInfluenza Vaccine (#1) [facility] Centertart: 03-06-2024 End: 74-09-5786Cosgt metabolic 2000 panel - Serum or PlasmaBASIC METABOLIC PANEL Lab Routine Primary hypertension Expected: 03/06/2024 (Approximate), Expires: 06/05/2024[facility] Work Phone: Comment on above:Expected: 03/06/2024 (Approximate), Expires: 06/05/2024Start: 03-06-2024 End: 61-11-3217Pvkfpvcal [Mass/volume] in Serum or PlasmaMAGNESIUM Lab Routine Hypomagnesemia Expected: 03/06/2024 (Approximate), Expires: 06/05/2024[facility] ClinicComment on above:Expected: 03/06/2024 (Approximate), Expires: 06/05/2024 Start: 03-06-2024 End: 81-71-6570Leusedl evaluation of patient and axhscs1703/06/2024 1:00 PM EDT Nurse Visit Cardiology [address] [place] [address] Colette Nurse Card [facility] [address] [place] [address] Nurse visitCardiologyComment on above:Nurse visit Start: 02-21-2024 End: 56-14-6373Zuiiobz encounter axuwdtvol72/25/2024 1:30 PM EDT Office Visit Cardiology [address] [place], [place] [id number] Kian Monet, DO [address] [place], [place] [id number] Return in about 3 months (around 02/18/2024).CardiologyComment on above:Return in about 3 months (around 02/18/2024).Start: 12-28-2023 End: 87-20-6920AEQ DIAGNOSTIC BILATERALMAM DIAGNOSTIC BILATERAL Radiology Routine Malignant neoplasm of upper-outer quadrant of left breast in female, estrogen receptor positive (HCC) Expected: 12/28/2023 (Approximate), Expires: 01/26/2024[facility] Work Phone: Comment on above:Expected: 12/28/2023 (Approximate), Expires: 01/26/2024Start: 12-02-2023 End: 57-91-8203Eibmo metabolic 1999 panel - Serum or PlasmaBASIC METABOLIC PNL Lab Routine Primary hypertension Expected: 12/02/2023 (Approximate), Expires: [facility] Work Phone: Comment on above:Expected: 12/02/2023 (Approximate), Expires: 03/02/2024Start: 47-73-0587DJXMKTYA SCREENDIABETES SCREENUniversity Hospitals Lake West Medical Centertart: 11-18-2023 End: 40-93-9535Zoabi metabolic 2000 panel - Serum or PlasmaBASIC METABOLIC PNL Lab Routine Mixed hyperlipidemia Expected: 11/18/2023 (Approximate), Expires: [facility] Work Phone: Comment on above:Expected: 11/18/2023 (Approximate), Expires: 01/18/2024Start: 28-36-9112Ysekz-19 Vaccine ()Covid- 19 Vaccine ()[facility] Centertart: 34-22-6125Xzrkhcu Directive DiscussionAdvance Directive DiscussionUniversity Hospitals Lake West Medical Centertart: 36-42-5261Xovrslcbtm Health ScreeningBehavioral Health ScreeningAshtabula [facility] Start: 01-81-7837Yfkrmphgrc AssessmentDepression AssessmentAshtabula County Medical Center Start: 05-21-2023 End: 89-21-6145Gntch 1996 panel - Serum or PlasmaLIPID PANEL BASIC Lab Routine Mixed hyperlipidemia Expected: 05/21/2023 (Approximate), Expires: 07/21/2023 [facility] Work Phone: Comment on above:Expected: 05/21/2023 (Approximate), Expires: 07/21/2023Start: 05-21-2023 End: 47-45-5782RI CAROTID ARTERIES ZEKE VAS LABUS CAROTID ARTERIES ZEKE VAS LAB Vascular Lab Routine Bilateral carotid artery stenosis Expected: 05/21/2023 (Approximate), Expires: 11/18/2023[facility] Work Phone: Comment on above:Expected: 05/21/2023 (Approximate), Expires: 11/18/2023Start: 54-06-1414Oqmip-19 Vaccine ()Covid- 19 Vaccine ()[facility]: 91-32-6806Nenjoszeu vaccinationInfluenza Vaccine (#1)[facility]art: 12-28-2022 End: 52-80-2605Fawdpvocue mammography computer-aided detcj biMAM DIAGNOSTIC BILAT Radiology Routine Malignant neoplasm of upper-outer quadrant of left breast infemale, estrogen receptor positive (HCC) Expected: 12/28/2022 (Approximate), Expires: 01/27/2023[facility] Work Phone: Comment on above:Expected: 12/28/2022 (Approximate), Expires: 01/27/2023Start: 72-85-3312Ekxgw-19 Vaccine (6 - Pfizer series)Covid-19 Vaccine (6 - Pfizer series)[facility]: 86-06-4471RAZAIIQ DIRECTIVE DISCUSSIONADVANCE DIRECTIVE DISCUSSIONUniversity Hospitals Lake West Medical Centertart: 08-29-2022 DEPRESSION ASSESSMENTDEPRESSION ASSESSMENTUniversity Hospitals Lake West Medical Centertart: 04-29-2022 Influenza vaccinationINFLUENZA (#1)[facility]art: 52-54-8697LUQLF-19 VACCINE (5 - Booster for Pfizer series)COVID-19 VACCINE (5 - Booster for Pfizer series)[facility]: 24-95-1979HAXIM-19 VACCINE (4 - Booster for Pfizer series)COVID-19 VACCINE (4 - Booster for Pfizer series)[facility]ert[facility]: 71-53-9061WHTCICD DIRECTIVE DISCUSSIONADVANCE DIRECTIVE DISCUSSIONUniversity Hospitals Lake West Medical Centertart: 62-20-4775HFMHFXYLKW ASSESSMENTDEPRESSION ASSESSMENTUniversity Hospitals Lake West Medical Centertart: 50-58-5626RAV Vaccine (1 - 1-dose 75+ series)RSV Vaccine (1 - 1- dose 75+ series)[facility]: 07-70-8104NGJP DENSITYBONE DENSITY [facility] Centertart: 26-24-1780Mktf Density ScreeningBone Density Screening [facility]ertart: 38-57-8384Cnbudjyaojwb Vaccine: 65+ (1 - PCV)Pneumococcal Vaccine: 65+ (1 - PCV)[facility]: 26-48-6349Prbdtobocidu Vaccine: 65+ (1 of 1 - PCV)Pneumococcal Vaccine: 65+ (1 of 1 - PCV)[facility]: 73-04-1932ZRNQQIXYBFHN: 65+ (1 - PCV)PNEUMOCOCCAL: 65+ (1 - PCV)[facility]: 28-74-2286YDMGNVYKE AGE 65 AND OVER WITH 5YR LOOKBACK (#1)PNEUMOVAX AGE 65 AND OVER WITH 5YR LOOKBACK (#1)[facility]ertart: 2001 Screening for osteoporosisBone Density ScreeningUniversity Hospitals Lake West Medical Centertart: 29-95-7132ISS Vaccine (1 - 1-dose 60+ series)RSV Vaccine (1 - 1-dose 60+ series) [facility]: 35-06-9514RIWAJBBQ VACCINE (1 of 2)SHINGRIX VACCINE (1 of 2)[facility] Centertart: 13-88-5569Jxwgr microalbumin profileAshtabula County Medical Center Start: 60-11-4976Ejhepay ScreeningAnxiety ScreeningUniversity Hospitals Lake West Medical Centertart: 80-05-2243Lnmnihwgpr ScreeningDepression ScreeningAshtabula County Medical CenterComprehensive metabolic 2000 panel - Serum or PlasmaMer[facility] Health [facility] [facility] End: 84-85-3446Lzcumhcuwg mammography computer-aided detcj biMAM DIAGNOSTIC BILAT Radiology Routine Malignant neoplasm of upper-outer quadrant of left breast infemale, estrogen receptor positive (HCC) 1 [facility]16[facility]2021 [facility] Phone: Comment on above:1 Occurrences starting 12/16/2021 until 01/15/2023 End: 89-87-1764UDD COMPLETEECG COMPLETE ECG Routine Bilateral carotid artery stenosis Elevated blood pressure reading without diagnosis of hypertension 1 Occurrences [facility] 11/18/2022 until [facility] Work Phone: Comment on above:1 Occurrences starting 11/18/2022 until 11/19/2023ECG COMPLETEECG COMPLETE ECG 11/18/2023 1[facility]: 46-86-5819HO Carotid arteries - bilateralUS CAROTID ARTERIES [facility] Vascular Lab Routine Bilateral carotid artery stenosis 1 Occurrences starting 11/18/2023 until [facility] Work Phone: Comment on above:1 Occurrences [facility] 11/18/2023 [facility] Immunizations Immunization DateImmunizationNotesCare CouscljlTwwbwfsd94-24-3158zovjegohn virus vaccine, unspecified formulationKian Monet DO Work Phone: [facility] CenterNbkwee22-20-1573dvygwxqkq virus vaccine, unspecified formulationKian Monet DO Work Phone: [facility] CenterKiizxf89-69-4677lojsuqmac virus vaccine, unspecified formulationYris Suarez MD Work Phone: [facility]10-25-2018influenza, high dose seasonal, preservative-freeKurt Condon MD Work Phone: [facility] CenterAhcnvo15-13-3381bpwnsnitjbcn conjugate vaccine, 13 valAlonso Suarez MD Work Phone: [facility]10-05-2015influenza virus vaccine, unspecified formulationYris Suarez MD Work Phone: [facility]09-25-2012tetanus and diphtheria toxoids, adsorbed, preservative free, for adult use (5 Lf of tetanus toxoid and 2 Lf of diphtheria toxoid)Yris Suarez MD Work Phone: [facility]09-02-2002 pneumococcal polysaccharide vaccine, 23 valAlonso Suarez MD Work Phone: [facility] Payers DatePayer CategoryPayerPolicy [id number] THOUGHT LIFE INSURANCE FORETHOUGHT SUPPLEMENT [id number] 2018-Present [phone] [id number] [place] [address] [id number] 2001MedicareMEDICARE MEDICARE A AND B [id number] 2001-Present [phone] [address] [address] [place], [place] [address] 2-0001 [id number]. MedicareMEDICARE MEDICARE A AND B [id number] 2001-Present [phone] [place] [address] Medicare [id number] [id number] Social History DateTypeDetailFacilityStart: 07-31-2018 End: 33-30-1419Gmsatem smoking status NHISEx-smokerUniversity Hospitals Lake West Medical Centertart: 08-29-1962 End: 67-03-1980Uhhzhxq of tobacco useCurrent smokerUniversity Hospitals Lake West Medical Centertart: 07-31-2018 End: 35-10-7847Yvtqxcg use and exposureSmokeless tobacco non-userUniversity Hospitals Lake West Medical Centertart: 12-01-2021 End: 81-36-0097Afobltg intakeCurrent drinker of alcohol (finding)[facility] Centertart: 23-31-4066Asmvfyi SDOH Alcohol CommentoccUniversity Hospitals Lake West Medical Centertart: 07-31-2018 End: 89-35-8726Ssactab Comment2 packs per weekUniversity Hospitals Lake West Medical Centertart: 1935 Sex Assigned At BirthNot on fileUniversity Hospitals Lake West Medical Centertart: 11-21-2021 End: 04-89-1911Nhtsjakr to SARS-CoV-2 (event)Not sureAshtabula County Medical CenterTobacco smoking statusNo Smoking Status EnteredPremier Healthtart: 05-20-2023 End: 13-62-9836Lyx Assigned At BirthFemalMercy Health St. Charles Hospitaltart: 08-29-1962 End: 91-70-6695Wvepeht of tobacco useCigarette SmokerUniversity Hospitals Lake West Medical Centertart: 05-20-2023 End: 19-95-1038Aryzfwe of Social functionAshtabula County Medical CenterAdunion [facility] Depression Screening Bdicjkrrqr3Emcwoltyy ClinicStart: 96-71-8542Wsdrsce smoking status NHISNever smoked tobacco (finding)[facility] HospitalexFemale (finding)[facility] Hospitaltart: 68-26-2396Iun Assigned At [facility] Clinical Notes 12-01-2021 to 01-15-2025 Note Date & EcjxIowmFdbxdgvk57-16-0120 Evaluation note* Diagnosis Onset Date Resolution Status Admit Date Benign essential HTN acuteMay 2024 1:24pmAcute diverticulitisinactiveMay 2024 1:24pm HypokalemiainactiveMay 2024 1:24pmBenign essential HTNacuteJuly 2024 1:01pmHistory of breast cancer in femaleacuteJuly 2024 1:01pm Hyperlipidemia, unspecifiedacuteJuly 2024 1:01pmMedicare annual wellness visit, subsequentacuteJuly 2024 1:01pm [facility] Work Phone: [phone] NoteHNO ID: [id number] Author: KIAN MONET, DO Service: ? Author Type: Physician Type: Progress Notes Filed: 06/15/2024 14:02 Note Text: [facility] [place] SECTION OF REGIONAL CARDIOLOGY OUTPATIENT VISIT DATE 06/15/24 OUTPATIENT VISIT TYPE Established PRIMARY CARE PHYSICIAN: Yris Suarez MD ([facility]) [address] [place] [phone] HISTORY OF PRESENT ILLNESS: Ms. Roque is a 88 year old female with [...] is normal in size. (more content not included)...[facility]10-18-2024 History of Present illness Narrative* Kian Monet DO - 06/15/2024 1:44 PM EDT Images from the original note were not included. [facility] [place] SECTION OF REGIONAL CARDIOLOGY OUTPATIENT VISIT DATE 06/15/24 OUTPATIENT VISIT TYPE Established PRIMARY CARE PHYSICIAN: Yris Suarez MD ([facility]) [address] [place] [address] HISTORY OF PRESENT ILLNESS: Ms. Roque is a 88 year old female with [...] LE edema, presyncope/syncope, N/V, bleeding, or other significantsymptoms. Today, she tells me that she enjoys [...] nightly, LDL is now at goal. Monitor formyalgias at next visit. Check lipid panel prior [...] HISTORY Diagnosis Date Breast cancer (HCC) Left; ER/SD+ GERD (gastroesophageal reflux disease) PAST SURGICAL HISTORY [...] by mouth once daily. documented in this encounterAshtabula County Medical Center06-25-2024 Nurse Note* Zak Wilkins MA - 02/21/2024 1:43 PM EDT Patient brought home blood pressure monitor to compare with office monitor. Office monitor: BP 152/62 HR 86 Home monitor: BP 129/82 HR 84 [facility]06-25-2024 Nurse Note* Zak Wilkins MA - 02/21/2024 1:43 PM EDT Patient brought home blood pressure monitor to compare with office monitor. Office monitor: BP 152/62 HR 86 Home monitor: BP 129/82 HR 84 documented in this encounterAshtabula County Medical Center06-25-2024 History of Present illness Narrative* Kian Monet DO - 02/21/2024 1:30 PM EDT Images from the original note were not included. [facility] [place] SECTION OF REGIONAL CARDIOLOGY OUTPATIENT VISIT DATE 02/21/24 OUTPATIENT VISIT TYPE Established PRIMARY CARE PHYSICIAN: Yris Suarez MD ([facility]) [address] [place] [phone] HISTORY OF PRESENT ILLNESS: Ms. Roque is a 88 year old female with a PMH of carotid stenosis, hx of colon CA, and breast CA sp surgery.she was last seen by me on 11/18/2023, per that note: ... she states that she is feeling well. She denies having any: chest pain, palpitations, shortnessof breath, orthopnea, LE edema, presyncope/syncope, N/V, bleeding, [...] next visit. At next visit consider if antihypertensivemedication needs to be titrated further. Goal LDL is less than 70mg/dL. Continue atorvastatin 40 mg nightly, LDL is now at goal. Monitor formyalgias at next visit. Check lipid panel prior [...] HISTORY Diagnosis Date Breast cancer (HCC) Left; ER/SD+ GERD (gastroesophageal reflux disease) PAST SURGICAL HISTORY [...] Kian Monet DO 02/21/24 documented in this encounterAshtabula County Medical Center06-25-2024 NoteHNO ID: [id number] Author: KIAN MONET DO Service: ? Author Type: Physician Type: Progress Notes Filed: 02/21/2024 14:21 Note Text: [facility] [place] SECTION OF REGIONAL CARDIOLOGY OUTPATIENT VISIT DATE 02/21/24 OUTPATIENT VISIT TYPE Established PRIMARY CARE PHYSICIAN: Yris Suarez MD ([facility]) [address] [place] [phone] HISTORY OF PRESENT ILLNESS: Ms. Roque is a 88 year old female with [...] 5.1 MEQ/L 3.8 ( (more content not included)...[facility]05-02-2024 History of Present illness Narrative* Kurt Condon MD - 12/29/2023 11:49 PM EDT Radiation Oncology - Follow Up Note PATIENT NAME: Morelia Roque PATIENT Signed by: Kurt Condon MD I spent a total of 20 minutes on the date of the service which included preparing to see the patient, csvh-rq-awax patient care, and counseling and educating the patient/family/caregiver. This document has been created with the use of voice recognition technology. It may contain inaccuracies, misspellings, inaccurate syntax or inappropriate word context that are a result of the inadequacies/shortcomings of said technology/software. documented in this encounterAshtabula County Medical Center03-25-2024 Miscellaneous Notes* Telephone Encounter - Darling Rodriguez RN - 11/21/2023 10:44 AM EDT Faxed lab orders as requested. I spoke with patient's daughter Susanna and she just questioned the Carotid US ordered at the last visit and why it is needed. I explained that Dr. Monet just wants a 3 year follow up US to revaluate the mild stenosis seen the last time. She verbalized understanding and will let the patient know. Nofurther questions. * Telephone Encounter - Jen Burns - 11/21/2023 8:59 AM EDT Morelia's daughter is calling in, she took her to her appointment on Tuesday. She states that her mother still wants to be independent, she went into the visit by herself and came out very confused. She was looking to go over appointment. Also, asking for the lab order to be faxed to [facility]. F:[phone] Patient has been identified by name and birthdate. Duration of symptoms: N/A Person calling: daughter: Call patient at: [phone] Was an appointment scheduled: No Closing statement: Results or non-symptom based questions: Thank you for calling [facility], your call will be returned within the next business day. Jen Burns documented in this encounterAshtabula County Medical Center03-22-2024 Miscellaneous Notes* Addendum Note - Kian Monet DO - 11/18/2023 1:46 PM EDTAddended by: KIAN MONET on: 11/18/2023 01:46 PM Modules accepted: Orders * Addendum Note - Zak Wilkins MA - 11/18/2023 1:46 PM EDTAddended by: ZAK WILKINS on: 11/18/2023 01:46 PM Modules accepted: Orders documented in this encounterAshtabula County Medical Center03-22-2024 History of Present illness Narrative* Kian Monet DO - 11/18/2023 1:25 PM EDT Images from the original note were not included. [facility] [place] SECTION OF REGIONAL CARDIOLOGY OUTPATIENT VISIT DATE 11/18/23 OUTPATIENT VISIT TYPE Established PRIMARY CARE PHYSICIAN: Yris Suarez MD ([facility]) [address] [place] [phone] HISTORY OF PRESENT ILLNESS: Ms. Roque is a 88 year old female with [...] nightly, LDL is now at goal. Monitor formyalgias at next visit. Check lipid panel prior [...] HISTORY Diagnosis Date Breast cancer (HCC) Left; ER/SD+ GERD (gastroesophageal reflux disease) PAST SURGICAL HISTORY [...] Kian Monet DO 11/18/23 documented in this encounterAshtabula County Medical Center02-09-2024 Miscellaneous Notes* Telephone Encounter - Selene Regalado - 10/07/2023 1:23 PM EST Patient has been identified by name [...] notify patient. Selene Regalado documented in this encounterAshtabula County Medical Center09-22-2023 History of Present illness Narrative* Kian Monet DO - 05/20/2023 1:20 PM EDT Images from the original note were not included. [facility] [place] SECTION OF REGIONAL CARDIOLOGY OUTPATIENT VISIT DATE 05/20/23 OUTPATIENT VISIT TYPE Established PRIMARY CARE PHYSICIAN: Yris Suarez MD ([facility]) [facility] [place] [address] HISTORY OF PRESENT ILLNESS: Ms. Roque is a 87 year old female with [...] 1 cup of coffee in the AM. Shewill have 3-4 alcoholic beverages a month. She quit smoking in 1998. She is not using any marijuananor other drugs. She is walking for 30+ [...] without diagnosis of hypertension R03.0 magnesium oxide (MAG-OX)400 mg (241.3 mg magnesium) tablet 3. Mixed hyperlipidemia E78.2 ECG COMPLETE atorvastatin (LIPITOR) 40 mg tablet coenzyme Q10 (COQ-10) 100 mg cap capsule BASIC METABOLIC PNL 4. Hypomagnesemia E83.42 magnesium oxide (MAG-OX) 400 mg (241.3 mg magnesium) tablet 5. Encounter for monitoring statin therapy Z51.81 Z79.892 6. Ex-smoker Z87.895 PLAN AND RECOMMENDATION: Carotid stenosis is mild [...] nightly, LDL is now at goal. Monitor formyalgias at next visit. Check lipid panel prior [...] HISTORY Diagnosis Date Breast cancer (HCC) Left; ER/SD+ GERD (gastroesophageal reflux disease) PAST SURGICAL HISTORY [...] Kian Monet DO 05/20/23 documented in this encounterAshtabula County Medical Center05-01-2023 History of Present illness Narrative* Kurt Condon MD - 12/27/2022 10:30 AM EDT Images from the original note were not included. Radiation Oncology - Follow Up Note PATIENT NAME: Morelia Roque PATIENT DIAGNOSIS/PATIENT IDENTIFICATION: Ms. 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 Pan. Pathology revealed 2 cm of intermediate grade invasive lobular carcinoma with close (0.2 mm)but negative margins and no sentinel lymph nodes were identified/taken. Presented with her adjuvanttreatment choices she opted to move forward with a course of post-operative hypo-fractionated radiation therapy to the left breast for reduction of local recurrence which she completed on 09/27/2018 (5005 cGy in 20 fractions). She is not pursuing endocrine therapy. INTERVAL HISTORY/ROS: Ms. Roque returns to clinic today for routine follow-up approximately four years after the completion of her radiation treatments and one year since her last visit on 12/28/2021.In the interim, she had her annual mammogram on 12/20/2022 which showed expected posttreatment change in the left breast with no radiographic concern for disease (BI-RADS 2). Today she denies any pain/discomfort, skin irritation/breakdown, any new lumps or bumps in the leftbreast and continues to use a moisturizer with [...] and losing some weight. She sees her primarycare physician at least once a year and [...] seated position. Her incisions in the left breastare well healed with no signs of separation or underlying infection. Trace post-radiation pigment changes are noted with no areas of desquamation. Small area of crusting noted in the area of the leftnipple with no other abnormalities identified in either breast or axilla. RADIOLOGIC DATA: Bilateral Mammogram (12/20/2022) ASSESSMENT AND PLAN: Ms. 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 Pan. Pathology revealed 2 cm of intermediate grade invasive lobular carcinoma with close (0.2 mm) but negativemargins and no sentinel lymph nodes were identified/taken. Presented with her adjuvant treatment choices she opted to move forward with a course of post-operative hypo-fractionated radiation therapy to the left breast for reduction of local recurrence which she completed on 09/27/2018 (5005 cGy in 20 fractions). She is not pursuing endocrine therapy. Ms. Roque is doing well clinically approximately 4 years [...] year with repeat mammogram. The patient is awareto contact the clinic in the interim should any questions or concerns arise. Thank you for allowingus to participate in the care of this patient. Signed by: Kurt Condon MD I spent a total of 20 minutes on the date of the service which included preparing to see the patient, fztg-us-kqhd patient care, completing clinical documentation, and counseling and educating the patient/family/caregiver. This document has been created with the use of voice recognition technology. It may contain inaccuracies, misspellings, inaccurate syntax or inappropriate word context that are a result of the inadequacies/shortcomings of said technology/software. documented in this encounterAshtabula County Medical Center03-23-2023 History of Present illness Narrative* Kian Monet DO - 11/18/2022 1:59 PM EDT Images from the original note were not included. [facility] [place] SECTION OF REGIONAL CARDIOLOGY OUTPATIENT VISIT DATE 11/18/22 OUTPATIENT VISIT TYPE Established PRIMARY CARE PHYSICIAN: Yris Suarez MD ([facility]) [address] [place] [address] HISTORY OF PRESENT ILLNESS: Ms. Roque is a 87 year old female with [...] 1 cup of coffee in the AM. Shewill have 3-4 alcoholic beverages a month. She quit smoking in 1998. She is not using any marijuananor other drugs. She is walking for 30+ [...] nightly, LDL is now at goal. Monitor formyalgias at next visit. Check lipid panel prior [...] HISTORY Diagnosis Date Breast cancer (HCC) Left; ER/SD+ GERD (gastroesophageal reflux disease) PAST SURGICAL HISTORY [...] Kian Monet DO 11/18/22 documented in this encounterAshtabula County Medical Center01-04-2023 Evaluation note* Encounter Date Diagnosis Assessment Notes Treatment Notes Treatment Clinical Notes Aug, Intrinsic eczema (ICD-10 - L20.8 4) Aug,cute actinic otitis externa of left ear (ICD-10 - H60.512)pharmacy doesn't have cipro - rx changed to neomycin In the future if the pain persists, we can consider ENT reassessment [facility] [employer] Other 01-04-2023 Evaluation note* Encounter Date Diagnosis Assessment Notes Treatment Notes Treatment Clinical Notes Aug, Acute actinic otitis externa of left ear (ICD-10 - H60.512) [facility] [employer] Other 12-06-2022 Miscellaneous Notes* Telephone Encounter - Selene Otero APRN.[facility] - 08/03/2022 5:52 PM EST The following [...] mouth once daily. Authorizing Provider: SELENE OTERO APRN.QUILTING MACHINE HELPER * Telephone Encounter - Radha Llanos MA [...] patient. Mari Jones Ma documented in this encounterAshtabula County Medical Center05-02-2022 History of Present illness Narrative* Kurt Condon MD - 12/28/2021 11:54 PM EDT Radiation Oncology - Follow Up Note PATIENT NAME: Morelia Roque PATIENT Signed by: Kurt Condon MD I spent a total of 20 minutes on the date of the service which included preparing to see the patient, gksg-jj-fwut patient care and counseling and educating the patient/family/caregiver. This document has been created with the use of voice recognition technology. It may contain inaccuracies, misspellings, inaccurate syntax or inappropriate word context that are a result of the inadequacies/shortcomings of said technology/software. documented in this encounterAshtabula County Medical Center04-20-2022 Miscellaneous Notes* Telephone Encounter - Jeaneth Hawk RN - 12/16/2021 10:30 AM EDT GURDEEP Stewart does not have an order. Please sign pended order. Jeaneth Hawk RN * Telephone Encounter - Jeaneth Hawk RN - 12/16/2021 8:57 AM EDT Spoke to pt and she has not had 6 month katja yet. SHe will call [facility] today and then call us back to let us know when she is set up. PSS- please cancel RV for 12/17 and reschedulef or after mammogram. Jeaneth Hawk RN documented in this encounterAshtabula County Medical Center04-05-2022 History of Present illness Narrative* Patricia Young APRN.QUILTING MACHINE HELPER - 12/01/2021 1:46 PM EDT Images from the original note were not included. [facility] [place] Lisa Olmedo Department of Cardiovascular Medicine SECTION OF REGIONAL CARDIOLOGY December 01, 2021 OUTPATIENT VISIT TYPE ESTABLISHED PRIMARY CARE PHYSICIAN: Yris Suarez MD SUBJECTIVE: CHIEF COMPLAINT: Patient presents with: Cardiology Follow Up HISTORY OF PRESENT ILLNESS: Morelia Roque is a 86 year old female with [...] had dementia. Her in 2006. ASSESSMENT/PLAN: Morelia Roque was seen today for cardiology follow up. [...] HISTORY Diagnosis Date Breast cancer (HCC) Left; ER/SD+ GERD (gastroesophageal reflux disease) PAST SURGICAL HISTORY [...] visit. This note was partially generated with [email or web address] voice recognition software and may contain errors, including spelling, grammar, syntax and misrecognition of what was dictated, that may not be fully corrected. I appreciate the opportunity to participate in this patient's care. Please do not hesitate to call my office if you have any questions. CONTACT INFORMATION: Patricia Young APRN.CNP Adult Nurse Practitioner Lisa Olmedo Department of Cardiovascular Medicine [facility] Heart, Vascular, Thoracic [place] [facility] Surgery [facility] Cardiology Consult Team documented in this encounterKet[facility] note No data available for this section [facility]* Diagnosis Malignant neoplasm of upper-outer quadrant of left breast in female, estrogen receptor positive (HCC)- Primary documented in this encounter [facility] CenterEvalutrinity health note* Diagnosis Bilateral carotid artery stenosis- Primary Occlusion and stenosis of carotid artery without mention of cerebral infarction Mixed hyperlipidemia Elevated blood pressure reading without diagnosis of hypertension documented in this encounter [facility] CenterEvalutr[facility] health note* Diagnosis Mixed hyperlipidemia Hypomagnesemia Disorders of magnesium metabolism Elevated blood pressure reading without diagnosis of hypertension documented in this encounter [facility] CenterEvalutr[facility] health note* Diagnosis Bilateral carotid artery stenosis- Primary Occlusion and stenosis of carotid artery without mention of cerebral infarction Elevated blood pressure reading without diagnosis of hypertension Mixed hyperlipidemia Hypomagnesemia Disorders of magnesium metabolism Encounter for monitoring statin therapy Encounter for therapeutic drug monitoring Ex-smoker Personal history of tobacco use, presenting hazards to health documented in this encounter [facility] CenterEvaluation note* Diagnosis Bilateral carotid artery stenosis- Primary Occlusion and stenosis of carotid artery without mention of cerebral infarction Elevated blood pressure reading without diagnosis of hypertension Mixed hyperlipidemia Hypomagnesemia Disorders of magnesium metabolism Encounter for monitoring statin therapy Encounter for therapeutic drug monitoring Ex-smoker Personal history of tobacco use, presenting hazards to health documented in this encounter [facility] CenterEvaluation note* Diagnosis Mixed hyperlipidemia Elevated blood pressure reading without diagnosis of hypertension Hypomagnesemia Disorders of magnesium metabolism [facility] Diagnosis Bilateral carotid artery stenosis- Primary Occlusion and stenosis of carotid artery without mention of cerebral infarction Primary hypertension Unspecified essential hypertension Mixed hyperlipidemia Hypomagnesemia Disorders of magnesium metabolism Encounter for monitoring statin therapy Encounter for therapeutic drug monitoring Ex-smoker Personal history of tobacco use, presenting hazards to health documented in this encounter [facility] Diagnosis Malignant neoplasm of upper-outer quadrant of left breast in female, estrogen receptor positive (HCC)- Primary documented in this encounter [facility]* Diagnosis Primary hypertension- Primary Unspecified essential hypertension Mixed hyperlipidemia Hypomagnesemia Disorders of magnesium metabolism Bilateral carotid artery stenosis Occlusion and stenosis of carotid artery without mention of cerebral infarction Ex-smoker Personal history of tobacco use, presenting hazards to health documented in this encounter [facility]* Diagnosis Primary hypertension- Primary Unspecified essential hypertension Mixed hyperlipidemia Hypomagnesemia Disorders of magnesium metabolism Low magnesium level Bilateral carotid artery stenosis Occlusion and stenosis of carotid artery without mention of cerebral infarction Encounter for monitoring statin therapy Encounter for therapeutic drug monitoring Ex-smoker Personal history of tobacco use, presenting hazards to health documented in this encounter [facility] general Narrative - Reported* Type Description Date Medical History UTI due to ESBL klebsiella Medical HistoryTIAMedical Historymalignant neoplasm left breastMedical History depressionMedical HistoryosteopeniaMedical HistoryGERDMedical Historycolon adenocarcinomaMedical HistorylipidemiaSurgical Historyascending cholangiitis colon [id number] Historycholecystectomy [facility] Discharge instructions No data available for this section [facility] No data available for this section [facility] HospitalReason for referral (narrative)* Diagnostic Procedure Only (Routine) - Pending ReviewSpecialtyDiagnoses / Procedures Referred By ContactReferred To ContactBR IMAGING Diagnoses Malignant neoplasm of upper-outer quadrant of left breast in female, estrogen receptor positive (HCC) Procedures KATJA DIAGNOSTIC BILAT DIAGNOSTIC MAMMOGRAPHY COMPUTER-AIDED DETCJ Kurt Stallings MD [address] [place] [address] [place] [address] [facility] [address] [place] [address] Referral IDStatusReasonStart DateExpiration DateVisits RequestedVisits [id number] Review Auto-Generated Referral / [facility] for referral (narrative)* Diagnostic Procedure Only (Routine) - Pending ReviewSpecialtyDiagnoses / ProceduresReferred By Contact Referred To ContactBR IMAGING Diagnoses Malignant neoplasm of upper-outer quadrant of left breast in female, estrogen receptor positive (HCC) Procedures KATJA DIAGNOSTIC BILAT DIAGNOSTIC MAMMOGRAPHY COMPUTER-AIDED DETCJ BI Kurt Condon MD [address] [place] [address] [place] [address] [facility] [address] [place] [phone] Referral IDStatusReasonStart DateExpiration DateVisits RequestedVisits [id number] Review Auto-Generated Referral / [facility] for referral (narrative)* Outpatient Procedure (Routine) - Pending ReviewSpecialtyDiagnoses / ProceduresReferred By ContactReferred To [facility] Diagnoses Bilateral carotid artery stenosis Procedures US CAROTID ARTERIES ZEKE VAS LAB DUPLEX SCAN EXTRACRANIAL ART COMPL BI STUDY Kian Monet DO [address] [place] [address] [facility] [place] [address] [place] [address] Referral IDStatusReasonStart DateExpiration DateVisits RequestedVisits [id number] Review Auto-Generated Referral / * Outpatient Procedure (Routine) - AuthorizedSpecialtyDiagnoses / Procedures Referred By ContactReferred To [facility] Diagnoses Bilateral carotid artery stenosis Elevated blood pressure reading without diagnosis of hypertension Procedures ECG COMPLETE ECG ROUTINE ECG W/LEAST 12 LDS W/I&R Kian Monet DO [address] [place] [address] [facility] [address] [place] [address] Referral IDStatusReasonStla villa DateExpiration DateVisits RequestedVisits [id number] Auto-Generated Referral / [facility] for referral (narrative)* Diagnostic Procedure Only (Routine) - Pending ReviewSpecialtyDiagnoses / ProceduresReferred By Contact Referred To ContactBR IMAGING Diagnoses Malignant neoplasm of upper-outer quadrant of left breast in female, estrogen receptor positive (HCC) Procedures KATJA DIAGNOSTIC BILATERAL DIAGNOSTIC MAMMOGRAPHY COMPUTER-AIDED DETCJ Kurt Stallings MD [address] [place] [address] [place] [address] [facility] [address] [place] [phone] Ref[facility]Status[facility] DateExpiration DateVisits RequestedVisits [id number] Review Auto-Generated Referral / [facility] for referral (narrative)* Outpatient Procedure (Routine) - AuthorizedSpecialtyDiagnoses / ProceduresReferred By ContactReferred To [facility] Diagnoses Bilateral carotid artery stenosis Mixed hyperlipidemia Procedures ECG COMPLETE ECG ROUTINE ECG W/LEAST 12 LDS W/I&R Kian Monet DO [address] [place] [address] [facility] [address] [place] [address] [facility] DateExpiration DateVisits RequestedVisits [id number] Auto-Generated Referral / [facility] for referral (narrative)* Outpatient Procedure (Routine) - AuthorizedSpecialtyDiagnoses / ProceduresReferred By ContactReferred To [facility] Diagnoses Bilateral carotid artery stenosis Procedures US CAROTID ARTERIES ZEKE VAS LAB DUPLEX SCAN EXTRACRANIAL ART COMPL BI STUDY Kian Monet, [address] [place] [address] [address] Referral IDStatusReasonStart DateExpiration DateVisits RequestedVisits [id number] Auto-Generated Referral * Outpatient Procedure (Routine) - Pending ReviewSpecialtyDiagnoses / Procedures Referred By ContactReferred To [facility] Diagnoses Bilateral carotid artery stenosis Primary hypertension Hypomagnesemia Procedures ECG COMPLETE ECG ROUTINE ECG W/LEAST 12 LDS W/I&R Kian Monet, [address] [place] [address] [address] Referral IDStatusReasonStart DateExpiration DateVisits RequestedVisits [id number] Review Auto-Generated Referral [facility] for referral (narrative)* Diagnostic Procedure Only (Routine) - Pending ReviewSpecialtyDiagnoses / ProceduresReferred By Contact Referred To ContactBR IMAGING Diagnoses Malignant neoplasm of upper-outer quadrant of left breast in female, estrogen receptor positive (HCC) Procedures KATJA DIAGNOSTIC BILATERAL DIAGNOSTIC MAMMOGRAPHY COMPUTER-AIDED DETCJ Kurt Stallings MD [address] [place] [address] [place] [address] [facility] [address] [place] [phone] Referral IDStatusReasonStart DateExpiration DateVisits RequestedVisits [id number] Review Auto-Generated Referral / [facility] Center[facility] (narrative)No reason for referral information availableKettering Health Dayton Work Phone: Summary Purpose Family History Relationship Condition Age at Onset Recorded Date/T kennedy brother Unknown fatherDeceasedUnknownmotherMalignant neoplasmUnknownDeceasedUnknownsonMalignant neoplasmUnknown Advance Directives Advance Directive Response Recorded Date/ Time Advance Directives No July 8:32am Chief Complaint and Reason for Visit Chief Complaint Admit Date Unknown January 09, 2025 6:01p m Amb Documentation January 11, 2025 10:33 am ER f/u January 15, 2025 1:24p m Wellness March 25, 2025 1:01 pm Reason for Visit Admit Date Benign essential HTN January 15, 2025 1:24 pm Acute diverticulitis January 15, 2025 1:24 pm Hypokalemia January 15, 2025 1:24p m Benign essential HTN March 25, 2025 1:0 1pm History of breast cancer in female March 25, 2025 1:01pm Hyperlipidemia, unspecified March 25, 2 025 1:01pm Medicare annual wellness visit, subseque nt March 25, 2025 1:01pm Additional Source Comments Source Comments (unrecognize d section and content) In the event this informatio n is protected by the Federal Confidentiality of Alcohol and Drug Abuse Patient Records regulations: The Federal rules restrict any use of the information to criminally investigate or prosecute any alcohol or drug abuse patient.[facility] CenterIn the event this information is protected by the Federal Confidentiality of Alcohol and Drug Abuse Patient Records regulations: The Federal rules restrict any use of the information to criminally investigate or prosecute any alcohol or drug abuse patient.[facility] CenterIn the event this information is protected by the Federal Confidentiality of Alcohol and Drug Abuse Patient Records regulations: The Federal rules restrict any use of the information to criminally investigate or prosecute any alcohol or drug abuse patient.[facility] CenterIn the event this information is protected by the Federal Confidentiality of Alcohol and Drug Abuse Patient Records regulations: The Federal rules restrict any use of the information to criminally investigate or prosecute any alcohol or drug abuse patient.[facility] CenterIn the event this information is protected by the Federal Confidentiality of Alcohol and Drug Abuse Patient Records regulations: The Federal rules restrict any use of the information to criminally investigate or prosecute any alcohol or drug abuse patient.[facility] CenterIn the event this information is protected by the Federal Confidentiality of Alcohol and Drug Abuse Patient Records regulations: The Federal rules restrict any use of the information to criminally investigate or prosecute any alcohol or drug abuse patient.[facility] CenterIn the event this information is protected by the Federal Confidentiality of Alcohol and Drug Abuse Patient Records regulations: The Federal rules restrict any use of the information to criminally investigate or prosecute any alcohol or drug abuse patient.[facility] CenterIn the event this information is protected by the Federal Confidentiality of Alcohol and Drug Abuse Patient Records regulations: The Federal rules restrict any use of the information to criminally investigate or prosecute any alcohol or drug abuse patient.[facility] CenterIn the event this information is protected by the Federal Confidentiality of Alcohol and Drug Abuse Patient Records regulations: The Federal rules restrict any use of the information to criminally investigate or prosecute any alcohol or drug abuse patient.[facility] CenterIn the event this information is protected by the Federal Confidentiality of Alcohol and Drug Abuse Patient Records regulations: The Federal rules restrict any use of the information to criminally investigate or prosecute any alcohol or drug abuse patient.[facility] CenterIn the event this information is protected by the Federal Confidentiality of Alcohol and Drug Abuse Patient Records regulations: The Federal rules restrict any use of the information to criminally investigate or prosecute any alcohol or drug abuse patient.[facility] CenterIn the event this information is protected by the Federal Confidentiality of Alcohol and Drug Abuse Patient Records regulations: The Federal rules restrict any use of the information to criminally investigate or prosecute any alcohol or drug abuse patient.[facility] CenterIn the event this information is protected by the Federal Confidentiality of Alcohol and Drug Abuse Patient Records regulations: The Federal rules restrict any use of the information to criminally investigate or prosecute any alcohol or drug abuse patient.[facility] Reason for Visit (unrecogniz ed section and content) ReasonCommentsFuture AppointmentReasonCommentsCardiology Follow UpReasonComments Breast CancerReasonOnset DateCommentsRefill Fdjnirs00/05/2022ReasonCommentsCARD Follow Up 6 MonthReasonCommentsCARD Follow Up 6 MonthReasonOnset DateComments Refill Gdjrdru28/09/2024ReasonCommentsCARD Follow Up 3 Month Care Teams (unrecognized sec tion and content) Team MemberRelationshipSpecialtyStart DateEnd Date Yris Suarez MD [address] [facility] [place] [phone] PCP - GeneralFamily Xoatasch76/30/11Team MemberRelationshipSpecialtyStart Date End Date Yris Suarez MD [address] [facility] [place] [address] PCP - GeneralFamily Bhbpzfeb51/30/11Team MemberRelationshipSpecialtyStart Date End Date Yris Suarez MD [address] [facility] [place] [address] PCP - GeneralFamily Kmmxwqmp77/30/11Team MemberRelationshipSpecialtyStart Date End Date Yris Suarez MD [address] [facility] [place] [address] PCP - GeneralFamily Hlhgwsuj47/30/11Team MemberRelationshipSpecialtyStart Date End Date Yris Suarez MD [address] [facility] [place] [phone] PCP - GeneralFamily Zuzuulss93/30/11Team MemberRelationshipSpecialtyStart Date End Date Yris Suarez MD [address] [facility] [place] [address] PCP - GeneralFamily Dpmoyaaw53/30/11Team MemberRelationshipSpecialtyStart Date End Date Yris Suarez MD [address] [facility] [place] [address] PCP - GeneralFamily Flsmiyui59/30/11Team MemberRelationshipSpecialtyStart Date End Date Yris Suarez MD [address] [facility] [place] [address] PCP - GeneralFamily Rdvsfpew54/30/11Team MemberRelationshipSpecialtyStart Date End Date Yris Suarez MD [address] [facility] [place] [address] PCP - GeneralFamily Dkxwsynf34/30/11Team MemberRelationshipSpecialtyStart Date End Date Yris Suarez MD [address] [facility] [place] [address] PCP - GeneralFamily Zwiqivru40/30/11Team MemberRelationshipSpecialtyStart Date End Date Yris Suarez MD [address] [facility] [place] [address] PCP - GeneralFamily Rjfiyzvg35/30/11Team MemberRelationshipSpecialtyStart Date End Date Yris Suarez MD [address] [facility] [place] [address] PCP - GeneralFamily Sidamzwd34/30/11Team MemberRelationshipSpecialtyStart Date End Date Yris Suarez MD [address] [facility] [place] [address] (work) [facility] Oeybxbsk43/30/11 Team Status: Active Member Role Status Dates Yris Suarez MD Primary Care Provider Active Team Status: Inactive Member Role Status Dates Yris Suarez MD Primary Care Provider Active Start: January 09, 2025 End: January 09, 2025Ashwin Alexander DOAttending ProviderActiveStart: January 09, 2025 End: January 09, 2025 Team Status: Active Member Role Status Dates Yris Suarez MD Primary Care Provider Active Start: January 09, 2025 Ashwin Alexander DOAttending ProviderActiveStart: January 09, 2025 Team Status: Active Member Role Status Dates Yris Suarez MD Primary Care Provider Active Start: January 11, 2025 Rebeka Aguilar CMAAttending ProviderActiveStart: January 11, 2025 Team Status: Inactive Member Role Status Dates Yris Suarez MD Primary Care Provider Active Start: January 15, 2025 End: January 15, 2025Goldy Berman ProviderActiveStart: January 15, 2025 End: January 15, 2025 Team Status: Inactive Member Role Status Dates Yris Suarez MD Primary Care Provider Active Start: March 25, 2025 End: March 25, 2025Goldy Berman ProviderActiveStart: March 25, 2025 End: March 25, 2025 INFORMATION SOURCE (unrecogn ized section and content) DATE CREATED AUTHOR 12/25/2022 [facility] DATE CREATED AUTHOR AUTHOR'S ORGANIZ ATION 01/13/2025 [facility] DATE CREATED AUTHOR AUTHOR'S ORGANIZ ATION 01/24/2025 [facility] Goals (unrecognized section and content) Goals may be documented in a n alternate section FOR RECORDS PERTAINING TO PATIENTS WHO ARE [...] BE BASED ON THE PRIMARY CLINICAL RECORDS. [employer] provides no warranty or guarantee of the accuracy or completeness of information in this document.
[2025-08-01 16:25] LABS: Hematocrit 38.8 % (36.0-48.0); Hemoglobin 12.1 g/dL (12.0-16.0); Immature Granulocytes Abs Auto 0.03 10^3/uL (0.00-0.03); Immature Granulocytes Pct Auto 0.5 % (0.0-0.5); Lymphocytes Absolute Auto 0.9 10^3/uL (1.2-3.8); Mean Corpuscular HGB Conc 31.2 g/dL (29.9-35.2); Mean Corpuscular Hemoglobin 30.2 pg (26.7-34.0); Mean Corpuscular Volume 96.8 fL (81.0-99.0); Platelet Count 242 10^3/uL (150-450); Red Blood Count 4.01 10^6/uL (4.20-5.40); White Blood Count 6.3 10^3/uL (4.0-11.0)
[2025-08-01 16:25] LABS: Glucose Urine UA NEGATIVE (NEGATIVE)
[2025-08-01 16:48] LABS: Cast Seen? NONE SEEN #/LPF (NONE SEEN); Crystals Seen? None Seen #/HPF (None Seen); Urine Culture Indicated YES-FRMC
[2025-08-01 16:49] LABS: Alanine Aminotransferase 12 U/L (14-59); Albumin Globulin Ratio 0.4; Albumin Level 2.1 g/dL (3.4-5.0); Alkaline Phosphatase 123 U/L (46-116); Anion Gap 9.8; Aspartate Amino Transferase 12 U/L (15-37); Blood Urea Nitrogen 10.0 mg/dL (7.0-18.0); Calcium 8.7 mg/dL (8.5-10.1); Carbon Dioxide 32.1 mmol/L (21.0-32.0); Chloride 105 mmol/L (98-107); Estimated GFR (African America >60 (>=60 mL/min/1.73m^2); Estimated GFR (Non-African Ame >60 (>=60 mL/min/1.73m^2); Globulin 5.2 g/dL; Glucose 152 mg/dL (74-106); Magnesium 1.9 mg/dL (1.8-2.4); Potassium 3.9 mmol/L (3.5-5.1); Sodium 143 mmol/L (136-145); Thyroid Stimulating Hormone 1.853 uIU/mL (0.358-3.740); Total Protein 7.3 g/dL (6.4-8.2)
== END 2025-08-01 15:51 | disposition home or self-care (01) ==
LOC: LAB 15:52
PROVIDERS: PCP Family Medicine; Visit Provider Family Medicine
DX: R53.83 Other fatigue (principal); I10 Essential (primary) hypertension
CPT/HCPCS: 36415; 80053; 81001; 83735; 84439; 84443; 85025; 87086; 87088; 87186

== ENCOUNTER 2025-08-06 18:29 | Emergency (ER) | payer MEDICARE, OTHER, SELFPAY ==
--- OUTSIDE RECORDS SUMMARY | 2025-08-01 19:33 | XMS_ITS | Continuity of Care Document ---
Author Organization [facility] Address [address] [place] [address] Phone Care Team Providers Care Yarn Wrapper Name Role Phone Yris Woods MD Primary Care Provider Yris Woods MD Attending Provider [phone] Care Teams Patient Care Team Team Status: Active Member Role/Relationship Status Dates Yris Woods MD Primary Care Provider Active Visit Care Team Team Status: Inactive Member Role/Relationship Status Dates Yris Woods MD Primary Care Provider Active Start: August 01, 2025 End: August 01, 2025Yris Woods MDAttending ProviderActiveStart: August 01, 2025 End: August 01, 2025 Patient Care Team Team Status: Inactive Member Role/Relationship Status Dates Yris Woods MD Attending Provider Active St art: August 01, 2025 End: August 01, 2025 [...] MG PO D aily January 14, 2025 11:00pmDecember 2024 3:03pmLosartan 50 mg akshtiEujyrk44RCFW DailyMa2024 11:00pmUnknownAmoxicillin-Pot Clavulanate 875-125 mg tablet Podbrcyhhixv8PTGABWhxfx dailyMay 2024 11:00pmJuly 2024 12:02pm Aspirin 81 mg tablet,delayed release (DR/EC)Mexoiq64SYXRQvkbsKkz 19th, 2025 11:00pmUnknownCoenzyme Q10 (Co Q-10) 100 mg gsimaqrYsldvn116ZECSBnqwlMlx 19th, 2025 11:00pmUnknownMagnesium Oxide 400 mg magnesium bcmptrGhgamq305XOHXEwtrtZbr 2024 11:00pmUnknownBetamethasone Dipropionate 0.05 % ointmentDiscontinued1 APPLICTOPICALTwice dailyDece2024 12:00amDecember 2024 3:03pm FreeTextSi application Externally Twice a day; Note: Source Status: Start; Refills: 0; Qty: 1 Each; Provider: Peggy Khan Immunizations Immunization Event Date Not Given Reason Dose Number Mattress Filler Lot Number Reason(s) Given Vaccine Information Statement (VIS) Detail Administration Location influenza, unspecified formulation June 02, 2015 influenza, unspecified formulationSeptember 2019Pneumococcal Conjugate Vaccine, 13 valentOctober 2014Pneumococcal Polysacc. Vaccine, 23 valent April 30, 2002Tetanus, Diphtheria adult, 5 Lf pres free absSept2011 Procedures Procedure Date Performed Status Urine Culture August 01, 2025 active Relevant Diagnostic Tests and/or Laboratory Data Laboratory Results Test Collection Date/Time Result Date/Time Result Interpretation Reference Range Result Comment Performing Site Urine Culture Reflexed August 01, 2025 4:00pm YES-FRMCFree Thyroxinece2024 4:16pmDecemb2024 4:16pm1.10 ng/dL0.76-1.46Thyroid Stimulating Hormone 3rd GenAugust 01, 2025 4:16pm August 01, 2025 4:16pm1.853 u[iU]/mL0.358-3.740Magnesium LevelAugust 01, 2025 4:16pmDecemb2024 4:16pm1.9 mg/dL1.8-2.4Anion GapAugust 01, 2025 4:16pmDecemb2024 4:16pm9.8Urine Other CastsDece2024 4:00pmNONE SEEN #/LPFNONE SEENAlbumin/Globulin RatioAugust 01, 2025 4:16pmDecemb2024 4:16pm0.4Urine Other CrystalsAugust 01, 2025 4:00pmNone Seen #/HPFNone SeenAlbuminAugust 01, 2025 4:16pmDece2024 4:16pm2.1 g/dLBelow low normal3.4-5.0Urine BacteriaAugust 01, 2025 4:00pmTRACE #/HPFAbnormal (applies to non-numeric results)NONE SEENAlkaline PhosphataseAugust 01, 2025 4:16pm August 01, 2025 4:79ye030 U/LAbove high uwkpvt50-510Fgjdm BilirubinAugust 01, 2025 4:00pmNEGATIVENEGATIVEAlanine Aminotransferase (ALT/SGPT)August 01, 2025 4:16pmDece2024 4:16pm12 U/LBelow low rboofy76-88Zahiv Occult BloodDece2024 4:00pmSMALLAbnormal (applies to non-numeric results) NEGATIVEAspartate Amino Transf (AST/SGOT)August 01, 2025 4:16pmDecemb2024 4:16pm12 U/LBelow low sqhyia64-44Cnmmi AppearanceDece2024 4:00pm SL CLOUDYCLEARBUN/Creatinine RatioDece2024 4:16pmDecemb2024 4:16pm12.0Urine ColorDecemb2024 4:00pmYELLOWYELLOWBlood Urea Nitrogen August 01, 2025 4:16pmDece2024 4:16pm10.0 mg/dL7.0-18.0Urine Glucose (UA)August 01, 2025 4:00pmNEGATIVE mg/dLNEGATIVECalcium LevelDece2024 4:16pmDecemb2024 4:16pm8.7 mg/dL8.5-10.1Urine KetonesDece2024 4:00pmNEGATIVE mg/dLNEGATIVEChloride LevelDece2024 4:16pm August 01, 2025 4:48dr934 mmol/K28-339Bgrea Leukocyte EsteraseDece2024 4:00pmLARGEAbnormal (applies to non-numeric results)NEGATIVECarbon Dioxide LevelDece2024 4:16pmDecemb2024 4:16pm32.1 mmol/LAbove high stbwuf27.0-32.0Urine MucusDecemb2024 4:00pmTRACEAbnormal (applies to non-numeric results)NONE SEENCreatinineDece2024 4:16pmDece2024 4:16pm0.83 mg/dL0.55-1.02Urine NitriteDece2024 4:00pmNEGATIVE NEGATIVEEstimated GFR ()August 01, 2025 4:16pmDecemb2024 4:16pm>60>=60 mL/min/1.73m 2Urine pHDecemb2024 4:00pm6.55.0-9.0 Estimated GFR (Non- AmericanDe2024 4:16pmDecemb2024 4:16pm>60>=60 mL/min/1.73m 2Urine ProteinDecember 2024 4:00pmNEGATIVE mg/dL NEG/TRACEGlobulinDece2024 4:16pmDecember 2024 4:16pm5.2 g/dLUrine RBCDecemb2024 4:78yr9-62 #/HPFAbnormal (applies to non-numeric results) 0-2Glucose LevelDece2024 4:16pmDecember 2024 4:73bd122 mg/dLAbove high wulkce55-652Gcwin Specific GravityDece2024 4:00pm<=1.005Abnormal (applies to non-numeric results)1.005-1.025Potassium LevelDece2024 4:16pmDecemb2024 4:16pm3.9 mmol/L3.5-5.1Urine Squamous Epithelial Cells August 01, 2025 4:00pmFEW #/LPFAbnormal (applies to non-numeric results) NONE/RARESodium LevelDecemb2024 4:16pmDecember 2024 4:55ls047 mmol/D940-117Qibzm UrobilinogenDecemb2024 4:00pm0.2 EU/dL0.2-1.0Total BilirubinDecemb2024 4:16pmDecember 2024 4:16pm0.5 mg/dL0.2-1.0Urine WBCDecemb2024 4:89ci12-51 #/HPFAbnormal (applies to non-numeric results)NONE SEENTotal ProteinDecemb2024 4:16pmDecember 2024 4:16pm 7.3 g/dL6.4-8.2 Vital Signs Vital Reading Result Reference Range Collection Date/Time Height 61 [in_i] August 01, 2025 3:02fhKqohgd48.52 kgDecemb2024 3:01pmHeart Doyr909 /fpm20-529WoofuzenAugust 01, 2025 3:01pmBP Qqyutgli920 mm[Hg]100-140Dece2024 3:01pmBP Tbxcrcuzv95 mm[Hg]60-100Decemb2024 3:01pmBMI (Body Mass Index)22.3 kg/a8TclosbikAugust 01, 2025 3:01pm Advance Directives Advance Directive Response Recorded Date/ Time Advance Directives No July 7:32am Insurance Providers Guarantor Morelia Roque Address [address] [place], [place] [address]Contact Info.Home Phone: Coverage Status Update:2025 Payer Group Member ID Coverage Type Subscriber Relationship to Subscriber Effective Date Expiration Date Medicare [id number] Hahn Id: [id number] [address] [place] [address] Home Phone: [facility] [employer] [id number] Hahn Id: [id number] [address] [place] [address] Home Phone: Self Encounters Encounter Location(s) Arrival/Admit Date Discharge/Departure Date Discharge/Departure Disposition Provider(s) Departed Physician/ Provider Office Visit -[facility] August 01, 2025 2:46pm August 01, 2025 3:36pm Discharged to home care or self care (routine discharge) Yris Woods MD Departed Referred -[facility] August 01, 2025 4:48pm August 01, 2025 4:49pm Discharged to home care or self care (routine discharge) Yris Woods MD Recent Diagnosis Onset Date Admit Date Benign essential HTN Unknown July 2:46pm Fatigue Unknown August 01 2:46pm Assessments Diagnosis Onset Date Resolution Status Admit Date Benign essential HTN acuteDe2024 2:46pmFatigueacuteDece2024 2:46pm Plan of Treatment Future Tests Future scheduled test information is unavailable Pending Tests Test Name Ordered Date Scheduled Date Urine Culture August 01, 2025 4:48pm Comprehensive Met[facility] PanelDemymichigan medical centerer 2024 3:25pm Future Visits Future appointment information is unavailable Future Procedures Procedure Name Ordered Date Scheduled Date Urine Culture August 01, 2025 8:49pm Decemb er 2024 4:48pm Complete Blood Count Auto Diff August 01 3:25pm [facility] 2024 3:25pmMagnesiumDeceer 2024 3:25pmThyroid Stim Hormone w/RflxDeceer 2024 3:25pmUrinalysisDeceer 2024 3:25pm Future Medications Future medication information is unavailable Patient Instructions Patient instructions are unavailable
[2025-08-06 18:39] VITALS: BP 135/73; PULSE 100; TEMP 36.7; O2SAT 94; BMI 22.3
--- NOTE | 2025-08-06 18:44 | ECG_ITS ---
[facility] Test Date: 2025-08-06 Pat Name: HEMAL NASCIMENTO Department: Room: - Gender: Female Clod Puller: : [id number] Requested By: [id number] Order Number: [id number] Reading MD: YANICK REYES M.D. Measurements Intervals [place] Rate: 111 P: 67 CT: 142 QRS: 260 QRSD: 80 T: 70 QT: 312 QTc: 378 Interpretive Statements 1120 Sinus tachycardia 1470 with occasional supraventricular premature complexes 3113 Cannot rule out anterior myocardial infarction, probably old 3633 Inferior myocardial infarction, probably old 5120 Possible right ventricular hypertrophy 9150 abnormal ECG Compared to ECG 07/28/2024 20:40:41 Left-axis deviation no longer present Myocardial infarct finding still present Electronically Signed On 08-06-2025 20:05:30 EST by YANICK ERYES M.D.
[2025-08-06 18:52] VITALS: PULSE 111
[2025-08-06 18:58] LABS: Hematocrit 39.0 % (36.0-48.0); Hemoglobin 12.6 g/dL (12.0-16.0); Mean Corpuscular HGB Conc 32.3 g/dL (29.9-35.2); Mean Corpuscular Hemoglobin 30.9 pg (26.7-34.0); Mean Corpuscular Volume 95.6 fL (81.0-99.0); Platelet Count 241 10^3/uL (150-450); Red Blood Count 4.08 10^6/uL (4.20-5.40); White Blood Count 7.0 10^3/uL (4.0-11.0)
[2025-08-06 19:15] LABS: Lymphocytes Absolute Manual 1.12 10^3/uL (1.20-3.80); Lymphocytes Percent Manual 16.0 % (20.5-60.0); Segmented Neut Absolute Manual 5.46 10^3/uL (1.4-6.5); Segmented Neutrophils % Manual 78.0 (43.0-75.0)
[2025-08-06 19:16] LABS: Basophils Abs Manual 0.00 10^3/uL (0.00-0.10); Basophils Percent Manual 0.0 % (0.2-2.0); Eosinophils Absolute Manual 0.14 10^3/uL (0.00-0.70); Eosinophils Percent Manual 2.0 % (0.9-7.0); Monocytes Absolute Manual 0.28 10^3/uL (0.30-0.80); Monocytes Percent Manual 4.0 % (1.7-12.0)
[2025-08-06 19:17] LABS: Alanine Aminotransferase 13 U/L (14-59); Albumin Globulin Ratio 0.4; Albumin Level 2.3 g/dL (3.4-5.0); Alkaline Phosphatase 105 U/L (46-116); Anion Gap 9.4; Aspartate Amino Transferase 16 U/L (15-37); Blood Urea Nitrogen 13.0 mg/dL (7.0-18.0); Calcium 8.6 mg/dL (8.5-10.1); Carbon Dioxide 25.2 mmol/L (21.0-32.0); Chloride 102 mmol/L (98-107); Estimated GFR (African America >60 (>=60 mL/min/1.73m^2); Estimated GFR (Non-African Ame >60 (>=60 mL/min/1.73m^2); Globulin 5.2 g/dL; Glucose 132 mg/dL (74-106); Potassium 3.6 mmol/L (3.5-5.1); Sodium 133 mmol/L (136-145); Total Protein 7.5 g/dL (6.4-8.2)
[2025-08-06 19:20] LABS: Lactate/Lactic Acid 2.2 mmol/L (0.4-2.0)
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
--- OUTSIDE RECORDS SUMMARY | 2025-08-06 19:44 | XMS_ITS | CCD ---
Author Organization [facility] Care Team Providers Care Safety Associate Name Role Phone Yris Suarez MD Primary [...] Care Provider Ashwin Alexander DO Attending Provider [phone] Rebeka Aguilar CMA Attending Provider UnavailYris Mcduffie MD Attending Provider Medications Current Medications MedicationDrug Class(es)DatesSig (Normalized)Sig (Original)aspirin 81 mg delayed release oral tablet (16 sources)Platelet Aggregation Inhibitor, Nonsteroidal Anti-inflammatory Drug Start: 88-12-1879dyyn 1 tablet by mouth once dailyAspirin 81 [...] mg oral tablet (19 sources)HMG-CoA Reductase InhibitorStart: 81-85-5369pczi 1 tablet by mouth once dailyAtorvastatin 40 mg tablet Active 40 MG PO Daily January 15, 2025 12:00am Complies with drug therapyStart: 05-29-2021 End: 45-12-1035qaee 1 tablet by mouth once dailyatorvastatin (LIPITOR) 40 mg tablet Indications: Mixed hyperlipidemia Take 1 tablet by mouth once daily. 90 tablet 3 06/15/2024 ActiveComment on above:Take 1 tablet by mouth once daily. betamethasone 0.0005 mg/mg topical ointment (2 sources)CorticosteroidStart: 79-73-3360Vexidouwjdqhh Dipropionate 0.05 % 1 application Externally Twice a day for 14 days Aug, Activehydrocortisone 10 mg/ml / neomycin 3.5 mg/ml / polymyxin b 07431 unt/ml otic suspension (2 sources)Aminoglycoside Antibacterial, Polymyxin-class Antibacterial, CorticosteroidStart: 86-46-2463Dvwighzd-Polymyxin-HC 3.5-47601-6 4 drops into affected ear Otic Three times a day for 7 days Aug, Activelosartan potassium 50 mg oral tablet (8 sources)Angiotensin 2 Receptor BlockerStart: 26-88-8124wtce 1 tablet by mouth once dailyLosartan 50 mg tablet Active 50 MG PO Daily January 15, 2025 12:00am Complies with drug therapyStart: 02-21-2024 End: 16-86-9180ovco 1 tablet by mouth once dailylosartan (COZAAR) 50 mg tablet Indications: Primary hypertension Take 1 tablet by mouth once daily.90 tablet 3 06/15/2024 ActiveStart: 11-18-2023 End: 25-03-0311ivbh 1 tablet by mouth once dailylosartan (COZAAR) 25 mg tablet Indications: Primary hypertension Take 1 tablet by mouth once daily.90 tablet 3 11/18/2023 02/21/2024 DiscontinuedComment on above:Take 1 tablet by mouth once daily.magnesium oxide 400 mg oral tablet (19 sources)Start: 64-17-1982odmk 1 tablet by mouth once dailyMagnesium Oxide 400 mg magnesium tablet Active 400 MG PO Daily January 15, 2025 12:00am Complies withdrug therapyStart: 05-29-2021 End: 21-63-3795rxix 1 tablet by mouth once dailymagnesium oxide (MAG-OX) 400 mg (241.3 mg magnesium) tablet Indications: Hypomagnesemia , Low magnesium level Take 1 tablet by mouth once daily. 90 tablet 3 06/15/2024 ActiveComment on above:Take 1 tablet by mouth once daily.24 hr metoprolol succinate 25 mg extended release oral tablet (1 source)beta-Adrenergic BlockerStart: 44-72-7133lkzq 0.5 tablet by mouth once dailymetoprolol succinate ER (TOPROL XL) 25 mg 24 hr tablet Indications: Primary hypertension Take 0.5 tablets by mouth once daily. 45 tablet 3 06/15/2024 Active ubidecarenone 100 mg oral capsule (19 sources)Start: 73-27-6547Fykdokpa Q10 (Co Q-10) 100 mg capsule Active 100 MG PO Daily January 15, 2025 12:00am Complies with drug therapyStart: 05-29-2021 End: 60-76-4797hafi 1 capsule by mouth once dailycoenzyme Q10 (COQ-10) 100 mg cap capsule Indications: Mixed hyperlipidemia Take 1 capsule by mouth once daily. 90 capsule 3 06/15/2024 ActiveCoenzyme Q-10 100 MG as directed Orally Not-TakingComment on above:Take 1 capsule by mouth once daily. Completed/Discontinued Medications MedicationDrug Class(es)DatesSig (Normalized)Sig (Original)amoxicillin 875 mg / clavulanate 125 mg oral tablet (1 source)Penicillin-class AntibacterialStart: 01-15-2025 End: 20-88-2820xvdf 1 tablet by mouth twice dailyAmoxicillin-Pot Clavulanate 875-125 mg tablet Discontinued 1 TAB PO Twice daily January 15, 2025 12:00am March 25, 2025 1:02pm Problems Active Problems Problem ClassificationProblemDateDocumented DateEpisodic/ChronicAllergic reactions (3 sources)Atopic dermatitis; Translations: [Intrinsic (allergic) eczema]Chronic Cancer of breast (17 sources)Malignant neoplasm of upper-outer quadrant of female breast; Translations: [Malignant neoplasm of upper-outer quadrant of left female breast] Onset: 86-00-4882GgunyufUuuojm of breast (2 sources)History of malignant neoplasm of breast; Translations: [Personal history of malignant neoplasm of breast]54-13-3196ChaiduwhNxdava of colon (13 sources)Malignant tumor of colon; Translations: [Malignant neoplasm of colon, unspecified]Onset: 111671-33-7780BhxnkatNjwiwtkhc of lipid metabolism (20 sources)Mixed hyperlipidemia; Translations: [Mixed hyperlipidemia]Onset: 629680-89-0535HpmpxbjLtlvprykhgcrtv and diverticulitis (2 sources)Diverticulitis of intestine; Translations: [Diverticulitis of intestine, part unspecified, without perforation or abscess without bleeding] 95-53-7362LaqjxboDdlyjoqdxl disorders (1 source)Gastro-esophageal reflux disease without esophagitis; Translations: [GERD WITHOUT ESOPHAGITIS]Onset: 40-86-3736QskatlvHofwmuqhc hypertension (6 sources)Essential hypertension; Translations: [Essential (primary) hypertension]98-91-1461BkufiurWvcsm and electrolyte disorders (2 sources)Hypokalemia; Translations: [Hypokalemia]31-27-4156ByipsfivHhvnmuhwd or stenosis of precerebral arteries (6 sources)Bilateral stenosis of carotid arteries; Translations: [Occlusion and stenosis of bilateral carotid arteries]ChronicOther aftercare (3 sources)Drug therapy finding; Translations: [Encounter for therapeutic drug level monitoring]EpisodicOther aftercare (1 source)Long-term current use of drug therapy; Translations: [Encounter for therapeutic drug level monitoring]92-69-8717TqxhkhwyGopon circulatory disease (5 sources)Elevated blood-pressure reading without diagnosis of hypertension; Translations: [Elevated blood-pressure reading, without diagnosis of hypertension]EpisodicOther ear and sense organ disorders (2 sources)Acute actinic otitis externa, left earEpisodicOther nutritional; endocrine; and metabolic disorders (7 sources)Hypomagnesemia; Translations: [Hypomagnesemia]ChronicOther screening for suspected conditions (not mental disorders or infectious disease) (5 sources)Encounter for screening mammogram for malignant neoplasm of breast; Translations: [Hypomagnesemia]Onset: 33-52-7506CwzscgcvDhjrh upper respiratory infections (6 sources)Chronic pansinusitis; Translations: [Chronic sinusitis, unspecified] Onset: 95-37-9102OomfqggYhgcivjk codes; unclassified (1 source)Family history of malignant neoplasm of trachea, bronchus and lung; Translations: [FAM HX MALIG NEOPLSM TRACH BRON LNG]Onset: 72-33-2758Grajisnc Screening and history of mental health and substance abuse codes (6 sources)Ex-smoker; Translations: [Personal history of nicotine dependence] Onset: 87-69-6952Xrkmxuft Past or Other Problems Problem ClassificationProblemDateDocumented DateEpisodic/ChronicConditions associated with dizziness or vertigo (4 sources)Dizziness and giddiness; Translations: [DIZZINESS AND GIDDINESS] Onset: 45-68-4855AmdjpipdPbrxn aftercare (1 source)Other joint terminal attack controller (current) drug therapy; Translations: [OTH VENDING MECHANIC CURRENT DRUG THERAPY]Onset: 91-83-4246ConajlsmIycjj aftercare (1 source)terminal system operator (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) use of aspirin; Translations: [LONG-TERM CURRENT USE OF ASPIRIN]Onset: 23-72-0704WpzvaancZlqns eye disorders (3 sources)Ocular pain, right eye; Translations: [OCULAR PAIN RIGHT EYE]Onset: 22-43-5932WcpnrgbbQqjgg upper respiratory disease (1 source)Cyst and mucocele of nose and nasal sinus; Translations: [CYST AND MUCOCELE NOSE AND NASAL SINUS]Onset: 51-83-5959WppavmunVvwypnd tract infections (1 source)Urinary tract infection, site not specified; Translations: [UTI SITE NOT SPECIFIED]Onset: 27-75-3154Kqvhftkp Results Test NameValueInterpretationReference RangeFacilityCNPNon 16-54-5911FWUY Telephone (RADTSA) ROQUEMORELIA TURK ([id number]) 1935 F Date Time Provider Department 01/17/25 [...] to December 2025 and schedule mamm[facility] to follow up? Dr. 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, Z17.0] Order(s):[facility] DIAGNOSTIC BILATERAL [[id number]] Order #: [id number] FUTURE Prescriptions as of 01/18/2025 - magnesium [...] 05/29/2021 Encounter Status:Closed by MICHAEL JENSEN on 01/18/25[facility] HospitalEstimated glomerular filtration rate (GFR) non- Americanon 99-30-2892DWF/1.73 sq M.predicted among non-blacks MDRD (S/P/Bld) [Vol rate/Area]59 mL/min/{1.73_m2}Low>=60 mL/min/1.73m 2FVan Wert County HospitalLaboratory - Chemistry and Chemistry - challengeon 70-91-6959Cejrwko [Mass/Vol]9.1 mg/dL8.5-10.1FVan Wert County HospitalChloride [Moles/Vol] 104 mmol/F58-765FuipaxphlCleveland Clinic Children'S Hospital For RehabilitationCO2 [Moles/Vol]30.1 mmol/L 21.0-32.0[facility] For RehabilitationCreatinine [Mass/Vol]0.90 mg/dL 0.55-1.02[facility] RehabilitationGFR/1.73 sq M.predicted MDRD (S/P/Bld) [Vol rate/Area]mL/min/{1.73_m2}>=60 mL/min/1.[address]m [address] [place], [place] [address]Glucose [Mass/Vol]106 mg/gK55-398RstzxttenCleveland Clinic Children'S Hospital For Rehabilitation Potassium [Moles/Vol]3.7 mmol/L3.5-5.1FUniversity Hospitals Lake West Medical Centerodium [Moles/Vol]143 mmol/E441-121MmiwnualxCleveland Clinic Children'S Hospital For RehabilitationUrea nitrogen [Mass/Vol]12.0 mg/dL7.0-18.0[facility] For RehabilitationUrea nitrogen/Creatinine [Mass ratio]13.3 mg/mgTrinity Health System Twin City Medical Centererum or plasma anion gap determinationon 63-60-5484Tzrcx gap [Moles/Vol]12.6 mmol/L [facility] For RehabilitationBasophils Auto (Bld) [#/Vol]on 01-09-2025 Basophils (Bld) [#/Vol]0.0 10 3/uL0.0-0.1FVan Wert County Hospital Basophils/100 WBC Auto (Bld)on 00-31-8051Msgsbllhx/100 WBC (Bld)0.2 %0.2-2.0 [facility] For RehabilitationEosinophils/100 WBC Auto (Bld)on 01-09-2025 Eosinophils/100 WBC (Bld)1.0 %0.9-7.0[facility] Erythrocyte distribution width Auto (RBC) [Ratio]on 89-77-5951Wwmigasqaxf distribution width (RBC) [Ratio]13.3 %11.0-15.0[facility] Estimated glomerular filtration rate (GFR) non- Americanon 01-09-2025 GFR/1.73 sq M.predicted among non-blacks MDRD (S/P/Bld) [Vol rate/Area]49 mL/min/{1.73_m2}Low>=60 mL/min/1.73m 2FVan Wert County HospitalGlobulin Calc (S) [Mass/Vol]on 73-61-2535Erifmfnj (S) [Mass/Vol]4.9 g/dLCleveland Clinic Children'S Hospital For RehabilitationHematocrit Auto (Bld) [Volume fraction]on 01-09-2025 Hematocrit (Bld) [Volume fraction]39.4 %36.0-48.0[facility] For RehabilitationHemoglobin [Mass/volume] in Bloodon 25-00-6700Ufigpgbfhc (Bld) [Mass/Vol] 12.5 g/dL12.0-16.0[facility] RehabilitationLaboratory - Chemistry and Chemistry - challengeon 20-19-5141Rkjgxzt [Mass/Vol]2.9 g/dLLow3.4-5.0[facility] For RehabilitationALP [Catalytic activity/Vol]114 U/Z92-134SjqtdpadvCleveland Clinic Children'S Hospital For RehabilitationALT [Catalytic activity/Vol]11 U/EUqi20-39Uioiwpoqf Regional Medical CenterAmylase [Catalytic activity/Vol]36 U/G51-941KldcaxoqzCleveland Clinic Children'S Hospital For RehabilitationAST [Catalytic activity/Vol]12 U/HGsm04-70VdteaxsiuCleveland Clinic Children'S Hospital For RehabilitationBilirubin [Mass/Vol]0.5 mg/dL0.2-1.0[facility] For RehabilitationBilirubin.direct [Mass/Vol]0.1 mg/dL0.0-0.2FVan Wert County HospitalCalcium [Mass/Vol]9.3 mg/dL8.5-10.1FVan Wert County HospitalChloride [Moles/Vol]103 mmol/A10-610DzosadqbqCleveland Clinic Children'S Hospital For RehabilitationCO2 [Moles/Vol]29.1 mmol/L21.0-32.0[facility] RehabilitationCreatinine [Mass/Vol]1.05 mg/dLHigh0.55-1.02[facility] RehabilitationGFR/1.73 sq M.predicted MDRD (S/P/Bld) [Vol rate/Area]60 mL/min/{1.73_m2}>=60 mL/min/1.73m 2 [facility] For RehabilitationGlucose [Mass/Vol]137 mg/hQActo26-755AuziuhluuCleveland Clinic Children'S Hospital For RehabilitationLipase [Catalytic activity/Vol]14.0 U/LLow16.0-77.0 [facility] For RehabilitationPotassium [Moles/Vol]2.9 mmol/LCritically low 3.5-5.1FVan Wert County HospitalComment on above:RESULTS CALLED TO DR. ALEXANDERProtein [Mass/Vol]7.8 g/dL6.4-8.2FUniversity Hospitals Lake West Medical Centerodium [Moles/Vol]141 mmol/A599-232SzzqbyvcvCleveland Clinic Children'S Hospital For RehabilitationUrea nitrogen [Mass/Vol]15.0 mg/dL7.0-18.0[facility] For RehabilitationUrea nitrogen/Creatinine [Mass ratio]14.3 mg/mgCleveland Clinic [facility] Hospital For Rehabilitation Bilirubin Ql (U)SMALLAbnormalNEGATIVECleveland Clinic Children'S Hospital For RehabilitationGlucose (U) [Mass/Vol]NegativeNEGATIVECleveland Clinic Children'S Hospital For RehabilitationKetones Ql (U)15 mg/dLAbnormalNEGATIVECleveland Clinic Children'S Hospital For RehabilitationpH (U)5.5 [pH]5.0-9.0 [facility] Twin City Medical Centerpecific gravity (U) [Rel density]>=1.030 Abnormal1.005-1.025[facility] For RehabilitationUrobilinogen Qn (U)2.0 {Katlin'U}/dLAbnormal0.2-1.0[facility] For RehabilitationLaboratory - Hematology and Cell countson 82-23-0381Cyibqmsx granulocytes/100 WBC (Bld)0.3 % 0.0-0.5FVan Wert County HospitalLaboratory - Specimen informationon 52-27-5680Wezyqoihmk (U)CLEARCLEARFVan Wert County HospitalColor (U)DK. ORANGEYELLOWCleveland Clinic Children'S Hospital For RehabilitationLaboratory - Urinalysison 50-29-9850Ohnxklejq esterase Test strip Ql (U)TRACEAbnormalNEGATIVECleveland Clinic Children'S Hospital For RehabilitationMucus Ql (Urine sed)NONE SEENNONE SEENCleveland Clinic Children'S Hospital For RehabilitationNitrite Ql (U)NegativeNEGATIVECleveland Clinic [facility] Protein Ql (U)30 mg/dLAbnormalNEG/TRACECleveland Clinic [facility] Leukocytes [#/volume] corrected for nucleated erythrocytes in Blood by Automated counon 53-18-5818VLK corrected for nucl RBC Auto (Bld) [#/Vol]9.4 10 3/uL 4.0-11.0[facility] For RehabilitationLymphocytes Auto (Bld) [#/Vol]on 38-16-5383Ycnjpkhczrt (Bld) [#/Vol]0.8 10 3/uLLow1.2-3.8[facility] For RehabilitationLymphocytes/100 WBC Auto (Bld)on 23-91-2059Zhpwdgfwagv/100 WBC (Bld)8.4 %Low20.5-60.0[facility] For RehabilitationMCH Auto (RBC) [Entitic mass]on 91-62-4729PEF (RBC) [Entitic mass]29.2 pg26.7-34.0[facility] For RehabilitationMCHC Auto (RBC) [Mass/Vol]on 22-89-2264JFVI (RBC) [Mass/Vol]31.7 g/dL29.9-35.2FVan Wert County HospitalMCV Auto (RBC) [Entitic vol]on 48-14-0123FHO (RBC) [Entitic vol]92.1 fL81.0-99.0[facility] For RehabilitationMonocytes Auto (Bld) [#/Vol]on 34-98-0078Hbtmrfpww (Bld) [#/Vol]0.4 10 3/uL0.3-0.8[facility] For RehabilitationMonocytes/100 WBC Auto (Bld)on 88-37-5206Pqhwvpgdd/100 WBC (Bld)4.0 %1.7-12.0[facility] Neutrophils Auto (Bld) [#/Vol]on 99-63-4064Srvakwvdimm (Bld) [#/Vol]8.1 10 3/uL High1.4-6.5FVan Wert County HospitalNeutrophils/100 WBC Auto (Bld)on 75-11-7871Mjvnsiljdfk/100 WBC (Bld)86.1 %High43.0-75.0[facility] For RehabilitationNo Panel Informationon 94-38-4329Jsrtrggkxxu # (Auto)0.1 10 3/uL0.0-0.7 [facility] For RehabilitationImmature Granulocyte # (Auto)0.03 10 3/uL 0.00-0.03[facility] For RehabilitationUrine BacteriaSMALL #/HPFAbnormalNONE [facility] TroyUrine Calcium Oxalate CrystalsMODERATE [facility] For RehabilitationUrine Culture ReflexedYES-FRTrinity Health SystemUrine Occult BloodNegativeNEGATIVECleveland Clinic Children'S Hospital For RehabilitationUrine Other CastsNONE SEEN #/LPFNONE [facility] TroyUrine Other CrystalsSeen #/HPFAbnormalNone [facility]. [facility] CenterUrine RBCNONE SEEN #/HPF0-2FVan Wert County HospitalUrine Squamous Epithelial CellsMODERATE #/LPFAbnormalNONE/RARECleveland Clinic Children'S Hospital For RehabilitationUrine WBC0-2 #/HPFAbnormalNONE [facility] TroyPlatelet mean volume Auto (Bld) [Entitic vol]on 16-29-9205Wfclwkjt mean volume (Bld) [Entitic vol]9.0 fLLow9.5-13.5FVan Wert County Hospital Platelets Auto (Bld) [#/Vol]on 10-33-6812Wrzlnpine (Bld) [#/Vol]301 10 3/uL 150-450C[facility] For RehabilitationRBC Auto (Bld) [#/Vol]on 11-22-6894LVU (Bld) [#/Vol]4.28 10 6/uL4.20-5.40Tr[facility] Twin City Medical Centererum or plasma albumin/globulin mass ratioon 28-55-0825Mymxbqd/Globulin [Mass ratio]0.6 {ratio}[facility] City Medical Centererum or plasma anion gap determination on 47-92-6244Rnzly gap [Moles/Vol]11.8 mmol/LFVan Wert County Hospital Urine Cultureon 48-67-2616Iehurfes identified Cx Nom (U)75,000 colonies/ml mixed bacterial skin contaminants including mixed gram negative bacilli - 2 Days PERFORMED BY: [place] [address] PATHOLOGIST METHODS TIME ANALYST JIN BROWN M.D.NormalThe Unc Health [facility] Ridge - Morganton Physician GroupComment on above: Performed By: #### CUU #### [address] Nguyen StreetUrine cultureOrdered By: Ashwin Alexander on 01-09-2025 Bacteria identified Cx Nom (U)bacilli - 2 DaysCleveland Clinic Children'S Hospital For Rehabilitation CNOVon 41-24-4773VGNAUetdlg Visit ([facility]) MORELIA ROQUE ([id number]) 1935 F Date Time Provider Department 06/15/24 1:30 PM KIAN MONET During your visit today, we recorded the following information about you: Pulse Blood pressure Weight 92/minute 153/74 65 kg Kian Monet DO 06/15/2024 2:02 PM Signed [facility] [place] SECTION OF REGIONAL CARDIOLOGY OUTPATIENT VISIT DATE 06/15/24 OUTPATIENT VISIT TYPE Established PRIMARY CARE PHYSICIAN: Yris Suarez MD ([facility]) [facility] [place] [address] HISTORY OF PRESENT ILLNESS: Ms. Roque is [...] is normal. 6. Right (more content not included)...NormalUniversity Hospitals Health System metabolic 2000 panelon 88-90-9049Ntohm gap [Moles/Vol]9 mmol/LNormal8-15 [facility] on above:Order Comment: Specimen Type: BLOOD SPECIMEN Ordering Facility: [facility] Address: [address] [place], [place] [address]Performed By: #### 43715-5, 01161-4 #### [facility] CLIA [id number] [address] [place] [address] 97375Ixngpkp [Mass/Vol]9.7 mg/dLNormal8.5-10.2CProvidence HospitalCommclaren bay region on above:Order Comment: Specimen Type: BLOOD SPECIMEN Ordering Facility: [facility] Address: [address] [place], [place] [address]Performed By: #### 70219-5, 61155-5 #### [facility] CLIA [id number] [address] [place] [address] 12884Jjmlcmte [Moles/Vol]105 mmol/TQvdmcx22-520LbqgtmubyDayton Osteopathic Hospital on above:Order Comment: Specimen Type: BLOOD SPECIMEN Ordering Facility: [facility] Address: [address] [place], [place] [address]Performed By: #### 66438-7, 92614-9 #### [facility] CLIA [id number] [address] [place] [address] 31674WA2 [Moles/Vol]25 mmol/NHykocw31-46TgqoircygSamaritan Hospital Comment on above:Order Comment: Specimen Type: BLOOD SPECIMEN Ordering Facility: [facility] Address: [address] [place], [place] [address]Performed By: #### 92647-5, 01855-9 #### [facility] CLIA [id number] [address] [place] [address] 86749Aynmawncfb [Mass/Vol]0.81 mg/dLNormal0.58-0.96Samaritan HospitalComment on above:Order Comment: Specimen Type: BLOOD SPECIMEN Ordering Facility: [facility] Address: [address] [place] [address] 10767Ngfwmikzy By: #### 73537-5, 36248-4 #### [facility] CLIA [id number] [address] [place] [address] 81238Vgtnmkyowk and Glomerular filtration rate.predicted panel (S/P/Bld)70 mL/min/1.73m???Normal>=60[facility] on above: Order Comment: Specimen Type: BLOOD SPECIMEN Ordering Facility: [facility] Address: [address] [place] [address] 45642Obaxsf Comment: Estimated Glomerular Filtration Rate (eGFR) is [...] not accurately reflect actual GFR.Performed By: #### 63405-6, 50377-2 #### [facility] CLIA [id number] [address] [place] [address] 81795Nhqnwbd [Mass/Vol]108 mg/tBEcug44-12FnnluncquSamaritan Hospital Comment on above:Order Comment: Specimen Type: BLOOD SPECIMEN Ordering Facility: [facility] Address: [address] [place] [address] 76593Ocyoao Comment: The [place] [employer] (ADA) [...] [place] [employer]. Diabetes Care. 2016.39(Suppl 1).Performed By: #### 75048-4, 08755-5 #### [facility] CLIA [id number] [address] [place] [address] 55348Oivfinnwd [Moles/Vol]4.0 mmol/LNormal3.7-5.1CRegency Hospital Company on above:Order Comment: Specimen Type: BLOOD SPECIMEN Ordering Facility: [facility] Address: [address] [place], [place] [address]Performed By: #### 92210-3, 72483-3 #### [facility] CLIA [id number] [address] [place] [address] 16936Zieugp [Moles/Vol]139 mmol/NHmmmug611-883IkyfqjbvqDayton Osteopathic Hospital on above:Order Comment: Specimen Type: BLOOD SPECIMEN Ordering Facility[facility] Address: [address] [place], [place] [address]Performed By: #### 43313-0, 10333-4 #### [facility] CLIA [id number] [address] [place] [address] 15024Bbds nitrogen [Mass/Vol]16 mg/dLNormal7-21[facility] on above:Order Comment: Specimen Type: BLOOD SPECIMEN Ordering Facility: [facility] Address: [address] [place], [place] [address]Performed By: #### 92643-0, 54375-1 #### [facility] CLIA [id number] [address] [place] [address] 18171Jcpdgwqly SerPl-mCncon 01-61-5980Xjjnjotcn [Mass/Vol]2.2 mg/dL Normal1.7-2.3CRegency Hospital Company on above:Order Comment: Specimen Type: BLOOD SPECIMEN Ordering Facility: [facility] Address: [address] [place], [place] [address]Performed By: #### 26754-5, 35376-1 #### [facility] CLIA [id number] [address] [place], [place] [address]LLUXjn 88-94-7582WOPYXudiik Visit ([facility]) MORELIA ROQUE ([id number]) 1935 F Date Time Provider Department 02/21/24 1:30 PM KIAN MONET [facility] During your visit today, we recorded the following information about you: Pulse Blood pressure Weight 86/minute 152/62 64 kg Kian Monet DO 02/21/2024 2:21 PM Signed [facility] [place] SECTION OF REGIONAL CARDIOLOGY OUTPATIENT VISIT DATE 02/21/24 OUTPATIENT VISIT TYPE Established PRIMARY CARE PHYSICIAN: Yris Suarez MD ([facility]) [address] [place] [phone] HISTORY OF PRESENT ILLNESS: Ms. Roque is [...] ventricular systolic function is (more content not included)...NormalCleWyandot Memorial Hospital COMPLETEon 99-77-6524Tfkzzu Rate84 BPMCleveland ClinicCalculated P Axis78 degreesCleveland ClinicCalculated R [place]-55 degreesCleveland ClinicCalculated T Axis70 degrees Pike ClinicP-R Ryggiihc006 msCleveland ClinicQRS Vowtqbrc41 msCleveland ClinicQT Nkdjzaro411 msCleveland ClinicQTC Calculation (Bazett)446 msCleveland ClinicVentricular Rate84 BPMTriHealth Good Samaritan Hospital COMPLETEon 13-33-2121Oiicus Rate 93 BPMCleveland ClinicCalculated P Axis77 degreesCleveland ClinicCalculated R [place]-49 degreesCleveland ClinicCalculated T Axis66 degreesCleveland ClinicP-R Kbxjrucw730 msCleveland ClinicQRS Magbeesd89 msCleveland ClinicQT Chhyrbat323 ms Gardner ClinicQTC Calculation (Bazett)455 msCleveland ClinicVentricular Rate93 BPMMercy HealthMG MAMM SCREEN 3D ZEKE CADon 52-93-1077KW MAMM SCREEN 3D ZEKE CADPatient: MARGARITA ROQUEANOR Kellee Exam Date: 12/20/2022 : 1935 Gender:F Ordering : DR YRIS SUAREZ M.D. Admission #: [id number] Family : DR. KURT CONDON M.D. Order #: [id number] CLICK HERE TO VIEW EXAM RADIOLOGY REPORT [...] lung cancer at age 66. LOCATION: [facility] BREAST COMPOSITION: Scattered areas fibroglandular density. [...] on 12/20/2022 at 15:27 Approved by: Xu Chavez MD on 12/20/2022 at 15:29[facility] SystemXR SINUSES 3 VIEWS OR GREATERon [id number] SINUSES 3 VIEWS OR GREATEREXAMINATION: XR SINUSES [...] Right maxillary sinus disease Electronically authenticated by: UX CHAVEZ Date: 2022-04-26 11:58[facility] SystemCULTURE URINEon [id number] URINEIsolate 1 Klebsiella pneumoniae >100,000 cfu/mL of [...] 65 I F Trimethoprim/Sulfamethoxazole <=20 S FNormalThe [facility] HospitalComment on above:Performed By: #### URCX #### [facility] [address] [place] [address] Dr. Schuyler Patrick [id number] peptide B (Bld) [Mass/Vol]259.0 pg/mL Normal<=1,800.0The [facility] HospitalComment on above:Performed By: #### BNP, HSTROPN, CMP #### [facility] [address] [place] [address] Dr. Schuyler Sahu W MANUAL DIFFon [id number] LYMPH #NormalThe [facility] HospitalComment on above:Performed By: #### BNP, HSTROPN, CMP #### [facility] [address] [place] [address] Dr. Schuyler BlancaICAL LYMPH %NormalGrant Hospitalment on above: Performed By: #### BNP, HSTROPN, CMP #### [facility] [address] [place] [address] Dr. Schuyler Basilio #Normal0.0-0.3The [facility] HospitalComment on above: Performed By: #### BNP, HSTROPN, CMP #### [facility] [address] [place] [address] Dr. Schuyler Basilio %Normal0-5The [facility] HospitalComment on above:Performed By: #### BNP, HSTROPN, CMP #### [facility] [address] [place] [address] Dr. Schuyler Mccann #0.00 103/ulNormal0.00-0.10The [facility] HospitalCommclaren bay region on above:Performed By: #### BNP, HSTROPN, CMP #### [facility] [address] [place] [address] Dr. Schuyler Mccann %0.0 %Critically low0.2-2.0The [facility] HospitalComment on above:Performed By: #### BNP, HSTROPN, CMP #### [facility] [address] [place] [address] Dr. Schuyler Guadalupe #NormalThe [facility] HospitalComment on above:Performed By: #### BNP, HSTROPN, CMP #### [facility] [address] [place] [address] Dr. Schuyler Guadalupe %NormalThe [facility] HospitalComment on above:Performed By: #### BNP, HSTROPN, CMP #### [facility] [address] [place] [address] Dr. Schuyler FieldsCORRECTED WBCNormal4.0-11.0The [facility] HospitalCommclaren [facility] region on above: Performed By: #### BNP, HSTROPN, CMP #### [facility] [address] [place] [address] Dr. Schuyler Garcia #0.07 103/ulNormal0.00-0.70The [facility] HospitalCommclaren [facility] region on above:Performed By: #### BNP, HSTROPN, CMP #### [facility] [address] [place] [address] Dr. Schuyler Garcia%1.0 %Normal0.9-7.0The [facility] HospitalCommclaren [facility] region on above: Performed By: #### BNP, HSTROPN, CMP #### [facility] [address] [place] [address] Dr. Schuyler FieldsHCT39.9 %Ivqgvt30.0-48.0The [facility] HospitalComment on above: Performed By: #### BNP, HSTROPN, CMP #### [facility] [address] [place] [address] Dr. Schuyler FieldsHGB13.3 g/rfDgkqcp92.0-16.0The [facility] HospitalComment on above: Performed By: #### BNP, HSTROPN, CMP #### [facility] [address] [place] [address] Dr. Schuyler Snyder #0.58 103/ulCritically low1.20-3.80The [facility] Comment on above:Performed By: #### BNP, HSTROPN, CMP #### [facility] [address] [address] [address] Schuyler Snyder%9.0 %Critically low20.5-60.0The [facility] HospitalComment on above:Performed By: #### BNP, HSTROPN, CMP #### [facility] [address] [place] [address] Dr. Schuyler ShanksH32.8 mnVqijtx89.7-34.0The [facility] HospitalComment on above: Performed By: #### BNP, HSTROPN, CMP #### [facility] [address] [place] [address] Dr. Schuyler ShanksHC33.3 g/soUvjiac52.9-35.2The [facility] HospitalComment on above:Performed By: #### BNP, HSTROPN, CMP #### [facility] [address] [place] [address] Dr. Schuyler ShanksV98.3 jWEroikn47.0-99.0The [facility] HospitalComment on above: Performed By: #### BNP, HSTROPN, CMP #### [facility] [address] [place] [address] Dr. Schuyler CroweOCYTE #NormalThe [facility]mer[facility] HospitalComment on above: Performed By: #### BNP, HSTROPN, CMP #### [facility] [address] [place] [address] Dr. Schuyler CroweOCYTE %NormalThe [facility] HospitalComment on above: Performed By: #### BNP, HSTROPN, CMP #### [facility] [address] [place] [address] Dr. Schuyler Chaney#0.33 103/ulNormal0.30-0.80The [facility] HospitalComment on above:Performed By: #### BNP, HSTROPN, CMP #### [facility] [address] [address] [address] Schuyler Chaney%5.0 %Normal1.7-12.0The [facility] HospitalComment on above: Performed By: #### BNP, HSTROPN, CMP #### [facility] [address] [address] [address] Schuyler EisenbergV9.4 fLCritically low9.5-13.5The [facility] HospitalComment on above:Performed By: #### BNP, HSTROPN, CMP #### [facility] [address] [address] [address] Schuyler MartínezOCYTE #NormalThe [facility] HospitalComment on above:Performed By: #### BNP, HSTROPN, CMP #### [facility] [address] [place] [address] Dr. Schuyler MartínezOCYTE %NormalThe [facility] HospitalComment on above:Performed By: #### BNP, HSTROPN, CMP #### [facility] [address] [place] [address] Dr. Schuyler MurciaBCNormalThe [facility] HospitalComment on above:Performed By: #### BNP, HSTROPN, CMP #### [facility] [address] [place] [address] Dr. Schuyler PoolT150 103/lbQvdjbl284-095Dih [facility] HospitalCommclaren [facility] region on above: Performed By: #### BNP, HSTROPN, CMP #### [facility] [address] [address] [address] Schuyler JjC4.06 106/ulCritically low4.20-5.40The [facility] HospitalComment on above:Performed By: #### BNP, HSTROPN, CMP #### [facility] [address] [place] [address] Dr. Schuyler FieldsRDW12.9 %Fydjul21.0-15.0The [facility] HospitalComment on above: Performed By: #### BNP, HSTROPN, CMP #### [facility] [address] [place], [place] [id number] Dr. Schuyler Soni #5.53 103/ulNormal1.40-6.50The [facility] HospitalComment on above:Performed By: #### BNP, HSTROPN, CMP #### [facility] [address] [place] [address] Dr. Schuyler Soni %85.0 %Critically high43.0-75.0The [facility] HospitalComment on above:Performed By: #### BNP, HSTROPN, CMP #### [facility] [address] [place] [address] Dr. Schuyler FieldsWBC6.5 103/ulNormal4.0-11.0The [facility] HospitalComment on above: Performed By: #### BNP HSTROPN, CMP #### [facility] [address] [place] [address] Dr. Schuyler FieldsCT HEAD WO CONon [id number] HEAD WO CONEXAMINATION: CT HEAD WO CON [...] Electronically authenticated by: KAILA DANIELS Date: 2022-04-16 13:50NeemaOhioHealth [facility] URINE PROFILEon [id number] Ql (U)NegativeNormal NEGATIVEThe [facility] HospitalComment on above:Performed By: #### BNP, HSTROPN, CMP #### [facility] [address] [address] [address] Schuyler FieldsClarity (U)SL CLOUDYAbnormalCLEARThe [facility] HospitalComment on above:Performed By: #### BNP, HSTROPN, CMP #### [facility] [address] [address] [address] Schuyler Peoples (U)LT. YELLOWNormalYELLOWAccess Hospital DaytonComment on above:Performed By: #### BNP, HSTROPN, CMP #### [facility] [address] [address] [address] Schuyler Lama micrscopic examination will be performed if indicated. NormalAccess Hospital DaytonComment on above:Performed By: #### BNP, HSTROPN, CMP #### [facility] [address] [address] [address] Schuyler FieldsGlucose Ql (U)NegativeNormalNEGPeoples HospitalComment on above:Performed By: #### BNP, HSTROPN, CMP #### [facility] [address] [address] [address] Schuyler FieldsHemoglobin Ql (U)NegativermalNEGPeoples Hospital Comment on above:Performed By: #### BNP, HSTROPN, CMP #### [facility] [address] [address] [address] Schuyler FieldsKetones Ql (U)40 mg/dlAbmissouri delta medical centeralCommunity Regional Medical Center Comment on above:Performed By: #### BNP, HSTROPN, CMP #### [facility] [address] [address] [address] Schuyler FieldsLEUKOCYTESSMALLAbnormalNEGPeoples HospitalComment on above:Performed By: #### BNP, HSTROPN, CMP #### [facility] [address] [address] [address] Schuyler FieldsNitrite Ql (U)PositiveAbnormalCommunity Regional Medical Center Comment on above:Performed By: #### BNP, HSTROPN, CMP #### [facility] [address] [address] [address] Schuyler FieldspH (U)6.5 [pH]Normal5-9The [facility] HospitalComment on above: Performed By: #### BNP, HSTROPN, CMP #### [facility] [address] [address] [address] Schuyler FieldsSPEC GRAVITY1.586Qqkgwe9.005-<=1.025The [facility] HospitalComment on above:Performed By: #### BNP, HSTROPN, CMP #### [facility] [address] [place] [address] Dr. Schuyler FieldsUA PROTEINNegativeNormalNEGATIVE/ TRACEThe [facility] Comment on above:Performed By: #### BNP, HSTROPN, CMP #### [facility] [address] [place] [address] Dr. Schuyler Glover MICRO INDINDICATEDNormalThe [facility] HospitalComment on above: Performed By: #### BNP, HSTROPN, CMP #### [facility] [address] [place] [address] Dr. Schuyler Jimenezbilinogen Qn (U)0.2 {Katlin'U}/dLNormal0.2 - 1.0The [facility] HospitalComment on above:Performed By: #### BNP, HSTROPN, CMP #### [facility] [address] [place] [address] Dr. Schuyler FieldsPROF 14(COMP METB)on [id number] [Mass/Vol]3.5 g/dLNormal 3.4-5.0The [facility] HospitalComment on above:Performed By: #### BNP, HSTROPN, CMP #### [facility] [address] [place] [address] Dr. Schuyler FieldsAlbumin/Globulin [Mass ratio]0.9 {ratio}NormalThe [facility] HospitalComment on above:Performed By: #### BNP, HSTROPN, CMP #### [facility] [address] [place] [address] Dr. Schuyler GraciaP [Catalytic activity/Vol]97 U/NWespzu38-430Gtq [facility] HospitalComment on above:Performed By: #### BNP, HSTROPN, CMP #### [facility] [address] [address] [address] Schuyler GraciaT [Catalytic activity/Vol]17 U/AEhcnmp66-74Rvn [facility] HospitalComment on above:Performed By: #### BNP, HSTROPN, CMP #### [facility] [address] [address] [address] Schuyler Kelleron gap [Moles/Vol]13.0 mmol/LNormalAccess Hospital Dayton Comment on above:Performed By: #### BNP, HSTROPN, CMP #### [facility] [address] [place] [address] Dr. Schuyler FieldsAST [Catalytic activity/Vol]17 U/VRinrwi50-38Kiq [facility] HospitalComment on above:Performed By: #### BNP, HSTROPN, CMP #### [facility] [address] [place] [address] Dr. Schuyler FieldsBilirubin [Mass/Vol]0.7 mg/dLNormal0.2-1.0The [facility] Comment on above:Performed By: #### BNP, HSTROPN, CMP #### [facility] [address] [place] [address] Dr. Schuyler FieldsCalcium [Mass/Vol]8.6 mg/dLNormal8.5-10.1[facility] Comment on above:Performed By: #### BNP, HSTROPN, CMP #### [facility] [address] [place] [address] Dr. Schuyler FieldsChloride [Moles/Vol]107 mmol/MWnenlk56-909Pcx [facility] Comment on above:Performed By: #### BNP, HSTROPN, CMP #### [facility] [address] [place] [address] Dr. Schuyler FieldsCO2 [Moles/Vol]25.4 mmol/GFntvwg62.0-32.0The [facility] Comment on above:Performed By: #### BNP, HSTROPN, CMP #### [facility] [address] [place] [address] Dr. Schuyler FieldsCreatinine [Mass/Vol]0.76 mg/dLNormal0.55-1.02The [facility] HospitalComment on above:Performed By: #### BNP, HSTROPN, CMP #### [facility] [address] [place] [address] Dr. Schuyler LoraGFR-AF VINCENTIAN>60Normal>=60The [facility] HospitalComment on above:Performed By: #### BNP, HSTROPN, CMP #### [facility] [address] [place] [address] Dr. Schuyler Milan-NON AF VINCENTIAN>60Normal>=60The [facility] HospitalComment on above:Performed By: #### BNP, HSTROPN, CMP #### [facility] [address] [place] [address] Dr. Schuyler FieldsGlobulin (S) [Mass/Vol]3.7 g/dLNormalThe [facility] HospitalComment on above:Performed By: #### BNP, HSTROPN, CMP #### [facility] [address] [place] [address] Dr. Schuyler FieldsGlucose [Mass/Vol]116 mg/dLCritically hqek12-534Zcr [facility] HospitalComment on above:Performed By: #### BNP, HSTROPN, CMP #### [facility] [address] [place] [address] Dr. Schuyler FieldsPotassium [Moles/Vol]3.4 mmol/LCritically low3.5-5.1The [facility] HospitalComment on above:Performed By: #### BNP, HSTROPN, CMP #### [facility] [address] [place] [address] Dr. Schuyler FieldsProtein [Mass/Vol]7.2 g/dLNormal6.4-8.2The [facility] Comment on above:Performed By: #### BNP, HSTROPN, CMP #### [facility] [address] [address] [address] Schuyler FieldsSodium [Moles/Vol]142 mmol/HRhiztv681-382OqlAccess Hospital Dayton Comment on above:Performed By: #### BNP, HSTROPN, CMP #### [facility] [address] [address] [address] Schuyler Sullivan nitrogen [Mass/Vol]16.0 mg/dLNormal7.0-18.0The [facility] HospitalComment on above:Performed By: #### BNP, HSTROPN, CMP #### [facility] [address] [place] [address] Dr. Schuyler Sullivan nitrogen/Creatinine [Mass ratio]21.1 mg/mgNoElyria Memorial HospitalComment on above:Performed By: #### BNP, HSTROPN, CMP #### [facility] [address] [place] [address] Dr. Schuyler Hanley [id number] Coag (PPP) [Relative time]1.01 {INR} NormalAccess Hospital DaytonComment on above:Performed By: #### BNP, HSTROPN, CMP #### [facility] [address] [place] [address] Dr. Schuyler Samson GUIDELINESSEE BELOWUniversity Hospitals Health SystemComment on above:Result Comment: DESIRED INR: 2.0 - 3.0 CONDITIONS NOT LISTED BELOW 2.5 - 3.5 FOR PROSTHETIC HEART VALVE REPLACEMENT 2.5 - 3.5 RECURRENT THROMBOSIS Performed By: #### BNP, HSTROPN, CMP #### [facility] [address] [place] [address] Dr. Schuyler FieldsPT Coag (PPP) [Time]10.9 sNormal9.0-11.6The [facility] Comment on above:Performed By: #### BNP, HSTROPN, CMP #### [facility] [address] [place] [address] Dr. Schuyler Rangel 15-72-7389rOPF Coag (Bld) [Time]22.5 mVsrhoe46.3-36.2The Pat HospitalComment on above:Performed By: #### PT, PTT #### [facility] [address] [place] [address] Dr. Schuyler Landry, [facility] SENSITIVITYon 62-75-1118AHDIGE5.1 pg/mLNormal 4.0-51.3TTriHealth on above:Result Comment: CUT-OFF POINTS HAVE BEEN ESTABLISHED BASED ON THE FOURTH UNIVERSAL DEFINITIONS OF MYOCARDIAL INFARCTION. THE UPPER REFERENCE LIMIT (URL) OF TROPONIN, DEFINED THE 99TH PERCENTILE OF cTnI DISTRIBUTION IN A REFERENCE POPULATION, HAS BEEN CONFIRMED THE DECISION THRESHOLD FOR AL DIAGNOSIS.Performed By: #### HSTROPN #### [facility] [address] [place] [address] Dr. Schuyler GuerreroTROP7.1 pg/mLNormal4.0-51.3TTriHealth on above:Result Comment: CUT-OFF POINTS HAVE BEEN ESTABLISHED BASED ON THE FOURTH UNIVERSAL DEFINITIONS OF MYOCARDIAL INFARCTION. THE UPPER REFERENCE LIMIT (URL) OF TROPONIN, DEFINED THE 99TH PERCENTILE OF cTnI DISTRIBUTION IN A REFERENCE POPULATION, HAS BEEN CONFIRMED THE DECISION THRESHOLD FOR AL DIAGNOSIS.Performed By: #### BNP, HSTROPN, CMP #### [facility] [address] [place] [address] Dr. Schuyler AUGUSTINon [id number]M SEEN [facility] Hospital DaytonCommclaren bay region on above:Performed By: #### BNP, HSTROPN, CMP #### [facility] [address] [place] [address] Dr. Schuyler Muhammad identified Cx Nom (U)INDICATEDNoOhioHealth Marion General Hospital on above:Performed By: #### BNP, HSTROPN, CMP #### [facility] [address] [place] [address] Dr. Schuyler Coreas SEENNoPascack Valley Medical CenterE [facility] on above:Performed By: #### BNP, HSTROPN, CMP #### [facility] [address] [place] [address] Dr. Yilan ChangCrystals LM Nom (Urine sed)NONE SEENNormalNONE SEENThe [facility] HospitalCommclaren bay region on above:Performed By: #### BNP, HSTROPN, CMP #### [facility] [address] [address] [address] Payan ChangEpithelial cells LM Ql (Urine sed)NONE SEENNormalNONE SEEN /RARE The [facility] HospitalCommclaren bay region on above:Performed By: #### BNP, HSTROPN, CMP #### [facility] [address] [address] [address] Schuyler FieldsMUCOUSNONE SEENNormalNONE SEENAccess Hospital DaytonCommclaren bay region on above:Performed By: #### BNP, HSTROPN, CMP #### [facility] [address] [place] [address] Dr. Schuyler FieldsKrybwWPN5-3Xvvren1-7Oou [facility] on above:Performed By: #### BNP, HSTROPN, CMP #### [facility] [address] [address] [address] Schuyler FieldsBnehbMPI34-50TrksdqmlVDTC SEENAccess Hospital DaytonCommclaren bay region on above: Performed By: #### BNP, HSTROPN, CMP #### [facility] [address] [place] [address] Dr. Schuyler FieldsXR CHEST 1 Von [id number] CHEST 1 VEXAMINATION: XR CHEST 1 V [...] Electronically authenticated by: FEDERICO BECKWITH Date: 2022-04-16 14:07[facility] Vital Signs Date TimeVital SignValuePerforming DwstxmoqqVeamikmt12-82-7996 13:02-0400Body pjbehh683.94 cmYris Suarez MD Work Phone: [phone]07-28-2025 13:02-0400 Body mass index (BMI) [Ratio]23.8 kg/n9XkysspYris Suarez MD Work Phone: [phone] [place], [place] 0422707-28-2025 13:02-0400 Body .32 kgYris Suarez MD Work Phone: [phone] [place], [place] 0422707-28-2025 13:02-0400 Diastolic blood iktiwxne28 mm[Hg]Yris Suarez MD Work Phone: [phone] [place], [place] 0422707-28-2025 13:02-0400 Heart rate97 /Kranthi Suarez MD Work Phone: [phone] [place], [place] 0422707-28-2025 13:02-0400 Respiratory rate12 /Kranthi Suarez MD Work Phone: [phone] [place], [place] 0422707-28-2025 13:02-0400 SaO2% (BldA) [Mass fraction]98 %Yris Suarez MD Work Phone: [phone] [place], [place] 0422707-28-2025 13:02-0400 Systolic blood gsqabikt554 mm[Hg]Yris Suarez MD Work Phone: [phone] [place], [place] 0422705-20-2025 13:28-0400 Body eswslh896.94 cmYris Suarez MD Work Phone: [phone] [place], [place] 0422705-20-2025 13:28-0400 Body mass index (BMI) [Ratio]24.8 kg/h6FrktfzYris Suarez MD Work Phone: [phone])[address] [place], [place] 0422705-20-2025 13:28-0400 Body ihdzek48.59 kgYris Suarez MD Work Phone: [phone] [place], [place] 0422705-20-2025 13:28-0400 Diastolic blood ebgascte12 mm[Hg]Yris Suarez MD Work Phone: 1([phone] [place], [place] 0422705-20-2025 13:28-0400 Heart hsyu237 /Kranthi Suarez MD Work Phone: [facility]05-20-2025 13:28-0400 Respiratory rate12 /Kranthi Suarez MD Work Phone: [facility]05-20-2025 13:28-0400 Systolic blood ejxrlgdd689 mm[Hg]Yris Suarez MD Work Phone: [facility]10-18-2024 13:17-0400 Body mass index (BMI) [Ratio]27.09 kg/x0GsfyjpdKian Monet DO Work Phone: 1(145)[facility]10-18-2024 13:17-0400Body kmrafe44 kg Kian Monet DO Work Phone: 1(813)[facility]10-18-2024 13:17-0400Diastolic blood pobdkfub48 mm[Hg]Kian Monet DO Work Phone: 1(316)[facility]10-18-2024 13:17-0400Heart rate92 /min Kian Monet DO Work Phone: 1(354)[facility]10-18-2024 13:17-3533OeT0% (BldA) [Mass fraction]97 %Kian Monet DO Work Phone: 1(015)[facility]10-18-2024 13:17-0400Systolic blood mm[Hg]Kian Monet DO Work Phone: 1(315)[facility]06-25-2024 13:39-0400Body mass index (BMI) [Ratio]26.67 kg/w2HlrufytKian Monet DO Work Phone: 1(239)[facility]06-25-2024 13:39-0400Body qcxodx32 kg Kian Monet DO Work Phone: 1(001)[facility]06-25-2024 13:39-0400Diastolic blood eovnvams96 mm[Hg]Kian Monet DO Work Phone: [phone]06-25-2024 13:39-0400Heart rate86 /min Kian Monet DO Work Phone: [phone]06-25-2024 13:39-3427NaZ5% (BldA) [Mass fraction]97 %Kian Monet DO Work Phone: [phone]06-25-2024 13:39-0400Systolic blood veokmcev230 mm[Hg]Kian Monet DO Work Phone: [phone]03-22-2024 13:20-0400Body kg Kian Monet DO Work Phone: 1(985)[facility]03-22-2024 13:20-0400Diastolic blood jkpmaqdu70 mm[Hg]Kian Monet DO Work Phone: 1(858)[facility]03-22-2024 13:20-0400Heart rate83 /min Kian Monet DO Work Phone: [phone]03-22-2024 13:20-3699AfK4% (BldA) [Mass fraction]99 %Kian Monet DO Work Phone: [phone]03-22-2024 13:20-0400Systolic blood choqkkrt003 mm[Hg]Kian Monet DO Work Phone: [phone]09-22-2023 13:07-0400Body uuqfqx62.14 kgKian Monet DO Work Phone: [phone]09-22-2023 13:07-0400Diastolic blood xqoxiunj89 mm[Hg]Kian Monet DO Work Phone: [phone]09-22-2023 13:07-0400Heart rate92 /min Kian Monet DO Work Phone: [phone]09-22-2023 13:07-3923WpB3% (BldA) [Mass fraction]97 %Kian Monet DO Work Phone: [phone]09-22-2023 13:07-0400Systolic blood rncattpc822 mm[Hg]Kian Monet DO Work Phone: [phone]05-01-2023 10:15-0400Body temperature 97.9 [degF]Kurt Condon MD Work Phone: [facility]05-01-2023 10:15-0400Body vkpoeq18.87 kgKurt Condon MD Work Phone: [facility]05-01-2023 10:15-0400Diastolic blood edffhsfp73 mm[Hg]Kurt Condon MD Work Phone: [facility]05-01-2023 10:15-0400Heart rate57 /min Kurt Condon MD Work Phone: [facility]05-01-2023 10:15-0400Respiratory rate 16 /minSyahir Condon MD Work Phone: [facility]05-01-2023 10:15-0540IdA6% (BldA) [Mass fraction]96 %Kurt Condon MD Work Phone: [facility]05-01-2023 10:15-0400Systolic blood mm[Hg]Kurt Condon MD Work Phone: [facility]03-23-2023 13:48-0400Body vapimw98.6 kgKian Monet DO Work Phone: [facility]03-23-2023 13:48-0400Diastolic blood xlkccywj40 mm[Hg]Kian Monet DO Work Phone: [facility]03-23-2023 13:48-0400Heart rate83 /min Kian Monet DO Work Phone: [phone]03-23-2023 13:48-9193HzL5% (BldA) [Mass fraction]96 %Kian Monet DO Work Phone: [phone]03-23-2023 13:48-0400Systolic blood znbucmvj292 mm[Hg]Kian Monet DO Work Phone: [facility]01-04-2023 12:00-0500Body ynptyi006.4 cmYris Suarez Other [employer] Other 01-04-2023 12:00-0500Body mass index (BMI) [Ratio] 27.14 kg/p2Qcvyeo Suarez Other [employer] Other 01-04-2023 12:00-0500Body woulvw50.05 kgYris Suarez Other [employer] Other 01-04-2023 12:00-0500Diastolic blood yccnuikj12 mm[Hg] Yris Erick Other [employer] Other 01-04-2023 12:00-5941WuF0% (BldA) [Mass fraction]97 % Yrisrobin Suarez Other [employer] Other 01-04-2023 12:00-0500Systolic blood ndhhotqt074 mm[Hg] Yris Suarez Other [employer] Other 05-02-2022 14:11-0400Body sahgklkdqdf54.7 [degF]Kurt Condon MD Work Phone: [facility]05-02-2022 14:11-0400Body ewdrcr92.41 kgKurt Condon MD Work Phone: [facility]05-02-2022 14:11-0400Diastolic blood zyyvdzlr58 mm[Hg]Kurt Condon MD Work Phone: [facility]05-02-2022 14:11-0400Heart fstm188 /Octavio Condon MD Work Phone: [facility]05-02-2022 14:11-0400Respiratory rate 18 /Octavio Condon MD Work Phone: [facility]05-02-2022 14:11-1984DiE1% (BldA) [Mass fraction]97 %Kurt Condon MD Work Phone: [facility]05-02-2022 14:11-0400Systolic blood wemlzerh635 mm[Hg]Kurt Condon MD Work Phone: [facility]04-05-2022 13:24-0400Body uivsqq96.77 kgLavisa Young LICENSED PHYSICAL THERAPIST.FAST FOOD DELIVERY DRIVER Work Phone: [facility]04-05-2022 13:24-0400Diastolic blood taidumds82 mm[Hg]Patricia Young LICENSED PHYSICAL THERAPIST.FAST FOOD DELIVERY DRIVER Work Phone: [phone]04-05-2022 13:24-0400Heart rate89 /min Patricia Young LICENSED PHYSICAL THERAPIST.FAST FOOD DELIVERY DRIVER Work Phone: [facility]04-05-2022 13:24-6641EdE7% (BldA) [Mass fraction]94 %Patricia Young LICENSED PHYSICAL THERAPIST.FAST FOOD DELIVERY DRIVER Work Phone: [facility]04-05-2022 13:24-0400Systolic blood apfzwboe765 mm[Hg]Patricia Young LICENSED PHYSICAL THERAPIST.FAST FOOD DELIVERY DRIVER Work Phone: [facility] Encounters Encounter DateEncounter TypeCare ProviderFacilityStart: 03-25-2025 End: 32-51-7809ijhqpppycwQiyfug E Braun MD Work Phone: [facility] Work Phone: Start: 03-25-2025 End: 48-77-9798Hegcocc encounter procedureYris Suarez MD-[facility] Work Phone: Start: 01-15-2025 End: 92-51-1059Jpqqfre encounter Deisi Suarez MD-[facility] Work Phone: Start: 31-15-3531Kez-patient / Non-visitCatbrian Aguilar CMA-[facility] Work Phone: Start: 05-63-6784Utn-patient / Non-visitAshwin Ordaz DO-[facility] Work Phone: Start: 01-09-2025 End: 55-01-5612lcvzynomjgOtohlhz D KatkoFacility:[facility]art: 01-09-2025 End: 11-13-6776Pamrnyrl ReferredAshwin Ordaz DO-[facility] Start: 06-15-2024 End: 84-53-1848wwtiemcnhjVTRECD Erin SUAREZFacility:[facility]art: 06-15-2024 End: 29-87-1616Uoyvkgg encounter procedureKian Monet DO Work Phone: CardiologyComment on above:Primary hypertension (Primary Dx); Mixed hyperlipidemia; Hypomagnesemia; Low magnesium level; Bilateral carotid artery stenosis; Encounter for monitoring statin therapy; Ex-smokerStart: 03-05-2024 End: 12-13-5829scyacsopjzIHDTKDJ NELSONFacility:[facility] Hospitaltart: 02-21-2024 End: 54-39-3052syofrcryknJAXDQJH NELSONFacility:[facility]tart: 02-21-2024 End: 04-12-4344Udnkftz encounter procedureKian Monet DO Work Phone: CardiologyComment on above:Primary hypertension (Primary Dx); Mixed hyperlipidemia; Hypomagnesemia; Bilateral carotid artery stenosis; Ex-smokerStart: 12-29-2023 End: 46-77-7097Sykbjkp encounter procedureSyahir Condon MD Work Phone: Radiation OncologyComment on above:Malignant neoplasm of upper-outer quadrant of left breast in female, estrogen receptor positive (HCC) (Primary Dx)Start: 16-26-1934Kekqrwjlf encounterKian Monet DO Work Phone: Internal Medicine [place]Start: 11-18-2023 End: 90-95-6549Fgvrswu encounter procedureKian Monet DO Work Phone: CardiologyComment on above:Bilateral carotid artery stenosis (Primary Dx); Primary hypertension; Mixed hyperlipidemia; Hypomagnesemia; Encounter for monitoring statin therapy; Ex-smokerStart: 55-56-2546XhduweSpwcbgi Nelson DO Work Phone: CardiologyComment on above:Refill RequestStart: 05-20-2023 End: 01-27-6475Gstqgfc encounter procedureKian Monet DO Work Phone: CardiologyComment on above:Bilateral carotid artery stenosis (Primary Dx); Elevated blood pressure reading without diagnosis of hypertension; Mixed hyperlipidemia; Hypomagnesemia; Encounter for monitoring statin therapy; Ex-smokerStart: 12-27-2022 End: 86-32-6393Xvrhfzn encounter procedureSyahir Condon MD Work Phone: Radiation OncologyComment on above:Malignant neoplasm of upper-outer quadrant of left breast in female, estrogen receptor positive (HCC) (Primary Dx)Start: 12-20-2022 End: 60-71-6304gfheasteklYXXX RAJANFacility:I4Mhgcu: 11-18-2022 End: 16-60-2600Gyarbjr encounter procedureKian Monet DO Work Phone: CardiologyComment on above:Bilateral carotid artery stenosis (Primary Dx); Elevated blood pressure reading without diagnosis of hypertension; Mixed hyperlipidemia; Hypomagnesemia; Encounter for monitoring statin therapy; Ex-smokerStart: 09-01-2022 End: 62-92-8893sjuekgxnvgRirfzw Braun Other [facility] [employer] Other Start: 50-15-7578Ekowwc outpatient visit 15 minutes Yris [facility] ClinicStart: 67-11-7643Wimjxsztx encounterMarpb SuarezProvidence Hospital ClinicStart: 79-44-1512ZxckbmPayncwk Nelson DO Work Phone: [phone] InstituteComment on above:Refill RequestStart: 05-06-2022 End: 50-42-6505Szh-admission assessmentShruti Wright [facility] Start: 04-26-2022 End: 36-03-2409ppqqsarprqZGTamika Chamberlaincility:M4Hqlsz: 04-18-2022 End: 51-12-5366dxpjdmipeeTBOJRR RODRIGUEZ .Facility:N8Afpqg: 04-16-2022 End: 05-90-2353jifpmagssqNLOIDV RODRIGUEZ .Facility:A2Eyxfl: 12-28-2021 End: 13-21-6415Yyrdkuu encounter procedureSyahir Condon MD Work Phone: Radiation OncologyComment on above:Malignant neoplasm of upper-outer quadrant of left breast in female, estrogen receptor positive (HCC) (Primary Dx)Start: 18-15-1496Mrbqulcvh encounterSyahir Condon MD Work Phone: Radiation OncologyComment on above:Future Appointment Start: 12-01-2021 End: 98-47-1523Xbtbfop encounter procedurePatricia Young APRN.CNP Work Phone: CardiologyComment on above:Bilateral carotid artery stenosis (Primary Dx); Mixed hyperlipidemia; Elevated blood pressure reading without diagnosis of hypertension Procedures DateProcedureProcedure DetailPerforming ClinicianStart: 58-69-6226Gsuhe culture Yris Suraez MD Work Phone: Start: 56-60-7505Ucn routine ecg w/least 12 lds i&r onlyKian Monet DO Work Phone: Start: 63-70-2747Mpe routine ecg w/least 12 lds i&r Amparo Monet DO Work Phone: Plan of Treatment DateCare ActivityDetailAuthorStart: 43-13-4509Ryxozzeg ScreeningDiabetes ScreeningCleveland Clinic Luther[facility] Hospitaltart: 24-09-8968Nvvuqhyq ScreeningDiabetes Screening [facility]: 87-95-3365RV Breast - bilateral DiagnosticMAM DIAGNOSTIC BILATERAL Radiology Routine Malignant neoplasm of upper-outer quadrant of left breast in female, estrogen receptor positive (HCC) Expected: 12/28/2025 (Approximate)[facility] Work Phone: Comment on above:Expected: 12/28/2025 (Approximate) Start: 52-31-5534EJEFDBAK SCREENDIABETES SCREENCleveland Clinic Lutheran Hospitaltart: 10-20-2025 Diabetes ScreeningDiabetes ScreeningCleveland Clinic Lutheran Hospitaltart: 12-27-2024 End: 14-15-6151Jokqnwx encounter /01/2025 10:30 AM EDT Office Visit Radiation Oncology [address] [place] [address] Kurt Condon MD [address] [place] [address] 1 Yr Follow UpRadiation OncologyComment on above:1 Yr Follow UpStart: 12-21-2024 End: 23-39-3616Qhlihdj encounter atmsbhafw09/25/2025 2:30 PM EDT Office Visit Cardiology [address] [place] [address] Kian Monet DO [address] [place], [place] [id number] Return in about 27 weeks (around 12/21/2024).CardiologyComment on above:Return in about 27 weeks (around 12/21/2024).Start: 12-14-2024 End: 80-26-4108Bbohn metabolic 2000 panel - Serum or PlasmaBASIC METABOLIC PANEL Lab Routine Primary hypertension Expected: 12/14/2024 (Approximate), Expires: 03/15/2025leveland ClinicComment on above:Expected: 12/14/2024 (Approximate), Expires: 03/15/2025Start: 12-14-2024 End: 28-54-8754DLG panel - Blood by Automated countCOMPLETE BLOOD COUNT Lab Routine Primary hypertension Expected: 12/14/2024 (Approximate), Expires: 0 03/15/2025leveland ClinicComment on above:Expected: 12/14/2024 (Approximate), Expires: 03/15/2025Start: 12-14-2024 End: 96-72-5772Aupol 1996 panel - Serum or PlasmaLIPID PANEL BASIC Lab Routine Mixed hyperlipidemia Expected: 12/14/2024 (Approximate), Expires: 03/15/2025 [facility] Work Phone: Comment on above:Expected: 12/14/2024 (Approximate), Expires: 03/15/2025Start: 12-14-2024 End: 46-21-0060Zxjcibcki [Mass/volume] in Serum or PlasmaMAGNESIUM Lab Routine Hypomagnesemia Expected: 12/14/2024 (Approximate), Expires: 5Ct[facility] ClinicComment on above:Expected: 12/14/2024 (Approximate), Expires: 03/15/2025 Start: 06-15-2024 End: 08-57-9544Ohhuuav encounter edjndlelv45/18/2024 1:30 PM EDT Office Visit Cardiology [address] [place] [address] Kian Monet DO [address] [place], [place] [id number] : Return in about 3 months (around 05/23/2024).Cardiology Comment on above:: Return in about 3 months (around 05/23/2024).Start: 04-29-2024 Covid-19 Vaccine ( season)Covid-19 Vaccine ( season) [facility]: 25-05-2618Yomltyhhv vaccinationInfluenza Vaccine (#1) [facility]: 03-06-2024 End: 09-27-6948Mmwxm metabolic 2000 panel - Serum or PlasmaBASIC METABOLIC PANEL Lab Routine Primary hypertension Expected: 03/06/2024 (Approximate), Expires: 06/05/2024[facility] Work Phone: Comment on above:Expected: 03/06/2024 (Approximate), Expires: 06/05/2024Start: 03-06-2024 End: 95-10-7916Zxhytcomu [Mass/volume] in Serum or PlasmaMAGNESIUM Lab Routine Hypomagnesemia Expected: 03/06/2024 (Approximate), Expires: 06/05/2024[facility] ClinicComment on above:Expected: 03/06/2024 (Approximate), Expires: 06/05/2024 Start: 03-06-2024 End: 20-59-8682Qguxjlb evaluation of patient and bbinrz3003/06/2024 1:00 PM EDT Nurse Visit Cardiology [address] [place] [address] Colette Nurse Card [facility] [address] [place] [address] Nurse visitCardiologyComment on above:Nurse visit Start: 02-21-2024 End: 72-10-3969Rsqwaox encounter rdtyuzeaa35/25/2024 1:30 PM EDT Office Visit Cardiology [address] [place], [place] [id number] Kian Monet, DO [address] [place], [place] [id number] Return in about 3 months (around 02/18/2024).CardiologyComment on above:Return in about 3 months (around 02/18/2024).Start: 12-28-2023 End: 63-76-1053BCA DIAGNOSTIC BILATERALMAM DIAGNOSTIC BILATERAL Radiology Routine Malignant neoplasm of upper-outer quadrant of left breast in female, estrogen receptor positive (HCC) Expected: 12/28/2023 (Approximate), Expires: 01/26/2024[facility] Work Phone: Comment on above:Expected: 12/28/2023 (Approximate), Expires: 01/26/2024Start: 12-02-2023 End: 29-91-2357Ogyqu metabolic 1999 panel - Serum or PlasmaBASIC METABOLIC PNL Lab Routine Primary hypertension Expected: 12/02/2023 (Approximate), Expires: [facility] Work Phone: Comment on above:Expected: 12/02/2023 (Approximate), Expires: 03/02/2024Start: 27-76-1301TSWTGHZK SCREENDIABETES SCREENCleveland Clinic Lutheran Hospitaltart: 11-18-2023 End: 65-36-7773Vypqe metabolic 2000 panel - Serum or PlasmaBASIC METABOLIC PNL Lab Routine Mixed hyperlipidemia Expected: 11/18/2023 (Approximate), Expires: [facility] Work Phone: Comment on above:Expected: 11/18/2023 (Approximate), Expires: 01/18/2024Start: 85-50-3701Cwkfg-19 Vaccine ()Covid- 19 Vaccine ()[facility]: 57-51-4777Mfsxgmp Directive DiscussionAdvance Directive DiscussionCleveland Clinic Lutheran Hospitaltart: 22-54-4752Njklihvznx Health ScreeningBehavioral Health ScreeningMercy Health Start: 58-52-5326Bpmjrdpccq AssessmentDepression AssessmentMercy Health Start: 05-21-2023 End: 54-37-2165Jktbw 1996 panel - Serum or PlasmaLIPID PANEL BASIC Lab Routine Mixed hyperlipidemia Expected: 05/21/2023 (Approximate), Expires: 07/21/2023 [facility] Work Phone: Comment on above:Expected: 05/21/2023 (Approximate), Expires: 07/21/2023Start: 05-21-2023 End: 45-48-4751NW CAROTID ARTERIES ZEKE VAS LABUS CAROTID ARTERIES ZEKE VAS LAB Vascular Lab Routine Bilateral carotid artery stenosis Expected: 05/21/2023 (Approximate), Expires: 11/18/2023[facility] Work Phone: Comment on above:Expected: 05/21/2023 (Approximate), Expires: 11/18/2023Start: 59-31-6909Zxagh-19 Vaccine ()Covid- 19 Vaccine ()[facility]: 73-43-4071Scwubzeop vaccinationInfluenza Vaccine (#1)[facility]: 12-28-2022 End: 82-92-0894Cnheeayazv mammography computer-aided detcj biMAM DIAGNOSTIC BILAT Radiology Routine Malignant neoplasm of upper-outer quadrant of left breast infemale, estrogen receptor positive (HCC) Expected: 12/28/2022 (Approximate), Expires: 01/27/2023[facility] Work Phone: Comment on above:Expected: 12/28/2022 (Approximate), Expires: 01/27/2023Start: 82-53-1698Twrsm-19 Vaccine (6 - Pfizer series)Covid-19 Vaccine (6 - Pfizer series)[facility]: 27-51-5328HFBTAWL DIRECTIVE DISCUSSIONADVANCE DIRECTIVE DISCUSSIONCleveland Clinic Luther[facility] Hospitaltart: 08-29-2022 DEPRESSION ASSESSMENTDEPRESSION ASSESSMENTCleveland Clinic Luther[facility] Hospitaltart: 04-29-2022 Influenza vaccinationINFLUENZA (#1)[facility]: 10-37-7517PCUWJ-19 VACCINE (5 - Booster for Pfizer series)COVID-19 VACCINE (5 - Booster for Pfizer series)[facility]: 50-37-5157QGYBH-19 VACCINE (4 - Booster for Pfizer series)COVID-19 VACCINE (4 - Booster for Pfizer series)[facility]: 82-57-8210EIOGBNY DIRECTIVE DISCUSSIONADVANCE DIRECTIVE DISCUSSIONC[facility] Clinic [facility] Hospitaltart: 22-48-7899XWQEILFJGG ASSESSMENTDEPRESSION ASSESSMENTC[facility] Clinic [facility] Hospitaltart: 86-28-0300CLL Vaccine (1 - 1-dose 75+ series)RSV Vaccine (1 - 1- dose 75+ series)[facility]: 22-27-3270RMIE DENSITYBONE DENSITY [facility]: 00-26-0934Rifd Density ScreeningBone Density Screening [facility]: 62-88-8223Gtpfluclyqbn Vaccine: 65+ (1 - PCV)Pneumococcal Vaccine: 65+ (1 - PCV)[facility]: 04-02-9495Fdgaczjolxer Vaccine: 65+ (1 of 1 - PCV)Pneumococcal Vaccine: 65+ (1 of 1 - PCV)[facility]: 07-38-4066CASDGWRKOVEZ: 65+ (1 - PCV)PNEUMOCOCCAL: 65+ (1 - PCV)[facility]: 14-95-0095SXRCKDZOU AGE 65 AND OVER WITH 5YR LOOKBACK (#1)PNEUMOVAX AGE 65 AND OVER WITH 5YR LOOKBACK (#1)[facility]: 2001 Screening for osteoporosisBone Density ScreeningCleveland Clinic Lutheran Hospitaltart: 47-66-5402SEA Vaccine (1 - 1-dose 60+ series)RSV Vaccine (1 - 1-dose 60+ series) [facility]: 78-07-1289LBFLZEJV VACCINE (1 of 2)SHINGRIX VACCINE (1 of 2)[facility]: 99-87-6535Rweai microalbumin profileMercy Health Start: 44-20-9444Jhirkbr ScreeningAnxiety ScreeningC[facility] Clinic Luther[facility] Hospitaltart: 99-12-4850Xdjxokqdja ScreeningDepression ScreeningMercy HealthComprehensive metabolic 2000 panel - Serum or PlasmaC[facility] Clinic [facility] End: 67-20-0826Notdwpqijs mammography computer-aided detcj biMAM DIAGNOSTIC BILAT Radiology Routine Malignant neoplasm of upper-outer quadrant of left breast infemale, estrogen receptor positive (HCC) 1 Occurrences starting 12/16/2021 until [facility] Work Phone: Comment on above:1 Occurrences starting 12/16/2021 until 01/15/2023 End: 54-25-7452PNP COMPLETEECG COMPLETE ECG Routine Bilateral carotid artery stenosis Elevated blood pressure reading without diagnosis of hypertension 1 Occurrences starting 11/18/2022 until 4C[facility] Work Phone: Comment on above:1 Occurrences starting 11/18/2022 until 11/19/2023ECG COMPLETEECG COMPLETE ECG 11/18/2023 [facility] End: 72-82-8500YD Carotid arteries - bilateralUS CAROTID ARTERIES ZEKE VAS LAB Vascular Lab Routine Bilateral carotid artery stenosis 1 Occurrences starting 11/18/2023 until 5C[facility] Work Phone: Comment on above:1 Occurrences starting 11/18/[address] [facility] Immunizations Immunization DateImmunizationNotesCare BqfyencaHmkubdpi62-27-2877cogxxjeig virus vaccine, unspecified formulationKian Monet DO Work Phone: [facility] HealthFjuuhv58-15-0968mgyiksceh virus vaccine, unspecified formulationKian Monet DO Work Phone: [facility] HealthCoitjx39-05-1362xstelipfi virus vaccine, unspecified formulationYris Suarez MD Work Phone: [facility]10-25-2018influenza, high dose seasonal, preservative-freeKurt Condon MD Work Phone: [facility] HealthOqfcvg21-00-7514zkkdpjyqgfxn conjugate vaccine, 13 valAlonso Suarez MD Work Phone: [facility]10-05-2015influenza virus vaccine, unspecified formulationYris Suarez MD Work Phone: [facility]09-25-2012tetanus and diphtheria toxoids, adsorbed, preservative free, for adult use (5 Lf of tetanus toxoid and 2 Lf of diphtheria toxoid)Yris Suarez MD Work Phone: [facility]09-02-2002 pneumococcal polysaccharide vaccine, 23 valAlonso Suarez MD Work Phone: [facility] Payers DatePayer CategoryPayerPolicy [id number] THOUGHT LIFE INSURANCE FORETHOUGHT SUPPLEMENT [id number] 2018-Present [phone] [id number] [place] [address] [id number] 2001MedicareMEDICARE MEDICARE A AND B [id number] 2001-Present [phone] [address] [address] [place], [place] [address] 2-0001 [id number]. MedicareMEDICARE MEDICARE A AND B [id number] 2001-Present [phone] [place] [address] Medicare [id number] [id number] [id number] Social History DateTypeDetailFacilityStart: 07-31-2018 End: 45-45-5038Wsrfjig smoking status NHISEx-smokerCleveland Clinic Lutheran Hospitaltart: 08-29-1962 End: 74-77-2087Iuayepa of tobacco useCurrent smokerCleveland Clinic Lutheran Hospitaltart: 07-31-2018 End: 56-85-1370Xwblhti use and exposureSmokeless tobacco non-userC[facility] Clinic Lutheran Hospitaltart: 12-01-2021 End: 72-81-0831Xcupoyk intakeCurrent drinker of alcohol (finding)[facility]: 92-89-5694Uysjupv SDOH Alcohol CommentoccC[facility] Clinic Lutheran Hospitaltart: 07-31-2018 End: 26-85-5945Xygqxsx Comment2 packs per weekCleveland Clinic Lutheran Hospitaltart: 1935 Sex Assigned At BirthNot on fileC[facility] Clinic Lutheran Hospitaltart: 11-21-2021 End: 92-68-9901Usmgzzdd to SARS-CoV-2 (event)Not sureMercy HealthTobacco smoking statusNo Smoking Status EnteredTriHealthtart: 05-20-2023 End: 80-21-8017Kze Assigned At BirthFemalMercy Health West Hospitaltart: 08-29-1962 End: 98-73-6626Fppvldt of tobacco useCigarette SmokerCleveland Clinic Lutheran Hospitaltart: 05-20-2023 End: 85-57-1947Fqfnlnl of Social functionMercy HealthAdmemorial medical center Depression Screening Wbxazapoad4Zzuutswdq ClinicStart: 83-77-1669Nlhseqk smoking status NHISNever smoked tobacco (finding)[facility] Medical CenterexFemale (finding)[facility] Centertart: 89-05-5750Kdh Assigned At [facility] Clinical Notes 12-01-2021 to 01-15-2025 Note Date & NwihGqnjTtyeusye36-87-1443 Evaluation note* Diagnosis Onset Date Resolution Status Admit Date Benign essential HTN acuteMay 2024 1:24pmAcute diverticulitisinactiveMay 2024 1:24pm HypokalemiainactiveMay 2024 1:24pmBenign essential HTNacuteJuly 2024 1:01pmHistory of breast cancer in femaleacuteJuly 2024 1:01pm Hyperlipidemia, unspecifiedacuteJuly 2024 1:01pmMedicare annual wellness visit, subsequentacuteJuly 2024 1:01pm [facility] Work Phone: [phone] NoteHNO ID: [id number] Author: KIAN MONET, DO Service: ? Author Type: Physician Type: Progress Notes Filed: 06/15/2024 14:02 Note Text: [facility] [place] SECTION OF REGIONAL CARDIOLOGY OUTPATIENT VISIT DATE 06/15/24 OUTPATIENT VISIT TYPE Established PRIMARY CARE PHYSICIAN: Yris Suarez MD ([facility]) [address] [place] [phone] HISTORY OF PRESENT ILLNESS: Ms. Roque is [...] is normal in size. (more content not included)...[facility]10-18-2024 History of Present illness Narrative* Kian Monet DO - 06/15/2024 1:44 PM EDT Images from the original note were not included. [facility] [place] SECTION OF REGIONAL CARDIOLOGY OUTPATIENT VISIT DATE 06/15/24 OUTPATIENT VISIT TYPE Established PRIMARY CARE PHYSICIAN: Yris Suarez MD ([facility]) [address] [place] [address] HISTORY OF PRESENT ILLNESS: Ms. Roque is [...] HISTORY Diagnosis Date Breast cancer (HCC) Left; [place]+ GERD (gastroesophageal reflux disease) PAST SURGICAL HISTORY [...] by mouth once daily. documented in this encounterMercy Health06-25-2024 Nurse Note* Zak Wilkins MA - 02/21/2024 1:43 PM EDT Patient brought home blood pressure monitor to compare with office monitor. Office monitor: BP 152/62 HR 86 Home monitor: BP 129/82 HR 84 [facility]-25[facility] Nurse Note* Zak Wilkins MA - 02/21/2024 1:43 PM EDT Patient brought home blood pressure monitor to compare with office monitor. Office monitor: BP 152/62 HR 86 Home monitor: BP 129/82 HR 84 documented in this encounterMercy Health06-25-2024 History of Present illness Narrative* Kian Monet DO - 02/21/2024 1:30 PM EDT Images from the original note were not included. [facility] [place] SECTION OF REGIONAL CARDIOLOGY OUTPATIENT VISIT DATE 02/21/24 OUTPATIENT VISIT TYPE Established PRIMARY CARE PHYSICIAN: Yris Suarez MD ([facility]) [address] [place] [phone] HISTORY OF PRESENT ILLNESS: Ms. Roque is [...] HISTORY Diagnosis Date Breast cancer (HCC) Left; ER/[place]+ GERD (gastroesophageal reflux disease) PAST SURGICAL HISTORY [...] tablet by mouth once daily. Signed: Kian oMnet DO 02/21/24 documented in this encounterMercy Health06-25-2024 NoteHNO ID: [id number] Author: KIAN MONET DO Service: ? Author Type: Physician Type: Progress Notes Filed: 02/21/2024 14:21 Note Text: [facility] [place] SECTION OF REGIONAL CARDIOLOGY OUTPATIENT VISIT DATE 02/21/24 OUTPATIENT VISIT TYPE Established PRIMARY CARE PHYSICIAN: Yris Suarez MD ([facility]) [address] [place] [phone] HISTORY OF PRESENT ILLNESS: Ms. Roque is [...] 5.1 MEQ/L 3.8 ( (more content not included)...[facility]05-02-2024 History of Present illness Narrative* Kurt Condon MD - 12/29/2023 11:49 PM EDT Radiation Oncology - Follow Up Note PATIENT NAME: Morelia Roque PATIENT Signed by: Kurt Condon MD I spent a total of 20 minutes on the date of the service which included preparing to see the patient, pmaq-ix-hplv patient care, and counseling and educating the patient/family/caregiver. This document has been created with the use of voice recognition technology. It may contain inaccuracies, misspellings, inaccurate syntax or inappropriate word context that are a result of the inadequacies/shortcomings of said technology/software. documented in this encounterMercy Health03-25-2024 Miscellaneous Notes* Telephone Encounter - Darling Rodriguez [...] the lab order to be faxed to [facility]. F:[phone] Patient has been identified by name and birthdate. Duration of symptoms: N/A Person calling: daughter: Call patient at: [phone] Was an appointment scheduled: No Closing statement: Results or non-symptom based questions: Thank you for calling [facility], your call will be returned within the next business day. Jen Burns documented in this encounterMercy Health03-22-2024 Miscellaneous Notes* Addendum Note - Kian Monet DO - 11/18/2023 1:46 PM EDTAddended by: KAIN MONET on: 11/18/2023 01:46 PM Modules accepted: Orders * Addendum Note - Zak Wilkins MA - 11/18/2023 1:46 PM EDTAddended by: ZAK WILKINS on: 11/18/2023 01:46 PM Modules accepted: Orders documented in this encounterMercy Health03-22-2024 History of Present illness Narrative* Kian Monet DO - 11/18/2023 1:25 PM EDT Images from the original note were not included. [facility] [place] SECTION OF REGIONAL CARDIOLOGY OUTPATIENT VISIT DATE 11/18/23 OUTPATIENT VISIT TYPE Established PRIMARY CARE PHYSICIAN: Yris Suarez MD ([facility]) [address] [place] [phone] HISTORY OF PRESENT ILLNESS: Ms. Roque is [...] HISTORY Diagnosis Date Breast cancer (HCC) Left; ER/[place]+ GERD (gastroesophageal reflux disease) PAST SURGICAL HISTORY [...] Kian Monet DO 11/18/23 documented in this encounterMercy Health02-09-2024 Miscellaneous Notes* Telephone Encounter - Selene Regalado [...] notify patient. Selene Regalado documented in this encounterMercy Health09-22-2023 History of Present illness Narrative* Kian Monet DO - 05/20/2023 1:20 PM EDT Images from the original note were not included. [facility] [place] SECTION OF REGIONAL CARDIOLOGY OUTPATIENT VISIT DATE 05/20/23 OUTPATIENT VISIT TYPE Established PRIMARY CARE PHYSICIAN: Yris Suarez MD ([facility]) [facility] [place] [address] HISTORY OF PRESENT ILLNESS: Ms. Roque is [...] 5. Encounter for monitoring statin therapy Z51.81 Z79.898 6. Ex-smoker Z87.893 PLAN AND RECOMMENDATION: Carotid stenosis is mild [...] HISTORY Diagnosis Date Breast cancer (HCC) Left; ER/[place]+ GERD (gastroesophageal reflux disease) PAST SURGICAL HISTORY [...] Kian Monet DO 05/20/23 documented in this encounterMercy Health05-01-2023 History of Present illness Narrative* Kurt Condon MD - 12/27/2022 10:30 AM EDT Images from the original note were not included. Radiation Oncology - Follow Up Note PATIENT NAME: Morelia Roque PATIENT DIAGNOSIS/PATIENT IDENTIFICATION: Ms. 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 This document has been created with the use of voice recognition technology. It may contain inaccuracies, misspellings, inaccurate syntax or inappropriate word context that are a result of the inadequacies/shortcomings of said technology/software. documented in this encounterMercy Health03-23-2023 History of Present illness Narrative* Kian Monet DO - 11/18/2022 1:59 PM EDT Images from the original note were not included. [facility] [place] SECTION OF REGIONAL CARDIOLOGY OUTPATIENT VISIT DATE 11/18/22 OUTPATIENT VISIT TYPE Established PRIMARY CARE PHYSICIAN: Yris Suarez MD ([facility]) [address] [place] [address] HISTORY OF PRESENT ILLNESS: Ms. 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 4) Aug,cute actinic otitis externa of left ear (ICD-10 - H60.512)pharmacy doesn't have cipro - rx changed to neomycin In the future if the pain persists, we can consider ENT reassessment [facility] [employer] Other 01-04-2023 Evaluation note* Encounter Date Diagnosis Assessment Notes Treatment Notes Treatment Clinical Notes Aug, Acute actinic otitis externa of left ear (ICD-10 - H60.512) [facility] [employer] Other 12-06-2022 Miscellaneous Notes* Telephone Encounter - Selene Otero APRN.[facility] - 08/03/2022 5:52 PM EST The [...] mouth once daily. Authorizing Provider: SELENE OTERO APRN.[employer] DELIVERY DR[employer] * Telephone Encounter - Radha Llanos MA [...] Mari Jones Ma documented in this encounterMercy Health05-02-2022 History of Present illness Narrative* Kurt Condon MD - 12/28/2021 11:54 PM EDT Radiation Oncology - Follow Up Note PATIENT NAME: Morelia Roque PATIENT Signed by: Kurt Condon MD I spent a total of 20 minutes on the date of the service which included preparing to see the patient, dnbk-ur-qwza patient care and counseling and educating the patient/family/caregiver. This document has been created with the use of voice recognition technology. It may contain inaccuracies, misspellings, inaccurate syntax or inappropriate word context that are a result of the inadequacies/shortcomings of said technology/software. documented in this encounterMercy Health04-20-2022 Miscellaneous Notes* Telephone Encounter - Jeaneth Hawk RN - 12/16/2021 10:30 AM EDT GURDEEP Stewart does not have an order. Please sign pended order. Jeaneth Hawk RN * Telephone Encounter - Jeaneth Hakw RN - 12/16/2021 8:57 AM EDT Spoke to pt and she has not had 6 month katja yet. SHe will call [facility] today and then call us back to let us know when she is set up. PSS- please cancel RV for 12/17 and reschedulef or after mammogram. Jeaneth Hawk RN documented in this encounterMercy Health04-05-2022 History of Present illness Narrative* Patricia Young APRN.[employer] FOOD DELIVERY DRIVER - 12/01/2021 1:46 PM EDT Images from the original note were not included. [facility] [place] Lisa Olmedo Department of Cardiovascular Medicine SECTION [...] HISTORY Diagnosis Date Breast cancer (HCC) Left; ER/[place]+ GERD (gastroesophageal reflux disease) PAST SURGICAL HISTORY [...] visit. This note was partially generated with [employer] voice recognition software and may contain errors, including spelling, grammar, syntax and misrecognition of what was dictated, that may not be fully corrected. I appreciate the opportunity to participate in this patient's care. Please do not hesitate to call my office if you have any questions. CONTACT INFORMATION: Patricia Young APRN.CNP Adult Nurse Practitioner Lisa Olmedo Department of Cardiovascular Medicine [facility] [place] [facility] Surgery [facility] Cardiology Consult Team documented in this encounterMcCullough[facility] + [facility] note No data available for this section [facility] [place] [facility]* Diagnosis Malignant neoplasm of upper-outer quadrant of left breast in female, estrogen receptor positive (HCC)- Primary documented in this encounter [facility] [place] [facility]* Diagnosis Bilateral carotid artery stenosis- Primary Occlusion and stenosis of carotid artery without mention of cerebral infarction Mixed hyperlipidemia Elevated blood pressure reading without diagnosis of hypertension documented in this encounter [facility] [place] [facility]* Diagnosis Mixed hyperlipidemia Hypomagnesemia Disorders of magnesium metabolism Elevated blood pressure reading without diagnosis of hypertension documented in this encounter [facility] [place] [facility]* Diagnosis Bilateral carotid artery stenosis- Primary Occlusion and stenosis of carotid artery without mention of cerebral infarction Elevated blood pressure reading without diagnosis of hypertension Mixed hyperlipidemia Hypomagnesemia Disorders of magnesium metabolism Encounter for monitoring statin therapy Encounter for therapeutic drug monitoring Ex-smoker Personal history of tobacco use, presenting hazards to health [facility]* Diagnosis Bilateral carotid artery stenosis- Primary Occlusion and stenosis of carotid artery without mention of cerebral infarction Elevated blood pressure reading without diagnosis of hypertension Mixed hyperlipidemia Hypomagnesemia Disorders of magnesium metabolism Encounter for monitoring statin therapy Encounter for therapeutic drug monitoring Ex-smoker Personal history of tobacco use, presenting hazards to health documented in this encounter [facility]* Diagnosis Mixed hyperlipidemia Elevated blood pressure [...] to health documented in this encounter [facility] [place] [facility]* Diagnosis Malignant neoplasm of upper-outer quadrant of left breast in female, estrogen receptor positive (HCC)- Primary documented in this encounter [facility] [place] [facility]* Diagnosis Primary hypertension- Primary Unspecified essential hypertension Mixed hyperlipidemia Hypomagnesemia Disorders of magnesium metabolism Bilateral carotid artery stenosis Occlusion and stenosis of carotid artery without mention of cerebral infarction Ex-smoker Personal history of tobacco use, presenting hazards to health documented in this encounter [facility] [place] [facility]* Diagnosis Primary hypertension- Primary Unspecified essential hypertension Mixed hyperlipidemia Hypomagnesemia Disorders of magnesium metabolism Low magnesium level Bilateral carotid artery stenosis Occlusion and stenosis of carotid artery without mention of cerebral infarction Encounter for monitoring statin therapy Encounter for therapeutic drug monitoring Ex-smoker Personal history of tobacco use, presenting hazards to health documented in this encounter [facility] general Narrative - Reported* Type Description Date Medical History UTI due to ESBL klebsiella Medical HistoryTIAMedical Historymalignant neoplasm left breastMedical History depressionMedical HistoryosteopeniaMedical HistoryGERDMedical Historycolon adenocarcinomaMedical HistorylipidemiaSurgical Historyascending cholangiitis colon [id number] Historycholecystectomy [facility] Other Hospital Discharge instructions No data available for this section [facility] HospitalProgress note No data available for this section [facility] HospitalReason for referral (narrative)* Diagnostic Procedure Only (Routine) - Pending ReviewSpecialtyDiagnoses / Procedures Referred By ContactReferred To ContactBR IMAGING Diagnoses Malignant neoplasm of upper-outer quadrant of left breast in female, estrogen receptor positive (HCC) Procedures KATJA DIAGNOSTIC BILAT DIAGNOSTIC MAMMOGRAPHY COMPUTER-AIDED DETCJ Kurt Stallings MD [address] [place] [address] [place] [address] [facility] [address] [place] [address] Referral IDStatusReasonStart DateExpiration DateVisits RequestedVisits [id number] Review Auto-Generated Referral / [facility] for referral (narrative)* Diagnostic Procedure Only (Routine) - Pending ReviewSpecialtyDiagnoses / ProceduresReferred By Contact Referred To ContactBR IMAGING Diagnoses Malignant neoplasm of upper-outer quadrant of left breast in female, estrogen receptor positive (HCC) Procedures KATJA DIAGNOSTIC BILAT DIAGNOSTIC MAMMOGRAPHY COMPUTER-AIDED DETCJ BI Kurt Condon MD [address] [place] [address] [place] [address] [facility] [address] [place] [phone] Referral IDStatusReasonStart DateExpiration DateVisits RequestedVisits [id number] Review Auto-Generated Referral / [facility] for referral (narrative)* Outpatient Procedure (Routine) - Pending ReviewSpecialtyDiagnoses / ProceduresReferred By ContactReferred To [facility] Diagnoses Bilateral carotid artery stenosis Procedures US CAROTID ARTERIES ZEKE VAS LAB DUPLEX SCAN EXTRACRANIAL ART COMPL BI STUDY Kian Monte DO [address] [place] [address] [facility] [place] [address] [place] [phone] Referral IDStatusReasonStart DateExpiration DateVisits RequestedVisits [id number] Review Auto-Generated Referral / * Outpatient Procedure (Routine) - AuthorizedSpecialtyDiagnoses / Procedures Referred By ContactReferred To [facility] Diagnoses Bilateral carotid artery stenosis Elevated blood pressure reading without diagnosis of hypertension Procedures ECG COMPLETE ECG ROUTINE ECG W/LEAST 12 LDS W/I&R Kian Monet DO [address] [place] [address] [facility] [address] [place] [address] Referral IDStatusReasonStplaquemine DateExpiration DateVisits RequestedVisits [id number] Auto-Generated Referral / [facility] for referral (narrative)* Diagnostic Procedure Only (Routine) - Pending ReviewSpecialtyDiagnoses / ProceduresReferred By Contact Referred To ContactBR IMAGING Diagnoses Malignant neoplasm of upper-outer quadrant of left breast in female, estrogen receptor positive (HCC) Procedures KATJA DIAGNOSTIC BILATERAL DIAGNOSTIC MAMMOGRAPHY COMPUTER-AIDED DETCJ Kurt Stallings MD [address] [place] [address] [place] [address] [facility] [address] [place] [phone] Referral [facility]StatusRe[facility] DateExpiration DateVisits RequestedVisits [id number] Review Auto-Generated Referral / [facility] for referral (narrative)* Outpatient Procedure (Routine) - AuthorizedSpecialtyDiagnoses / ProceduresReferred By ContactReferred To [facility] Diagnoses Bilateral carotid artery stenosis Mixed hyperlipidemia Procedures ECG COMPLETE ECG ROUTINE ECG W/LEAST 12 LDS W/I&R Kian Monet DO [address] [place] [address] [facility] [address] [place] [address] Referral [facility]Status[facility] DateExpiration DateVisits RequestedVisits [id number] Auto-Generated Referral / [facility] for referral (narrative)* Outpatient Procedure (Routine) - AuthorizedSpecialtyDiagnoses / ProceduresReferred By ContactReferred To [facility] Diagnoses Bilateral carotid artery stenosis Procedures US CAROTID ARTERIES ZEKE VAS LAB DUPLEX SCAN EXTRACRANIAL ART COMPL BI STUDY Kian Monet, [address] [place] [address] [address] Referral IDStatusReasonStart DateExpiration DateVisits RequestedVisits [id number] Auto-Generated Referral * Outpatient Procedure (Routine) - Pending ReviewSpecialtyDiagnoses / Procedures Referred By ContactReferred To [facility] Diagnoses Bilateral carotid artery stenosis Primary hypertension Hypomagnesemia Procedures ECG COMPLETE ECG ROUTINE ECG W/LEAST 12 LDS W/I&R Kian Monet, [address] [place] [address] [address] Referral IDStatusReasonStart DateExpiration DateVisits RequestedVisits [id number] Review Auto-Generated Referral [facility] for referral (narrative)* Diagnostic Procedure Only (Routine) - Pending ReviewSpecialtyDiagnoses / ProceduresReferred By Contact Referred To ContactBR IMAGING Diagnoses Malignant neoplasm of upper-outer quadrant of left breast in female, estrogen receptor positive (HCC) Procedures KATJA DIAGNOSTIC BILATERAL DIAGNOSTIC MAMMOGRAPHY COMPUTER-AIDED DETCJ Kurt Stallings MD [address] [place] [address] [place] [address] [facility] [address] [place] [phone] Referral IDStatusReasonStart DateExpiration DateVisits RequestedVisits [id number] Review Auto-Generated Referral / [facility]Reason for referral (narrative)No reason for referral information availableSt. Mary'S [facility] Work Phone: Summary Purpose Family History Relationship [...] prosecute any alcohol or drug abuse patient.[facility] HealthIn the event this information is protected by the Federal Confidentiality of Alcohol and Drug Abuse Patient Records regulations: The Federal rules restrict any use of the information to criminally investigate or prosecute any alcohol or drug abuse patient.[facility] HealthIn the event this information is protected by the Federal Confidentiality of Alcohol and Drug Abuse Patient Records regulations: The Federal rules restrict any use of the information to criminally investigate or prosecute any alcohol or drug abuse patient.[facility] HealthIn the event this information is protected by the Federal Confidentiality of Alcohol and Drug Abuse Patient Records regulations: The Federal rules restrict any use of the information to criminally investigate or prosecute any alcohol or drug abuse patient.[facility] HealthIn the event this information is protected by the Federal Confidentiality of Alcohol and Drug Abuse Patient Records regulations: The Federal rules restrict any use of the information to criminally investigate or prosecute any alcohol or drug abuse patient.[facility] HealthIn the event this information is protected by the Federal Confidentiality of Alcohol and Drug Abuse Patient Records regulations: The Federal rules restrict any use of the information to criminally investigate or prosecute any alcohol or drug abuse patient.[facility] HealthIn the event this information is protected by the Federal Confidentiality of Alcohol and Drug Abuse Patient Records regulations: The Federal rules restrict any use of the information to criminally investigate or prosecute any alcohol or drug abuse patient.[facility] HealthIn the event this information is protected by the Federal Confidentiality of Alcohol and Drug Abuse Patient Records regulations: The Federal rules restrict any use of the information to criminally investigate or prosecute any alcohol or drug abuse patient.[facility] HealthIn the event this information is protected by the Federal Confidentiality of Alcohol and Drug Abuse Patient Records regulations: The Federal rules restrict any use of the information to criminally investigate or prosecute any alcohol or drug abuse patient.[facility] HealthIn the event this information is protected by the Federal Confidentiality of Alcohol and Drug Abuse Patient Records regulations: The Federal rules restrict any use of the information to criminally investigate or prosecute any alcohol or drug abuse patient.[facility] HealthIn the event this information is protected by the Federal Confidentiality of Alcohol and Drug Abuse Patient Records regulations: The Federal rules restrict any use of the information to criminally investigate or prosecute any alcohol or drug abuse patient.[facility] HealthIn the event this information is protected by the Federal Confidentiality of Alcohol and Drug Abuse Patient Records regulations: The Federal rules restrict any use of the information to criminally investigate or prosecute any alcohol or drug abuse patient.[facility] HealthIn the event this information is protected by the Federal Confidentiality of Alcohol and Drug Abuse Patient Records regulations: The Federal rules restrict any use of the information to criminally investigate or prosecute any alcohol or drug abuse patient.[facility] Reason for Visit (unrecogniz ed section and content) ReasonCommentsFuture AppointmentReasonCommentsCardiology Follow UpReasonComments Breast CancerReasonOnset DateCommentsRefill Vcskawb95/05/2022ReasonCommentsCARD Follow Up 6 MonthReasonCommentsCARD Follow Up 6 MonthReasonOnset DateComments Refill Myxxccf19/09/2024ReasonCommentsCARD Follow Up 3 Month Care Teams (unrecognized sec tion and content) Team MemberRelationshipSpecialtyStart DateEnd Date Yris Suarez MD [address] [place] [facility] [place] [phone] PCP - GeneralFamily Njtokggv09/30/11Team MemberRelationshipSpecialtyStart Date End Date Yris Suarez MD [address] [place] [facility] [place] [phone] PCP - GeneralFamily Yveduxtq01/30/11Team MemberRelationshipSpecialtyStart Date End Date Yris Suarez MD [address] [place] [facility] [place] [address] PCP - GeneralFamily Jnavcirk73/30/11Team MemberRelationshipSpecialtyStart Date End Date Yris Suarez MD [address] [place] [facility] [place] [address] PCP - GeneralFamily Apcncorl00/30/11Team MemberRelationshipSpecialtyStart Date End Date Yris Suarez MD [address] [place] [facility] [place] [address] PCP - GeneralFamily Flkcgvnv48/30/11Team MemberRelationshipSpecialtyStart Date End Date Yris Suarez MD [address] [place] [facility] [place] [address] PCP - GeneralFamily Zgrgapvp63/30/11Team MemberRelationshipSpecialtyStart Date End Date Yris Suarez MD [address] [place] [facility] [place] [address] PCP - GeneralFamily Oevscmff64/30/11Team MemberRelationshipSpecialtyStart Date End Date Yris Suarez MD [address] [place] [facility] [place] [address] PCP - GeneralFamily Whdzdrzf32/30/11Team MemberRelationshipSpecialtyStart Date End Date Yris Suarez MD [address] [place] [facility] [place] [address] PCP - GeneralFamily Cylfgwqc01/30/11Team MemberRelationshipSpecialtyStart Date End Date Yris Suarez MD [address] [place] [facility] [place] [address] PCP - GeneralFamily Phsndlyg24/30/11Team MemberRelationshipSpecialtyStart Date End Date Yris Suarez MD [address] [place] [facility] [place] [address] PCP - GeneralFamily Iceisroj36/30/11Team MemberRelationshipSpecialtyStart Date End Date Yris Suarez MD [address] [place] [place] [address] PCP - GeneralFamily Trtuuqqv42/30/11Team MemberRelationshipSpecialtyStart Date End Date Yris Suarez MD [address] [place] [facility] [place] [address] (work) [facility]um[facility] Team Status: Active Member Role Status Dates [...] and content) DATE CREATED AUTHOR 12/25/2022 [facility] DATE CREATED AUTHOR AUTHOR'S ORGANIZ ATION 01/13/2025 [facility] DATE CREATED AUTHOR AUTHOR'S ORGANIZ ATION 01/24/2025 [facility] Goals (unrecognized section and content) Goals [...] BE BASED ON THE PRIMARY CLINICAL RECORDS. [employer] provides no warranty or guarantee of the accuracy or completeness of information in this document.
--- OUTSIDE RECORDS SUMMARY | 2025-08-06 19:45 | XMS_ITS | Clinical Summary ---
Author Organization [facility] Address [facility] [place] [id number] Care Team Providers Care Judge Clerk Name Role Phone Yris Woods MD Primary Care Provider [phone] Allergies No known active allergies Medications MedicationSigDispense QuantityRefillsLast FilledStart DateEnd DateStatus aspirin, enteric coated (ASPIRIN, ENTERIC COATED) 81 mg EC tablet Take 81 mg by mouth once daily.Active magnesium oxide (MAG-OX) 400 mg (241.3 mg magnesium) tablet Indications:Hypomagnesemia,Low magnesium levelTake 1 tablet by mouth once daily. 90 tablet ctive losartan (COZAAR) 50 mg tablet Indications:Primary hypertensionTake 1 tablet by mouth once daily. 90 tablet ctive coenzyme Q10 (COQ-10) 100 mg cap capsule Indications:Mixed hyperlipidemiaTake 1 capsule by mouth once daily. 90 capsule ctive atorvastatin (LIPITOR) 40 mg tablet Indications:Mixed hyperlipidemiaTake 1 tablet by mouth once daily. 90 tablet ctive metoprolol succinate ER (TOPROL XL) 25 mg 24 hr tablet Indications:Primary hypertensionTake 0.5 tablets by mouth once daily. 45 tablet ctive Active Problems ProblemNoted DateDiagnosed DateMixed thtrwyuialueoy54/01/2021Malignant neoplasm of upper-outer quadrant of left breast in female, estrogen receptor positive 07/31/2018Colon djrjsr7009/06/2012 Encounters DateTypeDepartmentCare LnsvKluqbeaamlk62/02/2025Interfaced [employer] Ferryboat Operator Management [address] [place] [address] Caitlin Powell MD 07/18/2025[employer] [address] [place] [address] Caitlin Powell MD from Last 3 Months Immunizations ImmunizationAdministration DatesNext Dueinfluenza (HD-IIV3) vaccine, age 65+ yr, high dose, trivalent, PF (FLUZONE HIGH-DOSE)06/22/2018 Family History Medical HistoryRelationCommentsDementiaFatherHeart diseaseMotherRelationStatus CommentsBrotherDeceasedFatherDeceasedMotherDeceased Social History Tobacco UseTypesPacks/DayYears UsedDateSmoking Tobacco: DurkjdIwjvenmeuj7347 - 1988Smokeless Tobacco: Never Tobacco Cessation:Counseling Given: Not Answered Comments:2 packs per week Alcohol UseStandard Drinks/WeekCommentsYes0 (1 standard drink = 0.6 oz pure alcohol)occPHQ-2AnswerDate RecordedPHQ-2 hgdld6814Area Deprivation Index AnswerDate RecordedNational Score (1-100), lower number is lower risk59 05/20/2023State Score (1-10), lower number is lower hikz8793Data from: https://www.neighborhoodatlas.[facility].edu/. Last address used for [address]CommentsNoSex and Gender Information ValueDate RecordedSex Assigned at BirthNot on fileLegal HerJbppze63/02/2012 10:12 AM ESTGender IdentityNot on fileSexual OrientationNot on fileOccupation IndustryJob Start DateJob End DateretiredNot on fileNot on fileNot on file Last Filed Vital Signs Vital SignReadingTime TakenCommentsBlood Dwseegsz270/7410 1:17 PM EDT Bwqgw793506/15/2024 1:17 PM JVNMjvpspzbvhn73.6 ??C (97.9 ??F)12/27/2022 10:15 AM EDTRespiratory Oifm692512/27/2022 10:15 AM EDTOxygen Htwzbsnlyt38%06/15/2024 1:17 PM EDTInhaled Oxygen Concentration--Ntrpfd22 kg (143 lb 4.8 oz)06/15/2024 1:17 PM EGVMmzaeb492.9 cm (5' 0.98 )05/11/2019 1:16 PM EDTBody Mass Index27.09 05/11/2019 1:16 PM EDT Plan of Treatment Health MaintenanceDue DateLast DoneCommentsAnxiety Bolyxfavb38/18/1954epression Frsiaulda91/18/1954Shingrix Vaccine (1 of 2)1986Medicare Annual Wellness Visit07/29/2001Bone Density Merksdsbr23/18/2001RSV Vaccine (1 - 1-dose 75+ series)2011DTaP,Tdap,Td Vaccine (1 - Tdap)dvance Directive Kmufubicxd42/01/2025ovid-19 Vaccine ( season)2025 06/14/2023, 06/26/2022, 12/31/2021, Additional history existsInfluenza Vaccine (#1)9/, 06/26/2022, 06/02/2021, Additional history exists Diabetes Rvmexadeq95/03/2024, 11/14/2023, 10/20/2022, Additional history existsPneumococcal Vaccine: 50+Dkjyqbsjl19/09/2015, 04/30/2002 Procedures Procedure NamePriorityDate/TimeAssociated DiagnosisCommentsBASIC METABOLIC PANEL Ordpxcl2603/05/2024 12:47 PM EDT Primary hypertension from Last 3 Months or Most Recently Relevant to Health Maintenance Results * (ABNORMAL) BASIC METABOLIC PANEL (03/05/2024 12:47 PM EDT)ComponentValueRef RangeTest MethodAnalysis TimePerformed AtPathologist MjckqzyekLtygzyr986(H)74 - 99 mg/dL03/05/2024 1:29 PM EDTNORTHCOAST PONTIAC [facility] LABComment: The [place] Diabetes Association (ADA) provides guidance for cutoff values for fasting glucose andrandom glucose. The ADA defines fasting as no [...] Standards of Medical Care in Diabetes 2016, [place] Diabetes Association. Diabetes Care. 2016.39(Suppl 1). LPU869 - 21 mg/dL03/05/2024 1:29 PM [facility] Creatinine0.810.58 - 0.96 mg/dL03/05/2024 1:29 PM [facility] IQAHnlagm208198 - 144 mmol/L03/05/2024 1:29 PM [facility] LABPotassium4.03.7 - 5.1 mmol/L03/05/2024 1:29 PM [facility] JCGEvkqxdzf71758 - 107 mmol/L03/05/2024 1:29 PM EDT [facility] UCSFS03415 - 30 mmol/L03/05/2024 1:29 PM EDT [facility] LABAnion Gap98 - 15 mmol/L03/05/2024 1:29 PM [facility] LABCalcium, Total9.78.5 - 10.2 mg/dL 03/05/2024 1:29 PM [facility] LABEstimated Glomerular Filtration Rate70>=60 mL/min/1.73m 03/05/2024 1:29 PM [facility] LABComment:Estimated Glomerular Filtration Rate (eGFR) is calculated using the 2020 CKD-EPI creatinine equation. This equation utilizes serum creatinine, sex, and age as parameters. The creatinine assay has traceable calibration to isotope dilution- mass spectrometry. Refer to KDIGO guidelines for clinical interpretation. In patients with unstable renal function, e.g. those with acute kidney injury, the eGFRmay not accurately reflect actual GFR.Specimen (Source)Anatomical Location / LateralityCollection Method / VolumeCollection TimeReceived TimeBloodBLOOD SPECIMEN / UnknownVenipuncture / Ylmurns8003/05/2024 12:47 PM EDT03/05/2024 12:47 PM EDT Narrative Authorizing ProviderResult TypeResult StatusKenprachi Luis DOLABORATORYFinal ResultPerforming OrganizationAddressCity/State/ZIP CodePhone Number [facility] [address] [place] [address] from Last 3 Months or Most Recently Relevant to Health Maintenance Insurance Care Teams Team MemberRelationshipSpecialtyStart DateEnd Date Yris Woods MD [address] [place] [id number] PCP - GeneralFamily Ogmnugwl45/30/11
--- OUTSIDE RECORDS SUMMARY | 2025-08-06 19:45 | XMS_ITS | Clinical Summary ---
Author Organization [facility] Address [address] [place] [address] Care Team Providers Care Non Clinical Advisor Name Role Phone Unavailable Primary Care Provider Unavailabl e Social History Tobacco UseTypesPacks/DayYears UsedDateSmoking Tobacco: Never Assessed CommentsUnknownSex and Gender InformationValueDate RecordedSex Assigned at Not on fileLegal JpwJbkuoo89/01/2023 8:33 PM EDTGender IdentityNot on fileSexual OrientationNot on file Last Filed Vital Signs Vital SignReadingTime TakenCommentsBlood Yenevzls946/7908 12:00 PM EDT Pulse--Temperature--Respiratory Rate--Oxygen Saturation--Inhaled Oxygen Concentration--Kwftvr38.7 kg (136 lb)04/26/2022 12:00 PM DQRRpqnxr119.9 cm (4' 11 )04/26/2022 12:00 PM EDTBody Mass Index27.4708 12:00 PM EDT Plan of Treatment Not on file Insurance
--- OUTSIDE RECORDS SUMMARY | 2025-08-06 19:45 | XMS_ITS | Clinical Summary ---
Author Organization [facility] tem Address [id number] [place] [address] Care Team Providers Care Waste Management Recycling Technician Name Role Phone Yris Woods MD Primary Care Provider [phone] Allergies No known active allergies Medications MedicationSigDispense QuantityRefillsLast FilledStart DateEnd DateStatus atorvastatin (LIPITOR) 40 mg tablet Take 40 mg by mouth daily.Active aspirin 81 mg Take 81 mg by mouth daily.Active coenzyme Q10 30 mg capsule Take 100 mg by mouth 3 (three) times a day. Active Active Problems ProblemNoted DateDiagnosed DatePrimary invasive malignant neoplasm of female breast, left04/20/2021 Family History Medical HistoryRelationNameCommentsDementiaFatherHeart diseaseMotherRelationName StatusCommentsDaughter 1AliveDaughter 2AliveDaughter 3AliveFatherDeceasedMother Social History Tobacco UseTypesPacks/DayYears UsedDateSmoking Tobacco: FormerCigarettesQuit: 08/29/1988Smokeless Tobacco: NeverAlcohol UseStandard Drinks/WeekCommentsYes5 (1 standard drink = 0.6 oz pure alcohol)ChildcareAnswerDate RecordedChildcare Xffujqe1302/01/2019EmploymentAnswerDate RsvuznxjQgcymmdnysOcwowls60/06/2019Purpose - LifeAnswerDate RecordedPurpose and direction in klqfXelpmze69/11/2021 CommentsUnknownSex and Gender InformationValueDate RecordedSex Assigned at Not on fileLegal UeiQgxiev50/06/2015 11:52 AM EDTGender IdentityNot on file Sexual OrientationNot on file Last Filed Vital Signs Vital SignReadingTime TakenCommentsBlood Obuvktpg980/7809/ 9:47 AM EDT Pulse--Pfrelelyyix20.9 ??C (96.6 ??F)05/15/2021 9:47 AM EDTRespiratory Rate-- Oxygen Saturation--Inhaled Oxygen Concentration--Gpmiuk26.4 kg (142 lb) 05/15/2021 9:47 AM PGIYdfyji865.9 cm (5' 1 )05/15/2021 9:47 AM EDTBody Mass Index26.8305/15/2021 9:47 AM EDT Plan of Treatment Health MaintenanceDue DateLast DoneCommentsDepression Hfjxednkf68/18/1948Tobacco Opdjmnwnq38/18/1948DTaP,Tdap and Td Vaccines (1 - Tdap)1955Zoster (Shingles) Vaccine (1 of 2)1955Fall Risk Jfvvqozyn25/18/2001RSV ( or age 60+ yrs) (1 - 1-dose 75+ series)2011COVID-19 Vaccine (3 - Pfizer risk series)/, 09/21/2020Influenza Zgtajrp0504/29/2025 06/22/2018 Medical Devices [place] [address] Care Teams Team MemberRelationshipSpecialtyStart DateEnd Date Yris Woods MD [address] [place] [address] PCP - General04/20/17
--- OUTSIDE RECORDS SUMMARY | 2025-08-06 19:45 | XMS_ITS | Encounter Summary ---
Author Organization [facility] Address [facility] [place] [address] Care Team Providers Care Traffic Rate Clerk Name Role Phone Yris Woods MD Primary Care Provider [phone] Source Comments In the event this information is protected by the Federal Confidentiality of Alcohol and Drug AbusePatient Records regulations: The Federal rules restrict any use of the information to criminally investigate or prosecute any alcohol or drug abuse patient.[facility] Encounter Details DateTypeDepartmentCare Team (Latest Contact Info)Jxciilemjyj64/02/2025Interfaced Data Clinical Systems Analyst Management [address] [place] [address] Caitlin Powell MD Social History Tobacco UseTypesPacks/DayYears UsedDateSmoking Tobacco: ObbscgYeagexzwmx0016 - 1988Smokeless Tobacco: Never Comments:2 packs per week Alcohol UseStandard Drinks/WeekCommentsYes0 (1 standard drink = 0.6 oz pure alcohol)occPHQ-2AnswerDate RecordedPHQ-2 krger5584Area Deprivation Index AnswerDate RecordedNational Score (1-100), lower number is lower risk59 05/20/2023State Score (1-10), lower number is lower xhzg1403Data from: https://www.neighborhoodatlas.medicine.[facility].edu/. Last address used for [address]CommentsNoSex and Gender Information ValueDate RecordedSex Assigned at BirthNot on fileLegal SijOpqdgf83/02/2012 10:12 AM ESTGender IdentityNot on fileSexual OrientationNot on fileOccupation IndustryJob Start DateJob End DateretiredNot on fileNot on fileNot on file documented as of this encounter Plan of Treatment Not on file documented as of this encounter Visit Diagnoses Not on filedocumented in this encounter Care Teams Team MemberRelationshipSpecialtyStart DateEnd Date Yris Woods MD [address] [place] [address] PCP - GeneralFamily Jadbcstj43/30/11documented as of this encounter
[2025-08-06] MEDS: 0.9 % SODIUM CHLORIDE 1,000 ML 999 ML IV ×2 (20:20→22:29)
[2025-08-06 22:00] LABS: Glucose Urine UA NEGATIVE (NEGATIVE)
[2025-08-06 22:07] LABS: Lactate/Lactic Acid 2.1 mmol/L (0.4-2.0)
[2025-08-06 22:23] LABS: Cast Seen? NONE SEEN #/LPF (NONE SEEN); Crystals Seen? None Seen #/HPF (None Seen)
[2025-08-06 23:09] LABS: C. Difficile PCR NEGATIVE
[2025-08-07] MEDS: 0.9 % SODIUM CHLORIDE 1,000 ML 999 ML IV (00:09)
[2025-08-07 00:54] VITALS: BP 122/68; PULSE 79; O2SAT 96
[2025-08-08 11:13] LABS: H. pylori Stool Ag, EIA Negative (Negative)
== END 2025-08-07 01:16 | disposition home or self-care (01) ==
PROVIDERS: Emergency Medicine; Emergency Provider Internal Medicine; PCP Family Medicine
DX: E86.0 Dehydration (principal); R19.7 Diarrhea, unspecified; R41.82 Altered mental status, unspecified; Z87.440 Personal history of urinary (tract) infections
CPT/HCPCS: 36415; 80053; 81001; 83605; 84484; 85007; 85027; 87045; 87046; 87338; 87427; 87493; 93005; 99283; 99284

== ENCOUNTER 2025-08-08 10:41 | Outpatient (OUT) | payer MEDICARE, OTHER, SELFPAY ==
--- OUTSIDE RECORDS SUMMARY | 2025-08-08 05:23 | XMS_ITS | Continuity of Care Document ---
Author Organization [facility] Address [address] [place] [address] Phone Care Team Providers Care Legal Executive Assistant Name Role Phone Yris Woods MD Primary Care Provider Yris Woods MD Attending Provider [phone] Yanira Anguiano MD Attending Provider Santosh Rose DO Attending Provider Care Teams Patient Care Team Team Status: Active Member Role/Relationship Status Dates Yris Woods MD Primary Care Provider Active Visit Care Team Team Status: Inactive Member Role/Relationship Status Dates Yris Woods MD Primary Care Provider Active Start: August 01, 2025 End: August 01, 2025Goldy Berman ProviderActiveStart: August 01, 2025 End: August 01, 2025 Visit Care Team Team Status: Inactive Member Role/Relationship Status Dates Yris Woods MD Attending Provider Active St art: August 01, 2025 End: August 01, 2025 Visit Care Team Team Status: Active Member Role/Relationship Status Dates Yris Woods MD Primary Care Provider Active Start: August 06, 2025 Goldy Parikh ProviderActiveStart: August 06, 2025 Patient Care Team Team Status: Inactive Member Role/Relationship Status Dates Yris Woods MD Primary Care Provider Active Start: August 08, 2025 End: August 08sunny Rose DOAttpiotr ProviderActiveStart: August 08, 2025 End: August 08, 2025 Chief Complaint and Reason for Visit Chief Complaint Admit Date dementia assessment August 01, 2025 2 :46pm LEGAL RECEPTIONIST - Forgetfulness August 08, 2025 9:24am Reason for Visit Admit Date Benign essential HTN August 01, 2025 2:46pm Fatigue August 01, 2025 2 :46pm Memory changes August 01, 2025 2 :46pm Urinary tract infection due to Proteus D ecember 2024 2:46pm Dementia August 08, 2025 9:24am ETOH abuse August 08, 2025 9:24am Reason for Referral Type Reason(s) Provider Provider Contact Information Ada calixto Address Start Date Memory impairment R41.3 - Other mcxwkitPqcbpmooY82.3 - [id number] [address] 2024G30.1 - Alzheimer's disease with late onset,F02.C0 - Dementia in other diseases classified elsewhere, severe, without behavioral disturbance, psychotic disturbance, mood disturbance, and anxietyBe Determined , ToDe2024 Allergies, Adverse Reactions, Alerts Allergen Type Severity Reaction Last Updated Verified Status No Known Allergies Allergy Unknown August 08, 2025 9:37amYesActive Social History Smoking Status Status Start Date End Date Date of Observa tion Never smoked tobacco (finding) March 25, 2025 1:02pm Observation Status Observation Response Date of Response Legal Sex Female (finding) [facility] Family History Relationship Condition Age at Onset Recorded Date/T kennedy brother Unknown fatherDeceasedUnknownmotherMalignant neoplasmUnknownDeceasedUnknownsonMalignant neoplasmUnknown Problems Active Problems Problem Diagnosis/Recorded Date Onset Date Stat Medicare annual wellness vis it, subsequent March 25, 2025 12:23pm Unknown Active History of breast cancer in female March 25, 2025 12: 23pm Unknown Active Fatigue August 01, 2025 3:26pm Unknown Ac tive ETOH abuse August 08, 2025 9:48am Unknown A ctive Urinary tract infection due to Proteus August 05, 2 025 8:19am Unknown Active Benign essential HTN January 15, 2025 12:52pm Unknown Active Dementia August 08, 2025 9:48am Unknown A ctive Hyperlipidemia, unspecified January 15, 2025 12:32pm Unk nown Active Memory changes August 05, 2025 8:20am Unknown Active Inactive/Resolved Problems Problem Diagnosis/Recorded Date Onset Date Stat Acute diverticulitis January 15, 2025 12:52pm Unknown Resolved Hypokalemia January 15, 2025 12:45pm Unknown Resol kenan Medications Medication Status Dose Units Route Directions Qty Days Refills S tart Date Stop Date End Date Reason(s) Instructions Adherence Ciprofloxacin Hcl 250 mg tablet Active 250 MG PO Twice daily 14 0August 02, 2025 12:00amComplies with drug therapyAtorvastatin 40 mg tablet Rcwqjmkddcsy09FLHRHdpgqUxe 19th, 2025 11:00pmDe2024 3:03pmLosartan 50 mg jufbrwFkevkv34QGUTKdqycRhg 19th, 2025 11:00pmUnknownAmoxicillin-Pot Clavulanate 875-125 mg hdftmrDrfdgpvrqgcr9SUFMHYexbz dailyJanuary 14, 2025 11:00pm March 25, 2025 12:02pmAspirin 81 mg tablet,delayed release (DR/EC)Ijtecm37WDDD DailyJanuary 14, 2025 11:00pmComplies with drug therapyCoenzyme Q10 (Co Q-10) 100 mg hwxyeaxDuahjo779BINXYjtleHdc 19th, 2025 11:00pmComplies with drug therapy Magnesium Oxide 400 mg magnesium igvkvxHwhjut875GAEHHymasSyq 19th, 2025 11:00pm Complies with drug therapyBetamethasone Dipropionate 0.05 % ointmentDiscontinued 1APPLICTOPICALTwice 2024 12:00amAugust 01, 2025 3:03pm FreeTextSi application Externally Twice a day; Note: Source Status: Start; Refills: 0; Qty: 1 Each; Provider: Peggy Arndt EAtorvastatin 40 mg tabletActive 40MGPODailyDece2024 12:00amComplies with drug therapyMetoprolol Succinate 25 mg tablet extended release 24 stWrxlce49QUWMKgvxbTumcajie 11th, 2025 12:00amComplies with drug therapy Immunizations Immunization Event Date Not Given Reason Dose Number Custodial Engineer Lot Number Reason(s) Given Vaccine Information Statement (VIS) Detail Administration Location influenza, unspecified formulation June 02, 2015 influenza, unspecified formulationSeptember 2019Pneumococcal Conjugate Vaccine, 13 valentOctober 2014Pneumococcal Polysacc. Vaccine, 23 valent April 30, 2002Tetanus, Diphtheria adult, 5 Lf pres free absSept2011 Procedures Procedure Date Performed Status Urine Culture August 01, 2025 completed Relevant Diagnostic Tests and/or Laboratory Data Laboratory Results Test Collection Date/Time Result Date/Time Result Interpretation Reference Range Result Comment Performing Site Urine Culture Reflexed August 01, 2025 4:00pm YES-FRMCBasophils # (Auto)August 01, 2025 4:16pmDecember 2024 4:16pm0.0 10 3/uL0.0-0.1Free Thyroxinecemb2024 4:16pmDecember 2024 4:16pm 1.10 ng/dL0.76-1.46Thyroid Stimulating Hormone 3rd GenDe2024 4:16pm August 01, 2025 4:16pm1.853 u[iU]/mL0.358-3.740Magnesium LevelDece2024 4:16pmDecember 2024 4:16pm1.9 mg/dL1.8-2.4Anion Gapce2024 4:16pmDecember 2024 4:16pm9.8HematocritDecember 2024 6:45pmDecember 2024 6:45pm39.0 %36.0-48.0Troponin I High SensitivityDecemb2024 6:45pmDecember 2024 6:45pm8.0 pg/mL4.0-51.3CUT-OFF POINTS HAVE BEEN ESTABLISHED BASED ON THE FOURTHIVERS DEFINITION OF MYOCARDIAL INFARCTION. THE UPPERREFERENCE LIMIT (URL) OF TROPONIN, DEFINED THE 99THPERCENTILE OF cTnI DISTRIBUTION IN A REFERENCE POPULATION,HAS BEEN CONFIRMED THE DECISION THRESHOLD FOR MIDIAGNOSIS.99TH PERCENTILE = 51.4 PG/MLNOTE: HIGH-SENSITIVITY TROPONIN ASSAY IS NOT INTENDED TO BEUSED IN ISOLATION BUT SHOULD BE INTERPRETED IN CONJUNCTIONWITH OTHER DIAGNOSTIC AND CLINICAL INFORMATION.Anion GapDecember 2024 6:45pmDecember 2024 6:45pm9.4Clostridium difficile (PCR)(LAB) August 06, 2025 8:26pmDecember 2024 8:26pmNEGATIVELactic Acid Level August 06, 2025 9:40pmDecember 2024 9:40pm2.1 mmol/LAbove upper panic limits0.4-2.0RESULTS CALLED TO DR. Nowak Microscopic ReviewAugust 06, 2025 9:51pmDecember 2024 9:51pmYESUrine Other CastsDecember 2024 4:00pmNONE SEEN #/LPFNONE SEENBasophils (%) (Auto)August 01, 2025 4:16pm August 01, 2025 4:16pm0.3 %0.2-2.0Albumin/Globulin Ratiocemb2024 4:16pmDecember 2024 4:16pm0.4HemoglobinDecember 2024 6:45pmDecember 2024 6:45pm12.6 g/dL12.0-16.0Albumin/Globulin Ratiocemb2024 6:45pmDecember 2024 6:45pm0.4Urine BilirubinDecember 2024 9:51pm August 06, 2025 9:51pmNEGATIVENEGATIVEUrine Other Crystalsce2024 4:00pmNone Seen #/HPFNone SeenEosinophils # (Auto)August 01, 2025 4:16pm August 01, 2025 4:16pm0.1 10 3/uL0.0-0.7Albumincemb2024 4:16pm August 01, 2025 4:16pm2.1 g/dLBelow low normal3.4-5.0Mean Corpuscular HemoglobinDecember 2024 6:45pmDecember 2024 6:45pm30.9 pg26.7-34.0 AlbuminDecember 2024 6:45pmDecember 2024 6:45pm2.3 g/dLBelow low normal3.4-5.0Urine Occult BloodDecember 2024 9:51pmDecember 2024 9:51pmNEGATIVENEGATIVEUrine BacteriaDecember 2024 4:00pmTRACE #/HPFAbnormal (applies to non-numeric results)NONE SEENEosinophils (%) (Auto)August 01, 2025 4:16pmDecember 2024 4:16pm2.1 %0.9-7.0Alkaline PhosphataseDecemb2024 4:16pmDecember 2024 4:12hw297 U/LAbove high gzjume14-404Ktmv Corpuscular Hemoglobin ConcentDecember 2024 6:45pmDecember 2024 6:45pm 32.3 g/dL29.9-35.2Alkaline PhosphataseDecember 2024 6:45pmDecember 2024 6:01uk651 U/L23-258Qcmvg AppearanceDece2024 9:51pmDecember 2024 9:51pmCLEARCLEARUrine BilirubinDecemb2024 4:00pmNEGATIVENEGATIVE HematocritDecemb2024 4:16pmDecember 2024 4:16pm38.8 %36.0-48.0 Alanine Aminotransferase (ALT/SGPT)August 01, 2025 4:16pmDecember 2024 4:16pm12 U/LBelow low ofoqmm38-67Yott Corpuscular VolumeDecember 2024 6:45pmDecember 2024 6:45pm95.6 fL81.0-99.0Alanine Aminotransferase (ALT/SGPT)August 06, 2025 6:45pmDecember 2024 6:45pm13 U/LBelow low kgavpv84-96Qcsfv ColorDecember 2024 9:51pmDecember 2024 9:51pmYELLOW YELLOWUrine Occult BloodDecemb2024 4:00pmSMALLAbnormal (applies to non- numeric results)NEGATIVEHemoglobinDe2024 4:16pmDecember 2024 4:16pm12.1 g/dL12.0-16.0Aspartate Amino Transf (AST/SGOT)August 01, 2025 4:16pmDecember 2024 4:16pm12 U/LBelow low dvwzun41-98Raeo Platelet Volume August 06, 2025 6:45pmDecember 2024 6:45pm8.5 fLBelow low normal9.5-13.5 Aspartate Amino Transf (AST/SGOT)August 06, 2025 6:45pmDecember 2024 6:45pm16 U/Y42-26Wspcl Glucose (UA)August 06, 2025 9:51pmDecember 2024 9:51pmNEGATIVE mg/dLNEGATIVEUrine AppearanceDece2024 4:00pmSL CLOUDY CLEARImmature Granulocyte # (Auto)August 01, 2025 4:16pmDecemb2024 4:16pm0.03 10 3/uL0.00-0.03BUN/Creatinine Ratioce2024 4:16pmDecember 2024 4:16pm12.0Platelet CountAugust 06, 2025 6:45pmDecember 2024 6:99fa244 10 3/fT119-275DSZ/Creatinine RatioDecemb2024 6:45pmDecember 2024 6:45pm16.0Urine KetonesDece2024 9:51pmDecember 2024 9:51pmNEGATIVE mg/dLNEGATIVEUrine ColorDecember 2024 4:00pmYELLOWYELLOW Immature Granulocyte % (Auto)August 01, 2025 4:16pmDecemb2024 4:16pm 0.5 %0.0-0.5Blood Urea NitrogenAugust 01, 2025 4:16pmDecember 2024 4:16pm10.0 mg/dL7.0-18.0Red Blood CountDece2024 6:45pmDecember 2024 6:45pm4.08 10 6/uLBelow low normal4.20-5.40Blood Urea NitrogenAugust 06, 2025 6:45pmDecember 2024 6:45pm13.0 mg/dL7.0-18.0Urine Leukocyte Esterase August 06, 2025 9:51pmDecember 2024 9:51pmNEGATIVENEGATIVEUrine Glucose (UA)August 01, 2025 4:00pmNEGATIVE mg/dLNEGATIVELymphocytes # (Auto)August 01, 2025 4:16pmDecember 2024 4:16pm0.9 10 3/uLBelow low normal1.2-3.8 Calcium Levelce2024 4:16pmDecemb2024 4:16pm8.7 mg/dL8.5-10.1 Red Cell Distribution WidthAugust 06, 2025 6:45pmDecember 2024 6:45pm 14.2 %11.0-15.0Calcium LevelDe2024 6:45pmDecember 2024 6:45pm 8.6 mg/dL8.5-10.1Urine Nitritece2024 9:51pmDecember 2024 9:51pm NEGATIVENEGATIVEUrine KetonesDece2024 4:00pmNEGATIVE mg/dLNEGATIVE Lymphocytes (%) (Auto)August 01, 2025 4:16pmDecember 2024 4:16pm14.0 % Below low uausgr63.5-60.0Chloride LevelAugust 01, 2025 4:16pmDecemb2024 4:59uk345 mmol/E44-123Bqkrsujha White Blood CountDece2024 6:45pm August 06, 2025 6:45pm7.0 10 3/uL4.0-11.0Chloride LevelDecember 2024 6:45pmDecember 2024 6:76lr057 mmol/H82-119Inidc pHDecember 2024 9:51pm August 06, 2025 9:51pm5.55.0-9.0Urine Leukocyte EsteraseDecember 2024 4:00pmLARGEAbnormal (applies to non-numeric results)NEGATIVEMean Corpuscular HemoglobinDecember 2024 4:16pmDecember 2024 4:16pm30.2 pg26.7-34.0 Carbon Dioxide LevelDecember 2024 4:16pmDecember 2024 4:16pm32.1 mmol/LAbove high rujmeh02.0-32.0Carbon Dioxide LevelDeceer 2024 6:45pm August 06, 2025 6:45pm25.2 mmol/L21.0-32.0Urine ProteinDecember 2024 9:51pmDecember 2024 9:51pm30 mg/dLAbnormal (applies to non-numeric results) NEG/TRACEUrine MucusDecember 2024 4:00pmTRACEAbnormal (applies to non- numeric results)NONE SEENMean Corpuscular Hemoglobin Concentcemb2024 4:16pmDecember 2024 4:16pm31.2 g/dL29.9-35.2CreatinineDecember 2024 4:16pmDecember 2024 4:16pm0.83 mg/dL0.55-1.02CreatinineDecember 2024 6:45pmDecember 2024 6:45pm0.81 mg/dL0.55-1.02Urine Specific GravityDeceer 2024 9:51pmDecember 2024 9:51pm>=1.030Abnormal (applies to non- numeric results)1.005-1.025Urine NitriteDecember 2024 4:00pmNEGATIVE NEGATIVEMean Corpuscular VolumeDecemb2024 4:16pmDecember 2024 4:16pm96.8 fL81.0-99.0Estimated GFR ()August 01, 2025 4:16pm August 01, 2025 4:16pm>60>=60 mL/min/1.73m 2Estimated GFR () August 06, 2025 6:45pmDecember 2024 6:45pm>60>=60 mL/min/1.73m 2Urine UrobilinogenDecemb2024 9:51pmDecember 2024 9:51pm1.0 EU/dL0.2-1.0 Urine pHDecemb2024 4:00pm6.55.0-9.0Monocytes # (Auto)August 01, 2025 4:16pmDecember 2024 4:16pm0.3 10 3/uL0.3-0.8Estimated GFR (Non- AmericanDecemb2024 4:16pmDecember 2024 4:16pm>60>=60 mL/min/1.73m 2 Estimated GFR (Non- AmericanDecemb2024 6:45pmDecember 2024 6:45pm>60>=60 mL/min/1.73m 2Urine ProteinDecemb2024 4:00pmNEGATIVE mg/dL NEG/TRACEMonocytes (%) (Auto)August 01, 2025 4:16pmDecember 2024 4:16pm 5.1 %1.7-12.0GlobulinDecemb2024 4:16pmDecember 2024 4:16pm5.2 g/dL GlobulinDecember 2024 6:45pmDecember 2024 6:45pm5.2 g/dLUrine RBC August 01, 2025 4:87tn2-92 #/HPFAbnormal (applies to non-numeric results)0-2 Mean Platelet VolumeDece2024 4:16pmDecember 2024 4:16pm8.2 fL Below low normal9.5-13.5Glucose LevelDecemb2024 4:16pmDecember 2024 4:34hn039 mg/dLAbove high zvlcdi03-798Kjraubu LevelAugust 06, 2025 6:45pm August 06, 2025 6:77ao587 mg/dLAbove high wavapz50-338Fnypa Specific [place] August 01, 2025 4:00pm<=1.005Abnormal (applies to non-numeric results) 1.005-1.025Neutrophils # (Auto)August 01, 2025 4:16pmDecemb2024 4:16pm4.9 10 3/uL1.4-6.5Potassium LevelAugust 01, 2025 4:16pmDecemb2024 4:16pm3.9 mmol/L3.5-5.1Potassium LevelDecemb2024 6:45pmDecember 2024 6:45pm3.6 mmol/L3.5-5.1Urine Squamous Epithelial CellsDe2024 4:00pmFEW #/LPFAbnormal (applies to non-numeric results)NONE/RARE Neutrophils (%) (Auto)August 01, 2025 4:16pmDecemb2024 4:16pm78.0 % Above high .0-75.0Sodium Levelcemb2024 4:16pmDecember 2024 4:37ob338 mmol/T520-972Ocmfdj Levelcemb2024 6:45pmDecember 2024 6:76dt733 mmol/LBelow low -012Jzjif UrobilinogenDecemb2024 4:00pm0.2 EU/dL0.2-1.0Platelet CountAugust 01, 2025 4:16pmDecember 4th, 2025 4:70pw656 10 3/vP685-580Ewyrn BilirubinDecember 2024 4:16pmDecember 2024 4:16pm0.5 mg/dL0.2-1.0Total BilirubinDecember 2024 6:45pmDecember 2024 6:45pm0.8 mg/dL0.2-1.0Urine WBCDece2024 4:23rn24-09 #/HPF Abnormal (applies to non-numeric results)NONE SEENRed Blood CountDece2024 4:16pmDecember , 2024 4:16pm4.01 10 6/uLBelow low normal4.20-5.40Total ProteinDecemb2024 4:16pmDecember 2024 4:16pm7.3 g/dL6.4-8.2Total ProteinDecember 2024 6:45pmDecember 2024 6:45pm7.5 g/dL6.4-8.2Red Cell Distribution WidthDece2024 4:16pmDecemb2024 4:16pm13.8 % 11.0-15.0Corrected White Blood CountDece2024 4:16pmDecemb2024 4:16pm6.3 10 3/uL4.0-11.0 Microbiology Results Procedure Source Result Collection Date/Time Result Date/Time Result Comment Performing Site Urine Culture Clean Void Midstream Proteus mirabilis August 01, 2025 4:48pm August 03, 2025 9:16am [facility] [id number] [address] [place] [address] Vital Signs Vital Reading Result Reference Range Collection Date/Time Height 61 [in_i] August 01, 2025 3:23tcWfigab25.52 kgDecemb2024 3:01pmHeart Gwgv556 /chf27-321Xjxtzhqi 4th, 2025 3:01pmBP Zbwloxwz448 mm[Hg]100-140Decemb2024 3:01pmBP Evkgdfpnb26 mm[Hg]60-100Decemb2024 3:01pmBMI (Body Mass Index)22.3 kg/w1KneqfsflAugust 01, 2025 3:67plGzceyo11.24 kgAugust 08, 2025 9:36amHeart Rate96 /dgh35-801PceobvzjAugust 08, 2025 9:36amOxygen saturation by Pulse emukayhc34 %95-100August 08, 2025 9:36amBP Ludcszaz410 mm[Hg]100-140 August 08, 2025 9:36amBP Pffdvcpoo00 mm[Hg]60-100August 08, 2025 9:36am Advance Directives Advance Directive Response Recorded Date/ Time Advance Directives No July 7:32am Insurance Providers Guarantor Morelia Roque Address [address] [place], [place] [address]Contact Info.Home Phone: Coverage Status Update:2025 Payer Group Member ID Coverage Type Subscriber Relationship to Subscriber Effective Date Expiration Date Medicare [id number] Hahn Id: [id number] [address] [place] [address] [facility] [employer] [id number] Hahn Id: [id number] [address] [place] [address] Home Phone: Self Encounters Encounter Location(s) Arrival/Admit Date Discharge/Departure Date Discharge/Departure Disposition Provider(s) Departed Physician/ Provider Office Visit -[facility] August 01, 2025 2:46pm August 01, 2025 3:36pm Discharged to home care or self care (routine discharge) Yris Woods MD Departed Referred -[facility] August 01, 2025 4:48pm August 01, 2025 4:49pm Discharged to home care or self care (routine discharge) Yris Woods MD Non-patient / Non-visit -[facility] ecember 2024 6:45pm Yanira Anguiano , MDDeparted Physician/Provider Office Visit-[facility] Neurology [facility] 2024 9:24amDecember 2024 10:22amDischarged to home care or self care (routine discharge)Rosa Singer DO Recent Diagnosis Onset Date Admit Date Benign essential HTN Unknown July 2:46pm Fatigue Unknown August 01 2:46pm Memory changes Unknown August 01 2:46pm Urinary tract infection due to Proteus Unknown August 01, 2025 2:46pm Dementia Unknown August 08, 025 9:24am ETOH abuse Unknown August 08, 025 9:24am Assessments Diagnosis Onset Date Resolution Status Admit Date Benign essential HTN acuteDece2024 2:46pmFatigueacuteDecemb2024 2:46pmMemory changesacuteDece2024 2:46pmUrinary tract infection due to Proteusacute August 01, 2025 2:46pmDementiaacuteDeceer 2024 9:24amETOH abuseacute August 08, 2025 9:24am Plan of Treatment Author Yris Woods [facility] 2024 8:27amCheck labs, continue losartan. Check labs as listed. Urine culture + Treated w Cipro. Will repeat UA next week to make sure infection has cleared. Will obtain labs and UA for possible metabolic causes. Morelia and Susanna, her daughter in law, agree w referral to Neurology. Morelia states she drinks 1-2 drinks at home 1-2x/week. Daughter in law's report is that she drank 2 bottles of liquor in 3 days. We discussed her weight loss as well. We discussed good nutrition, hydration, checking labs and referral to Neurology. Author Santosh Rose [facility] 2024 10:20amIt is my impression that the patient has dementia. I think this is worsened by suspected alcohol use/abuse. She also has a family history of frontotemporal dementia in her father. We need to evaluate for any potential reversible causes. TSH was checked in July 2025 and was normal. Examination shows signs and symptoms consistent with poor memory. MOCA on 08/08/25: . Plan: MRI of the brain with and without contrast Check B12 Neuropsych assessment to assess for pathology as above and determine type and severity Stop drinking No driving The patient was accompanied by her granddaughter and hedzwrnw-yd-rlj today who provided additional history and were understanding and agreeable to the plan. Future Tests Future scheduled test information is unavailable Pending Tests Test Name Ordered Date Scheduled Date Comprehensive Metabolic Panel August 01, 2025 3:25pm MR head/brain wo/w conDecember 2024 9:50am Future Visits Future appointment information is unavailable Future Procedures Procedure Name Ordered Date Scheduled Date Complete Blood Count Auto Diff August 01 3:25pm Urine CultureDecemb2024 3:25pmMagnesiumDecember 2024 3:25pmThyroid Stim Hormone w/RflxDecember 2024 3:25pmVitamin G64Mfkxhrqv 2024 9:50am Future Medications Future medication information is unavailable Patient Instructions Patient instructions are unavailable Hospital Discharge Instructions Ambulatory Orders* Referral to Neuropsychology Location: None Selected
--- OUTSIDE RECORDS SUMMARY | 2025-08-08 10:52 | XMS_ITS | CCD ---
Author Organization [facility] Care Team Providers Care Wet Pour Supervisor Name Role Phone Yris Suarez MD Primary Care Provider [phone] YRIS SUAREZ Primary Care Physician Yris Suarez [...] Unavailable Yris Suarez MD Primary Care Provider [phone] Ashwin Alexander Admitting Unavailable Ashwin Alexander Attending Unavailable Yris Suarez Primary Care Unavailable YRIS SUAREZ Primary Care Unavailable KIAN MONET Attending Unavailable KIAN MONET Referring Unavailable YRIS SUAREZ Primary Care Unavailable KIAN MONET Attending Unavailable YRIS SUAREZ Primary Care Unavailable Yris Suarez MD Primary Care Provider Ashwin Alexander DO Attending Provider Rebeka Aguilar CMA Attending Provider UnavailYris Mcduffie MD Attending Provider [phone] Medications Current Medications MedicationDrug Class(es)DatesSig (Normalized)Sig (Original)aspirin 81 mg delayed release oral tablet (16 sources)Platelet Aggregation Inhibitor, Nonsteroidal Anti-inflammatory Drug Start: 69-30-6667sjtg 1 tablet by mouth once dailyAspirin 81 [...] mg oral tablet (19 sources)HMG-CoA Reductase InhibitorStart: 89-04-2527ptlz 1 tablet by mouth once dailyAtorvastatin 40 mg tablet Active 40 MG PO Daily January 15, 2025 12:00am Complies with drug therapyStart: 05-29-2021 End: 82-32-3877newq 1 tablet by mouth once dailyatorvastatin (LIPITOR) 40 mg tablet Indications: Mixed hyperlipidemia Take 1 tablet by mouth once daily. 90 tablet 3 06/15/2024 ActiveComment on above:Take 1 tablet by mouth once daily. betamethasone 0.0005 mg/mg topical ointment (2 sources)CorticosteroidStart: 95-37-0976Jimlslifnubkz Dipropionate 0.05 % 1 application Externally Twice a day for 14 days Aug, Activehydrocortisone 10 mg/ml / neomycin 3.5 mg/ml / polymyxin b 30133 unt/ml otic suspension (2 sources)Aminoglycoside Antibacterial, Polymyxin-class Antibacterial, CorticosteroidStart: 47-76-8591Jxuiilwj-Polymyxin-HC 3.5-84799-9 4 drops into affected ear Otic Three times a day for 7 days Aug, Activelosartan potassium 50 mg oral tablet (8 sources)Angiotensin 2 Receptor BlockerStart: 15-37-8422wijf 1 tablet by mouth once dailyLosartan 50 mg tablet Active 50 MG PO Daily January 15, 2025 12:00am Complies with drug therapyStart: 02-21-2024 End: 98-50-2675cevg 1 tablet by mouth once dailylosartan (COZAAR) 50 mg tablet Indications: Primary hypertension Take 1 tablet by mouth once daily.90 tablet 3 06/15/2024 ActiveStart: 11-18-2023 End: 20-36-0264ncrc 1 tablet by mouth once dailylosartan (COZAAR) 25 mg tablet Indications: Primary hypertension Take 1 tablet by mouth once daily.90 tablet 3 11/18/2023 02/21/2024 DiscontinuedComment on above:Take 1 tablet by mouth once daily.magnesium oxide 400 mg oral tablet (19 sources)Start: 16-72-4207koeo 1 tablet by mouth once dailyMagnesium Oxide 400 mg magnesium tablet Active 400 MG PO Daily January 15, 2025 12:00am Complies withdrug therapyStart: 05-29-2021 End: 39-50-9474ghcg 1 tablet by mouth once dailymagnesium oxide (MAG-OX) 400 mg (241.3 mg magnesium) tablet Indications: Hypomagnesemia , Low magnesium level Take 1 tablet by mouth once daily. 90 tablet 3 06/15/2024 ActiveComment on above:Take 1 tablet by mouth once daily.24 hr metoprolol succinate 25 mg extended release oral tablet (1 source)beta-Adrenergic BlockerStart: 72-33-7302vyfg 0.5 tablet by mouth once dailymetoprolol succinate ER (TOPROL XL) 25 mg 24 hr tablet Indications: Primary hypertension Take 0.5 tablets by mouth once daily. 45 tablet 3 06/15/2024 Active ubidecarenone 100 mg oral capsule (19 sources)Start: 87-35-7824Dozkpjlg Q10 (Co Q-10) 100 mg capsule Active 100 MG PO Daily January 15, 2025 12:00am Complies with drug therapyStart: 05-29-2021 End: 73-33-3372tkub 1 capsule by mouth once dailycoenzyme Q10 (COQ-10) 100 mg cap capsule Indications: Mixed hyperlipidemia Take 1 capsule by mouth once daily. 90 capsule 3 06/15/2024 ActiveCoenzyme Q-10 100 MG as directed Orally Not-TakingComment on above:Take 1 capsule by mouth once daily. Completed/Discontinued Medications MedicationDrug Class(es)DatesSig (Normalized)Sig (Original)amoxicillin 875 mg / clavulanate 125 mg oral tablet (1 source)Penicillin-class AntibacterialStart: 01-15-2025 End: 84-75-0806twaf 1 tablet by mouth twice dailyAmoxicillin-Pot Clavulanate 875-125 mg tablet Discontinued 1 TAB PO Twice daily January 15, 2025 12:00am March 25, 2025 1:02pm Problems Active Problems Problem ClassificationProblemDateDocumented DateEpisodic/ChronicAllergic reactions (3 sources)Atopic dermatitis; Translations: [Intrinsic (allergic) eczema]Chronic Cancer of breast (17 sources)Malignant neoplasm of upper-outer quadrant of female breast; Translations: [Malignant neoplasm of upper-outer quadrant of left female breast] Onset: 99-52-8324ZccowuhLqisff of breast (2 sources)History of malignant neoplasm of breast; Translations: [Personal history of malignant neoplasm of breast]47-67-3628NvsqxtnnEgvvso of colon (13 sources)Malignant tumor of colon; Translations: [Malignant neoplasm of colon, unspecified]Onset: 209267-55-9528AvhmabeHrsqvjmmk of lipid metabolism (20 sources)Mixed hyperlipidemia; Translations: [Mixed hyperlipidemia]Onset: 732584-03-3270GhbpqtmFfxfxgdfuccghv and diverticulitis (2 sources)Diverticulitis of intestine; Translations: [Diverticulitis of intestine, part unspecified, without perforation or abscess without bleeding] 87-51-7513BqipjwiKkpxklxfzn disorders (1 source)Gastro-esophageal reflux disease without esophagitis; Translations: [GERD WITHOUT ESOPHAGITIS]Onset: 00-94-5983QdlqllaJhptnaons hypertension (6 sources)Essential hypertension; Translations: [Essential (primary) hypertension]05-14-0541GflkuyaMnepy and electrolyte disorders (2 sources)Hypokalemia; Translations: [Hypokalemia]70-00-8358UeqpsfldHsbvelgik or stenosis of precerebral arteries (6 sources)Bilateral stenosis of carotid arteries; Translations: [Occlusion and stenosis of bilateral carotid arteries]ChronicOther aftercare (3 sources)Drug therapy finding; Translations: [Encounter for therapeutic drug level monitoring]EpisodicOther aftercare (1 source)Long-term current use of drug therapy; Translations: [Encounter for therapeutic drug level monitoring]21-32-5884OsweiqiyPvwxv circulatory disease (5 sources)Elevated blood-pressure reading without diagnosis of hypertension; Translations: [Elevated blood-pressure reading, without diagnosis of hypertension]EpisodicOther ear and sense organ disorders (2 sources)Acute actinic otitis externa, left earEpisodicOther nutritional; endocrine; and metabolic disorders (7 sources)Hypomagnesemia; Translations: [Hypomagnesemia]ChronicOther screening for suspected conditions (not mental disorders or infectious disease) (5 sources)Encounter for screening mammogram for malignant neoplasm of breast; Translations: [Hypomagnesemia]Onset: 58-76-3077XbjixcfgEpivh upper respiratory infections (6 sources)Chronic pansinusitis; Translations: [Chronic sinusitis, unspecified] Onset: 32-10-3066YklvgauJkohprxv codes; unclassified (1 source)Family history of malignant neoplasm of trachea, bronchus and lung; Translations: [FAM HX MALIG NEOPLSM TRACH BRON LNG]Onset: 00-97-2004Zxmcxjuh Screening and history of mental health and substance abuse codes (6 sources)Ex-smoker; Translations: [Personal history of nicotine dependence] Onset: 32-12-7460Ojpnnunm Past or Other Problems Problem ClassificationProblemDateDocumented DateEpisodic/ChronicConditions associated with dizziness or vertigo (4 sources)Dizziness and giddiness; Translations: [DIZZINESS AND GIDDINESS] Onset: 16-46-3686CcosxmsuKnifl aftercare (1 source)Other [place] [facility] (current) drug therapy; Translations: [OTH CORRECTION CURRENT DRUG THERAPY]Onset: 29-16-7008YuheytegJgetu aftercare (1 source)custodial (current) use of aspirin; Translations: [DERRICK MAN CURRENT USE OF ASPIRIN]Onset: 77-85-5692SsdlhkzmXbgdu eye disorders (3 sources)Ocular pain, right eye; Translations: [OCULAR PAIN RIGHT EYE]Onset: 91-32-9142WviufedfXxypi upper respiratory disease (1 source)Cyst and mucocele of nose and nasal sinus; Translations: [CYST AND MUCOCELE NOSE AND NASAL SINUS]Onset: 02-98-0037BicymfyuNtqdzrr tract infections (1 source)Urinary tract infection, site not specified; Translations: [UTI SITE NOT SPECIFIED]Onset: 10-59-0281Frvwzoli Results Test NameValueInterpretationReference RangeFacilityCNPNon 88-83-7603VANV Telephone (RADTSA) ROQUEMORELIA TURK ([id number]) 1935 F Date Time Provider Department 01/17/25 [...] to December 2025 and schedule mammogram at [facility] prior to follow up? Dr. 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, Z17.0] Order(s):[facility] [[id number]] Order #: [id number] FUTURE Prescriptions as of 01/18/2025 - magnesium [...] 05/29/2021 Encounter Status:Closed by MICHAEL JENSEN on 01/18/25[facility] CincinnatiEstimated glomerular filtration rate (GFR) non- Americanon 51-45-4199JZI/1.73 sq M.predicted among non-blacks MDRD (S/P/Bld) [Vol rate/Area]59 mL/min/{1.73_m2}Low>=60 mL/min/1.73m 2FParkview Health Bryan HospitalLaboratory - Chemistry and Chemistry - challengeon 15-99-7011Oahbhls [Mass/Vol]9.1 mg/dL8.5-10.1FParkview Health Bryan HospitalChloride [Moles/Vol] 104 mmol/T30-445GhejcgrioNorwalk Memorial HospitalCO2 [Moles/Vol]30.1 mmol/L 21.0-32.0[facility] HospitalCreatinine [Mass/Vol]0.90 mg/dL 0.55-1.02Norwalk Memorial HospitalGFR/1.73 sq M.predicted MDRD (S/P/Bld) [Vol rate/Area]mL/min/{1.73_m2}>=60 mL/min/1.[address]m [address] [place], [place] [address]Glucose [Mass/Vol]106 mg/jR88-840DdfzruyhsNorwalk Memorial Hospital Potassium [Moles/Vol]3.7 mmol/L3.5-5.1FLake County Memorial Hospital - Westodium [Moles/Vol]143 mmol/S577-685CdzssyzupNorwalk Memorial HospitalUrea nitrogen [Mass/Vol]12.0 mg/dL7.0-18.0[facility] Memorial HospitalUrea nitrogen/Creatinine [Mass ratio]13.3 mg/mgAshtabula County Medical Centererum or plasma anion gap determinationon 42-73-1250Bscbs gap [Moles/Vol]12.6 mmol/L [facility] HospitalBasophils Auto (Bld) [#/Vol]on 01-09-2025 Basophils (Bld) [#/Vol]0.0 10 3/uL0.0-0.1FParkview Health Bryan Hospital Basophils/100 WBC Auto (Bld)on 41-62-7992Vhsjokclf/100 WBC (Bld)0.2 %0.2-2.0 [facility] HospitalEosinophils/100 WBC Auto (Bld)on 01-09-2025 Eosinophils/100 WBC (Bld)1.0 %0.9-7.0[facility] Erythrocyte distribution width Auto (RBC) [Ratio]on 35-02-7723Xjrjmhvasij distribution width (RBC) [Ratio]13.3 %11.0-15.0[facility] Estimated glomerular filtration rate (GFR) non- Americanon 01-09-2025 GFR/1.73 sq M.predicted among non-blacks MDRD (S/P/Bld) [Vol rate/Area]49 mL/min/{1.73_m2}Low>=60 mL/min/1.73m 2FParkview Health Bryan HospitalGlobulin Calc (S) [Mass/Vol]on 96-04-6059Kdovalwg (S) [Mass/Vol]4.9 g/dLNorwalk Memorial HospitalHematocrit Auto (Bld) [Volume fraction]on 01-09-2025 Hematocrit (Bld) [Volume fraction]39.4 %36.0-48.0[facility] HospitalHemoglobin [Mass/volume] in Bloodon 29-60-7056Zkwboravax (Bld) [Mass/Vol] 12.5 g/dL12.0-16.0[facility] HospitalLaboratory - Chemistry and Chemistry - challengeon 43-79-0990Yrtqpzj [Mass/Vol]2.9 g/dLLow3.4-5.0[facility] HospitalALP [Catalytic activity/Vol]114 U/Z76-751BqzpmwtuuNorwalk Memorial HospitalALT [Catalytic activity/Vol]11 U/SCoe65-85Kywkhcnli Regional Medical CenterAmylase [Catalytic activity/Vol]36 U/A13-708JttcesyclNorwalk Memorial HospitalAST [Catalytic activity/Vol]12 U/OHsh10-35BlwqbuhxpNorwalk Memorial HospitalBilirubin [Mass/Vol]0.5 mg/dL0.2-1.0[facility] HospitalBilirubin.direct [Mass/Vol]0.1 mg/dL0.0-0.2FParkview Health Bryan HospitalCalcium [Mass/Vol]9.3 mg/dL8.5-10.1FParkview Health Bryan HospitalChloride [Moles/Vol]103 mmol/D60-892BzcqecqsrNorwalk Memorial HospitalCO2 [Moles/Vol]29.1 mmol/L21.0-32.0[facility] HospitalCreatinine [Mass/Vol]1.05 mg/dLHigh0.55-1.02[facility] HospitalGFR/1.73 sq M.predicted MDRD (S/P/Bld) [Vol rate/Area]60 mL/min/{1.73_m2}>=60 mL/min/1.73m 2 [facility] HospitalGlucose [Mass/Vol]137 mg/vGUkgt33-708HocyxwtlwNorwalk Memorial HospitalLipase [Catalytic activity/Vol]14.0 U/LLow16.0-77.0 [facility] HospitalPotassium [Moles/Vol]2.9 mmol/LCritically low 3.5-5.1FParkview Health Bryan HospitalComment on above:RESULTS CALLED TO DR. ALEXANDERProtein [Mass/Vol]7.8 g/dL6.4-8.2FLake County Memorial Hospital - Westodium [Moles/Vol]141 mmol/P513-831DkfpopmfbNorwalk Memorial HospitalUrea nitrogen [Mass/Vol]15.0 mg/dL7.0-18.0[facility] HospitalUrea nitrogen/Creatinine [Mass ratio]14.3 mg/mgNorwalk Memorial Hospital Bilirubin Ql (U)SMALLAbnormalNEGATIVENorwalk Memorial HospitalGlucose (U) [Mass/Vol]NegativeNEGATIVENorwalk Memorial HospitalKetones Ql (U)15 mg/dLAbnormalNEGATIVENorwalk Memorial HospitalpH (U)5.5 [pH]5.0-9.0 [facility] Medical Centerpecific gravity (U) [Rel density]>=1.030 Abnormal1.005-1.025Norwalk Memorial HospitalUrobilinogen Qn (U)2.0 {Katlin'U}/dLAbnormal0.2-1.0[facility] HospitalLaboratory - Hematology and Cell countson 07-19-3921Nqjsoelo granulocytes/100 WBC (Bld)0.3 % 0.0-0.5FParkview Health Bryan HospitalLaboratory - Specimen informationon 43-84-9525Zlanyvzzjg (U)CLEARCLEARFParkview Health Bryan HospitalColor (U)DK. ORANGEYELLOWNorwalk Memorial HospitalLaboratory - Urinalysison 81-07-8120Hjvynnbdq esterase Test strip Ql (U)TRACEAbnormalNEGATIVENorwalk Memorial HospitalMucus Ql (Urine sed)NONE SEENNONE SEENNorwalk Memorial HospitalNitrite Ql (U)NegativeNEGATIVENorwalk Memorial Hospital Protein Ql (U)30 mg/dLAbnormalNEG/TRACENorwalk Memorial Hospital Leukocytes [#/volume] corrected for nucleated erythrocytes in Blood by Automated counon 47-36-0116JIQ corrected for nucl RBC Auto (Bld) [#/Vol]9.4 10 3/uL 4.0-11.0[facility] HospitalLymphocytes Auto (Bld) [#/Vol]on 78-39-9353Zfdpisbvnam (Bld) [#/Vol]0.8 10 3/uLLow1.2-3.8Norwalk Memorial HospitalLymphocytes/100 WBC Auto (Bld)on 30-92-2400Plgthgpwlhp/100 WBC (Bld)8.4 %Low20.5-60.0[facility] Memorial HospitalMCH Auto (RBC) [Entitic mass]on 65-57-4651TLA (RBC) [Entitic mass]29.2 pg26.7-34.0[facility] Memorial HospitalMCHC Auto (RBC) [Mass/Vol]on 04-01-8343PYCR (RBC) [Mass/Vol]31.7 g/dL29.9-35.2FParkview Health Bryan HospitalMCV Auto (RBC) [Entitic vol]on 93-04-4192ASD (RBC) [Entitic vol]92.1 fL81.0-99.0[facility] HospitalMonocytes Auto (Bld) [#/Vol]on 92-89-7661Fhxqxsmjb (Bld) [#/Vol]0.4 10 3/uL0.3-0.8[facility] HospitalMonocytes/100 WBC Auto (Bld)on 71-97-0333Hrxswkati/100 WBC (Bld)4.0 %1.7-12.0[facility] Neutrophils Auto (Bld) [#/Vol]on 05-84-9695Befcniwshxf (Bld) [#/Vol]8.1 10 3/uL High1.4-6.5FParkview Health Bryan HospitalNeutrophils/100 WBC Auto (Bld)on 88-02-5836Yjomubgilit/100 WBC (Bld)86.1 %High43.0-75.0[facility] Memorial HospitalNo Panel Informationon 01-27-7029Qkbdvbgkhan # (Auto)0.1 10 3/uL0.0-0.7 [facility] HospitalImmature Granulocyte # (Auto)0.03 10 3/uL 0.00-0.03Nor[facility] Memorial HospitalUrine BacteriaSMALL #/HPFAbnormalNONE [facility] HospitalUrine Calcium Oxalate CrystalsMODERATE [facility] HospitalUrine Culture ReflexedYES-FRUniversity Hospitals Geneva Medical CenterUrine Occult BloodNegativeNEGATIVENorwalk Memorial HospitalUrine Other CastsNONE SEEN #/LPFNONE [facility] HospitalUrine Other CrystalsSeen #/HPFAbnormalNone [facility] NorthUrine RBCNONE SEEN #/HPF0-2FParkview Health Bryan HospitalUrine Squamous Epithelial CellsMODERATE #/LPFAbnormalNONE/RARENorwalk Memorial HospitalUrine WBC0-2 #/HPFAbnormalNONE [facility] HospitalPlatelet mean volume Auto (Bld) [Entitic vol]on 85-61-3664Zpjjvlug mean volume (Bld) [Entitic vol]9.0 fLLow9.5-13.5FParkview Health Bryan Hospital Platelets Auto (Bld) [#/Vol]on 10-09-9000Zruoymcbf (Bld) [#/Vol]301 10 3/uL 150-450Norwalk Memorial HospitalRBC Auto (Bld) [#/Vol]on 95-68-9174TQO (Bld) [#/Vol]4.28 10 6/uL4.20-5.40Ashtabula County Medical Centererum or plasma albumin/globulin mass ratioon 63-86-9778Xyqapfw/Globulin [Mass ratio]0.6 {ratio}[facility] Medical Centererum or plasma anion gap determination on 76-52-5000Kblhq gap [Moles/Vol]11.8 mmol/LFParkview Health Bryan Hospital Urine Cultureon 12-93-7021Kcvmgalh identified Cx Nom (U)75,000 colonies/ml mixed bacterial skin contaminants including mixed gram negative bacilli - 2 Days PERFORMED BY: [place] [address] PATHOLOGIST [employer] JIN BROWN M.D.NormalThe Cape Fear/Harnett Health Physician GroupComment on above: Performed By: #### CUU #### [address] Turner StreetUrine cultureOrdered By: Ashwin Alexander on 01-09-2025 Bacteria identified Cx Nom (U)bacilli - 2 DaysNorwalk Memorial Hospital CNOVon 98-17-3596VTITSelzfz Visit ([facility]) MORELIA ROQUE ([id number]) 1935 F Date Time Provider Department 06/15/24 1:30 PM KIAN MONET During your visit today, we recorded the following information about you: Pulse Blood pressure Weight 92/minute 153/74 65 kg Kian Monet DO 06/15/2024 2:02 PM Signed [facility] [place] SECTION OF REGIONAL CARDIOLOGY OUTPATIENT VISIT DATE 06/15/24 OUTPATIENT VISIT TYPE Established PRIMARY CARE PHYSICIAN: Yris Suraez MD ([facility]) [facility] [place] [address] HISTORY OF PRESENT ILLNESS: Ms. Roque is [...] is normal. 6. Right (more content not included)...NormalNorwalk Memorial Hospital metabolic 2000 panelon 16-49-7169Gltge gap [Moles/Vol]9 mmol/LNormal8-15 [facility] on above:Order Comment: Specimen Type: BLOOD SPECIMEN Ordering Facility: [facility] Address: [address] [place], [place] [address]Performed By: #### 25321-2, 18566-9 #### [facility] CLIA [id number] [address] [place] [address]Mpdhcts [Mass/Vol]9.7 mg/dLNormal8.5-10.2CSt. John of God HospitalComaleda e. lutz [facility] on above:Order Comment: Specimen Type: BLOOD SPECIMEN Ordering Facility: [facility] Address: [address] [place], [place] [address]Performed By: #### 51907-7, 01472-9 #### [facility] CLIA [id number] [address] [place] [address] 88998Vmygfgin [Moles/Vol]105 mmol/TNphoho22-235TjaeyliqhCleveland Clinic Mentor Hospital on above:Order Comment: Specimen Type: BLOOD SPECIMEN Ordering Facility: [facility] Address: [address] [place], [place] [address]Performed By: #### 12768-8, 83324-5 #### [facility] CLIA [id number] [address] [place] [address] 96399EQ9 [Moles/Vol]25 mmol/IHqtqlg45-21WrhcymzqjWilson Memorial Hospital Comment on above:Order Comment: Specimen Type: BLOOD SPECIMEN Ordering Facility: [facility] Address: [address] [place], [place] [address]Performed By: #### 96426-7, 48108-8 #### [facility] CLIA [id number] [address] [place] [address] 40750Dxylckvybm [Mass/Vol]0.81 mg/dLNormal0.58-0.96Wilson Memorial HospitalComment on above:Order Comment: Specimen Type: BLOOD SPECIMEN Ordering Facility: [facility] Address: [address] [place] [address] 21149Wqprawxts By: #### 27135-0, 35833-8 #### [facility] CLIA [id number] [address] [place] [address] 14700Rhbatxeeix and Glomerular filtration rate.predicted panel (S/P/Bld)70 mL/min/1.73m???Normal>=60[facility] on above: Order Comment: Specimen Type: BLOOD SPECIMEN Ordering Facility: [facility] Address: [address] [place] [address] 69[address]Refvwn Comment: Estimated Glomerular Filtration Rate (eGFR) is [...] not accurately reflect actual GFR.Performed By: #### 04726-7, 69798-6 #### [facility] CLIA [id number] [address] [place] [address] 23394Yilvhvt [Mass/Vol]108 mg/cQOffy55-28LdzcclevoWilson Memorial Hospital Comment on above:Order Comment: Specimen Type: BLOOD SPECIMEN Ordering Facility: [facility] Address: [address] [place] [address] 28641Kpphol Comment: The [place] Diabetes Association (ADA) provides guidance for cutoff [...] Standards of Medical Care in Diabetes 2016, [place] Diabetes Association. Diabetes Care. 2016.39(Suppl 1).Performed By: #### 95968-3, 42889-1 #### [facility] CLIA [id number] [address] [place] [address] 86784Wfzgjshck [Moles/Vol]4.0 mmol/LNormal3.7-5.1CGrand Lake Joint Township District [facility] on above:Order Comment: Specimen Type: BLOOD SPECIMEN Ordering Facility: [facility] Address: [address] [place], [place] [address]Performed By: #### 84898-6, 46255-9 #### [facility] CLIA [id number] [address] [place] [address] 08566Xusulf [Moles/Vol]139 mmol/VNjwonk648-301XpytmzgumCleveland Clinic Mentor Hospital on above:Order Comment: Specimen Type: BLOOD SPECIMEN Ordering Facility: [facility] Address: [address] [place], [place] [address]Performed By: #### 99300-1, 12882-6 #### [facility] CLIA [id number] [address] [place] [address] 19363Opsl nitrogen [Mass/Vol]16 mg/dLNormal7-21[facility] on above:Order Comment: Specimen Type: BLOOD SPECIMEN Ordering Facility: [facility] Address: [address] [place], [place] [address]Performed By: #### 63876-4, 01715-2 #### [facility] CLIA [id number] [address] [place] [address] 54754Imghayrnq SerPl-mCncon 57-08-5121Fwkftkggp [Mass/Vol]2.2 mg/dL Normal1.7-2.3CGrand Lake Joint Township District Memorial Hospital on above:Order Comment: Specimen Type: BLOOD SPECIMEN Ordering Facility: [facility] Address: [address] [place], [place] [address]Performed By: #### 02161-0, 22663-1 #### [facility] CLIA [id number] [address] [place], [place] [address]XOXEjy 22-10-2628MLYFNpvohp Visit ([facility]) MORELIA ROQUE ([id number]) 1935 F Date Time Provider Department 02/21/24 1:30 PM KIAN MONET [facility] During your visit today, we recorded the following information about you: Pulse Blood pressure Weight 86/minute 152/62 64 kg Kian Monet DO 02/21/2024 2:21 PM Signed [facility] [place] SECTION OF REGIONAL CARDIOLOGY OUTPATIENT VISIT DATE 02/21/24 OUTPATIENT VISIT TYPE Established PRIMARY CARE PHYSICIAN: Yris Suarez MD ([facility]) [address] [place] [address] HISTORY OF PRESENT ILLNESS: Ms. Roque is [...] ventricular systolic function is (more content not included)...NormalClePremier Health Miami Valley Hospital South COMPLETEon 14-63-9500Qdxgey Rate84 BPMCleveland ClinicCalculated P Axis78 degreesCleveland ClinicCalculated R [place]-55 degreesCleveland ClinicCalculated T Axis70 degrees Pike ClinicP-R Gksjttev652 msCleveland ClinicQRS Fyvlthgm50 msCleveland ClinicQT Qgegflet452 msCleveland ClinicQTC Calculation (Bazett)446 msCleveland ClinicVentricular Rate84 BPMMain Campus Medical Center COMPLETEon 03-74-1996Fydsfe Rate 93 BPMCleveland ClinicCalculated P Axis77 degreesCleveland ClinicCalculated R [place]-49 degreesCleveland ClinicCalculated T Axis66 degreesCleveland ClinicP-R Bzmvbtrk244 msCleveland ClinicQRS Hsypmgjh76 msCleveland ClinicQT Mtmgnxtk480 ms [place]aw ClinicQTC Calculation (Bazett)455 msCleveland ClinicVentricular Rate93 BPMUpper Valley Medical CenterMG MAMM SCREEN 3D ZEKE CADon 64-93-6836VM MAMM SCREEN 3D ZEKE CADPatient: MARGARITA ROQUEANOR Kellee Exam Date: 12/20/2022 : 1935 Gender:F Ordering : DR YRIS SUAREZ M.D. Admission #: [id number] Family : DR. KURT CONDON M.D. Order #: [id number] CLICK HERE TO VIEW EXAM RADIOLOGY REPORT [...] lung cancer at age 66. LOCATION: [facility] BREAST COMPOSITION: Scattered areas fibroglandular density. [...] Health SystemXR SINUSES 3 VIEWS OR GREATERon [id number] SINUSES 3 VIEWS OR GREATEREXAMINATION: XR SINUSES [...] Electronically authenticated by: XU CHAVEZ Date: 2022-04-26 11:58[facility] SystemCULTURE URINEon [id number] URINEIsolate 1 Klebsiella pneumoniae >100,000 cfu/mL of [...] 65 I F Trimethoprim/Sulfamethoxazole <=20 S FNormalThe [facility] HospitalComment on above:Performed By: #### URCX #### [facility] [address] [place] [address] Dr. Schuyler Patrick [id number] peptide B (Bld) [Mass/Vol]259.0 pg/mL Normal<=1,800.0The [facility] HospitalComment on above:Performed By: #### BNP, HSTROPN, CMP #### [facility] [address] [place] [address] Dr. Schuyler Sahu W MANUAL DIFFon [id number] LYMPH #NormalThe [facility] HospitalComment on above:Performed By: #### BNP, HSTROPN, CMP #### [facility] [address] [place] [address] Dr. Schuyler BlancaICAL LYMPH %NormalKettering Health Miamisburgment on above: Performed By: #### BNP, HSTROPN, CMP #### [facility] [address] [place] [address] Dr. Schuyler Basilio #Normal0.0-0.3The [facility] HospitalComment on above: Performed By: #### BNP, HSTROPN, CMP #### [facility] [address] [place] [address] Dr. Schuyler Basilio %Normal0-5The [facility] HospitalComment on above:Performed By: #### BNP, HSTROPN, CMP #### [facility] [address] [place] [address] Dr. Schuyler Mccann #0.00 103/ulNormal0.00-0.10The [facility] HospitalComaleda [facility] on above:Performed By: #### BNP, HSTROPN, CMP #### [facility] [address] [place] [address] Dr. Schuyler Mccann %0.0 %Critically low0.2-2.0The [facility] HospitalComment on above:Performed By: #### BNP, HSTROPN, CMP #### [facility] [address] [place] [address] Dr. Schuyler Guadalupe #NormalThe [facility] HospitalComment on above:Performed By: #### BNP, HSTROPN, CMP #### [facility] [address] [place] [address] Dr. Schuyler Guadalupe %NormalThe [facility] HospitalComment on above:Performed By: #### BNP, HSTROPN, CMP #### [facility] [address] [place] [address] Dr. Schuyler FieldsCORRECTED WBCNormal4.0-11.0The [facility] HospitalComaleda [facility] on above: Performed By: #### BNP, HSTROPN, CMP #### [facility] [address] [place] [address] Dr. Schuyler Garcia #0.07 103/ulNormal0.00-0.70The [facility] HospitalComaleda [facility] on above:Performed By: #### BNP, HSTROPN, CMP #### [facility] [address] [place] [address] Dr. Schuyler Garcia%1.0 %Normal0.9-7.0The [facility] HospitalComaleda [facility] on above: Performed By: #### BNP, HSTROPN, CMP #### [facility] [address] [place] [address] Dr. Schuyler FieldsHCT39.9 %Krttpo94.0-48.0The [facility] HospitalComment on above: Performed By: #### BNP, HSTROPN, CMP #### [facility] [address] [place] [address] Dr. Schuyler FieldsHGB13.3 g/smRrputk56.0-16.0The [facility] HospitalComment on above: Performed By: #### BNP, HSTROPN, CMP #### [facility] [address] [place] [address] Dr. Schuyler Snyder #0.58 103/ulCritically low1.20-3.80The [facility] Comment on above:Performed By: #### BNP, HSTROPN, CMP #### [facility] [address] [address] [address] Schuyler Snyder%9.0 %Critically low20.5-60.0The [facility] HospitalComment on above:Performed By: #### BNP, HSTROPN, CMP #### [facility] [address] [place] [address] Dr. Schuyler ShanksH32.8 kkXybwcp02.7-34.0The [facility] HospitalComment on above: Performed By: #### BNP, HSTROPN, CMP #### [facility] [address] [place] [address] Dr. Schuyler ShanksHC33.3 g/jfDfbicc22.9-35.2The [facility] HospitalComment on above:Performed By: #### BNP, HSTROPN, CMP #### [facility] [address] [place] [address] Dr. Schuyler ShanksV98.3 rYUtqqve50.0-99.0The [facility] HospitalComment on above: Performed By: #### BNP, HSTROPN, CMP #### [facility] [address] [place] [address] Dr. Schuyler CroweOCYTE #NormalThe [facility] HospitalComment on above: Performed By: #### BNP, HSTROPN, CMP #### [facility] [address] [place] [address] Dr. Schuyler CroweOCYTE %NormalThe [facility] HospitalComment on above: Performed By: #### BNP, HSTROPN, CMP #### [facility] [address] [place] [address] Dr. Schuyler Chaney#0.33 103/ulNormal0.30-0.80The [facility] HospitalComment on above:Performed By: #### BNP, HSTROPN, CMP #### [facility] [address] [address] [address] Schuyler Chaney%5.0 %Normal1.7-12.0The [facility] HospitalComment on above: Performed By: #### BNP, HSTROPN, CMP #### [facility] [address] [address] [address] Schuyler EisenbergV9.4 fLCritically low9.5-13.5The [facility] HospitalComment on above:Performed By: #### BNP, HSTROPN, CMP #### [facility] [address] [address] [address] Schuyler MartínezOCYTE #NormalThe [facility] HospitalComment on above:Performed By: #### BNP, HSTROPN, CMP #### [facility] [address] [place] [address] Dr. Schuyler MartínezOCYTE %NormalThe [facility] HospitalComment on above:Performed By: #### BNP, HSTROPN, CMP #### [facility] [address] [place] [address] Dr. Schuyler MurciaBCNormalThe [facility] HospitalComment on above:Performed By: #### BNP, HSTROPN, CMP #### [facility] [address] [place] [address] Dr. Schuyler PoolT150 103/rzRdemvh640-984Swx [facility] HospitalComaleda [facility] on above: Performed By: #### BNP, HSTROPN, CMP #### [facility] [address] [address] [address] Schuyler JjC4.06 106/ulCritically low4.20-5.40The [facility] HospitalComment on above:Performed By: #### BNP, HSTROPN, CMP #### [facility] [address] [place] [address] Dr. Schuyler FieldsRDW12.9 %Icsuwy20.0-15.0The [facility] HospitalComment on above: Performed By: #### BNP, HSTROPN, CMP #### [facility] [address] [place], [place] [id number] Dr. Schuyler Soni #5.53 103/ulNormal1.40-6.50The [facility] HospitalComment on above:Performed By: #### BNP, HSTROPN, CMP #### [facility] [address] [place] [address] Dr. Schuyler Soni %85.0 %Critically high43.0-75.0The [facility] HospitalComment on above:Performed By: #### BNP, HSTROPN, CMP #### [facility] [address] [place] [address] Dr. Schuyler FieldsWBC6.5 103/ulNormal4.0-11.0The [facility] HospitalComment on above: Performed By: #### BNP HSTROPN, CMP #### [facility] [address] [place] [address] Dr. Schuyler FieldsCT HEAD WO CONon [id number] HEAD WO CONEXAMINATION: CT HEAD WO CON [...] Electronically authenticated by: KAILA DANIELS Date: 2022-04-16 13:50[facility]emaC[facility] URINE PROFILEon [id number] Ql (U)NegativeNormal NEGATIVEThe [facility] HospitalComment on above:Performed By: #### BNP, HSTROPN, CMP #### [facility] [address] [address] [address] Schuyler FieldsClarity (U)SL CLOUDYAbnormalCLEARThe [facility] HospitalComment on above:Performed By: #### BNP, HSTROPN, CMP #### [facility] [address] [address] [address] Schuyler Peoples (U)LT. YELLOWNormalYELLOWUniversity Hospitals Geneva Medical CenterComment on above:Performed By: #### BNP, HSTROPN, CMP #### [facility] [address] [address] [address] Schuyler Lama micrscopic examination will be performed if indicated. NormalUniversity Hospitals Geneva Medical CenterComment on above:Performed By: #### BNP, HSTROPN, CMP #### [facility] [address] [address] [address] Schuyler FieldsGlucose Ql (U)NegativeNormalNEGParkwood HospitalComment on above:Performed By: #### BNP, HSTROPN, CMP #### [facility] [address] [address] [address] Schuyler FieldsHemoglobin Ql (U)NegativermalNEGParkwood Hospital Comment on above:Performed By: #### BNP, HSTROPN, CMP #### [facility] [address] [address] [address] Schuyler FieldsKetones Ql (U)40 mg/dlAbmercy hospital south, formerly st. anthony's medical centeralKettering Health Preble Comment on above:Performed By: #### BNP, HSTROPN, CMP #### [facility] [address] [address] [address] Schuyler FieldsLEUKOCYTESSMALLAbnormalNEGParkwood HospitalComment on above:Performed By: #### BNP, HSTROPN, CMP #### [facility] [address] [address] [address] Schuyler FieldsNitrite Ql (U)PositiveAbnormalKettering Health Preble Comment on above:Performed By: #### BNP, HSTROPN, CMP #### [facility] [address] [address] [address] Schuyler FieldspH (U)6.5 [pH]Normal5-9The [facility] HospitalComment on above: Performed By: #### BNP, HSTROPN, CMP #### [facility] [address] [address] [address] Schuyler FieldsSPEC GRAVITY1.093Tqtnfz5.005-<=1.025The [facility] HospitalComment on above:Performed By: #### BNP, HSTROPN, CMP #### [facility] [address] [place] [address] Dr. Schuyler FieldsUA PROTEINNegativeNormalNEGATIVE/ TRACEThe [facility] Comment on above:Performed By: #### BNP, HSTROPN, CMP #### [facility] [address] [place] [address] Dr. Schuyler Glover MICRO INDINDICATEDNormalThe [facility] HospitalComment on above: Performed By: #### BNP, HSTROPN, CMP #### [facility] [address] [place] [address] Dr. Schuyler Jimenezbilinogen Qn (U)0.2 {Katlin'U}/dLNormal0.2 - 1.0The [facility] HospitalComment on above:Performed By: #### BNP, HSTROPN, CMP #### [facility] [address] [place] [address] Dr. Schuyler FieldsPROF 14(COMP METB)on [id number] [Mass/Vol]3.5 g/dLNormal 3.4-5.0The [facility] HospitalComment on above:Performed By: #### BNP, HSTROPN, CMP #### [facility] [address] [place] [address] Dr. Schuyler FieldsAlbumin/Globulin [Mass ratio]0.9 {ratio}NormalThe [facility] HospitalComment on above:Performed By: #### BNP, HSTROPN, CMP #### [facility] [address] [place] [address] Dr. Schuyler GrcaiaP [Catalytic activity/Vol]97 U/SYmtdtq72-684Dnj [facility] HospitalComment on above:Performed By: #### BNP, HSTROPN, CMP #### [facility] [address] [address] [address] Schuyler GraciaT [Catalytic activity/Vol]17 U/QMdaaxe13-40Vab [facility] HospitalComment on above:Performed By: #### BNP, HSTROPN, CMP #### [facility] [address] [address] [address] Schuyler Kelleron gap [Moles/Vol]13.0 mmol/LNormalUniversity Hospitals Geneva Medical Center Comment on above:Performed By: #### BNP, HSTROPN, CMP #### [facility] [address] [place] [address] Dr. Schuyler FieldsAST [Catalytic activity/Vol]17 U/GKnvabf33-66Cvg [facility] HospitalComment on above:Performed By: #### BNP, HSTROPN, CMP #### [facility] [address] [place] [address] Dr. Schuyler FieldsBilirubin [Mass/Vol]0.7 mg/dLNormal0.2-1.0The [facility] Comment on above:Performed By: #### BNP, HSTROPN, CMP #### [facility] [address] [place] [address] Dr. Schuyler FieldsCalcium [Mass/Vol]8.6 mg/dLNormal8.5-10.1[facility] Comment on above:Performed By: #### BNP, HSTROPN, CMP #### [facility] [address] [place] [address] Dr. Schuyler FieldsChloride [Moles/Vol]107 mmol/DQucxdf84-111Uez [facility] Comment on above:Performed By: #### BNP, HSTROPN, CMP #### [facility] [address] [place] [address] Dr. Schuyler FieldsCO2 [Moles/Vol]25.4 mmol/GAaybdj09.0-32.0The [facility] Comment on above:Performed By: #### BNP, HSTROPN, CMP #### [facility] [address] [place] [address] Dr. Schuyler FieldsCreatinine [Mass/Vol]0.76 mg/dLNormal0.55-1.02The [facility] HospitalComment on above:Performed By: #### BNP, HSTROPN, CMP #### [facility] [address] [place] [address] Dr. Schuyler LoraGFR-AF SWAZI>60Normal>=60The [facility] HospitalComment on above:Performed By: #### BNP, HSTROPN, CMP #### [facility] [address] [place] [address] Dr. Schuyler Milan-NON AF SWAZI>60Normal>=60The [facility] HospitalComment on above:Performed By: #### BNP, HSTROPN, CMP #### [facility] [address] [place] [address] Dr. Schuyler FieldsGlobulin (S) [Mass/Vol]3.7 g/dLNormalThe [facility] HospitalComment on above:Performed By: #### BNP, HSTROPN, CMP #### [facility] [address] [place] [address] Dr. Schuyler FieldsGlucose [Mass/Vol]116 mg/dLCritically ljjd09-754Sym [facility] HospitalComment on above:Performed By: #### BNP, HSTROPN, CMP #### [facility] [address] [place] [address] Dr. Schuyler FieldsPotassium [Moles/Vol]3.4 mmol/LCritically low3.5-5.1The [facility] HospitalComment on above:Performed By: #### BNP, HSTROPN, CMP #### [facility] [address] [place] [address] Dr. Schuyler FieldsProtein [Mass/Vol]7.2 g/dLNormal6.4-8.2The [facility] Comment on above:Performed By: #### BNP, HSTROPN, CMP #### [facility] [address] [address] [address] Schuyler FieldsSodium [Moles/Vol]142 mmol/AIegdbv662-993TkwUniversity Hospitals Geneva Medical Center Comment on above:Performed By: #### BNP, HSTROPN, CMP #### [facility] [address] [address] [address] Schuyler Sullivan nitrogen [Mass/Vol]16.0 mg/dLNormal7.0-18.0The [facility] HospitalComment on above:Performed By: #### BNP, HSTROPN, CMP #### [facility] [address] [place] [address] Dr. Schuyler Sullivan nitrogen/Creatinine [Mass ratio]21.1 mg/mgNoSelect Medical Specialty Hospital - ColumbusComment on above:Performed By: #### BNP, HSTROPN, CMP #### [facility] [address] [place] [address] Dr. Schuyler Hanley [id number] Coag (PPP) [Relative time]1.01 {INR} NormalUniversity Hospitals Geneva Medical CenterComment on above:Performed By: #### BNP, HSTROPN, CMP #### [facility] [address] [place] [address] Dr. Schuyler Samson GUIDELINESSEE BELOWUniversity Hospitals Health SystemComment on above:Result Comment: DESIRED INR: 2.0 - 3.0 CONDITIONS NOT LISTED BELOW 2.5 - 3.5 FOR PROSTHETIC HEART VALVE REPLACEMENT 2.5 - 3.5 RECURRENT THROMBOSIS Performed By: #### BNP, HSTROPN, CMP #### [facility] [address] [place] [address] Dr. Schuyler FieldsPT Coag (PPP) [Time]10.9 sNormal9.0-11.6The [facility] Comment on above:Performed By: #### BNP, HSTROPN, CMP #### [facility] [address] [place] [address] Dr. Schuyler Rangel [id number] Coag (Bld) [Time]22.5 qYjdhsv45.3-36.2The [facility] HospitalComment on above:Performed By: #### PT, PTT #### [facility] [address] [place] [address] Dr. Schuyler Landry, [facility] SENSITIVITYon [id number] pg/mLNormal 4.0-51.3TMartin Memorial Hospital on above:Result Comment: CUT-OFF POINTS HAVE BEEN ESTABLISHED BASED ON THE FOURTH UNIVERSAL DEFINITIONS OF MYOCARDIAL INFARCTION. THE UPPER REFERENCE LIMIT (URL) OF TROPONIN, DEFINED THE 99TH PERCENTILE OF cTnI DISTRIBUTION IN A REFERENCE POPULATION, HAS BEEN CONFIRMED THE DECISION THRESHOLD FOR OK DIAGNOSIS.Performed By: #### HSTROPN #### [facility] [address] [place] [address] Dr. Schuyler GuerreroTROP7.1 pg/mLNormal4.0-51.3TMartin Memorial Hospital on above:Result Comment: CUT-OFF POINTS HAVE BEEN ESTABLISHED BASED ON THE FOURTH UNIVERSAL DEFINITIONS OF MYOCARDIAL INFARCTION. THE UPPER REFERENCE LIMIT (URL) OF TROPONIN, DEFINED THE 99TH PERCENTILE OF cTnI DISTRIBUTION IN A REFERENCE POPULATION, HAS BEEN CONFIRMED THE DECISION THRESHOLD FOR OK DIAGNOSIS.Performed By: #### BNP, HSTROPN, CMP #### [facility] [address] [place] [address] Dr. Schuyler AUGUSTINon [id number]T SEEN [facility] Medical CenterComaleda e. [facility] on above:Performed By: #### BNP, HSTROPN, CMP #### [facility] [address] [place] [address] Dr. Schuyler Muhammad identified Cx Nom (U)INDICATEDNoThe [facility]woods on above:Performed By: #### BNP, HSTROPN, CMP #### [facility] [address] [place] [address] Dr. Schuyler Coreas SEENNoVirtua BerlinE [facility] on above:Performed By: #### BNP, HSTROPN, CMP #### [facility] [address] [place] [address] Dr. Yilan ChangCrystals LM Nom (Urine sed)NONE SEENNormalNONE SEENThe [facility] HospitalComaleda e. [facility] on above:Performed By: #### BNP, HSTROPN, CMP #### [facility] [address] [address] [address] Payan ChangEpithelial cells LM Ql (Urine sed)NONE SEENNormalNONE SEEN /RARE The [facility] HospitalComaleda e. [facility] on above:Performed By: #### BNP, HSTROPN, CMP #### [facility] [address] [address] [address] Schuyler FieldsMUCOUSNONE SEENNormalNONE SEENUniversity Hospitals Geneva Medical CenterComaleda e. [facility] on above:Performed By: #### BNP, HSTROPN, CMP #### [facility] [address] [place] [address] Dr. Schuyler FieldsJrhscHNC5-7Isjhkp9-3Mpr [facility] on above:Performed By: #### BNP, HSTROPN, CMP #### [facility] [address] [address] [address] Schuyler FieldsLckesWRR56-32UpzgbfnzPKZK SEENUniversity Hospitals Geneva Medical CenterComaleda e. [facility] on above: Performed By: #### BNP, HSTROPN, CMP #### [facility] [address] [place] [address] Dr. Schuyler FieldsXR CHEST 1 Von [id number] CHEST 1 VEXAMINATION: XR CHEST 1 V [...] [facility] System Vital Signs Date TimeVital SignValuePerforming IrqukzyszQxfguejv24-77-1269 13:02-0400Body tuwaer133.94 cmYris Suarez MD Work Phone: [phone]07-28-2025 13:02-0400 Body mass index (BMI) [Ratio]23.8 kg/g0KjjvtxYris Suarez MD Work Phone: 1(567)[address] [place], [place] 6655207-28-2025 13:02-0400 Body qrtvia89.32 kgYris Suarez MD Work Phone: [phone])[address] [place], [place] 6655207-28-2025 13:02-0400 Diastolic blood mm[Hg]Yris Suarez MD Work Phone: [phone])[address] [place], [place] 6655207-28-2025 13:02-0400 Heart rate97 /Kranthi Suarez MD Work Phone: [phone] [place], [place] 6655207-28-2025 13:02-0400 Respiratory rate12 /Kranthi Suarez MD Work Phone: [phone] [place], [place] 6655207-28-2025 13:02-0400 SaO2% (BldA) [Mass fraction]98 %Yris Suarez MD Work Phone: [phone] [place], [place] 6655207-28-2025 13:02-0400 Systolic blood bpjclisa840 mm[Hg]Yris Suarez MD Work Phone: [phone] [place], [place] 6655205-20-2025 13:28-0400 Body dfbwpo567.94 cmYris Suarez MD Work Phone: [phone] [place], [place] 6655205-20-2025 13:28-0400 Body mass index (BMI) [Ratio]24.8 kg/q6JibaiwYris Suarez MD Work Phone: 1(857)[address] [place], [place] 6655205-20-2025 13:28-0400 Body mnampc78.59 kgYris Suarez MD Work Phone: [phone] [place], [place] 6655205-20-2025 13:28-0400 Diastolic blood qcacwyiq23 mm[Hg]Yris Suarez MD Work Phone: [phone] [place], [place] 6655205-20-2025 13:28-0400 Heart gjqp632 /Kranthi Suarez MD Work Phone: [facility]05-20-2025 13:28-0400 Respiratory rate12 /Kranthi Suarez MD Work Phone: [facility]05-20-2025 13:28-0400 Systolic blood amaunlav474 mm[Hg]Yris Suarez MD Work Phone: [facility]10-18-2024 13:17-0400 Body mass index (BMI) [Ratio]27.09 kg/d1NaijismKian Monet DO Work Phone: [phone]10-18-2024 13:17-0400Body djhykp53 kg Kian Monet DO Work Phone: [phone]10-18-2024 13:17-0400Diastolic blood mm[Hg]Kian Monet DO Work Phone: 1(395)[facility]10-18-2024 13:17-0400Heart rate92 /min Kian Monet DO Work Phone: [phone]10-18-2024 13:17-2675XpS7% (BldA) [Mass fraction]97 %Kian Monet DO Work Phone: [phone]10-18-2024 13:17-0400Systolic blood lniixdfj040 mm[Hg]Kian Monet DO Work Phone: [phone]06-25-2024 13:39-0400Body mass index (BMI) [Ratio]26.67 kg/b7LryjvdvKian Monet DO Work Phone: 1(376)[facility]06-25-2024 13:39-0400Body hsokmi50 kg Kian Monet DO Work Phone: [phone]06-25-2024 13:39-0400Diastolic blood rpldemve51 mm[Hg]Kian Monet DO Work Phone: [phone]06-25-2024 13:39-0400Heart rate86 /min Kian Monet DO Work Phone: [phone]06-25-2024 13:39-1863DeH3% (BldA) [Mass fraction]97 %Kian Monet DO Work Phone: [phone]06-25-2024 13:39-0400Systolic blood xkryojxa924 mm[Hg]Kian Monet DO Work Phone: [phone]03-22-2024 13:20-0400Body zymclu79 kg Kian Monet DO Work Phone: [phone])[facility]03-22-2024 13:20-0400Diastolic blood gngylwhs30 mm[Hg]Kian Monet DO Work Phone: 1([phone]03-22-2024 13:20-0400Heart rate83 /min Kian Monet DO Work Phone: [phone]03-22-2024 13:20-1839VaH3% (BldA) [Mass fraction]99 %Kian Monet DO Work Phone: [phone]03-22-2024 13:20-0400Systolic blood ekqflber181 mm[Hg]Kian Monet DO Work Phone: [phone]09-22-2023 13:07-0400Body lwcpoo10.14 kgKian Monet DO Work Phone: [phone]09-22-2023 13:07-0400Diastolic blood dgkuomqo91 mm[Hg]Kian Monet DO Work Phone: [phone]09-22-2023 13:07-0400Heart rate92 /min Kian Monet DO Work Phone: [phone]09-22-2023 13:07-4061XkS2% (BldA) [Mass fraction]97 %Kian Monet DO Work Phone: [phone]09-22-2023 13:07-0400Systolic blood xvuqnyot159 mm[Hg]Kian Monet DO Work Phone: [phone]05-01-2023 10:15-0400Body temperature 97.9 [degF]Kurt Condon MD Work Phone: [facility]05-01-2023 10:15-0400Body lmsaix73.87 kgKurt Condon MD Work Phone: [facility]05-01-2023 10:15-0400Diastolic blood ctmsbfuz31 mm[Hg]Kurt Condon MD Work Phone: [facility]05-01-2023 10:15-0400Heart rate57 /min Kurt Condon MD Work Phone: [facility]05-01-2023 10:15-0400Respiratory rate 16 /minSyahir Condon MD Work Phone: [facility]05-01-2023 10:15-5178HeN4% (BldA) [Mass fraction]96 %Kurt Condon MD Work Phone: [facility]05-01-2023 10:15-0400Systolic blood esthsrtr608 mm[Hg]Kurt Condon MD Work Phone: [facility]03-23-2023 13:48-0400Body dfimwt44.6 kgKian Monet DO Work Phone: [facility]03-23-2023 13:48-0400Diastolic blood icxubbgk55 mm[Hg]Kian Monet DO Work Phone: [facility]03-23-2023 13:48-0400Heart rate83 /min Kian Monet DO Work Phone: [phone]03-23-2023 13:48-7079RqS5% (BldA) [Mass fraction]96 %Kian Monet DO Work Phone: [phone]03-23-2023 13:48-0400Systolic blood fzclwoiz180 mm[Hg]Kian Monet DO Work Phone: [facility]01-04-2023 12:00-0500Body qwjajd000.4 cmYris Suarez Other [employer] Other 01-04-2023 12:00-0500Body mass index (BMI) [Ratio] 27.14 kg/l9Wpufet Suarez Other [employer] Other 01-04-2023 12:00-0500Body uuhpbt11.05 kgYris Suarez Other [employer] Other 01-04-2023 12:00-0500Diastolic blood eykhuxzn93 mm[Hg] Yris Erick Other [employer] Other 01-04-2023 12:00-1296UnP8% (BldA) [Mass fraction]97 % Yrisrobin Suarez Other [employer] Other 01-04-2023 12:00-0500Systolic blood spkjwqum171 mm[Hg] Yris Suarez Other [employer] Other 05-02-2022 14:11-0400Body kcqvddokidf61.7 [degF]Kurt Condon MD Work Phone: [facility]05-02-2022 14:11-0400Body .41 kgKurt Condon MD Work Phone: [facility]05-02-2022 14:11-0400Diastolic blood dxpjtxyh55 mm[Hg]Kurt Condon MD Work Phone: [facility]05-02-2022 14:11-0400Heart nxmn921 /Octavio Condon MD Work Phone: [facility]05-02-2022 14:11-0400Respiratory rate 18 /Octavio Condon MD Work Phone: [facility]05-02-2022 14:11-2849QrB4% (BldA) [Mass fraction]97 %Kurt Condon MD Work Phone: [facility]05-02-2022 14:11-0400Systolic blood hugwngln513 mm[Hg]Kurt Condon MD Work Phone: [facility]04-05-2022 13:24-0400Body vclvup27.77 kgLavisa Young PLASTIC SHEETS SUPERVISOR.OIM CONSULTANT Work Phone: [facility]04-05-2022 13:24-0400Diastolic blood obbjieki29 mm[Hg]Patricia Young PLASTIC SHEETS SUPERVISOR.OIM CONSULTANT Work Phone: [phone]04-05-2022 13:24-0400Heart rate89 /min Patricia Young PLASTIC SHEETS SUPERVISOR.OIM CONSULTANT Work Phone: [facility]04-05-2022 13:24-1163QlT0% (BldA) [Mass fraction]94 %Patricia Young PLASTIC SHEETS SUPERVISOR.OIM CONSULTANT Work Phone: [facility]04-05-2022 13:24-0400Systolic blood mm[Hg]Patricia Young PLASTIC SHEETS SUPERVISOR.OIM CONSULTANT Work Phone: [facility] Encounters Encounter DateEncounter TypeCare ProviderFacilityStart: 03-25-2025 End: 74-97-6784cevxzbgedeNnfjaz E Braun MD Work Phone: [facility] Work Phone: Start: 03-25-2025 End: 65-46-6769Dsbfgoe encounter procedureYris Suarez MD-[facility] Work Phone: Start: 01-15-2025 End: 91-86-1306Numpdpb encounter Deisi Suarez MD-[facility] Work Phone: Start: 11-98-2642Npv-patient / Non-visitCatbrian Aguilar CMA-[facility] Work Phone: Start: 69-52-6990Zgp-patient / Non-visitAshwin Ordaz DO-[facility] Work Phone: Start: 01-09-2025 End: 07-60-5493btodfdjprjOxmqgfl D KatkoFacility:[facility]ertart: 01-09-2025 End: 75-07-8701Flyffram ReferredAshwin Ordaz DO-[facility] Start: 06-15-2024 End: 60-93-9455soqxtpgqjfDXDBUF Erin SUAREZFacility:[facility] Systemtart: 06-15-2024 End: 92-14-0512Oelxmnq encounter procedureKian Monet DO Work Phone: CardiologyComment on above:Primary hypertension (Primary Dx); Mixed hyperlipidemia; Hypomagnesemia; Low magnesium level; Bilateral carotid artery stenosis; Encounter for monitoring statin therapy; Ex-smokerStart: 03-05-2024 End: 07-16-4589esddyisvzmGBLIJMM NELSONFacility:[facility] Systemtart: 02-21-2024 End: 99-98-4788bhpaffbzroDHIBDKO NELSONFacility:[facility] Systemtart: 02-21-2024 End: 83-10-1922Pdxvolo encounter procedureKian Monet DO Work Phone: CardiologyComment on above:Primary hypertension (Primary Dx); Mixed hyperlipidemia; Hypomagnesemia; Bilateral carotid artery stenosis; Ex-smokerStart: 12-29-2023 End: 96-61-2520Dperjea encounter procedureSyahir Condon MD Work Phone: Radiation OncologyComment on above:Malignant neoplasm of upper-outer quadrant of left breast in female, estrogen receptor positive (HCC) (Primary Dx)Start: 65-66-9956Kbaqodbul encounterKian Monet DO Work Phone: Internal Medicine [place]ainStart: 11-18-2023 End: 82-30-6496Qmmmqxs encounter procedureKian Monet DO Work Phone: CardiologyComment on above:Bilateral carotid artery stenosis (Primary Dx); Primary hypertension; Mixed hyperlipidemia; Hypomagnesemia; Encounter for monitoring statin therapy; Ex-smokerStart: 69-93-4069GjfwyqYflvliv Nelson DO Work Phone: CardiologyComment on above:Refill RequestStart: 05-20-2023 End: 75-03-9599Dtgfepq encounter procedureKian Monet DO Work Phone: CardiologyComment on above:Bilateral carotid artery stenosis (Primary Dx); Elevated blood pressure reading without diagnosis of hypertension; Mixed hyperlipidemia; Hypomagnesemia; Encounter for monitoring statin therapy; Ex-smokerStart: 12-27-2022 End: 40-35-3321Eftvphw encounter procedureSyahir Condon MD Work Phone: Radiation OncologyComment on above:Malignant neoplasm of upper-outer quadrant of left breast in female, estrogen receptor positive (HCC) (Primary Dx)Start: 12-20-2022 End: 35-05-4439ybrmsymwqgZXZH RAJANFacility:Y1Owfja: 11-18-2022 End: 52-19-8243Fpcetnq encounter procedureKian Monet DO Work Phone: CardiologyComment on above:Bilateral carotid artery stenosis (Primary Dx); Elevated blood pressure reading without diagnosis of hypertension; Mixed hyperlipidemia; Hypomagnesemia; Encounter for monitoring statin therapy; Ex-smokerStart: 09-01-2022 End: 42-25-2759amtmtcmmfeWpwmdh Braun Other [facility] [employer] Other Start: 49-36-5054Lykqvf outpatient visit 15 minutes [facility] ClinicStart: 19-57-8871Mlvtnwrrz encounterMarpb SuarezSelect Medical [facility] ClinicStart: 28-08-7468PymckcJwyagvv Nelson DO Work Phone: [phone] InstituteComment on above:Refill RequestStart: 05-06-2022 End: 15-30-2834Xww-admission assessmentShruti Wright [facility] Start: 04-26-2022 End: 68-29-0977ebyhhbycyqEYTamika Chamberlaincility:A1Zofjv: 04-18-2022 End: 11-70-9284rcllnxjkrcPQLNWA RODRIGUEZ .Facility:U6Vqmlu: 04-16-2022 End: 94-13-7485uiewxfysnnACFXEG RODRIGUEZ .Facility:N2Bivrj: 12-28-2021 End: 14-05-2181Ccdfebh encounter procedureSyahir Condon MD Work Phone: Radiation OncologyComment on above:Malignant neoplasm of upper-outer quadrant of left breast in female, estrogen receptor positive (HCC) (Primary Dx)Start: 43-56-4462Iutgdzwmf encounterSyahir Condon MD Work Phone: Radiation OncologyComment on above:Future Appointment Start: 12-01-2021 End: 70-64-3264Wwtkbhk encounter procedurePatricia Young APRN.CNP Work Phone: CardiologyComment on above:Bilateral carotid artery stenosis (Primary Dx); Mixed hyperlipidemia; Elevated blood pressure reading without diagnosis of hypertension Procedures DateProcedureProcedure DetailPerforming ClinicianStart: 88-90-6625Lswik culture Yris Suarez MD Work Phone: Start: 94-04-0752Quu routine ecg w/least 12 lds i&r onlyKian Monet DO Work Phone: Start: 22-85-6337Yaa routine ecg w/least 12 lds i&r Amparo Monet DO Work Phone: Plan of Treatment DateCare ActivityDetailAuthorStart: 49-93-5725Trdqahyd ScreeningDiabetes ScreeningThe MetroHealth Systemtart: 14-83-9792Uxnmgzlm ScreeningDiabetes Screening [facility] Systemtart: 52-68-8271MZ Breast - bilateral DiagnosticMAM DIAGNOSTIC BILATERAL Radiology Routine Malignant neoplasm of upper-outer quadrant of left breast in female, estrogen receptor positive (HCC) Expected: 12/28/2025 (Approximate)[facility] Work Phone: Comment on above:Expected: 12/28/2025 (Approximate) Start: 64-21-5380UYZEMRQO SCREENDIABETES SCREENThe MetroHealth Systemtart: 10-20-2025 Diabetes ScreeningDiabetes ScreeningThe MetroHealth Systemtart: 12-27-2024 End: 72-66-2900Kaafksu encounter /01/2025 10:30 AM EDT Office Visit Radiation Oncology [address] [place] [address] Kurt Condon MD [address] [place] [address] 1 Yr Follow UpRadiation OncologyComment on above:1 Yr Follow UpStart: 12-21-2024 End: 66-52-2620Wvzztyl encounter bnuesxesd45/25/2025 2:30 PM EDT Office Visit Cardiology [address] [place] [place] [address] Kian Monet DO [address] [place], [place] [id number] Return in about 27 weeks (around 12/21/2024).CardiologyComment on above:Return in about 27 weeks (around 12/21/2024).Start: 12-14-2024 End: 17-91-7531Ssgqc metabolic 2000 panel - Serum or PlasmaBASIC METABOLIC PANEL Lab Routine Primary hypertension Expected: 12/14/2024 (Approximate), Expires: 03/15/2025[facility] ClinicComment on above:Expected: 12/14/2024 (Approximate), Expires: 03/15/2025Start: 12-14-2024 End: 59-01-0066YUL panel - Blood by Automated countCOMPLETE BLOOD COUNT Lab Routine Primary hypertension Expected: 12/14/2024 (Approximate), Expires: 0 03/15/2025leveland ClinicComment on above:Expected: 12/14/2024 (Approximate), Expires: 03/15/2025Start: 12-14-2024 End: 76-03-9415Pvskn 1996 panel - Serum or PlasmaLIPID PANEL BASIC Lab Routine Mixed hyperlipidemia Expected: 12/14/2024 (Approximate), Expires: 03/15/2025 [facility] Work Phone: Comment on above:Expected: 12/14/2024 (Approximate), Expires: 03/15/2025Start: 12-14-2024 End: 62-28-5935Ohejtkbfb [Mass/volume] in Serum or PlasmaMAGNESIUM Lab Routine Hypomagnesemia Expected: 12/14/2024 (Approximate), Expires: 5Cket[facility] health [facility] township ClinicComment on above:Expected: 12/14/2024 (Approximate), Expires: 03/15/2025 Start: 06-15-2024 End: 19-19-1166Airvvdy encounter /18/2024 1:30 PM EDT Office Visit Cardiology [address] [place] [address] Kian Monet DO [address] [place], [place] [id number] : Return in about 3 months (around 05/23/2024).Cardiology Comment on above:: Return in about 3 months (around 05/23/2024).Start: 04-29-2024 Covid-19 Vaccine ( season)Covid-19 Vaccine ( season) [facility]: 69-55-9533Uwhhslqiu vaccinationInfluenza Vaccine (#1) [facility]: 03-06-2024 End: 10-26-8238Litru metabolic 2000 panel - Serum or PlasmaBASIC METABOLIC PANEL Lab Routine Primary hypertension Expected: 03/06/2024 (Approximate), Expires: 06/05/2024[facility] Work Phone: Comment on above:Expected: 03/06/2024 (Approximate), Expires: 06/05/2024Start: 03-06-2024 End: 90-23-5168Henylbaaf [Mass/volume] in Serum or PlasmaMAGNESIUM Lab Routine Hypomagnesemia Expected: 03/06/2024 (Approximate), Expires: 06/05/2024[facility] ClinicComment on above:Expected: 03/06/2024 (Approximate), Expires: 06/05/2024 Start: 03-06-2024 End: 02-57-1102Ytqxxne evaluation of patient and indvhd3803/06/2024 1:00 PM EDT Nurse Visit Cardiology [address] [place] [place] [address] Colette Nurse Card [facility] [address] [place] [address] Nurse visitCardiologyComment on above:Nurse visit Start: 02-21-2024 End: 94-00-3486Wpohzqf encounter ypciaowbp20/25/2024 1:30 PM EDT Office Visit Cardiology [address] [place], [place] [id number] Kian Monet, DO [address] [place], [place] [id number] Return in about 3 months (around 02/18/2024).CardiologyComment on above:Return in about 3 months (around 02/18/2024).Start: 12-28-2023 End: 45-40-9975VBK DIAGNOSTIC BILATERALMAM DIAGNOSTIC BILATERAL Radiology Routine Malignant neoplasm of upper-outer quadrant of left breast in female, estrogen receptor positive (HCC) Expected: 12/28/2023 (Approximate), Expires: 01/26/2024[facility] Work Phone: Comment on above:Expected: 12/28/2023 (Approximate), Expires: 01/26/2024Start: 12-02-2023 End: 17-42-7704Sjpim metabolic 1999 panel - Serum or PlasmaBASIC METABOLIC PNL Lab Routine Primary hypertension Expected: 12/02/2023 (Approximate), Expires: [facility] Work Phone: Comment on above:Expected: 12/02/2023 (Approximate), Expires: 03/02/2024Start: 91-77-3445UXVWSDUW SCREENDIABETES SCREENThe MetroHealth Systemtart: 11-18-2023 End: 78-74-8161Ltiig metabolic 2000 panel - Serum or PlasmaBASIC METABOLIC PNL Lab Routine Mixed hyperlipidemia Expected: 11/18/2023 (Approximate), Expires: [facility] Work Phone: Comment on above:Expected: 11/18/2023 (Approximate), Expires: 01/18/2024Start: 27-55-1192Pslts-19 Vaccine ()Covid- 19 Vaccine ()[facility]: 36-17-2219Fnnlsnq Directive DiscussionAdvance Directive DiscussionThe [facility]Health Systemtart: 81-63-9223Uafsqzynjp Health ScreeningBehavioral Health ScreeningUpper [facility] Medical Center Start: 91-25-4078Dffeycovdt AssessmentDepression AssessmentUpper Valley Medical Center Start: 05-21-2023 End: 19-70-8116Nshgh 1996 panel - Serum or PlasmaLIPID PANEL BASIC Lab Routine Mixed hyperlipidemia Expected: 05/21/2023 (Approximate), Expires: 07/21/2023 [facility] Work Phone: Comment on above:Expected: 05/21/2023 (Approximate), Expires: 07/21/2023Start: 05-21-2023 End: 72-61-4281PA CAROTID ARTERIES ZEKE VAS LABUS CAROTID ARTERIES ZEKE VAS LAB Vascular Lab Routine Bilateral carotid artery stenosis Expected: 05/21/2023 (Approximate), Expires: 11/18/2023[facility] Work Phone: Comment on above:Expected: 05/21/2023 (Approximate), Expires: 11/18/2023Start: 05-97-3465Ifsgj-19 Vaccine ()Covid- 19 Vaccine ()[facility]: 58-32-3043Ntmsakbyd vaccinationInfluenza Vaccine (#1)[facility]: 12-28-2022 End: 26-90-7121Iipttcuqen mammography computer-aided detcj biMAM DIAGNOSTIC BILAT Radiology Routine Malignant neoplasm of upper-outer quadrant of left breast infemale, estrogen receptor positive (HCC) Expected: 12/28/2022 (Approximate), Expires: 01/27/2023[facility] Work Phone: Comment on above:Expected: 12/28/2022 (Approximate), Expires: 01/27/2023Start: 30-21-3917Nejei-19 Vaccine (6 - Pfizer series)Covid-19 Vaccine (6 - Pfizer series)[facility]: 80-66-5074WZJHVGY DIRECTIVE DISCUSSIONADVANCE DIRECTIVE DISCUSSIONThe [facility] Systemtart: 08-29-2022 DEPRESSION ASSESSMENTDEPRESSION ASSESSMENTThe [facility] Systemtart: 04-29-2022 Influenza vaccinationINFLUENZA (#1)[facility]: 13-59-4662KOOJL-19 VACCINE (5 - Booster for Pfizer series)COVID-19 VACCINE (5 - Booster for Pfizer series)[facility]: 90-73-9333OXRHR-19 VACCINE (4 - Booster for Pfizer series)COVID-19 VACCINE (4 - Booster for Pfizer series)[facility]: 97-09-2820SIXVBCD DIRECTIVE DISCUSSIONADVANCE DIRECTIVE DISCUSSIONThe [facility] Systemtart: 21-48-1974YBWLMIRGRN ASSESSMENTDEPRESSION ASSESSMENTThe [facility] Systemtart: 97-81-9715FOH Vaccine (1 - 1-dose 75+ series)RSV Vaccine (1 - 1- dose 75+ series)[facility]: 97-44-3626AGRZ DENSITYBONE DENSITY [facility]: 90-80-6868Lfjr Density ScreeningBone Density Screening [facility]: 92-43-0420Djpnnykufpfe Vaccine: 65+ (1 - PCV)Pneumococcal Vaccine: 65+ (1 - PCV)[facility]: 61-83-0204Jkrnwbbezfff Vaccine: 65+ (1 of 1 - PCV)Pneumococcal Vaccine: 65+ (1 of 1 - PCV)[facility]: 41-21-8584GJSQEAKLWCHZ: 65+ (1 - PCV)PNEUMOCOCCAL: 65+ (1 - PCV)[facility]: 20-63-8564LHVYKLQLE AGE 65 AND OVER WITH 5YR LOOKBACK (#1)PNEUMOVAX AGE 65 AND OVER WITH 5YR LOOKBACK (#1)[facility]: 2001 Screening for osteoporosisBone Density ScreeningThe [facility]Health Systemtart: 60-46-0313ENL Vaccine (1 - 1-dose 60+ series)RSV Vaccine (1 - 1-dose 60+ series) [facility]: 11-52-4965HSSRYXED VACCINE (1 of 2)SHINGRIX VACCINE (1 of 2)[facility]: 19-50-3693Itnxl microalbumin profileUpper Valley Medical Center Start: 95-35-7562Hnydheh ScreeningAnxiety ScreeningThe [facility] Systemtart: 12-81-8349Nbzjgazvqw ScreeningDepression ScreeningUpper Valley Medical CenterComprehensive metabolic 2000 panel - Serum or PlasmaNorwalk [facility] Hospital End: 43-44-2512Rerdmyozjz mammography computer-aided detcj biMAM DIAGNOSTIC BILAT Radiology Routine Malignant neoplasm of upper-outer quadrant of left breast infemale, estrogen receptor positive (HCC) 1 Occurrences starting 12/16/2021 until 3CF[facility] Work Phone: Comment on above:1 Occurrences starting 12/16/2021 until 01/15/2023 End: 18-09-5868KVA COMPLETEECG COMPLETE ECG Routine Bilateral carotid artery stenosis Elevated blood pressure reading without diagnosis of hypertension 1 Occurrences starting 11/18/2022 until 4CF[facility] Work Phone: Comment on above:1 Occurrences starting 11/18/2022 until 11/19/2023ECG COMPLETEECG COMPLETE ECG 11/18/2023 1[facility] End: 45-13-4090IJ Carotid arteries - bilateralUS CAROTID ARTERIES ZEKE VAS LAB Vascular Lab Routine Bilateral carotid artery stenosis 1 Occurrences starting 11/18/2023 until 5CF[facility] Work Phone: Comment on above:1 Occurrences starting 11/18/2023 until 5CC[facility] Immunizations Immunization DateImmunizationNotesCare SplnnjsvWdtrqyln71-05-6923mpoyrzmyt virus vaccine, unspecified formulationKian Monet DO Work Phone: [facility] CenterDnmdlj87-92-4245nwjepdifr virus vaccine, unspecified formulationKian Monet DO Work Phone: [facility] CenterFsvgdu32-56-5839mydmzgyoc virus vaccine, unspecified formulationYris Suarez MD Work Phone: [facility]10-25-2018influenza, high dose seasonal, preservative-freeKurt Condon MD Work Phone: [facility] CenterClzxmw71-06-3971xtbpvjbhhzhd conjugate vaccine, 13 valAlonso Suarez MD Work Phone: [facility]10-05-2015influenza virus vaccine, unspecified formulationYris Suarez MD Work Phone: [facility]09-25-2012tetanus and diphtheria toxoids, adsorbed, preservative free, for adult use (5 Lf of tetanus toxoid and 2 Lf of diphtheria toxoid)Yris Suarez MD Work Phone: [facility]09-02-2002 pneumococcal polysaccharide vaccine, 23 valAlonso Suarez MD Work Phone: [facility] Payers DatePayer CategoryPayerPolicy [id number]-[id number] THOUGHT LIFE INSURANCE FORETHOUGHT SUPPLEMENT [id number] 2018-Present [phone] [id number] [place] [address] [id number] 2001MedicareMEDICARE MEDICARE A AND B [id number] 2001-Present [phone] [address] [address] [place], [place] [address] 2-0001 [id number] MedicareMEDICARE MEDICARE A AND B [id number] 2001-Present [phone] [place] [address] Medicare [id number] [id number] [id number] Social History DateTypeDetailFacilityStart: 07-31-2018 End: 58-90-9069Djwzeue smoking status NHISEx-smokerThe [facility] Systemtart: 08-29-1962 End: 08-78-6141Lndumbe of tobacco useCurrent smokerThe [facility] Systemtart: 07-31-2018 End: 98-05-4712Yqngcwl use and exposureSmokeless tobacco non-userThe [facility] Systemtart: 12-01-2021 End: 20-50-7333Veaszng intakeCurrent drinker of alcohol (finding)[facility]: 54-16-8032Qfqmtll SDOH Alcohol CommentoccThe [facility] Systemtart: 07-31-2018 End: 06-62-9382Utsyehx Comment2 packs per weekThe [facility] Systemtart: 1935 Sex Assigned At BirthNot on fileThe [facility] Systemtart: 11-21-2021 End: 22-28-9443Mvubovum to SARS-CoV-2 (event)Not sureUpper Valley Medical CenterTobacco smoking statusNo Smoking Status EnteredMarymount Hospitaltart: 05-20-2023 End: 86-95-8565Laz Assigned At BirthFemalProMedica Memorial Hospitaltart: 08-29-1962 End: 94-76-1056Fkysfka of tobacco useCigarette SmokerThe [facility]Health Systemtart: 05-20-2023 End: 66-27-4089Zuotoiw of Social functionUpper Valley Medical CenterAdunion county general hospital Depression Screening Jqabqgmfef8Jxgocnebs ClinicStart: 36-75-6124Miduelh smoking status NHISNever smoked tobacco (finding)[facility] CenterexFemale (finding)[facility] Centertart: 48-71-3704Vtq Assigned At [facility] Clinical Notes 12-01-2021 to 01-15-2025 Note Date & PeyvRpdyCqgzjyuh03-55-3938 Evaluation note* Diagnosis Onset Date Resolution Status Admit Date Benign essential HTN acuteMay 2024 1:24pmAcute diverticulitisinactiveMay 2024 1:24pm HypokalemiainactiveMay 2024 1:24pmBenign essential HTNacuteJuly 2024 1:01pmHistory of breast cancer in femaleacuteJuly 2024 1:01pm Hyperlipidemia, unspecifiedacuteJuly 2024 1:01pmMedicare annual wellness visit, subsequentacuteJuly 2024 1:01pm [facility] Work Phone: [phone] NoteHNO ID: [id number] Author: KIAN MONET, DO Service: ? Author Type: Physician Type: Progress Notes Filed: 06/15/2024 14:02 Note Text: [facility] [place] SECTION OF REGIONAL CARDIOLOGY OUTPATIENT VISIT DATE 06/15/24 OUTPATIENT VISIT TYPE Established PRIMARY CARE PHYSICIAN: Yris Suarez MD ([facility]) [address] [place] [phone] HISTORY OF PRESENT ILLNESS: Ms. Roque is [...] is normal in size. (more content not included)...[facility]10-18-2024 History of Present illness Narrative* Kian Monet DO - 06/15/2024 1:44 PM EDT Images from the original note were not included. [facility] [place] SECTION OF REGIONAL CARDIOLOGY OUTPATIENT VISIT DATE 06/15/24 OUTPATIENT VISIT TYPE Established PRIMARY CARE PHYSICIAN: Yris Suarez MD ([facility]) [address] [place] [address] HISTORY OF PRESENT ILLNESS: Ms. Roque is [...] HISTORY Diagnosis Date Breast cancer (HCC) Left; ER/UT+ GERD (gastroesophageal reflux disease) PAST SURGICAL HISTORY [...] by mouth once daily. documented in this encounterUpper Valley Medical Center06-25-2024 Nurse Note* Zak Wilkins MA - 02/21/2024 1:43 PM EDT Patient brought home blood pressure monitor to compare with office monitor. Office monitor: BP 152/62 HR 86 Home monitor: BP 129/82 HR 84 [facility]06-25-2024 Nurse Note* Zak Wilkins MA - 02/21/2024 1:43 PM EDT Patient brought home blood pressure monitor to compare with office monitor. Office monitor: BP 152/62 HR 86 Home monitor: BP 129/82 HR 84 documented in this encounterUpper Valley Medical Center06-25-2024 History of Present illness Narrative* Kian Monet DO - 02/21/2024 1:30 PM EDT Images from the original note were not included. [facility] [place] SECTION OF REGIONAL CARDIOLOGY OUTPATIENT VISIT DATE 02/21/24 OUTPATIENT VISIT TYPE Established PRIMARY CARE PHYSICIAN: Yris Suarez MD ([facility]) [address] [place] [phone] HISTORY OF PRESENT ILLNESS: Ms. Roque is [...] HISTORY Diagnosis Date Breast cancer (HCC) Left; ER/UT+ GERD (gastroesophageal reflux disease) PAST SURGICAL HISTORY [...] Kian Monet DO 02/21/24 documented in this encounterUpper Valley Medical Center06-25-2024 NoteHNO ID: [id number] Author: KIAN MONET DO Service: ? Author Type: Physician Type: Progress Notes Filed: 02/21/2024 14:21 Note Text: [facility] [place] SECTION OF REGIONAL CARDIOLOGY OUTPATIENT VISIT DATE 02/21/24 OUTPATIENT VISIT TYPE Established PRIMARY CARE PHYSICIAN: Yris Suarez MD ([facility]) [address] [place] [phone] HISTORY OF PRESENT ILLNESS: Ms. Roque is [...] 5.1 MEQ/L 3.8 ( (more content not included)...[facility]05-02-2024 History of Present illness Narrative* Kurt Condon MD - 12/29/2023 11:49 PM EDT Radiation Oncology - Follow Up Note PATIENT NAME: Morelia Roque PATIENT Signed by: Kurt Condon MD I spent a total of 20 minutes on the date of the service which included preparing to see the patient, [id number]-duud patient care, and counseling and educating the patient/family/caregiver. This document has been created with the use of voice recognition technology. It may contain inaccuracies, misspellings, inaccurate syntax or inappropriate word context that are a result of the inadequacies/shortcomings of said technology/software. documented in this encounterUpper [facility] Center03-25-2024 Miscellaneous Notes* Telephone Encounter - [...] the lab order to be faxed to [facility]. F:[phone] Patient has been identified by name and birthdate. Duration of symptoms: N/A Person calling: daughter: Call patient at: [phone] Was an appointment scheduled: No Closing statement: Results or non-symptom based questions: Thank you for calling [facility], your call will be returned within the next business day. Jen Burns documented in this encounterUpper Valley Medical Center03-22-2024 Miscellaneous Notes* Addendum Note - Kian Monet DO - 11/18/2023 1:46 PM EDTAddended by: KIAN MONET on: 11/18/2023 01:46 PM Modules accepted: Orders * Addendum Note - Zak Wilkins MA - 11/18/2023 1:46 PM EDTAddended by: ZAK WILKINS on: 11/18/2023 01:46 PM Modules accepted: Orders documented in this encounterUpper Valley Medical Center03-22-2024 History of Present illness Narrative* Kian Monet DO - 11/18/2023 1:25 PM EDT Images from the original note were not included. [facility] [place] SECTION OF REGIONAL CARDIOLOGY OUTPATIENT VISIT DATE 11/18/23 OUTPATIENT VISIT TYPE Established PRIMARY CARE PHYSICIAN: Yris Suarez MD ([facility]) [address] [place] [address] HISTORY OF PRESENT ILLNESS: Ms. Roque is [...] HISTORY Diagnosis Date Breast cancer (HCC) Left; ER/UT+ GERD (gastroesophageal reflux disease) PAST SURGICAL HISTORY [...] Kian Monet DO 11/18/23 documented in this encounterUpper Valley Medical Center02-09-2024 Miscellaneous Notes* Telephone Encounter - [...] notify patient. Selene Regalado documented in this encounterUpper Valley Medical Center09-22-2023 History of Present illness Narrative* Kian Monet DO - 05/20/2023 1:20 PM EDT Images from the original note were not included. [facility] [place] SECTION OF REGIONAL CARDIOLOGY OUTPATIENT VISIT DATE 05/20/23 OUTPATIENT VISIT TYPE Established PRIMARY CARE PHYSICIAN: Yris Suarez MD ([facility]) [facility] [place] [address] HISTORY OF PRESENT ILLNESS: Ms. Roque is [...] monitoring statin therapy Z51.81 Z79.892 6. Ex-smoker Z87.897 PLAN AND RECOMMENDATION: Carotid stenosis is mild [...] HISTORY Diagnosis Date Breast cancer (HCC) Left; ER/UT+ GERD (gastroesophageal reflux disease) PAST SURGICAL HISTORY [...] Kian Monet DO 05/20/23 documented in this encounterUpper Valley Medical Center05-01-2023 History of Present illness Narrative* Kurt Condon MD - 12/27/2022 10:30 AM EDT Images from the original note were not included. Radiation Oncology - Follow Up Note PATIENT NAME: Morelia Roque PATIENT DIAGNOSIS/PATIENT IDENTIFICATION: Ms. 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 This document has been created with the use of voice recognition technology. It may contain inaccuracies, misspellings, inaccurate syntax or inappropriate word context that are a result of the inadequacies/shortcomings of said technology/software. documented in this encounterUpper Valley Medical Center03-23-2023 History of Present illness Narrative* Kian Monet DO - 11/18/2022 1:59 PM EDT Images from the original note were not included. [facility] [place] SECTION OF REGIONAL CARDIOLOGY OUTPATIENT VISIT DATE 11/18/22 OUTPATIENT VISIT TYPE Established PRIMARY CARE PHYSICIAN: Yris Suarez MD ([facility]) [address] [place] [address] HISTORY OF PRESENT ILLNESS: Ms. 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 Authorizing Provider: SELENE OTERO APRN.[facility] * Telephone Encounter - Radha Llanos MA [...] to pharmacy. No need to notify patient. aMri Jones Ma documented in this encounterUpper Valley Medical Center05-02-2022 History of Present illness Narrative* Kurt Condon MD - 12/28/2021 11:54 PM EDT Radiation Oncology - Follow Up Note PATIENT NAME: Morelia Roque PATIENT Signed by: Kurt Condon MD I spent a total of 20 minutes on the date of the service which included preparing to see the patient, urds-kj-fkqo patient care and counseling and educating the patient/family/caregiver. This document has been created with the use of voice recognition technology. It may contain inaccuracies, misspellings, inaccurate syntax or inappropriate word context that are a result of the inadequacies/shortcomings of said technology/software. documented in this encounterUpper Valley Medical Center04-20-2022 Miscellaneous Notes* Telephone Encounter - Jeaneth Hawk RN - 12/16/2021 10:30 AM EDT GURDEEP Stewart does not have an order. Please sign pended order. Jeaneth Hawk RN * Telephone Encounter - Jeaneth Hawk RN - 12/16/2021 8:57 AM EDT Spoke to pt and she has not had 6 month katja yet. SHe will call [facility] today and then call us back to let us know when she is set up. PSS- please cancel RV for 12/17 and reschedulef or after mammogram. Jeaneth Hawk RN documented in this encounterUpper Valley Medical Center04-05-2022 History of Present illness Narrative* Patricia Young APRN.[facility] CONSULTANT - 12/01/2021 1:46 PM EDT Images from the original note were not included. [facility] [place] Lisa Olmedo Department of Cardiovascular Medicine SECTION [...] HISTORY Diagnosis Date Breast cancer (HCC) Left; ER/UT+ GERD (gastroesophageal reflux disease) PAST SURGICAL HISTORY [...] visit. This note was partially generated with [employer] voice recognition software and may contain errors, including spelling, grammar, syntax and misrecognition of what was dictated, that may not be fully corrected. I appreciate the opportunity to participate in this patient's care. Please do not hesitate to call my office if you have any questions. CONTACT INFORMATION: Patricia Young APRN.CNP Adult Nurse Practitioner iLsa Olmedo Department of Cardiovascular Medicine [facility] [place] [facility] Surgery [facility] Cardiology Consult Team documented in this encounterOhio[facility] note No data available for this section [facility]* Diagnosis Malignant neoplasm of upper-outer quadrant of left breast in female, estrogen receptor positive (HCC)- Primary documented in this encounter [facility]* Diagnosis Bilateral carotid artery stenosis- Primary Occlusion and stenosis of carotid artery without mention of cerebral infarction Mixed hyperlipidemia Elevated blood pressure reading without diagnosis of hypertension documented in this encounter [facility]* Diagnosis Mixed hyperlipidemia Hypomagnesemia Disorders of magnesium metabolism Elevated blood pressure reading without diagnosis of hypertension documented in this encounter [facility]* Diagnosis Bilateral carotid artery stenosis- Primary Occlusion and stenosis of carotid artery without mention of cerebral infarction Elevated blood pressure reading without diagnosis of hypertension Mixed hyperlipidemia Hypomagnesemia Disorders of magnesium metabolism Encounter for monitoring statin therapy Encounter for therapeutic drug monitoring Ex-smoker Personal history of tobacco use, presenting hazards to health documented in this encounter [facility] Center[facility]* Diagnosis Bilateral carotid artery stenosis- Primary Occlusion and stenosis of carotid artery without mention of cerebral infarction Elevated blood pressure reading without diagnosis of hypertension Mixed hyperlipidemia Hypomagnesemia Disorders of magnesium metabolism Encounter for monitoring statin therapy Encounter for therapeutic drug monitoring Ex-smoker Personal history of tobacco use, presenting hazards to health documented in this encounter [facility]* Diagnosis Mixed hyperlipidemia Elevated [...] hazards to health documented in this encounter [facility]* Diagnosis Malignant neoplasm of upper-outer quadrant of left breast in female, estrogen receptor positive (HCC)- Primary documented in this encounter [facility]* Diagnosis Primary hypertension- Primary Unspecified essential hypertension Mixed hyperlipidemia Hypomagnesemia Disorders of magnesium metabolism Bilateral carotid artery stenosis Occlusion and stenosis of carotid artery without mention of cerebral infarction Ex-smoker Personal history of tobacco use, presenting hazards to health documented in this encounter [facility]* Diagnosis Primary hypertension- Primary Unspecified essential hypertension Mixed hyperlipidemia Hypomagnesemia Disorders of magnesium metabolism Low magnesium level Bilateral carotid artery stenosis Occlusion and stenosis of carotid artery without mention of cerebral infarction Encounter for monitoring statin therapy Encounter for therapeutic drug monitoring Ex-smoker Personal history of tobacco use, presenting hazards to health documented in this encounter [facility] general Narrative - Reported* Type Description Date Medical History UTI due to ESBL klebsiella Medical HistoryTIAMedical Historymalignant neoplasm left breastMedical History depressionMedical HistoryosteopeniaMedical HistoryGERDMedical Historycolon adenocarcinomaMedical HistorylipidemiaSurgical Historyascending cholangiitis colon [id number] Historycholecystectomy GTx Other Hospital Discharge instructions No data available for this section [facility] CenterProgress note No data available for this section [facility] CenterReason for referral (narrative)* Diagnostic Procedure Only (Routine) - Pending ReviewSpecialtyDiagnoses / Procedures Referred By ContactReferred To ContactBR IMAGING Diagnoses Malignant neoplasm of upper-outer quadrant of left breast in female, estrogen receptor positive (HCC) Procedures KATJA DIAGNOSTIC BILAT DIAGNOSTIC MAMMOGRAPHY COMPUTER-AIDED DETCJ Kurt Stallings MD [address] [place] [address] [place] [address] [facility] [address] [place] [address] Referral IDStatusReasonStart DateExpiration DateVisits RequestedVisits [id number] Review Auto-Generated Referral / [facility] for referral (narrative)* Diagnostic Procedure Only (Routine) - Pending ReviewSpecialtyDiagnoses / ProceduresReferred By Contact Referred To ContactBR IMAGING Diagnoses Malignant neoplasm of upper-outer quadrant of left breast in female, estrogen receptor positive (HCC) Procedures KATJA DIAGNOSTIC BILAT DIAGNOSTIC MAMMOGRAPHY COMPUTER-AIDED DETCJ BI Kurt Condon MD [address] [place] [address] [place] [address] [facility] [address] [place] [phone] Referral IDStatusReasonStart DateExpiration DateVisits RequestedVisits [id number] Review Auto-Generated Referral / [facility] for referral (narrative)* Outpatient Procedure (Routine) - Pending ReviewSpecialtyDiagnoses / ProceduresReferred By ContactReferred To [facility] Diagnoses Bilateral carotid artery stenosis Procedures US CAROTID ARTERIES ZEKE VAS LAB DUPLEX SCAN EXTRACRANIAL ART COMPL BI STUDY Kian Monet DO [address] [place] [address] [facility] [place] [address] [place] [address] Referral IDStatusReasonStart DateExpiration DateVisits RequestedVisits [id number] Review Auto-Generated Referral / * Outpatient Procedure (Routine) - AuthorizedSpecialtyDiagnoses / Procedures Referred By ContactReferred To [facility] Diagnoses Bilateral carotid artery stenosis Elevated blood pressure reading without diagnosis of hypertension Procedures ECG COMPLETE ECG ROUTINE ECG W/LEAST 12 LDS W/I&R Kian Monet DO [address] [place] [address] [facility] [address] [place] [address] Referral IDStatusReasonStforest lakes DateExpiration DateVisits RequestedVisits [id number] Auto-Generated Referral / [facility] for referral (narrative)* Diagnostic Procedure Only (Routine) - Pending ReviewSpecialtyDiagnoses / ProceduresReferred By Contact Referred To ContactBR IMAGING Diagnoses Malignant neoplasm of upper-outer quadrant of left breast in female, estrogen receptor positive (HCC) Procedures KATJA DIAGNOSTIC BILATERAL DIAGNOSTIC MAMMOGRAPHY COMPUTER-AIDED DETCJ Kurt Stallings MD [address] [place] [address] [place] [address] [facility] [address] [place] [phone] Ref[facility]Status[facility] DateExpiration DateVisits RequestedVisits [id number] Review Auto-Generated Referral / [facility] for referral (narrative)* Outpatient Procedure (Routine) - AuthorizedSpecialtyDiagnoses / ProceduresReferred By ContactReferred To [facility] Diagnoses Bilateral carotid artery stenosis Mixed hyperlipidemia Procedures ECG COMPLETE ECG ROUTINE ECG W/LEAST 12 LDS W/I&R Kian Monet DO [address] [place] [address] [facility] [address] [place] [address] Referral [facility]Status[facility] DateExpiration DateVisits RequestedVisits [id number] Auto-Generated Referral / [facility] for referral (narrative)* Outpatient Procedure (Routine) - AuthorizedSpecialtyDiagnoses / ProceduresReferred By ContactReferred To [facility] Diagnoses Bilateral carotid artery stenosis Procedures US CAROTID ARTERIES ZEKE VAS LAB DUPLEX SCAN EXTRACRANIAL ART COMPL BI STUDY Kian Monet, [address] [place] [address] [address] Referral IDStatusReasonStart DateExpiration DateVisits RequestedVisits [id number] Auto-Generated Referral * Outpatient Procedure (Routine) - Pending ReviewSpecialtyDiagnoses / Procedures Referred By ContactReferred To [facility] Diagnoses Bilateral carotid artery stenosis Primary hypertension Hypomagnesemia Procedures ECG COMPLETE ECG ROUTINE ECG W/LEAST 12 LDS W/I&R Kian Monet, [address] [place] [address] [address] Referral IDStatusReasonStart DateExpiration DateVisits RequestedVisits [id number] Review Auto-Generated Referral [facility] for referral (narrative)* Diagnostic Procedure Only (Routine) - Pending ReviewSpecialtyDiagnoses / ProceduresReferred By Contact Referred To ContactBR IMAGING Diagnoses Malignant neoplasm of upper-outer quadrant of left breast in female, estrogen receptor positive (HCC) Procedures KATJA DIAGNOSTIC BILATERAL DIAGNOSTIC MAMMOGRAPHY COMPUTER-AIDED DETCJ Kurt Stallings MD [address] [place] [address] [place] [address] [facility] [address] [place] [phone] Referral IDStatusReasonStart DateExpiration DateVisits RequestedVisits [id number] Review Auto-Generated Referral / [facility] CenterReason for referral (narrative)No reason for referral information availableMetrohealth Main Campus Medical Center Work Phone: Summary Purpose Family History Relationship [...] or prosecute any alcohol or drug abuse patient.[facility] CenterIn the event this information is protected by the Federal Confidentiality of Alcohol and Drug Abuse Patient Records regulations: The Federal rules restrict any use of the information to criminally investigate or prosecute any alcohol or drug abuse patient.[facility] CenterIn the event this information is protected by the Federal Confidentiality of Alcohol and Drug Abuse Patient Records regulations: The Federal rules restrict any use of the information to criminally investigate or prosecute any alcohol or drug abuse patient.[facility] CenterIn the event this information is protected by the Federal Confidentiality of Alcohol and Drug Abuse Patient Records regulations: The Federal rules restrict any use of the information to criminally investigate or prosecute any alcohol or drug abuse patient.[facility] CenterIn the event this information is protected by the Federal Confidentiality of Alcohol and Drug Abuse Patient Records regulations: The Federal rules restrict any use of the information to criminally investigate or prosecute any alcohol or drug abuse patient.[facility] CenterIn the event this information is protected by the Federal Confidentiality of Alcohol and Drug Abuse Patient Records regulations: The Federal rules restrict any use of the information to criminally investigate or prosecute any alcohol or drug abuse patient.[facility] CenterIn the event this information is protected by the Federal Confidentiality of Alcohol and Drug Abuse Patient Records regulations: The Federal rules restrict any use of the information to criminally investigate or prosecute any alcohol or drug abuse patient.[facility] CenterIn the event this information is protected by the Federal Confidentiality of Alcohol and Drug Abuse Patient Records regulations: The Federal rules restrict any use of the information to criminally investigate or prosecute any alcohol or drug abuse patient.[facility] CenterIn the event this information is protected by the Federal Confidentiality of Alcohol and Drug Abuse Patient Records regulations: The Federal rules restrict any use of the information to criminally investigate or prosecute any alcohol or drug abuse patient.[facility] CenterIn the event this information is protected by the Federal Confidentiality of Alcohol and Drug Abuse Patient Records regulations: The Federal rules restrict any use of the information to criminally investigate or prosecute any alcohol or drug abuse patient.[facility] CenterIn the event this information is protected by the Federal Confidentiality of Alcohol and Drug Abuse Patient Records regulations: The Federal rules restrict any use of the information to criminally investigate or prosecute any alcohol or drug abuse patient.[facility] CenterIn the event this information is protected by the Federal Confidentiality of Alcohol and Drug Abuse Patient Records regulations: The Federal rules restrict any use of the information to criminally investigate or prosecute any alcohol or drug abuse patient.[facility] CenterIn the event this information is protected by the Federal Confidentiality of Alcohol and Drug Abuse Patient Records regulations: The Federal rules restrict any use of the information to criminally investigate or prosecute any alcohol or drug abuse patient.[facility] Reason for Visit (unrecogniz ed section and content) ReasonCommentsFuture AppointmentReasonCommentsCardiology Follow UpReasonComments Breast CancerReasonOnset DateCommentsRefill Udortgy60/05/2022ReasonCommentsCARD Follow Up 6 MonthReasonCommentsCARD Follow Up 6 MonthReasonOnset DateComments Refill Behqhwp70/09/2024ReasonCommentsCARD Follow Up 3 Month Care Teams (unrecognized sec tion and content) Team MemberRelationshipSpecialtyStart DateEnd Date Yris Suarez MD [address] [place] [phone] PCP - GeneralFamily Klkyusus23/30/11Team MemberRelationshipSpecialtyStart Date End Date Yris Suarez MD [address] [place] [place] [address] PCP - GeneralFamily Ycfbcllq72/30/11Team MemberRelationshipSpecialtyStart Date End Date Yris Suarez MD [address] [place] [place] [address] PCP - GeneralFamily Lfiaekvo61/30/11Team MemberRelationshipSpecialtyStart Date End Date Yris Suarez MD [address] [place] [place] [place] [address] PCP - GeneralFamily Jxejmpdp17/30/11Team MemberRelationshipSpecialtyStart Date End Date Yris Suarez MD [address] [place] [place] [address] PCP - GeneralFamily Ypslwtdx24/30/11Team MemberRelationshipSpecialtyStart Date End Date Yris Suarez MD [address] [place] [place] [address] PCP - GeneralFamily Znvvfymx08/30/11Team MemberRelationshipSpecialtyStart Date End Date Yris Suarez MD [address] [place] [place] [address] PCP - GeneralFamily Xcecorfq57/30/11Team MemberRelationshipSpecialtyStart Date End Date Yris Suarez MD [address] [place] [place] [address] PCP - GeneralFamily Hujvgkym67/30/11Team MemberRelationshipSpecialtyStart Date End Date Yris Suarez MD [address] [place] [place] [address] PCP - GeneralFamily Yoyvmlos51/30/11Team MemberRelationshipSpecialtyStart Date End Date Yris Suarez MD [address] [place] [place] [address] PCP - GeneralFamily Purfbkvf01/30/11Team MemberRelationshipSpecialtyStart Date End Date Yris Suarez MD [address] [place] [place] [address] PCP - GeneralFamily Tvoaffjc11/30/11Team MemberRelationshipSpecialtyStart Date End Date Yris Suarez MD [address] [place] [address] PCP - GeneralFamily Xjtkjydw99/30/11Team MemberRelationshipSpecialtyStart Date End Date Yris Suarez MD [address] [place] [place] [address] (work) [facility] Woytrqsv18/30/11 Team Status: Active Member Role Status Dates [...] and content) DATE CREATED AUTHOR 12/25/2022 [facility] DATE CREATED AUTHOR AUTHOR'S ORGANIZ ATION 01/13/2025 [facility] DATE CREATED AUTHOR AUTHOR'S ORGANIZ ATION 01/24/2025 [facility] Goals (unrecognized section and content) Goals [...] BE BASED ON THE PRIMARY CLINICAL RECORDS. [employer] provides no warranty or guarantee of the accuracy or completeness of information in this document.
[2025-08-09 04:07] LABS: Vitamin B12 214 pg/mL (232-1245)
== END 2025-08-08 10:42 | disposition home or self-care (01) ==
LOC: LAB 10:45
PROVIDERS: PCP Family Medicine; Visit Provider Psychiatry & Neurology Neurology
DX: G30.1 Alzheimer's disease with late onset (principal); F02.C0 Dementia in other diseases classified elsewhere, severe, without behavioral disturbance, psychotic disturbance, mood disturbance, and anxiety
CPT/HCPCS: 36415; 82607